=== PATIENT | male | born 1935 | race Caucasian/White ===

== ENCOUNTER → 2018-05-08 | Outpatient (CLI) | payer OTHER, MEDICARE ==
[~2018-05-08] MED LIST: AMOX500C3 PO; ASCO1CAP3 PO; ASPCH81X PO; CALC950T5 PO; CHOL20009 PO; CYAN30003 SC; DULO-24 PO; FERR1TAB23 PO; FOLI1TAB8 PO; FRS/40 PO; METO50TA8 PO; MISCCAP80 PO; MULT-506 PO; PANT40TA PO; PRED-301 PO; RAMI10CA PO; SIMV80TA2 PO; TRAM-10 PO; TYLOTC500 PO
[2018-05-08 13:48] LABS: ALT/SGPT 27 U/L (12-78); AST/SGOT 18 U/L (15-37); BLOOD UREA NITROGEN 18 mg/dl (7-18); CALCIUM 8.7 mg/dl (8.5-10.1); CARBON DIOXIDE 28 mmol/L (21-32); CHOLESTEROL 134 mg/dl (0-200); CREATININE 0.89 mg/dl (0.60-1.40); GLUCOSE 102 mg/dl (70-99); LDL CHOLESTEROL CALCULATED 71 mg/dl; POTASSIUM 4.3 mmol/L (3.5-5.1); SODIUM 136 mmol/L (136-145)
== END | disposition home or self-care (01) ==
LOC: C.LABPBG 09:29
PROVIDERS: ATTEND Family Medicine
DX: E78.5 Hyperlipidemia, unspecified (principal); I10 Essential (primary) hypertension; I25.10 Atherosclerotic heart disease of native coronary artery without angina pectoris; R53.83 Other fatigue

== ENCOUNTER 2018-11-20 11:08 | Inpatient (IN) ==
[2018-11-20 12:06] LABS: Basophils # (auto) 0.01 K/uL (0-0.2); Basophils % (auto) 0.1 %; Eosinophils # (auto) 0.03 K/uL (0-0.5); Eosinophils % (auto) 0.3 %; Hematocrit (blood only) 34.6 % (42-52); Hemoglobin 10.8 g/dL (14.0-18.0); Immature Granulocytes # (auto) 0.05 K/uL (0.00-0.02); Immature Granulocytes % (auto) 0.5 %; Lymphocytes % (auto) 17.2 %; Mean Corpuscular Hgb Conc 31.2 g/dL (32-36); Mean Corpuscular Volume 103.6 fL (80-100); Monocytes # (auto) 0.62 K/uL (0.11-0.59); Monocytes % (auto) 5.6 %; Neutrophils # (auto) 8.42 K/uL (1.4-6.5); Neutrophils % (auto) 76.3 %; Platelet Count 233 K/uL (130-400); RDW Coefficient of Variation 14.1 % (11.5-14.5); RDW Standard Deviation 53.2 fL (36.4-46.3); Red Blood Count 3.34 M/uL (4.7-6.1); White Blood Count 11.03 K/uL (4.8-10.8)
[2018-11-20 12:13] LABS: Albumin Level 3.4 gm/dl (3.4-5.0); BUN Creatinine Ratio 34.8 (10-20); Calcium 8.8 mg/dl (8.5-10.1); Creatinine Clr Calc Pharmacy 65.3 ml/min; Est GFR (African American) 66.7; Est GFR (Non-African American) 57.5; Magnesium 2.3 mg/dl (1.8-2.4); Potassium 4.2 mmol/L (3.5-5.1)
[2018-11-20 12:22] LABS: Albumin Globulin Ratio 0.9 (0.9-2); Bilirubin,Total 0.6 mg/dl (0.2-1); Globulin 3.9 gm/dl (2.5-4.0); Total Protein 7.3 gm/dl (6.4-8.2); Troponin I 0.023 ng/ml (0-0.045)
[2018-11-20 12:23] LABS: INR 1.1 (0.9-1.1); Prothrombin Time 11.3 Seconds (9.0-12.0)
--- NOTE | 2018-11-20 12:32 | XRay Report ---
SINGLE VIEW CHEST CLINICAL HISTORY: Atrial fibrillation. FINDINGS: 2 AP, portable, upright chest radiographs are compared to study dated 10/14/2015. The examin ation is degraded by portable technique and patient rotation. The heart is enlarged and there is ath erosclerotic calcification of the thoracic aorta. There is pulmonary vascular congestion. No airspace consolidation or large pleural effusion is identified. No pneumothorax is seen. The skeletal structu res are osteopenic. The bony thorax is grossly intact. A surgical anchor is noted in the left humeral head. IMPRESSION: 1. Cardiomegaly with evidence of mild congestive failure. 2. No airspace consolidation or large pleural effusion is identified. Electronically signed by: Los Story M.D. 11/20/2018 12:30 PM
[2018-11-20] MEDS: dilTIAZem HCl 125 MG in DEXTROSE 5% 100 ML IV SCH ×2 (12:47→21:58)
[2018-11-20] MEDS ORDERED: Heparin IV Low Dose *NO* Bolus IV ONE (13:03)
[2018-11-20] MEDS ORDERED: HEPARIN 25000 UNIT/500 ML D5W IV ONE (13:24)
[2018-11-20 13:28] LABS: Partial Thromboplastin Ratio 0.8; Partial Thromboplastin Time 22.3 Seconds (21.0-31.0)
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
[2018-11-20] MEDS ORDERED: ACETAMINOPHEN 325 MG TAB PO PRN (16:26)
[2018-11-20] MEDS ORDERED: CYCLOBENZAPRINE HCL 5 MG TAB PO PRN (16:26)
[2018-11-20] MEDS ORDERED: POLYETHYLENE (MIRALAX) 17 GM PACK PO PRN (16:26)
[2018-11-20] MEDS ORDERED: ONDANSETRON INJ 2 MG/ML 2 ML VIAL IV PRN (16:26)
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
[2018-11-20 18:11] LABS: Partial Thromboplastin Time 26.8 Seconds (21.0-31.0)
[2018-11-20] MEDS: APIXABAN 5 MG TABLET PO SCH (18:57)
[2018-11-20] MEDS: azaTHIOprine 50 MG TAB PO SCH ×2 (18:58→21:59)
[2018-11-20] MEDS: METOPROLOL SUCC 50MG EXT REL TAB PO SCH (20:09)
[2018-11-20] MEDS: DULOXETINE HCL 20 MG CAP PO SCH (20:09)
[2018-11-20] MEDS: Heparin IV Standard *NO* Bolus IV SCH ×2 (20:13→20:14)
[2018-11-21] MEDS: APIXABAN 5 MG TABLET PO SCH (05:28)
[2018-11-21 06:48] LABS: Hematocrit (blood only) 35.1 % (42-52); Hemoglobin 10.9 g/dL (14.0-18.0); Mean Corpuscular Hgb Conc 31.1 g/dL (32-36); Mean Corpuscular Volume 102.9 fL (80-100); Mean Platelet Volume 10.9 fL (7.4-10.4); Platelet Count 258 K/uL (130-400); RDW Coefficient of Variation 14.3 % (11.5-14.5); RDW Standard Deviation 53.1 fL (36.4-46.3); Red Blood Count 3.41 M/uL (4.7-6.1); White Blood Count 12.31 K/uL (4.8-10.8)
[2018-11-21 07:24] LABS: BUN Creatinine Ratio 36.9 (10-20); Calcium 8.8 mg/dl (8.5-10.1); Creatinine Clr Calc Pharmacy 67.7 ml/min; Est GFR (African American) 70.3; Est GFR (Non-African American) 60.6; Potassium 4.2 mmol/L (3.5-5.1)
[2018-11-21] MEDS: DULOXETINE HCL 20 MG CAP PO SCH (08:03)
[2018-11-21] MEDS: azaTHIOprine 50 MG TAB PO SCH ×2 (08:03→13:54)
[2018-11-21] MEDS: METOPROLOL SUCC 50MG EXT REL TAB PO SCH (08:04)
[2018-11-21] MEDS ORDERED: CHOLECALCIFEROL 1,000 UNITS TAB PO SCH (09:00)
[2018-11-21] MEDS ORDERED: CALCIUM CITRATE 950 MG TAB PO SCH (09:00)
[2018-11-21] MEDS ORDERED: FUROSEMIDE 40 MG TAB PO SCH (09:00)
[2018-11-21] MEDS ORDERED: CYANOCOBALAMIN 500 MCG TABLET (VITAMIN B-12) PO SCH (09:00)
[2018-11-21] MEDS ORDERED: ENALAPRIL MALEATE 10 MG TAB PO SCH (09:00)
[2018-11-21] MEDS ORDERED: PANTOprazole 40 MG TAB PO SCH (09:00)
[2018-11-21] MEDS ORDERED: METOPROLOL SUCC 50MG EXT REL TAB PO SCH (09:00)
[2018-11-21] MEDS ORDERED: ASPIRIN 81 MG ECTAB PO SCH (09:00)
[2018-11-21] MEDS ORDERED: FOLIC ACID 400 MCG TAB PO SCH (09:00)
[2018-11-21] MEDS ORDERED: SIMVASTATIN 80 MG TAB PO SCH (09:00)
[2018-11-21] MEDS ORDERED: FERROUS SULFATE 325 MG TAB PO SCH (09:00)
[2018-11-21] MEDS: dilTIAZem HCl 125 MG in DEXTROSE 5% 100 ML IV SCH (10:00)
--- NOTE | 2018-11-21 13:10 | Discharge Summary ---
Date of Service November 21, 2018 Admission HPI Per Admitting Provider 83 yo male with history of AK with two stents in 2006, follows with Dr. Davila as outpatient, was sent to the ED for atrial fibrillation discovered at his PCP office. The patient was at the office for routine follow up, check up. He said he has been doing well. He had a check up with Dr. Davila in June, had echo that was normal, he takes his Metoprolol and aspirin as prescribed. He never has angina. In the office his HR was 140 on pulse ox and an EKG showed atrial fibrillation with rates 140. In the ED he was placed on the monitor and remained in afib. Cardizem bolus and drip started and HR responded appropriately to the low 100's. He took his Toprol this morning. 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 He denies feeling any palpitations or chest pressure the past three days. No presyncope symptoms. 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 He has a strong family history of atherosclerosis. Father and uncles on father side from AK's. Had a son who as a result of large stroke at age 42. Admission Exam Per Admitting Provider Constitutional: WD/WN, vitals as above + obese Eyes: PERRL, conjunctivae normal, anicteric sclerae ENMT: external ear and nose normal, oropharynx normal Neck: trachea midline, no thyromegaly Respiratory: normal respiratory effort, lungs clear to auscultation Cardiovascular: Rate/Rhythm: + tachycardic; + abnormal rhythm (irregular irregular) Heart Sounds: normal S1 and normal S2; no murmur Vessels: normal peripheral pulses Extremities: no pedal edema Gastrointestinal (Abdomen): normal bowel sounds, soft, nontender, no hepatosplenomegaly Musculoskeletal: no cyanosis or clubbing, extremities motor strength 5/5 Skin: no rashes, warm and dry Neurologic: patellar DTR's 2+ bilat, sensation intact and PERRL, EOMI, accommodation nl, no face palsy, no dysarthria Psychiatric: A+Ox3, euthymic affect Lymphatic: no cervical or axillary lymphadenopathy Principal Diagnosis Atrial fibrillation with RVR Discharge Exam General Appearance: Awake, alert & oriented, comfortable in general, NAD. CV: +S1S2 irregularly irregular, no murmur. Pulm: Clear to auscultation throughout. Abdomen: +BS, soft, non-tender, non-distended. Extremities: Moving all extremities naturally and easily. Chronic bilateral lower extremity edema with associated skin changes versus vasculitis. Neuro: Patient has baseline decreased sensation in his right arm. Otherwise no acute focal neuro deficits noted. Discharge Data Allergies Allergy/AdvReac Type Severity Reaction Status Date / Time bee venom protein (honey bee) Allergy Unknown ANAPHYLAXIS Unverified 11/20/18 11 :57 rofecoxib Allergy Unknown PULMONARY Unverified 11/20/18 11:57 EDEMA dapsone Allergy Unknown Unverified 11/20/18 11:57 ALLOPURINAL Allergy Mild RASH Uncoded 11/20/18 11:57 Consultations Initial cardiology assessment and plan on 20 November 2017 New onset atrial fibrillation: Heart rate is better controlled on diltiazem at 10 milligrams/hour. Will increase metoprolol to 50 mg twice daily. If heart rate needs further control, would then consider further titration or initiation of oral diltiazem. Wean diltiazem drip as able. We discussed the diagnosis and treatment strategies. Recommend continuation of rate control strategy for now. Onset is not completely known, but suspected greater than 48 hours. We discussed the importance of stroke risk reduction with anticoagulation therapy. He is agreeable. Start Eliquis 5 mg twice daily and can discontinue heparin drip ( nursing staff has noted that blood draws are difficult). (2) CAD (coronary artery disease): No angina. He is status post PCI in 2008. Continue aspirin therapy. Continue beta-ophelia and statin therapy. (3) Dyspnea on exertion: Likely secondary to atrial fibrillation with rapid ventricular response. He does not appear to be significantly hypervolemic. Continue home dose of diuretic therapy. Given symptoms, it would be reasonable to repeat an echocardiogram to evaluate for tachycardia induced cardiomyopathy. Procedures Performed Portable chest x-ray on 20 November 2018 IMPRESSION: 1. Cardiomegaly with evidence of mild congestive failure. 2. No airspace consolidation or large pleural effusion is identified. Hospital Course (1) New onset atrial fibrillation: 83-year-old male was admitted on 20 November 2018 after being referred from his block sawyer's office due to newly diagnosed atrial fibrillation. Atrial fibrillation with RVR: No reports of anginal symptoms. In the block sawyer office had a rates in the 140�s. Unknown time of onset. In ED, given Cardizem bolus and drip. TnI negative x 3. Normal TSH. Cardiology consulted, see related notes. Recommended rate control and starting Eliquis. This morning's EKG is A. fib with rate of 90. - Had his metoprolol increased from 50 mg daily to BID. - Patient reportedly does not have prescription drug coverage, so will need to work with his cardiology office on DOAC options vs coumadin going forward. Dyspnea on exertion: On ROS on arrival, patient perhaps had some recent mild SOB. Chest x-ray shows no acute infiltrates but is suggestive of mild congestive failure. BNP 2711. Jun 2018 TTE noted EF 55-60%, mild concentric LVH, mild TR. At home is on lasix 40 mg daily. At present says he has no SOB at rest but still a little with walking. - Repeat echocardiogram for here ordered. Results not available at time of discharge. Transaminitis: Minimal elevations in AST (57) and ALT (123). Would benefit from a routine outpatient follow-up check. Foot ulcers: PMH same. Followed by the wound clinic as an outpatient. Provided some wound care as inpatient as well. Ongoing medical issues: - CAD, AK in 2006 s/p stents x 2 in 2008: Continue aspirin, metoprolol, and simvastatin. Also on enalapril. - Chronic lower extremity edema, vasculitis: On home azathioprine and prednisone taper (patient says is towards the end of the 21 day course). - Hypertension: See �CAD� above. - Hyperlipidemia: On simvastatin. 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 - Anemia/MGUS: Follows with hematology in [place]. On home iron and vitamin B12. - Anxiety: On duloxetine. - Gout: Stable. - Morbid obesity: BMI 46.4. (2) Dyspnea on exertion: (3) Transaminitis: (4) Foot ulcer: (5) CAD (coronary artery disease): (6) Lower extremity edema: (7) HTN (hypertension): (8) Dyslipidemia: (9) GERD (gastroesophageal reflux disease): (10) Anemia: (11) Anxiety: (12) Gout: (13) Obese: Total Time Total Time Spent Total Time Spent (In Minutes): > 30 min Discharge Plan Discharge Items Patient Disposition: Home - Self-Care Reason For Visit: ATRIAL FIBRILLATION Discharge Diagnosis: Atrial fibrillation with RVR Discharge Goals: Improve function and Increase independence Activity: Per 'Additional Instructions' section Non-emergency contact: Primary Care Provider and Granulator Operator Call non-emergency contact if: you have any medication questions Follow-up/Referrals: Paul Davila MD [Granulator Operator] - 12/09/18 1:30 pm (Please, follow up at [facility] Cardiology Office with Dr. Davila on SundayDecember 09 at 1:30 pm. *If you need to change this appointment, call the office at [phone].) Diana Ventura DO [Primary Care Provider] - 11/25/18 9:40 am (Please, follow up with Dr. Ventura on SundayNovember 25 at 9:40 am. *This office is located in [place] next to [employer]. If you need to change this appointment, call the office at [phone].) Diet: Heart Healthy Add Provider Instructions: You were admitted to the hospital on November 20, 2018 after being referred from your block sawyer office for new onset atrial fibrillation. While in the hospital we evaluated the following issues: Atrial fibrillation with rapid ventricular rate: As we have discussed with you, this is a disorder where the electricity of your heart causes your atria to beat out of sync with your ventricles. This can lead to fast heart rates (and related to palpitations, chest discomfort, and/or difficulty breathing) as well as the risk for a blood clot that could lead to a stroke. - To try to control your heart rate, your metoprolol was increased from 50 mg once per day to 50 mg twice per day. - You were also prescribed a blood thinner called Eliquis. --- From a medicine standpoint, this is a rather safe drug but it will cause you to bleed more easily. If you find that you have even a small cut on your skin, it is important to apply direct pressure for at least 15 minutes. It is important that you do not check during this time if the bleeding is stopped. You can check at the end of the 15 minutes. If it is still bleeding at this time, we recommend that you reapply direct pressure, do not let go, and then be seen in an emergency department. Similarly, if you were to have a severe nosebleed or any bleeding with bowel movements, please go to the nearest emergency department. --- From a financial standpoint, this medication can be expensive if you do not have insurance coverage for it. The case management rn at the hospital have provided for the initial one month supply of this medicine. Please work with your block sawyer at time of outpatient follow-up to determine if you should stay on this medication going forward versus other options. Shortness of breath on exertion: Your shortness of breath with exertion is most likely related to the above atrial fibrillation. Testing of your lungs thus far has not noted any sign of infection. Please follow-up with either your block sawyer or your primary care provider for ongoing monitoring. Of course, if you were to develop any shortness of breath at rest or particular worsening of your shortness of breath you should be seen in an emergency department acutely. Elevated liver enzymes: A routine check of your liver enzymes on admission noted that they were slightly elevated. This is not dangerous but you should have follow-up for this with your primary care provider. Otherwise there should be no acute change in your medications, including that you should continue with your prednisone taper as previously prescribed. Please follow-up with cardiology as has been arranged for you. Please also follow-up with your primary care provider as soon as possible for good close posthospital continuity of care. The emergency department remains available for any bleeding or shortness of breath issues as discussed above, as well as if you were to experience any chest pain, or any other emergent concerns. Prescriptions: New metoprolol succinate 50 mg Tablet Extended Release 24 Hr 50 mg PO BID 30 Days Qty: 60 RF: 0 apixaban [Eliquis] 5 mg Tablet 5 mg PO BID@0600,1800 30 Days Qty: 60 RF: 0 Continue multivitamin Tablet 1 tab PO BID RF: 0 furosemide 40 mg Tablet 40 mg PO DAILY RF: 0 cyanocobalamin (vitamin B-12) 1,000 mcg Tablet 1,000 mcg PO DAILY RF: 0 azathioprine [Imuran] 50 mg Tablet 50 mg PO TID RF: 0 simvastatin 80 mg Tablet 80 mg PO DAILY RF: 0 aspirin [Aspirin Low Dose] 81 mg Tablet,Delayed Release (Dr/Ec) 81 mg PO DAILY RF: 0 tramadol 50 mg Tablet 50 mg PO DIRECTED PRN (Reason: Pain) RF: 0 acetaminophen [Tylenol Extra Strength] 500 mg Tablet 500 mg PO Q4H PRN (Reason: Pain) RF: 0 ascorbic acid (vitamin C) [Vitamin C] 500 mg Tablet 500 mg PO DAILY RF: 0 pantoprazole 40 mg Tablet,Delayed Release (Dr/Ec) 40 mg PO DAILY RF: 0 ferrous sulfate 325 mg (65 mg iron) Tablet 325 mg PO DAILY RF: 0 folic acid 800 mcg Tablet 0.8 mg PO DAILY RF: 0 ramipril 10 mg Capsule 10 mg PO DAILY RF: 0 cyclobenzaprine 5 mg Tablet 5 mg PO TID PRN (Reason: Muscle Spasm) RF: 0 calcium citrate 250 mg calcium Tablet 250 mg PO DAILY RF: 0 cholecalciferol (vitamin D3) [Vitamin D3] 2,000 unit Tablet 2,000 unit PO DAILY RF: 0 testosterone 20.25 mg/1.25 gram (1.62 %) Gel In Metered-Dose Pump 2 pump TRANSDERMAL DAILY RF: 0 lactobacillus combination no.4 [Probiotic] 3 billion cell Capsule 3,000 mmu cells PO DAILY RF: 0 duloxetine 40 mg Capsule,Delayed Release(Dr/Ec) 40 mg PO BID RF: 0 Discontinued metoprolol succinate 50 mg Tablet Extended Release 24 Hr 50 mg PO DAILY RF: 0 Stand-Alone Forms: My [facility]/Other Patient Handouts: Apixaban Oral tablet, Metoprolol Succinate Oral tablet extended-release, AFL/Afib, Stroke Prevent Live W Atrial Fib Discharge Orders: Discharge Order (Routine); Ordered 11/21/18 Ordered By: Wilton Cruz Admission Data Admit Date/Time: 11/20/18 13:17 Attending Provider: Titi Segura Admit Provider: Hermilo Guardado Primary Care Provider: Diana Ventuar Other Providers: Hermilo Guardado ; Paul Davila Service: Telemetry Other Interventions: Discharge Summary Assessment (RN) Last Done: 11/21/18 14:26 DC Date/Time DO NOT enter until pt leaves facility: 11/21/18 15:17 Supervising Physician Co-Signing Physician Notes I personally examined the patient and verified all walters points of history and exam, discussed case, and agree with decision making with Dr Cruz. Feeling better, feeling like his breathing is better. He notes his cardinal symptoms were dyspnea on exertion, and notes that this probably is going back 10 days prior to admission. Rates improved. No new complaints, case discussed with cardiology and input appreciated. Vitals noted, in general he is awake alert oriented x3 pleasant no acute distress. HEENT normocephalic atraumatic mucous members are moist. He is in A. fib but his rate is now controlled. Breathing is unlabored no accessory muscle use good effort. Skin shows no rashes no pallor or icterus. New onset A. fib�rate control, anticoagulation. Discussed risks and benefits of anticoagulation, and all questions answered to the best my ability. He is stable for home Chronic systolic CHF�did not decompensate in spite of atrial fibrillation. Outpatient follow-up Resident Activity Tracking Resident Involvement: Resident Care Provided Care Provided: Adult Hospital Medicine
--- NOTE | 2018-11-21 13:23 | Cardiology Progress Note ---
Date of Service November 21, 2018 Assessment & Plan (1) New onset atrial fibrillation: Heart rate is reasonably controlled at rest on oral beta-ophelia therapy. Diltiazem drip had been discontinued by primary service. He is tolerating increased dose of beta-ophelia. Discussed with nursing staff and she plans on having him walk in the hallway to evaluate heart rate. If heart rate remains adequately controlled and he is not significantly symptomatic, he can be discharged from a cardiac standpoint on current beta-ophelia dose (titrated from home dose) and anticoagulation therapy for stroke risk reduction. We once again discussed the fact that if he remains symptomatic her heart rate is not adequately controlled in the future, after 4 weeks of therapeutic anticoagulation, cardioversion could be considered. Recommend follow-up with Dr. Davila in approximately 2 weeks. (2) CAD (coronary artery disease): No angina. He is status post PCI in 2008. Continue aspirin therapy. Continue beta-ophelia and statin therapy. (3) Dyspnea on exertion: Likely secondary to atrial fibrillation with rapid ventricular response. He does not appear to be significantly hypervolemic. Hopefully when he ambulates in the hallway, his symptoms show improvement with better heart rate control on higher doses of beta-ophelia therapy. If so, no further evaluation recommended at this time. If no improvement, could consider transesophageal echo and cardioversion sooner. Disposition: Upon discharge, recommend follow-up with Dr. Davila. Patient care discussed with Dr. Segura of the primary hospitalist service. Addendum: Echocardiogram was done earlier this morning and reviewed however the patient had already been discharged. Echocardiogram demonstrated mildly reduced biventricular systolic function. There was also mild biatrial dilation, moderate mitral regurgitation, and mild pulmonary hypertension suggested. Additional assessment and plan: 1. Cardiomyopathy: He has mildly reduced LV systolic function, as well as RV systolic function. This could be secondary to tachycardia. Would recommend repeating outpatient echocardiogram after adequate rate control. This can be determined by his primary fruit loader, Dr. Davila. He does not appear to be significantly hypervolemic on examination however if he has continued shortness of breath, would recommend diuresis. For now, heart rate control as above. 2. Mitral regurgitation: Non severe but described as moderate. Follow-up as an outpatient. This should not account for symptoms at this time. 3. Disposition: Cardiology office will notify him of his echo findings. (4) Cardiomyopathy: (5) Mitral regurgitation: Subjective At rest, he denies shortness of breath. He he walked to the restroom to washout and when bending over, he felt a bit short of breath. He had not yet walked in the hallway. He denies chest pain, syncope, near-syncope, palpitations, or worsening edema. He denies bleeding. Review of systems: As above. Physical Exam 2 Vital Signs (Past 24 Hours): Last Vital Signs Temp 36.5 C 11/21/18 11:54 Pulse 84 11/21/18 11:54 Resp 22 11/21/18 11:54 BP 113/65 11/21/18 11:54 Pulse Ox 93 11/21/18 11:54 Physical Exam: Gen.: No acute distress. Alert and oriented. HEENT: Anicteric sclera. Neck: Thick neck, cannot appreciate JVD. Cardiac: Irregularly irregular, but rate controlled. Normal S1-S2. No murmurs, rubs, or gallops. Pulmonary: Clear to auscultation bilaterally without wheezes, rales, or rhonchi. Abdomen: Soft, nontender, nondistended, with normoactive bowel sounds. No bruits noted. Extremities: Trace bilateral lower extremity edema. No cyanosis. Venous stasis changes noted bilateral lower extremities. Psychiatric: Affect appears appropriate. Results & Data Laboratory Results Laboratory Results - last 24 hr 11/20/18 11/20/18 11/20/18 10:20 16:52 17:48 WBC RBC Hgb Hct MCV MCH MCHC RDW Std Deviation RDW Coeff of Phyllis Plt Count MPV APTT 22.3 26.8 PTT Ratio 0.8 1.0 Sodium Potassium Chloride Carbon Dioxide Anion Gap BUN Creatinine Est Cr Clr Drug Dosing Est GFR ( Amer) Est GFR (Non-Af Amer) BUN/Creatinine Ratio Glucose Calcium Troponin I < 0.015 11/21/18 11/21/18 11/21/18 00:13 06:03 06:03 WBC 12.31 H RBC 3.41 L Hgb 10.9 L Hct 35.1 L MCV 102.9 H MCH 32.0 MCHC 31.1 L RDW Std Deviation 53.1 H RDW Coeff of Phyllis 14.3 Plt Count 258 MPV 10.9 H APTT PTT Ratio Sodium 135 L Potassium 4.2 Chloride 100 Carbon Dioxide 30 Anion Gap 6.0 BUN 42 H Creatinine 1.13 Est Cr Clr Drug Dosing 67.7 Est GFR ( Amer) 70.3 Est GFR (Non-Af Amer) 60.6 BUN/Creatinine Ratio 36.9 H Glucose 137 H Calcium 8.8 Troponin I < 0.015 Medications Administered Current Inpatient Medications Acetaminophen (Tylenol) 650 mg PO Q4H PRN PRN Reason: Pain or Fever Stop: 12/20/18 16:25 Last Admin: 11/20/18 20:08 Dose: 650 mg Apixaban (Eliquis) 5 mg PO BID@0600,1800 [facility] Stop: 12/20/18 17:59 Last Admin: 11/21/18 05:28 Dose: 5 mg Aspirin (Ecotrin Ectab) 81 mg PO DAILY [facility] Stop: 12/21/18 08:59 Last Admin: 11/21/18 08:02 Dose: 81 mg Azathioprine (Imuran) 50 mg PO TID [facility] Stop: 12/20/18 16:25 Last Admin: 11/21/18 08:03 Dose: 50 mg Calcium Citrate (Citracal) 950 mg PO DAILY [facility] Stop: 12/21/18 08:59 Last Admin: 11/21/18 08:03 Dose: 950 mg Cyanocobalamin (Vitamin B-12) 1,000 mcg PO DAILY [facility] Stop: 12/21/18 08:59 Last Admin: 11/21/18 08:03 Dose: 1,000 mcg Cyclobenzaprine HCl (Flexeril) 5 mg PO TID PRN PRN Reason: Muscle Spasm Stop: 12/20/18 16:25 Duloxetine HCl (Cymbalta) 40 mg PO BID [facility] Stop: 12/20/18 20:59 Last Admin: 11/21/18 08:03 Dose: 40 mg Enalapril Maleate (Vasotec) 40 mg PO DAILY [facility] Stop: 12/21/18 08:59 Last Admin: 11/21/18 08:02 Dose: 40 mg Ferrous Sulfate (Feosol) 325 mg PO DAILY [facility] Stop: 12/21/18 08:59 Last Admin: 11/21/18 08:03 Dose: 325 mg Folic Acid (Folvite) 800 mcg PO DAILY [facility] Stop: 12/21/18 08:59 Last Admin: 11/21/18 08:02 Dose: 800 mcg Furosemide (Lasix) 40 mg PO DAILY [facility] Stop: 12/21/18 08:59 Last Admin: 11/21/18 08:02 Dose: 40 mg Diltiazem HCl 125 mg/ Dextrose 125 mls @ 10 mls/hr IV .[id number] [facility]; Protocol Stop: 12/20/18 12:14 Last Admin: 11/21/18 10:00 Dose: 10 mg/hr, 10 mls/hr Metoprolol Succinate (Toprol Xl) 50 mg PO BID [facility] Stop: 12/20/18 20:59 Last Admin: 11/21/18 08:04 Dose: 50 mg Miscellaneous (Order Awaiting Action) 1 ea N/A QS [facility] Stop: 12/21/18 00:00 Last Admin: 11/21/18 08:01 Dose: Not Given Ondansetron HCl (Zofran) 4 mg IV Q6H PRN PRN Reason: Nausea Stop: 12/20/18 16:25 Last Admin: 11/21/18 05:31 Dose: 4 mg Pantoprazole Sodium (Protonix) 40 mg PO DAILY [facility] Stop: 12/21/18 08:59 Last Admin: 11/21/18 08:03 Dose: 40 mg Polyethylene Glycol (Miralax Powder Packet) 17 gm PO DAILY PRN PRN Reason: Constipation Stop: 12/20/18 16:25 Simvastatin (Zocor) 80 mg PO DAILY [facility] Stop: 12/21/18 08:59 Last Admin: 11/21/18 08:02 Dose: 80 mg Vitamin D (Vitamin D3) 2,000 units PO DAILY [facility] Stop: 12/21/18 08:59 Last Admin: 11/21/18 08:02 Dose: 2,000 units
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
== END 2018-11-21 15:17 | disposition home or self-care (01) | DRG 309 ==
LOC: ED 11:08 → 2S 13:17 → SUATTDRO 13:17 → 2S 15:04

== ENCOUNTER 2019-03-31 02:35 | Inpatient (IN) ==
[2019-03-31] MEDS ORDERED: FUROSEMIDE 40 MG/4 ML VIAL IV STA (03:18)
[2019-03-31 03:21] LABS: Basophils # (auto) 0.01 K/uL (0-0.2); Basophils % (auto) 0.1 %; Eosinophils # (auto) 0.01 K/uL (0-0.5); Eosinophils % (auto) 0.1 %; Hematocrit (blood only) 23.9 % (42-52); Hemoglobin 7.7 g/dL (14.0-18.0); Immature Granulocytes # (auto) 0.02 K/uL (0.00-0.02); Immature Granulocytes % (auto) 0.3 %; Lymphocytes # (auto) 1.54 K/uL (1.2-3.4); Lymphocytes % (auto) 19.4 %; Mean Corpuscular Hgb Conc 32.2 g/dL (32-36); Mean Platelet Volume 9.3 fL (7.4-10.4); Monocytes # (auto) 0.67 K/uL (0.11-0.59); Monocytes % (auto) 8.4 %; Neutrophils # (auto) 5.68 K/uL (1.4-6.5); Neutrophils % (auto) 71.7 %; Platelet Count 286 K/uL (130-400); RDW Coefficient of Variation 17.7 % (11.5-14.5); RDW Standard Deviation 60.9 fL (36.4-46.3); Red Blood Count 2.49 M/uL (4.7-6.1); White Blood Count 7.93 K/uL (4.8-10.8)
[2019-03-31 03:34] LABS: INR 1.2 (0.9-1.1); Partial Thromboplastin Ratio 0.9; Partial Thromboplastin Time 25.4 Seconds (21.0-31.0); Prothrombin Time 12.4 Seconds (9.0-12.0)
[2019-03-31 03:39] LABS: Albumin Level 3.4 gm/dl (3.4-5.0); BUN Creatinine Ratio 22.5 (10-20); Calcium 8.8 mg/dl (8.5-10.1); Creatinine Clr Calc Pharmacy 55.7 ml/min; Est GFR (African American) 62.8; Est GFR (Non-African American) 54.2; Potassium 3.4 mmol/L (3.5-5.1)
[2019-03-31 03:41] LABS: Albumin Globulin Ratio 0.7 (0.9-2); Bilirubin,Total 0.6 mg/dl (0.2-1); Globulin 4.8 gm/dl (2.5-4.0); Total Protein 8.2 gm/dl (6.4-8.2)
[2019-03-31 04:14] LABS: Ovalocytes 1+
[2019-03-31 04:59] LABS: Troponin I 0.019 ng/ml (0-0.045)
[2019-03-31] MEDS ORDERED: PROTHROMBIN COMP CONC- KCENTRA 2,000 UNITS in SYRINGE 0 ML IV ONE (05:00)
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
[2019-03-31] MEDS ORDERED: METOPROLOL TARTRATE 1 MG/ML VIAL IV PRN (05:58)
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
[2019-03-31] MEDS ORDERED: ICU PROTOCOL FOR HYPERGLYCEMIA PRN (06:06)
[2019-03-31] MEDS ORDERED: ACETAMINOPHEN 1000 MG/100 ML IV IV PRN (06:06)
[2019-03-31] MEDS ORDERED: HYDROCORTISONE SOD SUCCINATE 100 MG/2 ML VIAL IV SCH (06:06)
[2019-03-31] MEDS ORDERED: NSS + 20MEQ KCL 20 MEQ/1,000 ML BAG IV SCH (06:15)
[2019-03-31] MEDS ORDERED: ALBUT/IPRATROP 3MG/0.5MG NEB 3 ML VIAL NEB PRN (06:20)
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
[2019-03-31 07:10] LABS: Hematocrit (blood only) 24.1 % (42-52); Hemoglobin 7.7 g/dL (14.0-18.0)
--- NOTE | 2019-03-31 07:10 | CT Scan Report ---
CT abd pelvis wo con CT DOSE: 2697.44 mGy.cm HISTORY: anemia, coagulopathy, assess retroperitoneal bld TECHNIQUE: Multiaxial CT images of the abdomen and pelvis were performed without contrast. A dose lo wering technique was utilized adhering to the principles of ALARA. COMPARISON STUDY: None. FINDINGS: Lung bases show diffuse bilateral bibasilar parenchymal infiltrative changes. Liver spleen and pancreas appear unremarkable. Mild atrophy of the kidneys. No evidence for nephrocalcinosis or hydronephrosis. 3.4 cm infrarenal abdominal aortic aneurysm. Moderate atherosclerotic change of the pelvic arterial v ascular structures. Bladder is midline. Bowel pattern overall is nonobstructive. IMPRESSION: 1. No acute abnormality. 2. 3.4 cm aneurysm of abdominal aorta. 3. Study overall is otherwise negative. 4. Mild renal atrophy. 6. Bibasilar parenchymal infiltrative changes versus pulmonary edema The above report was generated using voice recognition software. It may contain grammatical, syntax or spelling errors. Electronically signed by: Manuel Cornejo M.D. 03/31/2019 7:09 AM
--- NOTE | 2019-03-31 07:39 | XRay Report ---
XR chest 1V portable HISTORY: Dyspnea COMPARISON: Chest 11/20/2018. FINDINGS: Interval development of bilateral perihilar airspace opacities most pronounced at the lung bases. The heart remains mildly enlarged. No pneumothorax. Trace bilateral pleural effusions. Healing left anterior rib fractures. IMPRESSION: Bilateral perihilar airspace opacities, cardiomegaly, trace bilateral pleural effusions. This favors pulmonary edema. A pneumonia could also have a similar appearance. Electronically signed by: Shlomo Bhatia M.D. 03/31/2019 7:37 AM
[2019-03-31] MEDS: ALBUT/IPRATROP 3MG/0.5MG NEB 3 ML VIAL NEB SCH ×4 (07:48→19:45)
--- NOTE | 2019-03-31 07:51 | CT Scan Report ---
CT chest wo con CT DOSE: HISTORY: hypoxia, hemoptysis TECHNIQUE: Multiaxial CT images of the chest were performed without contrast. A dose lowering techni que was utilized adhering to the principles of ALARA. COMPARISON: Chest 03/31/2019. FINDINGS: Mild respiratory motion artifact. The central airways appear patent. No pneumothorax. Trace left pleural effusion. Patchy bilateral groundglass airspace opacities with mild interlobular septal thickening most pronounced on the right. This is nonspecific but favors asymmetric pulmonary edema. Healing/healed bilateral anterior rib fractures. There is also healing right humeral neck fracture. P lease refer to the same day abdomen and pelvis CT for further evaluation of the abdominal structures. The heart is mildly enlarged. Normal caliber thoracic aorta. No significant mediastinal or hilar lym phadenopathy. Trace pericardial effusion. IMPRESSION: 1. Bilateral groundglass airspace opacities most pronounced on the right. This favors pulmonary edema . A pneumonia could also have a similar appearance. 2. Trace left pleural effusion and a trace pericardial effusion. 3. Mild cardiomegaly. 4. Healing right humeral neck fracture. No pneumothorax. Electronically signed by: Shlomo Bhatia M.D. 03/31/2019 7:50 AM
[2019-03-31] MEDS ORDERED: POTASSIUM CHLORIDE 20 MEQ TABCR PO STA (08:18)
[2019-03-31] MEDS: AMIODARONE 200 MG TAB PO SCH (08:28)
[2019-03-31] MEDS: HYDROCORTISONE SOD 100 MG in SYRINGE 0 ML IV SCH ×3 (08:28→21:28)
[2019-03-31] MEDS: FAMOTIDINE 20 MG in SYRINGE 3 ML IV SCH ×2 (08:32→18:06)
[2019-03-31] MEDS ORDERED: MIDAZOLAM HCL 1 MG/ML 2ML VIAL ONE ×2 (08:34→08:58)
[2019-03-31] MEDS ORDERED: fentaNYL citrate 100 MCG/2 ML VIAL ONE (08:36)
--- NOTE | 2019-03-31 08:39 | Critical Care Progress Note ---
Date of Service March 31, 2019 Assessment & Plan (1) Hemoptysis: Neuro- awake alert CV- HD stable Pulmonary- acute hypoxic respiratory failure due to bilateral infiltrates and hemoptysis. differential includes DAH from ?vasculitis(has had vasculitis of LE for past 2 months) vs infectious(but has had no symptoms) vs pulmonary edema but no evidence of volume overload. may also be related to anticoagulant use. will perform bronchoscopy and if evidence of DaH will need high dose steroids. 1000 mg a day for 3 days as there is concern for vasculitis. check ERNESTINE, anti GBM and ANCA ID- no clear infectious cause to infiltrates. does not have any infectious symptoms but low threshold for abx. follow cultures from bronchoscopy Renal- cr higher than prior. will watch GI- does not appear to have GI bleed. one episode of vomiting but was associated with cough. diet after bronchoscopy Heme- anemia chronic unclear cause. not likely related to hemoptyisis as hemoglobin not significantly changed from prior. transfuse for hgb <7 Endocrine- blood sugars controlled Dispo- ok to transfer out of ICU as long as hemoptysis is not worsening I have personally spent 45 minutes of critical care time in the direct management of this patient. This is a life/limb threatening event. This includes time spent evaluating patient, direct bedside care, chart review, placing orders, interpretation of diagnostic studies, discussion with consultants, patient, and/or family members regarding treatment decisions, as well as other required patient management activities. This time is exclusive of all separately billable procedures, and teaching time and separate from and in addition to any other critical care service time. Subjective breathing improving. still with episodes of hemoptysis. had one episode of vomiting yesterday after coughing Physical Exam Physical Exam: Constitutional: Comfortable NAD HEENT: normocephalic atraumatic. MMM. no cervical lymphadenopathy CV: RRR nl s1,s2 no murmurs rubs or gallops Lungs: crackles bilaterally. no accessory muscle use Abd: soft nontender nondistended. normal bowel sounds Ext: no edema. no cyanosis, no clubbing. Skin: warm dry Neuro: alert and oriented. moving all extremities Psych: normal mood and affect Results & Data Vital Signs (Past 12 Hours) Vital Signs Temp Pulse Pulse Resp BP BP Pulse Ox 03/31/19 07:48 80 20 95 03/31/19 07:00 76 21 156/81 H 97 03/31/19 06:26 37 C 81 23 174/96 H 96 03/31/19 06:22 18 03/31/19 06:21 37.0 C 84 20 174/96 H 90 03/31/19 04:55 73 18 143/77 H 94 03/31/19 02:38 84 26 H 158/81 H 83 L Laboratory Results Laboratory Results - last 24 hr 03/31/19 03/31/19 03/31/19 03:07 03:07 03:07 WBC 7.93 RBC 2.49 L Hgb 7.7 L Hct 23.9 L MCV 96.0 MCH 30.9 MCHC 32.2 RDW Std Deviation 60.9 H RDW Coeff of Phyllis 17.7 H Plt Count 286 MPV 9.3 Immature Gran % (Auto) 0.3 Neut % (Auto) 71.7 Lymph % (Auto) 19.4 [place] % (Auto) 8.4 Eos % (Auto) 0.1 Baso % (Auto) 0.1 Immature Gran # (Auto) 0.02 Neut # (Auto) 5.68 Lymph # (Auto) 1.54 [place] # (Auto) 0.67 H Eos # (Auto) 0.01 Baso # (Auto) 0.01 Ovalocytes 1+ PT 12.4 H INR 1.2 H APTT 25.4 PTT Ratio 0.9 Sodium 140 Potassium 3.4 L Chloride 106 Carbon Dioxide 27 Anion Gap 7.0 BUN 28 H Creatinine 1.24 Est Cr Clr Drug Dosing 55.7 Est GFR ( Amer) 62.8 Est GFR (Non-Af Amer) 54.2 BUN/Creatinine Ratio 22.5 H Glucose 97 Calcium 8.8 Total Bilirubin 0.6 AST 16 ALT 16 Alkaline Phosphatase 74 Troponin I 0.019 Total Protein 8.2 Albumin 3.4 Globulin 4.8 H Albumin/Globulin Ratio 0.7 L Nasal Screen MRSA (PCR) Blood Type Antibody Screen 03/31/19 03/31/19 03/31/19 03:25 06:47 06:47 WBC RBC Hgb 7.7 L Hct 24.1 L MCV MCH MCHC RDW Std Deviation RDW Coeff of Phyllis Plt Count MPV Immature Gran % (Auto) Neut % (Auto) Lymph % (Auto) [place] % (Auto) Eos % (Auto) Baso % (Auto) Immature Gran # (Auto) Neut # (Auto) Lymph # (Auto) [place] # (Auto) Eos # (Auto) Baso # (Auto) Ovalocytes PT INR APTT PTT Ratio Sodium Potassium Chloride Carbon Dioxide Anion Gap BUN Creatinine Est Cr Clr Drug Dosing Est GFR ( Amer) Est GFR (Non-Af Amer) BUN/Creatinine Ratio Glucose Calcium Total Bilirubin AST ALT Alkaline Phosphatase Troponin I 0.018 Total Protein Albumin Globulin Albumin/Globulin Ratio Nasal Screen MRSA (PCR) Blood Type A Positive Antibody Screen NEGATIVE 03/31/19 06:50 WBC RBC Hgb Hct MCV MCH MCHC RDW Std Deviation RDW Coeff of Phyllis Plt Count MPV Immature Gran % (Auto) Neut % (Auto) Lymph % (Auto) [place] % (Auto) Eos % (Auto) Baso % (Auto) Immature Gran # (Auto) Neut # (Auto) Lymph # (Auto) [place] # (Auto) Eos # (Auto) Baso # (Auto) Ovalocytes PT INR APTT PTT Ratio Sodium Potassium Chloride Carbon Dioxide Anion Gap BUN Creatinine Est Cr Clr Drug Dosing Est GFR ( Amer) Est GFR (Non-Af Amer) BUN/Creatinine Ratio Glucose Calcium Total Bilirubin AST ALT Alkaline Phosphatase Troponin I Total Protein Albumin Globulin Albumin/Globulin Ratio Nasal Screen MRSA (PCR) Pending Blood Type Antibody Screen Diagnostic Findings CT chest wo con CT DOSE: HISTORY: hypoxia, hemoptysis TECHNIQUE: Multiaxial CT images of the chest were performed without contrast. A dose lowering technique was utilized adhering to the principles of ALARA. COMPARISON: Chest 03/31/2019. FINDINGS: Mild respiratory motion artifact. The central airways appear patent. No pneumothorax. Trace left pleural effusion. Patchy bilateral groundglass airspace opacities with mild interlobular septal thickening most pronounced on the right. This is nonspecific but favors asymmetric pulmonary edema. Healing/healed bilateral anterior rib fractures. There is also healing right humeral neck fracture. Please refer to the same day abdomen and pelvis CT for further evaluation of the abdominal structures. The heart is mildly enlarged. Normal caliber thoracic aorta. No significant mediastinal or hilar lymphadenopathy. Trace pericardial effusion. IMPRESSION: 1. Bilateral groundglass airspace opacities most pronounced on the right. This favors pulmonary edema. A pneumonia could also have a similar appearance. 2. Trace left pleural effusion and a trace pericardial effusion. 3. Mild cardiomegaly. 4. Healing right humeral neck fracture. No pneumothorax. Electronically signed by: Shlomo Bhatia M.D. 03/31/2019 7:50 AM Critical Care Time Critical Care Time: Yes Total Critical Care Time: 45
--- NOTE | 2019-03-31 08:46 | Pre Anesthesia Assessment ---
Date of Service March 31, 2019 Pre Sedation Assessment Vital Signs Temp Pulse Pulse Resp BP BP Pulse Ox 03/31/19 07:48 80 20 95 03/31/19 07:00 76 21 156/81 H 97 03/31/19 06:26 37 C 81 23 174/96 H 96 03/31/19 06:22 18 03/31/19 06:21 37.0 C 84 20 174/96 H 90 03/31/19 04:55 73 18 143/77 H 94 03/31/19 02:38 84 26 H 158/81 H 83 L Cardiovascular RRR, no murmur, no edema Respiratory + respiratory effort normal and + cough; no respiratory distress + crackles Pre-Sedation Airway Assessment Smoking Status: Former smoker Hx Sleep Apnea: No Hx Difficult Intubation: No Short, Thick Neck: No Thyromental Distance: > or= 3.5 Finger Breadths Mallampati Class: II ASA: ASA2 NPO Status Date of Last Intake of Fluids: 03/30/19 Time of Last Intake of Fluids: 21:30 Date of Last Intake of Solid Food: 03/30/19 Time of Last Intake of Solid Foods: 21:30 Procedure Planning Current Medications Reviewed: Yes Notes The planned sedation has been discussed with the patient. Informed Consent was obtained. I have identified the patient, determined the appropriateness of sedation and have assessed the patient immediately prior to the procedure. All medicine(s) and interventions are by my order.
[2019-03-31] MEDS: ONDANSETRON INJ 2 MG/ML 2 ML VIAL IV PRN (09:20)
[2019-03-31] MEDS ORDERED: MIDAZOLAM HCL 5 MG/ML 1 ML VIAL IV STA (09:23)
--- NOTE | 2019-03-31 09:25 | Procedure Note ---
Procedure Note Date of Service March 31, 2019 Note Bronchoscopy with BAL procedure note after informed consent total of 3 mg of midazolam given for sedation lidocaine nebulizer given bronchoscope inserted through the mouth cords appear normal christie sharp airways examined to the subsegment of bilateral lungs. there was no endobronchial lesion. The was diffuse bleeding throughout airways. no specific source of bleeding found. serial BAL done in RUL x4 with clearing of the ble eding NOT consistent with DAH. fluid will be sent for culture and cytology pt tolerated procedure well except for coughing Coding CPT Codes Pulmonary/Thoracic - Pulmonary and Thoracic: Dx bronchoscopy/BAL ([id number])
--- NOTE | 2019-03-31 09:36 | Critical Care Progress Note ---
Date of Service March 31, 2019 Assessment & Plan (1) Hemoptysis: Neuro- awake alert CV- HD stable. history of afib now in sinus. hold on apixiban with bleeding. CAD Pulmonary- acute hypoxic respiratory failure due to bilateral infiltrates and hemoptysis. differential includes DAH from ?vasculitis(has had vasculitis of LE for past 2 months) vs infectious(but has had no symptoms) vs pulmonary edema but no evidence of volume overload. recieved one dose of furosemide. may also be related to anticoagulant use. will perform bronchoscopy and if evidence of DAH will need high dose steroids. 1000 mg a day for 3 days as there is concern for vasculitis. check ERNESTINE, anti GBM and ANCA ID- no clear infectious cause to infiltrates. does not have any infectious symptoms but low threshold for abx. follow cultures from bronchoscopy Renal- cr higher than prior. will watch GI- does not appear to have GI bleed. one episode of vomiting but was associated with cough. diet after bronchoscopy Heme- anemia chronic unclear cause. not likely related to hemoptyisis as hemoglobin not significantly changed from prior. transfuse for hgb <7. history of multiple myeloma Endocrine- blood sugars controlled Dispo- ok to transfer out of ICU as long as hemoptysis is not worsening Subjective breathing improving. still with episodes of hemoptysis. had one episode of vomiting yesterday after coughing Physical Exam Physical Exam: Constitutional: Comfortable NAD HEENT: normocephalic atraumatic. MMM. no cervical lymphadenopathy CV: RRR nl s1,s2 no murmurs rubs or gallops Lungs: crackles bilaterally. no accessory muscle use Abd: soft nontender nondistended. normal bowel sounds Ext: no edema. no cyanosis, no clubbing. Skin: warm dry Neuro: alert and oriented. moving all extremities Psych: normal mood and affect Results & Data Vital Signs (Past 12 Hours) Vital Signs Temp Pulse Pulse Resp BP BP Pulse Ox 03/31/19 09:10 84 21 161/119 H 95 03/31/19 09:05 92 H 26 H 179/114 H 95 03/31/19 09:00 93 H 24 172/84 H 94 03/31/19 08:55 76 23 98 03/31/19 08:52 74 21 134/79 99 03/31/19 07:48 80 20 95 03/31/19 07:00 76 21 156/81 H 97 03/31/19 06:26 37 C 81 23 174/96 H 96 03/31/19 06:22 18 03/31/19 06:21 37.0 C 84 20 174/96 H 90 03/31/19 04:55 73 18 143/77 H 94 03/31/19 02:38 84 26 H 158/81 H 83 L Laboratory Results Laboratory Results - last 24 hr 03/31/19 03/31/19 03/31/19 03:07 03:07 03:07 WBC 7.93 RBC 2.49 L Hgb 7.7 L Hct 23.9 L MCV 96.0 MCH 30.9 MCHC 32.2 RDW Std Deviation 60.9 H RDW Coeff of Phyllis 17.7 H Plt Count 286 MPV 9.3 Immature Gran % (Auto) 0.3 Neut % (Auto) 71.7 Lymph % (Auto) 19.4 [place] % (Auto) 8.4 Eos % (Auto) 0.1 Baso % (Auto) 0.1 Immature Gran # (Auto) 0.02 Neut # (Auto) 5.68 Lymph # (Auto) 1.54 [place] # (Auto) 0.67 H Eos # (Auto) 0.01 Baso # (Auto) 0.01 Ovalocytes 1+ PT 12.4 H INR 1.2 H APTT 25.4 PTT Ratio 0.9 Sodium 140 Potassium 3.4 L Chloride 106 Carbon Dioxide 27 Anion Gap 7.0 BUN 28 H Creatinine 1.24 Est Cr Clr Drug Dosing 55.7 Est GFR ( Amer) 62.8 Est GFR (Non-Af Amer) 54.2 BUN/Creatinine Ratio 22.5 H Glucose 97 POC Glucose Calcium 8.8 Total Bilirubin 0.6 AST 16 ALT 16 Alkaline Phosphatase 74 Troponin I 0.019 Total Protein 8.2 Albumin 3.4 Globulin 4.8 H Albumin/Globulin Ratio 0.7 L Fluid Polynuclear WBCs Fluid Mononuclear WBCs Nasal Screen MRSA (PCR) Blood Type Antibody Screen 03/31/19 03/31/19 03/31/19 03:25 06:47 06:47 WBC RBC Hgb 7.7 L Hct 24.1 L MCV MCH MCHC RDW Std Deviation RDW Coeff of Phyllis Plt Count MPV Immature Gran % (Auto) Neut % (Auto) Lymph % (Auto) Rose[place] % (Auto) Eos % (Auto) Baso % (Auto) Immature Gran # (Auto) Neut # (Auto) Lymph # (Auto) Rose[place] # (Auto) Eos # (Auto) Baso # (Auto) Ovalocytes PT INR APTT PTT Ratio Sodium Potassium Chloride Carbon Dioxide Anion Gap BUN Creatinine Est Cr Clr Drug Dosing Est GFR ( Amer) Est GFR (Non-Af Amer) BUN/Creatinine Ratio Glucose POC Glucose Calcium Total Bilirubin AST ALT Alkaline Phosphatase Troponin I 0.018 Total Protein Albumin Globulin Albumin/Globulin Ratio Fluid Polynuclear WBCs Fluid Mononuclear WBCs Nasal Screen MRSA (PCR) Blood Type A Positive Antibody Screen NEGATIVE 03/31/19 03/31/19 03/31/19 06:50 08:42 09:10 WBC RBC Hgb Hct MCV MCH MCHC RDW Std Deviation RDW Coeff of Phyllis Plt Count MPV Immature Gran % (Auto) Neut % (Auto) Lymph % (Auto) Rose[place] % (Auto) Eos % (Auto) Baso % (Auto) Immature Gran # (Auto) Neut # (Auto) Lymph # (Auto) [place] # (Auto) Eos # (Auto) Baso # (Auto) Ovalocytes PT INR APTT PTT Ratio Sodium Potassium Chloride Carbon Dioxide Anion Gap BUN Creatinine Est Cr Clr Drug Dosing Est GFR ( Amer) Est GFR (Non-Af Amer) BUN/Creatinine Ratio Glucose POC Glucose 94 Calcium Total Bilirubin AST ALT Alkaline Phosphatase Troponin I Total Protein Albumin Globulin Albumin/Globulin Ratio Fluid Polynuclear WBCs Pending Fluid Mononuclear WBCs Pending Nasal Screen MRSA (PCR) Negative Blood Type Antibody Screen Diagnostic Findings CT chest wo con CT DOSE: HISTORY: hypoxia, hemoptysis TECHNIQUE: Multiaxial CT images of the chest were performed without contrast. A dose lowering technique was utilized adhering to the principles of ALARA. COMPARISON: Chest 03/31/2019. FINDINGS: Mild respiratory motion artifact. The central airways appear patent. No pneumothorax. Trace left pleural effusion. Patchy bilateral groundglass airspace opacities with mild interlobular septal thickening most pronounced on the right. This is nonspecific but favors asymmetric pulmonary edema. Healing/healed bilateral anterior rib fractures. There is also healing right humeral neck fracture. Please refer to the same day abdomen and pelvis CT for further evaluation of the abdominal structures. The heart is mildly enlarged. Normal caliber thoracic aorta. No significant mediastinal or hilar lymphadenopathy. Trace pericardial effusion. IMPRESSION: 1. Bilateral groundglass airspace opacities most pronounced on the right. This favors pulmonary edema. A pneumonia could also have a similar appearance. 2. Trace left pleural effusion and a trace pericardial effusion. 3. Mild cardiomegaly. 4. Healing right humeral neck fracture. No pneumothorax. Electronically signed by: Shlomo Bhatia M.D. 03/31/2019 7:50 AM PG Care Time/CCT Critical Care Time: No
--- NOTE | 2019-03-31 09:52 | Post Anesthesia Assessment ---
Date of Service March 31, 2019 Post Sedation Assessment Vital Signs Temp Pulse Pulse Resp BP BP Pulse Ox 03/31/19 09:10 84 21 161/119 H 95 03/31/19 09:05 92 H 26 H 179/114 H 95 03/31/19 09:00 93 H 24 172/84 H 94 03/31/19 08:55 76 23 98 03/31/19 08:52 74 21 134/79 99 03/31/19 07:48 80 20 95 03/31/19 07:00 76 21 156/81 H 97 03/31/19 06:26 37 C 81 23 174/96 H 96 03/31/19 06:22 18 03/31/19 06:21 37.0 C 84 20 174/96 H 90 03/31/19 04:55 73 18 143/77 H 94 03/31/19 02:38 84 26 H 158/81 H 83 L Recovery Score Activity: Moves 4 extremities Respiration: Deep Breath/Cough Circulation: +/-20% PreAnes Value Consciousness: Fully Awake Oxygen Saturation: O2 needed for >90% Post Anesthesia Score: 9 Post Sedation Plan On clinical assessment, the patient appears to have tolerated the sedation without complications. Patient is recovering as anticipated. Patient will continue to be monitored by nursing and may be discharged when sedation discharge criteria are met per below protocol. Upon Completions of procedure and additional 15 minutes continue every 5 minute vital signs and the P.A.R. score; then discharge to a Phase I or Fast Track to Phase II per the following guidelines: * Discharge Patient to appropriate Phase II area if PAR is 8 or greater or return to pre- procedure baseline. The post - procedure orders will be as di rected. * If PAR score is less than 8 or not return to pre-procedure baseline then patient will follow Phase I monitoring till PAR is reached for Phase II. The Phase I may be done in procedure room or may call to secure a Phase I area. * If naloxone or flumazenil are used for reversal, hold in Phase I for continued monitoring from when last reversal dose was given for a minimum of 60 minutes or longer pending the nurse and/or physician discretion of patient condition before discharge to Phase II. Please call the Sedation Physician to re-evaluate and complete post-note for discharge to Phase II area. Do NOT discharge from procedure sedation or Phase 1 until post- sedation evaluation note is complete by procedure /sedation MD Sedation Discharge Instructions to be given to the patient at discharge to home.
[2019-03-31 12:07] LABS: Hematocrit (blood only) 24.1 % (42-52); Hemoglobin 7.6 g/dL (14.0-18.0)
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
[2019-03-31 18:16] LABS: Hematocrit (blood only) 24.3 % (42-52); Hemoglobin 7.7 g/dL (14.0-18.0)
--- NOTE | 2019-03-31 21:04 | Hospitalist Progress Note ---
Date of Service March 31, 2019 Assessment & Plan (1) Admitted to intensive care unit: Patient admitted to the intensive care unit due to hemoptysis, with symptomatic anemia, resulting in hypoxia. Fro bilateral infiltrates and hemoptysis At this point, patient does not appear to be in fluid overload. Doubt CHF. Patient may have some hemorrahge in lung. Bronchoscopy was done which did not show signficant hemoptysis/ (2) Hemoptysis: Hemoptysis Holding transfusion until hemoglobin under 7. At this point unsure if symptomatic anemia as patient has infiltrates that would explain SOB. (3) Anemia: See above (4) Hypoxia: As noted above. (5) CAD (coronary artery disease): CAD/hypertension/CHF/atrial fibrillation status post ablation/cardiomyopathy- Reversing Eliquis due to hemoptysis. Continue amiodarone 200 mg p.o. daily. Hold apixaban, diltiazem CD, furosemide, metoprolol succinate and ramipril. Lopressor 5 mg IV every 4 hours as needed systolic blood pressure greater than 150. Consult his pipe finisher Dr. Davila (6) CHF (congestive heart failure): See above (7) Cardiomyopathy: See above (8) Hypertension: See above (9) Atrial fibrillation: See above (10) Vasculitis: Was recently started on prednisone 10 mg p.o. daily, which will be held. Stress dose hydrocortisone 100 mg IV every 8 hours (11) Testosterone deficiency: Not on medications required a hospital (12) Hypogonadism in male: Not on medications required a hospital (13) Hyperlipidemia: Hold atorvastatin while n.p.o. (14) Huerta's esophagus: Change pantoprazole to famotidine 20 mg IV every 12 hours Spent 35 minutes in management of case Subjective 83 yo male reports feeling more comfortable than when he first came in. He also has been having some hemoptysis. Patient denies any new complaints. Review of Systems Review of Systems: All systems reviewed & are unremarkable except as noted in HPI & below Physical Exam Physical Exam: The patient is awake, alert and oriented 3, normocephalic and atraumatic, lying in bed and in no acute distress. HEENT--PERRL, EOMI, mucous membranes and oropharynx dry. Neck--supple. No JVD. No bruits. Thyroid normal, trachea midline, no adenopathy. Heart--normal S1 and S2. No murmurs, rubs or gallops. Lungs--crackles at the bases bilaterally. No respiratory distress, no accessory muscle use. Abdomen--normal bowel sounds and soft. Nontender. Nondistended. Extremities--no cyanosis or clubbing. No edema. There are good distal pulses b/l. Dermatologic--palpable purpura bilateral lower extremities, nontender Neurologic--cranial nerves II through XII grossly intact. Rheumatologic--normal range of motion. Psychiatric--normal affect. Results & Data Vital Signs (Past 12 Hours) Vital Signs Temp Pulse Pulse Resp BP BP Pulse Ox 03/31/19 20:08 37.1 C 92 H 18 182/89 H 91 03/31/19 19:47 83 18 95 03/31/19 19:00 88 22 158/77 H 93 03/31/19 18:00 89 22 165/85 H 93 03/31/19 17:00 89 25 H 169/87 H 96 03/31/19 16:00 36.7 C 87 26 H 159/76 H 91 03/31/19 15:12 83 18 91 03/31/19 15:00 85 24 161/79 H 90 03/31/19 14:32 21 95 03/31/19 14:01 80 25 H 156/82 H 96 03/31/19 13:30 77 20 95 03/31/19 13:00 80 24 160/78 H 94 03/31/19 12:01 36.6 C 83 18 156/78 H 92 03/31/19 11:12 77 18 95 03/31/19 11:01 75 22 157/79 H 96 03/31/19 10:01 78 21 163/76 H 96 03/31/19 09:47 79 19 166/78 H 92 03/31/19 09:10 84 21 161/119 H 95 03/31/19 09:05 92 H 26 H 179/114 H 95 PG Care Time/CCT Total # of Minutes Spent Total Time Spent with Patient: Total time spent is greater than 50% in coordination of care (as documented) at patient's floor/unit and/or counseling patient: (1) CHF (congestive heart failure) Heart failure chronicity: unspecified Heart failure type: unspecified Qualified Code(s): I50.9 - Heart failure, unspecified (2) Anemia Anemia type: unspecified type Qualified Code(s): D64.9 - Anemia, unspecified
[2019-03-31] MEDS: AMMONIUM LACTATE 12% LOTION 225 GM BTL EXT SCH (21:28)
[2019-04-01 00:24] LABS: Hematocrit (blood only) 23.9 % (42-52); Hemoglobin 7.6 g/dL (14.0-18.0)
[2019-04-01 04:56] LABS: Immature Granulocytes # (auto) 0.01 K/uL (0.00-0.02); Immature Granulocytes % (auto) 0.1 %; Lymphocytes # (auto) 0.75 K/uL (1.2-3.4); Lymphocytes % (auto) 10.6 %; Mean Corpuscular Hgb Conc 31.8 g/dL (32-36); Mean Corpuscular Volume 96.1 fL (80-100); Mean Platelet Volume 9.4 fL (7.4-10.4); Monocytes # (auto) 0.71 K/uL (0.11-0.59); Neutrophils # (auto) 5.63 K/uL (1.4-6.5); Neutrophils % (auto) 79.3 %; Platelet Count 247 K/uL (130-400); RDW Coefficient of Variation 17.6 % (11.5-14.5); RDW Standard Deviation 61.2 fL (36.4-46.3); Red Blood Count 2.29 M/uL (4.7-6.1)
[2019-04-01 05:14] LABS: INR 1.2 (0.9-1.1); Partial Thromboplastin Time 25.8 Seconds (21.0-31.0); Prothrombin Time 12.1 Seconds (9.0-12.0)
[2019-04-01 05:17] LABS: RBC Morphology Unremarkable
[2019-04-01] MEDS: HYDROCORTISONE SOD 100 MG in SYRINGE 0 ML IV SCH ×3 (05:24→22:43)
[2019-04-01 05:25] LABS: Albumin Globulin Ratio 0.6 (0.9-2); Albumin Level 3.1 gm/dl (3.4-5.0); BUN Creatinine Ratio 27.6 (10-20); Bilirubin,Total 0.8 mg/dl (0.2-1); Calcium 9.1 mg/dl (8.5-10.1); Creatinine Clr Calc Pharmacy 81.1 ml/min; Est GFR (African American) 92.9; Est GFR (Non-African American) 80.2; Globulin 4.8 gm/dl (2.5-4.0); Total Protein 7.9 gm/dl (6.4-8.2)
[2019-04-01] MEDS: ALBUT/IPRATROP 3MG/0.5MG NEB 3 ML VIAL NEB SCH ×4 (06:59→18:54)
--- NOTE | 2019-04-01 07:26 | XRay Report ---
SINGLE VIEW CHEST CLINICAL HISTORY: Dyspnea. FINDINGS: 2 AP, portable, upright chest radiographs are compared to chest x-ray and chest CT dated 03/31/2019. The examination is degraded by portable technique and apical lordotic positioning. The heart is enlarged and there is atherosclerotic calcification of the thoracic aorta. There is pulmonary vas cular congestion. Bilateral airspace opacities are similar to previous, most confluent in the right m idlung. There are trace pleural effusions. No pneumothorax is seen. The skeletal structures are osteo penic. The bony thorax is grossly intact. IMPRESSION: 1. Cardiomegaly with evidence of congestive failure. 2. There are bibasilar airspace opacities, right greater than left. This is similar in appearance to yesterday and could represent interstitial edema and/or pneumonia. Clinical correlation will be requi red. Electronically signed by: Los Story M.D. 04/01/2019 7:25 AM
[2019-04-01] MEDS: AMIODARONE 200 MG TAB PO SCH (07:35)
[2019-04-01] MEDS: FAMOTIDINE 20 MG in SYRINGE 3 ML IV SCH (07:36)
--- NOTE | 2019-04-01 07:44 | Critical Care Progress Note ---
Date of Service April 01, 2019 Assessment & Plan (1) Hemoptysis: Neuro- awake alert CV- HD stable. history of afib now in sinus. hold on apixiban with bleeding. CAD Pulmonary- acute hypoxic respiratory failure due to bilateral infiltrates and hemoptysis. differential includes DAH from ?vasculitis(has had vasculitis of LE for past 2 months) vs infectious(but has had no symptoms) vs pulmonary edema but no evidence of volume overload. may also be related to anticoagulant use. bronchoscopy without evidence of DAH. bleeding appears to be improving. await ERNESTINE, anti GBM and ANCA ID- no clear infectious cause to infiltrates. does not have any infectious symptoms but low threshold for abx. follow cultures from bronchoscopy Renal- cr improved GI- does not appear to have GI bleed. one episode of vomiting but was associated with cough. diet as tolerated Heme- anemia chronic unclear cause. not likely related to hemoptysis as hemoglobin not significantly changed from prior. transfuse for hgb <7. history of multiple myeloma Endocrine- blood sugars controlled. continue stress steroids. if no cause for bleeding found taper back to baseline Dispo- ok to transfer out of ICU (2) Anemia: (3) Hypoxia: (4) CHF (congestive heart failure): Subjective feeling better. less hemoptysis. breathing improved Physical Exam Physical Exam: Constitutional: Comfortable NAD HEENT: normocephalic atraumatic. MMM. CV: RRR nl s1,s2 no murmurs rubs or gallops Lungs: scattered crackles bilaterally greatly improved from yesterday. no accessory muscle use Abd: soft nontender nondistended. normal bowel sounds Ext: trace edema. no cyanosis, no clubbing. Skin: warm dry Neuro: alert and oriented. moving all extremities Psych: normal mood and affect Results & Data Vital Signs (Past 12 Hours) Vital Signs Temp Pulse Pulse Resp BP Pulse Ox 04/01/19 07:04 83 18 95 04/01/19 06:00 80 17 173/89 H 94 04/01/19 05:00 79 17 158/80 H 97 04/01/19 04:00 36.7 C 79 16 158/73 H 93 04/01/19 03:00 78 17 140/66 92 04/01/19 02:00 81 17 147/88 H 96 04/01/19 01:00 84 18 154/75 H 94 04/01/19 00:00 36.9 C 86 21 151/70 H 95 03/31/19 23:00 83 21 142/67 H 91 03/31/19 22:00 82 19 137/68 92 03/31/19 21:00 86 19 139/71 91 03/31/19 20:08 37.1 C 92 H 18 182/89 H 91 03/31/19 19:47 83 18 95 Laboratory Results Laboratory Results - last 24 hr 03/31/19 03/31/19 03/31/19 06:50 08:42 09:10 WBC RBC Hgb Hct MCV MCH MCHC RDW Std Deviation RDW Coeff of Phyllis Plt Count MPV Immature Gran % (Auto) Neut % (Auto) Lymph % (Auto) [place] % (Auto) Eos % (Auto) Baso % (Auto) Immature Gran # (Auto) Neut # (Auto) Lymph # (Auto) [place] # (Auto) Eos # (Auto) Baso # (Auto) RBC Morphology PT INR APTT PTT Ratio Sodium Potassium Chloride Carbon Dioxide Anion Gap BUN Creatinine Est Cr Clr Drug Dosing Est GFR ( Amer) Est GFR (Non-Af Amer) BUN/Creatinine Ratio Glucose POC Glucose 94 Calcium Total Bilirubin AST ALT Alkaline Phosphatase Total Protein Albumin Globulin Albumin/Globulin Ratio Fluid Polynuclear WBCs 80.0 Fluid Mononuclear WBCs 20.0 Nasal Screen MRSA (PCR) Negative ERNESTINE Screen Anti-Proteinase 3 Anti-Myeloperoxidase ANCA Glomerular Base Memb Ab 03/31/19 03/31/19 03/31/19 11:51 11:51 11:55 WBC RBC Hgb 7.6 L Hct 24.1 L MCV MCH MCHC RDW Std Deviation RDW Coeff of Phyllis Plt Count MPV Immature Gran % (Auto) Neut % (Auto) Lymph % (Auto) [place] % (Auto) Eos % (Auto) Baso % (Auto) Immature Gran # (Auto) Neut # (Auto) Lymph # (Auto) [place] # (Auto) Eos # (Auto) Baso # (Auto) RBC Morphology PT INR APTT PTT Ratio Sodium Potassium Chloride Carbon Dioxide Anion Gap BUN Creatinine Est Cr Clr Drug Dosing Est GFR ( Amer) Est GFR (Non-Af Amer) BUN/Creatinine Ratio Glucose POC Glucose 112 H Calcium Total Bilirubin AST ALT Alkaline Phosphatase Total Protein Albumin Globulin Albumin/Globulin Ratio Fluid Polynuclear WBCs Fluid Mononuclear WBCs Nasal Screen MRSA (PCR) ERNESTINE Screen Pending Anti-Proteinase 3 Pending Anti-Myeloperoxidase Pending ANCA Pending Glomerular Base Memb Ab Pending 03/31/19 04/01/19 04/01/19 18:02 00:15 04:25 WBC 7.10 RBC 2.29 L Hgb 7.7 L 7.6 L 7.0 L Hct 24.3 L 23.9 L 22.0 L MCV 96.1 MCH 30.6 MCHC 31.8 L RDW Std Deviation 61.2 H RDW Coeff of Phyllis 17.6 H Plt Count 247 MPV 9.4 Immature Gran % (Auto) 0.1 Neut % (Auto) 79.3 Lymph % (Auto) 10.6 [place] % (Auto) 10.0 Eos % (Auto) 0.0 Baso % (Auto) 0.0 Immature Gran # (Auto) 0.01 Neut # (Auto) 5.63 Lymph # (Auto) 0.75 L [place] # (Auto) 0.71 H Eos # (Auto) 0.00 Baso # (Auto) 0.00 RBC Morphology Unremarkable PT INR APTT PTT Ratio Sodium Potassium Chloride Carbon Dioxide Anion Gap BUN Creatinine Est Cr Clr Drug Dosing Est GFR ( Amer) Est GFR (Non-Af Amer) BUN/Creatinine Ratio Glucose POC Glucose Calcium Total Bilirubin AST ALT Alkaline Phosphatase Total Protein Albumin Globulin Albumin/Globulin Ratio Fluid Polynuclear WBCs Fluid Mononuclear WBCs Nasal Screen MRSA (PCR) ERNESTINE Screen Anti-Proteinase 3 Anti-Myeloperoxidase ANCA Glomerular Base Memb Ab 04/01/19 04/01/19 04/01/19 04:25 04:25 07:31 WBC RBC Hgb Hct MCV MCH MCHC RDW Std Deviation RDW Coeff of Phyllis Plt Count MPV Immature Gran % (Auto) Neut % (Auto) Lymph % (Auto) [place] % (Auto) Eos % (Auto) Baso % (Auto) Immature Gran # (Auto) Neut # (Auto) Lymph # (Auto) [place] # (Auto) Eos # (Auto) Baso # (Auto) RBC Morphology PT 12.1 H INR 1.2 H APTT 25.8 PTT Ratio 1.0 Sodium 136 Potassium 4.0 D Chloride 102 Carbon Dioxide 28 Anion Gap 6.0 BUN 25 H Creatinine 0.89 D Est Cr Clr Drug Dosing 81.1 Est GFR ( Amer) 92.9 Est GFR (Non-Af Amer) 80.2 BUN/Creatinine Ratio 27.6 H Glucose 123 H POC Glucose 135 H Calcium 9.1 Total Bilirubin 0.8 AST 16 ALT 15 Alkaline Phosphatase 67 Total Protein 7.9 Albumin 3.1 L Globulin 4.8 H Albumin/Globulin Ratio 0.6 L Fluid Polynuclear WBCs Fluid Mononuclear WBCs Nasal Screen MRSA (PCR) ERNESTINE Screen Anti-Proteinase 3 Anti-Myeloperoxidase ANCA Glomerular Base Memb Ab (1) Anemia Anemia type: unspecified type Qualified Code(s): D64.9 - Anemia, unspecified (2) CHF (congestive heart failure) Heart failure chronicity: unspecified Heart failure type: unspecified Qualified Code(s): I50.9 - Heart failure, unspecified
[2019-04-01] MEDS ORDERED: ATORVASTATIN 40 MG TAB PO SCH (09:00)
[2019-04-01] MEDS: METOPROLOL SUCC 25MG EXT REL TAB PO SCH (09:09)
[2019-04-01] MEDS: dilTIAZem HCL 120 MG CAPCR PO SCH (09:10)
[2019-04-01] MEDS: PANTOprazole 40 MG TAB PO SCH (09:10)
[2019-04-01 11:03] LABS: Hemoglobin 7.2 g/dL (14.0-18.0)
--- NOTE | 2019-04-01 12:58 | Cardiology Progress Note ---
Date of Service April 01, 2019 Assessment & Plan (1) Atrial fibrillation: The patient has converted to normal sinus rhythm. He did undergo an ablation at [facility] on March 04. Anticoagulation currently on hold. (2) Hemoptysis: Hemoptysis has resolved. Did receive an anticoagulant reversing agent. Eliquis remains on hold. (3) Cardiomyopathy: The patient had a transient tachycardic induced cardiomyopathy. Most recent echocardiogram noted normal left ventricular systolic function. (4) CAD (coronary artery disease): Quiescent current medical regimen. Subjective Mr. Gutierrez is resting comfortably in bed without complaints of chest pain, dyspnea, or palpitations. Physical Exam Physical Exam: In general this is an obese white male in no acute distress. HEENT exam is negative. Neck is supple with full carotid upstrokes. There are no carotid bruits. Jugular venous pressure is flat at 90. There is no thyromegaly. Cardiovascular exam reveals a regular rhythm with a normal S1 and S2. No S3, S4, or murmurs are noted. Lungs are clear without rales, rhonchi, or wheezes. Abdomen is obese without bruits. Extremities reveal intact radial artery and posterior tibial pulses bilaterally. There is no peripheral edema. Results & Data Vital Signs (Past 12 Hours) Vital Signs Temp Pulse Pulse Resp BP Pulse Ox 04/01/19 11:20 77 16 94 04/01/19 11:00 81 20 125/60 94 04/01/19 10:00 86 25 H 91 04/01/19 09:00 94 H 18 168/80 H 91 04/01/19 08:00 96 H 27 H 157/80 H 88 L 04/01/19 07:04 83 18 95 04/01/19 07:00 87 19 182/95 H 94 04/01/19 06:00 80 17 173/89 H 94 04/01/19 05:00 79 17 158/80 H 97 04/01/19 04:00 36.7 C 79 16 158/73 H 93 04/01/19 03:00 78 17 140/66 92 04/01/19 02:00 81 17 147/88 H 96 04/01/19 01:00 84 18 154/75 H 94 Diagnostic Findings classroom monitor notes normal sinus rhythm without evidence of atrial fibrillation.
[2019-04-01] MEDS: AMMONIUM LACTATE 12% LOTION 225 GM BTL EXT SCH (21:39)
[2019-04-01] MEDS: ATORVASTATIN 40 MG TAB PO SCH (21:40)
--- NOTE | 2019-04-01 22:09 | Hospitalist Progress Note ---
Date of Service April 01, 2019 Assessment & Plan (1) Admitted to intensive care unit: Patient admitted to the intensive care unit due to hemoptysis, with symptomatic anemia, resulting in hypoxia. Fro bilateral infiltrates and hemoptysis At this point, patient does not appear to be in fluid overload. Doubt CHF. Patient may have some hemorrhahge in lung. Bronchoscopy was done which did not show signficant hemoptysis/ (2) Hemoptysis: Hemoptysis Holding transfusion until hemoglobin under 7. At this point unsure if symptomatic anemia as patient has infiltrates that would explain SOB. (3) Anemia: Acute blood loss anemia See above (4) Hypoxia: As noted above. (5) CAD (coronary artery disease): CAD/hypertension/CHF/atrial fibrillation status post ablation/cardiomyopathy- Reversing Eliquis due to hemoptysis. Continue amiodarone 200 mg p.o. daily. Hold apixaban, Continue diltiazem CD, metoprolol succinate. Hld furosemide and ramipril. Lopressor 5 mg IV every 4 hours as needed systolic blood pressure greater than 150. 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 Davila (6) CHF (congestive heart failure): See above (7) Cardiomyopathy: See above (8) Hypertension: See above (9) Atrial fibrillation: See above (10) Vasculitis: Was recently started on prednisone 10 mg p.o. daily, which will be held. Stress dose hydrocortisone 100 mg IV every 8 hours will need to taper medicine in AM. (11) Testosterone deficiency: Not on medications required a hospital (12) Hypogonadism in male: Not on medications required a hospital (13) Hyperlipidemia: Hold atorvastatin while n.p.o. (14) Huerta's esophagus: Change pantoprazole to famotidine 20 mg IV every 12 hours (15) Morbid obesity: BMI is above 40. Recommend lifestyle modifications. Spent 35 minutes in management of case. Discussed case with specialist. Will transfer patient out of ICU. Subjective 83 yo female reports feeling better today. Patient denies any new complaints. He states he is breathing much better than yesterday and relates the improvement to the bronch. He is sitting in bed watching the [employer] semifinal with his . He states he does not normally use oxygen at home Review of Systems Review of Systems: All systems reviewed & are unremarkable except as noted in HPI & below Physical Exam Physical Exam: The patient is awake, alert and oriented 3, normocephalic and atraumatic, lying in bed and in no acute distress. HEENT--PERRL, EOMI, mucous membranes and oropharynx dry. Neck--supple. No JVD. No bruits. Thyroid normal, trachea midline, no adenopathy. Heart--normal S1 and S2. No murmurs, rubs or gallops. Lungs--crackles at the bases bilaterally. No respiratory distress, no accessory muscle use. Abdomen--normal bowel sounds and soft. Nontender. Nondistended. Extremities--no cyanosis or clubbing. No edema. There are good distal pulses b/l. Dermatologic--palpable purpura bilateral lower extremities, nontender Neurologic--cranial nerves II through XII grossly intact. Rheumatologic--normal range of motion. Psychiatric--normal affect. Results & Data Vital Signs (Past 12 Hours) Vital Signs Temp Pulse Pulse Resp BP BP Pulse Ox 04/01/19 19:18 36.7 C 80 20 147/74 H 92 04/01/19 18:54 74 18 96 04/01/19 17:00 79 24 129/61 95 04/01/19 16:01 79 24 125/57 L 92 04/01/19 15:47 79 04/01/19 15:10 73 20 97 04/01/19 15:00 36.6 C 81 18 104/52 L 92 04/01/19 14:00 88 27 H 96/77 L 86 L 04/01/19 13:00 82 18 92 04/01/19 12:00 36.8 C 82 22 143/61 H 95 04/01/19 11:20 77 16 94 04/01/19 11:00 81 20 125/60 94 PG Care Time/CCT Total # of Minutes Spent Total Time Spent with Patient: Total time spent is greater than 50% in c oordination of care (as documented) at patient's floor/unit and/or counseling patient: (1) CHF (congestive heart failure) Heart failure chronicity: unspecified Heart failure type: unspecified Qualified Code(s): I50.9 - Heart failure, unspecified (2) Anemia Anemia type: unspecified type Qualified Code(s): D64.9 - Anemia, unspecified
[2019-04-02] MEDS: HYDROCORTISONE SOD 100 MG in SYRINGE 0 ML IV SCH ×3 (05:19→21:25)
[2019-04-02 06:09] LABS: Hematocrit (blood only) 22.2 % (42-52); Immature Granulocytes # (auto) 0.02 K/uL (0.00-0.02); Immature Granulocytes % (auto) 0.3 %; Lymphocytes # (auto) 0.73 K/uL (1.2-3.4); Lymphocytes % (auto) 11.1 %; Mean Corpuscular Hgb Conc 31.5 g/dL (32-36); Mean Corpuscular Volume 97.4 fL (80-100); Monocytes # (auto) 0.59 K/uL (0.11-0.59); Neutrophils # (auto) 5.21 K/uL (1.4-6.5); Neutrophils % (auto) 79.6 %; Nucleated RBC # (auto) 0.03 K/uL (0-0); Nucleated RBC % (auto) 0.5 %; Platelet Count 269 K/uL (130-400); RDW Coefficient of Variation 17.6 % (11.5-14.5); RDW Standard Deviation 61.2 fL (36.4-46.3); Red Blood Count 2.28 M/uL (4.7-6.1); White Blood Count 6.55 K/uL (4.8-10.8)
[2019-04-02 06:22] LABS: INR 1.2 (0.9-1.1); Prothrombin Time 11.9 Seconds (9.0-12.0)
[2019-04-02 06:32] LABS: Ovalocytes 1+; Polychromasia 1+
[2019-04-02 06:41] LABS: Creatinine Clr Calc Pharmacy 82.8 ml/min; Est GFR (African American) 93.8; Est GFR (Non-African American) 80.9; Magnesium 2.3 mg/dl (1.8-2.4)
[2019-04-02 06:44] LABS: Albumin Globulin Ratio 0.6 (0.9-2); Bilirubin,Total 0.9 mg/dl (0.2-1); Globulin 4.8 gm/dl (2.5-4.0); Phosphorus 3.8 mg/dl (2.5-4.9); Total Protein 7.8 gm/dl (6.4-8.2)
[2019-04-02] MEDS: ALBUT/IPRATROP 3MG/0.5MG NEB 3 ML VIAL NEB SCH (06:52)
[2019-04-02] MEDS: METOPROLOL SUCC 25MG EXT REL TAB PO SCH (08:33)
[2019-04-02] MEDS: PANTOprazole 40 MG TAB PO SCH (08:33)
[2019-04-02] MEDS: dilTIAZem HCL 120 MG CAPCR PO SCH (08:33)
[2019-04-02] MEDS: AMIODARONE 200 MG TAB PO SCH (08:33)
--- NOTE | 2019-04-02 12:55 | Cardiology Progress Note ---
Date of Service April 02, 2019 Assessment & Plan (1) Atrial fibrillation: The patient remains normal sinus rhythm. He did undergo an ablation at [facility] on March 04. Anticoagulation currently on hold due to his hemoptysis. (2) Hemoptysis: Hemoptysis has resolved since receiving an anticoagulant reversing agent. Eliquis remains on hold. (3) Cardiomyopathy: The patient had a transient tachycardic induced cardiomyopathy. Echocardiogram in November noted a borderline ejection fraction at 45%. (4) CAD (coronary artery disease): Quiescent current medical regimen. Subjective Mr. Gutierrez is resting comfortably in the bedside chair without complaints of chest pain, dyspnea, or palpitations. He does ambulate the hallways without difficulty. Physical Exam Physical Exam: In general this is an obese white male in no acute distress. HEENT exam is negative. Neck is supple with full carotid upstrokes. There are no carotid bruits. Jugular venous pressure is flat at 90. There is no thyromegaly. Cardiovascular exam reveals a regular rhythm with a normal S1 and S2. No S3, S4, or murmurs are noted. Lungs are clear without rales, rhonchi, or wheezes. Abdomen is obese without bruits. Extremities reveal intact radial artery and posterior tibial pulses bilaterally. There is no peripheral edema. Results & Data Vital Signs (Past 12 Hours) Vital Signs Temp Pulse Pulse Resp BP Pulse Ox 04/02/19 11:47 37.2 C 76 18 134/73 92 04/02/19 07:04 36.8 C 77 18 163/83 H 99 04/02/19 06:54 69 18 98 04/02/19 03:28 36.9 C 80 18 152/80 H 91 Laboratory Results choke reamer notes stress without evidence of atrial fibrillation.
[2019-04-02 14:52] LABS: Hemoglobin 7.1 g/dL (14.0-18.0)
--- NOTE | 2019-04-02 17:02 | Pulmonology Progress Note ---
Date of Service April 02, 2019 Assessment & Plan (1) Hemoptysis: acute hypoxic respiratory failure due to bilateral infiltrates and hemoptysis. it is still not clear to be the cause for his hemoptysis. may be related to his anticoagulant. it appears to be resolved. not DAH and no source found on bronchoscopy. cultures from bronch negative so far. await ERNESTINE, anti GBM and ANCA would repeat CT chest in 4-6 weeks still requiring oxygen but decreased doses can taper steroids back to home dose continue to hold anticoagulant (2) Anemia: Anemia type: unspecified type Qualified Code(s): D64.9 - Anemia, unspecified (3) Hypoxia: (4) CHF (congestive heart failure): Heart failure chronicity: unspecified Heart failure type: unspecified Qualified Code(s): I50.9 - Heart failure, unspecified Subjective breathing improving. no more hemoptysis. only had one episode of small amount of blood after he woke up this morning. was able to walk in hallways Physical Exam Physical Exam: Constitutional: Comfortable NAD sitting in chair HEENT: normocephalic atraumatic. MMM. CV: RRR nl s1,s2 no murmurs rubs or gallops Lungs: clear to auscultation bilaterally. no accessory muscle use Abd: soft nontender nondistended. normal bowel sounds Ext: trace edema. no cyanosis, no clubbing. Skin: warm dry Neuro: alert and oriented. moving all extremities Psych: normal mood and affect Results & Data Vital Signs (Past 12 Hours) Vital Signs Temp Pulse Pulse Resp BP Pulse Ox 04/02/19 16:09 37.3 C 76 19 122/70 93 04/02/19 11:47 37.2 C 76 18 134/73 92 04/02/19 07:04 36.8 C 77 18 163/83 H 99 04/02/19 06:54 69 18 98 Laboratory Results Laboratory Results - last 24 hr 04/02/19 04/02/19 04/02/19 05:20 05:20 05:20 WBC 6.55 RBC 2.28 L Hgb 7.0 L Hct 22.2 L MCV 97.4 MCH 30.7 MCHC 31.5 L RDW Std Deviation 61.2 H RDW Coeff of Phyllis 17.6 H Plt Count 269 MPV 10.0 Immature Gran % (Auto) 0.3 Neut % (Auto) 79.6 Lymph % (Auto) 11.1 [place] % (Auto) 9.0 Eos % (Auto) 0.0 Baso % (Auto) 0.0 Immature Gran # (Auto) 0.02 Neut # (Auto) 5.21 Lymph # (Auto) 0.73 L [place] # (Auto) 0.59 Eos # (Auto) 0.00 Baso # (Auto) 0.00 Absolute Nucleated RBC 0.03 H Nucleated RBC % (auto) 0.5 Polychromasia 1+ Ovalocytes 1+ PT 11.9 INR 1.2 H Sodium 137 Potassium 4.0 Chloride 103 Carbon Dioxide 27 Anion Gap 8.0 BUN 26 H Creatinine 0.87 Est Cr Clr Drug Dosing 82.8 Est GFR ( Amer) 93.8 Est GFR (Non-Af Amer) 80.9 BUN/Creatinine Ratio 30.0 H Glucose 133 H Calcium 9.0 Phosphorus 3.8 Magnesium 2.3 Total Bilirubin 0.9 AST 20 ALT 17 Alkaline Phosphatase 73 NT-Pro-B Natriuret Pep Total Protein 7.8 Albumin 3.0 L Globulin 4.8 H Albumin/Globulin Ratio 0.6 L 04/02/19 04/02/19 14:38 14:38 WBC RBC Hgb 7.1 L Hct 22.0 L MCV MCH MCHC RDW Std Deviation RDW Coeff of Phyllis Plt Count MPV Immature Gran % (Auto) Neut % (Auto) Lymph % (Auto) [place] % (Auto) Eos % (Auto) Baso % (Auto) Immature Gran # (Auto) Neut # (Auto) Lymph # (Auto) [place] # (Auto) Eos # (Auto) Baso # (Auto) Absolute Nucleated RBC Nucleated RBC % (auto) Polychromasia Ovalocytes PT INR Sodium Potassium Chloride Carbon Dioxide Anion Gap BUN Creatinine Est Cr Clr Drug Dosing Est GFR ( Amer) Est GFR (Non-Af Amer) BUN/Creatinine Ratio Glucose Calcium Phosphorus Magnesium Total Bilirubin AST ALT Alkaline Phosphatase NT-Pro-B Natriuret Pep 1366 Total Protein Albumin Globulin Albumin/Globulin Ratio
[2019-04-02] MEDS: ATORVASTATIN 40 MG TAB PO SCH (21:24)
[2019-04-02] MEDS: AMMONIUM LACTATE 12% LOTION 225 GM BTL EXT SCH (21:28)
--- NOTE | 2019-04-02 23:43 | Hospitalist Progress Note ---
Date of Service April 02, 2019 Assessment & Plan (1) Admitted to intensive care unit: Patient admitted to the intensive care unit due to hemoptysis, with symptomatic anemia, resulting in hypoxia. With bilateral infiltrates and hemoptysis At this point, patient does not appear to be in fluid overload. Doubt CHF, not receiving lasix. Bronchoscopy was done which did not show signficant hemoptysis/ (2) Hemoptysis: Hemoptysis Holding transfusion until hemoglobin under 7. At this point unsure if symptomatic anemia as patient has infiltrates that would explain SOB. Will continue to monitor. May consider given a unit of blood prior to discharge, but would prefer to see if patient can be on room air in case of TRALI. (3) Anemia: Acute blood loss anemia See above (4) Hypoxia: As noted above. (5) CAD (coronary artery disease): CAD/hypertension/CHF/atrial fibrillation status post ablation/cardiomyopathy- Reversing Eliquis due to hemoptysis. Continue amiodarone 200 mg p.o. daily. Hold apixaban, Continue diltiazem CD, metoprolol succinate. Hold furosemide and ramipril. Lopressor 5 mg IV every 4 hours as needed systolic blood pressure greater than 150. Consulted his filler shredder Dr. Davila (6) CHF (congestive heart failure): See above (7) Cardiomyopathy: See above (8) Hypertension: See above (9) Atrial fibrillation: See above (10) Vasculitis: Was recently started on prednisone 10 mg p.o. daily, which will be held. Stress dose hydrocortisone 100 mg IV every 8 hours (11) Testosterone deficiency: Not on medications required a hospital (12) Hypogonadism in male: Not on medications required a hospital (13) Hyperlipidemia: resumed. (14) Huerta's esophagus: Change pantoprazole to famotidine 20 mg IV every 12 hours (15) Morbid obesity: BMI is above 40. Recommend lifestyle modifications. Spent 35 minutes in management of case. Had extensive discussion with patient. Subjective Patient reports feeling better today. He continues to require nasal cannula but require 2 liters today. Nurse states he ambulated without oxygen but desaturated. Patient is concerned that he may not be able to return to work if he remains on oxygen. Review of Systems Review of Systems: All systems reviewed & are unremarkable except as noted in HPI & below Physical Exam Physical Exam: The patient is awake, alert and oriented 3, normocephalic and atraumatic, sitting in chair and in no acute distress. HEENT--PERRL, EOMI, mucous membranes and oropharynx dry. Neck--supple. No JVD. No bruits. Thyroid normal, trachea midline, no adenopathy. Heart--normal S1 and S2. No murmurs, rubs or gallops. Lungs--crackles at the bases bilaterally. No respiratory distress, no accessory muscle use. Abdomen--normal bowel sounds and soft. Nontender. Nondistended. Extremities--no cyanosis or clubbing. No edema. There are good distal pulses b/l. Dermatologic--palpable purpura bilateral lower extremities, nontender Neurologic--cranial nerves II through XII grossly intact. Rheumatologic--normal range of motion. Psychiatric--normal affect. Results & Data Vital Signs (Past 12 Hours) Vital Signs Temp Pulse Resp BP Pulse Ox 04/02/19 19:16 37.4 C 77 19 118/64 92 04/02/19 16:09 37.3 C 76 19 122/70 93 04/02/19 11:47 37.2 C 76 18 134/73 92 PG Care Time/CCT Total # of Minutes Spent Total Time Spent with Patient: Total time spent is greater than 50% in coordination of care (as documented) at patient's floor/unit and/or counseling patient: (1) CHF (congestive heart failure) Heart failure chronicity: unspecified Heart failure type: unspecified Qualified Code(s): I50.9 - Heart failure, unspecified (2) Anemia Anemia type: unspecified type Qualified Code(s): D64.9 - Anemia, unspecified
[2019-04-03] MEDS: HYDROCORTISONE SOD 100 MG in SYRINGE 0 ML IV SCH (05:31)
[2019-04-03 05:57] LABS: Hematocrit (blood only) 22.2 % (42-52); Immature Granulocytes # (auto) 0.02 K/uL (0.00-0.02); Immature Granulocytes % (auto) 0.3 %; Lymphocytes # (auto) 1.14 K/uL (1.2-3.4); Lymphocytes % (auto) 15.4 %; Mean Corpuscular Hgb Conc 31.5 g/dL (32-36); Mean Corpuscular Volume 97.4 fL (80-100); Mean Platelet Volume 9.5 fL (7.4-10.4); Monocytes % (auto) 10.8 %; Neutrophils # (auto) 5.43 K/uL (1.4-6.5); Neutrophils % (auto) 73.5 %; Platelet Count 261 K/uL (130-400); RDW Coefficient of Variation 17.5 % (11.5-14.5); RDW Standard Deviation 61.3 fL (36.4-46.3); Red Blood Count 2.28 M/uL (4.7-6.1); White Blood Count 7.39 K/uL (4.8-10.8)
[2019-04-03 06:22] LABS: INR 1.2 (0.9-1.1)
[2019-04-03 06:31] LABS: Polychromasia 1+
[2019-04-03 06:34] LABS: Albumin Level 2.9 gm/dl (3.4-5.0); BUN Creatinine Ratio 27.5 (10-20); Calcium 8.7 mg/dl (8.5-10.1); Creatinine Clr Calc Pharmacy 90.1 ml/min; Est GFR (African American) 97.1; Est GFR (Non-African American) 83.8; Magnesium 2.2 mg/dl (1.8-2.4); Potassium 3.7 mmol/L (3.5-5.1)
[2019-04-03 06:39] LABS: Albumin Globulin Ratio 0.6 (0.9-2); Bilirubin,Total 1.1 mg/dl (0.2-1); Globulin 4.6 gm/dl (2.5-4.0); Phosphorus 3.2 mg/dl (2.5-4.9); Total Protein 7.5 gm/dl (6.4-8.2)
[2019-04-03] MEDS: dilTIAZem HCL 120 MG CAPCR PO SCH (08:06)
[2019-04-03] MEDS: METOPROLOL SUCC 25MG EXT REL TAB PO SCH (08:06)
[2019-04-03] MEDS: AMIODARONE 200 MG TAB PO SCH (08:06)
[2019-04-03] MEDS: PANTOprazole 40 MG TAB PO SCH (08:06)
[2019-04-03 09:25] LABS: Ferritin 345.4 ng/ml (8-388)
[2019-04-03] MEDS ORDERED: SODIUM CHLORIDE 0.9% 250 ML IV PRN (13:42)
--- NOTE | 2019-04-03 13:45 | XRay Report ---
XR chest 1V portable HISTORY: 83 years-old Male sob acute shortness of breath COMPARISON: Chest radiograph 04/01/2019 TECHNIQUE: Portable AP view of the chest FINDINGS: Cardiac silhouette is enlarged, unchanged. Calcification of the thoracic cortical arch. Pulmonary vas cular congestion with bilateral mixed interstitial and alveolar opacities, right greater than left wh ich have improved from comparison. Suspected trace bilateral pleural effusions. No pneumothorax. Dege nerative changes of the shoulders and spine. IMPRESSION: 1. Cardiomegaly with persistent bilateral mixed interstitial and alveolar opacities, right greater th an left which have mildly improved from comparison study. Asymmetric pulmonary edema versus pneumonia again are the differential considerations. 2. Suspected trace pleural effusions. The above report was generated using voice recognition software. It may contain grammatical, syntax o r spelling errors. Electronically signed by: Wilton Andersen M.D. 04/03/2019 1:44 PM
[2019-04-03] MEDS: ATORVASTATIN 40 MG TAB PO SCH (20:47)
[2019-04-03] MEDS: AMMONIUM LACTATE 12% LOTION 225 GM BTL EXT SCH (20:48)
[2019-04-03] MEDS: ACETAMINOPHEN 325 MG TAB PO PRN (20:48)
--- NOTE | 2019-04-03 23:16 | Hospitalist Progress Note ---
Date of Service April 03, 2019 Assessment & Plan (1) Admitted to intensive care unit: Patient admitted to the intensive care unit due to hemoptysis, with symptomatic anemia, resulting in hypoxia. With bilateral infiltrates and hemoptysis At this point, patient does not appear to be in fluid overload. Doubt CHF, not receiving lasix. Bronchoscopy was done which did not show significant hemoptysis. Clinically patient is doing well. He continues to require oxygen however. Will continue to monitor. Will consider adding a flutter valve and incentive spirometry. Chest x-ray ordered, continue to show bilateral opacities. (2) Hemoptysis: Hemoptysis ordered a unit of PRBC after obtaining consent. (3) Anemia: Acute blood loss anemia See above (4) Hypoxia: As noted above. (5) CAD (coronary artery disease): CAD/hypertension/CHF/atrial fibrillation status post ablation/cardiomyopathy- Reversing Eliquis due to hemoptysis. Continue amiodarone 200 mg p.o. daily. Hold apixaban, Continue diltiazem CD, metoprolol succinate. Hold furosemide and ramipril. Lopressor 5 mg IV every 4 hours as needed systolic blood pressure greater than 150. Consulted his graphic specialist Dr. Davila (6) CHF (congestive heart failure): See above (7) Cardiomyopathy: See above (8) Hypertension: See above (9) Atrial fibrillation: See above (10) Vasculitis: Was recently started on prednisone 10 mg p.o. daily, which will be held. Stress dose hydrocortisone 100 mg IV will cut down to once daily. (11) Testosterone deficiency: Not on medications required a hospital (12) Hypogonadism in male: Not on medications required a hospital (13) Hyperlipidemia: resumed. 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 (15) Morbid obesity: BMI is above 40. Recommend lifestyle modifications. Spent 37 minutes in management of case. Had extensive discussion with patient. Subjective Patient reports he is breathing better. He continues to require oxygen however. He states his cough no longer has blood. Patient denies any new symptoms Review of Systems Review of Systems: All systems reviewed & are unremarkable except as noted in HPI & below Physical Exam Physical Exam: The patient is awake, alert and oriented 3, normocephalic and atraumatic, sitting in chair and in no acute distress. HEENT--PERRL, EOMI, mucous membranes and oropharynx dry. Neck--supple. No JVD. No bruits. Thyroid normal, trachea midline, no adenopathy. Heart--normal S1 and S2. No murmurs, rubs or gallops. Lungs--clear. No respiratory distress, no accessory muscle use. Abdomen--normal bowel sounds and soft. Nontender. Nondistended. Extremities--no cyanosis or clubbing. No edema. There are good distal pulses b/l. Dermatologic--palpable purpura bilateral lower extremities, nontender Neurologic--cranial nerves II through XII grossly intact. Rheumatologic--normal range of motion. Psychiatric--normal affect. Results & Data Vital Signs (Past 12 Hours) Vital Signs Temp Pulse Pulse Resp BP BP Pulse Ox 04/03/19 19:20 36.6 C 77 19 172/83 H 93 04/03/19 17:45 36.8 C 79 16 166/80 H 96 04/03/19 17:11 75 16 154/78 H 95 04/03/19 17:00 75 14 165/75 H 94 04/03/19 16:41 73 16 167/74 H 94 04/03/19 16:26 36.7 C 73 14 151/65 H 93 04/03/19 16:00 75 04/03/19 15:59 36.7 C 73 18 142/64 H 93 04/03/19 15:01 36.6 C 81 20 147/80 H 91 04/03/19 11:55 36.5 C 73 20 138/76 94 PG Care Time/CCT Total # of Minutes Spent Total Time Spent with Patient: Total time spent is greater than 50% in coordination of care (as documented) at patient's floor/unit and/or counseling patient: (1) CHF (congestive heart failure) Heart failure chronicity: unspecified Heart failure type: unspecified Qualified Code(s): I50.9 - Heart failure, unspecified (2) Anemia Anemia type: unspecified type Qualified Code(s): D64.9 - Anemia, unspecified
[2019-04-04 06:06] LABS: Eosinophils # (auto) 0.12 K/uL (0-0.5); Eosinophils % (auto) 1.6 %; Hematocrit (blood only) 24.2 % (42-52); Hemoglobin 7.7 g/dL (14.0-18.0); Immature Granulocytes # (auto) 0.03 K/uL (0.00-0.02); Immature Granulocytes % (auto) 0.4 %; Lymphocytes # (auto) 1.59 K/uL (1.2-3.4); Lymphocytes % (auto) 21.4 %; Mean Corpuscular Hgb Conc 31.8 g/dL (32-36); Mean Corpuscular Volume 94.2 fL (80-100); Mean Platelet Volume 9.9 fL (7.4-10.4); Monocytes # (auto) 0.78 K/uL (0.11-0.59); Monocytes % (auto) 10.5 %; Neutrophils % (auto) 66.1 %; Platelet Count 289 K/uL (130-400); RDW Coefficient of Variation 18.3 % (11.5-14.5); RDW Standard Deviation 61.6 fL (36.4-46.3); Red Blood Count 2.57 M/uL (4.7-6.1); White Blood Count 7.42 K/uL (4.8-10.8)
[2019-04-04 06:34] LABS: RBC Morphology Unremarkable
[2019-04-04 06:37] LABS: BUN Creatinine Ratio 24.6 (10-20); Calcium 8.6 mg/dl (8.5-10.1); Creatinine Clr Calc Pharmacy 85.3 ml/min; Est GFR (African American) 94.7; Est GFR (Non-African American) 81.7; Magnesium 2.1 mg/dl (1.8-2.4); Phosphorus 3.3 mg/dl (2.5-4.9); Potassium 3.7 mmol/L (3.5-5.1)
[2019-04-04] MEDS: dilTIAZem HCL 120 MG CAPCR PO SCH (08:48)
[2019-04-04] MEDS: AMIODARONE 200 MG TAB PO SCH (08:48)
[2019-04-04] MEDS: METOPROLOL SUCC 25MG EXT REL TAB PO SCH (08:49)
[2019-04-04] MEDS: PANTOprazole 40 MG TAB PO SCH (08:49)
[2019-04-04] MEDS: HYDROCORTISONE SOD 100 MG in SYRINGE 0 ML IV SCH (08:50)
--- NOTE | 2019-04-04 09:07 | Cardiology Progress Note ---
Date of Service April 04, 2019 Assessment & Plan (1) Atrial fibrillation: Status post radiofrequency ablation at [facility] on March 04, 2019. Anticoagulation currently on hold due to his hemoptysis. (2) Hemoptysis: Hemoptysis has nearly resolved since receiving an anticoagulant reversing agent. Eliquis remains on hold. (3) Cardiomyopathy: The patient had a transient tachycardic induced cardiomyopathy. Echoc ardiogram in November 2018 noted a borderline ejection fraction at 45%. (4) CAD (coronary artery disease): Quiescent current medical regimen. Subjective The patient is resting comfortably at bedside without complaints of chest pain or dyspnea. As noted a small amount of hemoptysis. Tolerated blood transfusion yesterday without difficulty. Physical Exam Physical Exam: In general this is an obese white male in no acute distress. HEENT exam is negative. Neck is supple with full carotid upstrokes. There are no carotid bruits. Jugular venous pressure is flat at 90. There is no thyromegaly. Cardiovascular exam reveals a regular rhythm with a normal S1 and S2. No S3, S4, or murmurs are noted. Lungs are clear without rales, rhonchi, or wheezes. Abdomen is obese without bruits. Extremities reveal intact radial artery and posterior tibial pulses bilaterally. There is no peripheral edema. Results & Data Vital Signs (Past 12 Hours) Vital Signs Temp Pulse Pulse Resp BP Pulse Ox 04/04/19 08:48 95 04/04/19 08:47 155/73 H 79 L 04/04/19 07:02 36.9 C 78 16 122/56 L 91 04/04/19 07:01 37.1 C 78 22 137/61 93 04/04/19 06:19 79 04/04/19 03:50 36.7 C 80 18 166/82 H 97 04/04/19 00:29 37.0 C 85 18 160/69 H 92 04/03/19 23:42 80 Diagnostic Findings teletypesetter monitor notes sinus rhythm without paroxysms of atrial fibrillation.
[2019-04-04] MEDS: ONDANSETRON INJ 2 MG/ML 2 ML VIAL IV PRN (12:00)
--- NOTE | 2019-04-04 12:37 | Pulmonology Progress Note ---
Date of Service April 04, 2019 Assessment & Plan (1) Hemoptysis: acute hypoxic respiratory failure due to bilateral infiltrates and hemoptysis. it is still not clear to be the cause for his hemoptysis. may be related to his anticoagulant. it appears to be resolved. not DAH and no source found on bronchoscopy. cultures from bronch negative so far. await ERNESTINE, anti GBM and ANCA would repeat CT chest in 4-6 weeks still requiring oxygen but decreased doses. suspect o2 requirement will resolve in next few days can taper steroids back to home dose continue to hold anticoagulant (2) Hypoxia: Subjective no hemoptysis except a small amount mixed with sputum in AM breathing improving Physical Exam Physical Exam: Constitutional: Comfortable NAD walking around his room HEENT: normocephalic atraumatic. MMM. CV: RRR nl s1,s2 no murmurs rubs or gallops Lungs: clear to auscultation bilaterally. no accessory muscle use Abd: soft nontender nondistended. normal bowel sounds Ext: trace edema. no cyanosis, no clubbing. Skin: warm dry Neuro: alert and oriented. moving all extremities Psych: normal mood and affect Results & Data Vital Signs (Past 12 Hours) Vital Signs Temp Pulse Pulse Resp BP Pulse Ox 04/04/19 10:53 37.4 C 74 19 147/72 H 98 04/04/19 08:48 95 04/04/19 08:47 155/73 H 79 L 04/04/19 07:02 36.9 C 78 16 122/56 L 91 04/04/19 07:01 37.1 C 78 22 137/61 93 04/04/19 06:19 79 04/04/19 03:50 36.7 C 80 18 166/82 H 97 Laboratory Results Laboratory Results - last 24 hr 04/03/19 04/04/19 04/04/19 14:02 05:38 05:38 WBC 7.42 RBC 2.57 L Hgb 7.7 L Hct 24.2 L MCV 94.2 MCH 30.0 MCHC 31.8 L RDW Std Deviation 61.6 H RDW Coeff of Phyllis 18.3 H Plt Count 289 MPV 9.9 Immature Gran % (Auto) 0.4 Neut % (Auto) 66.1 Lymph % (Auto) 21.4 [place] % (Auto) 10.5 Eos % (Auto) 1.6 Baso % (Auto) 0.0 Immature Gran # (Auto) 0.03 H Neut # (Auto) 4.90 Lymph # (Auto) 1.59 [place] # (Auto) 0.78 H Eos # (Auto) 0.12 Baso # (Auto) 0.00 RBC Morphology Unremarkable Sodium 135 L Potassium 3.7 Chloride 100 Carbon Dioxide 29 Anion Gap 6.0 BUN 21 H Creatinine 0.85 Est Cr Clr Drug Dosing 85.3 Est GFR ( Amer) 94.7 Est GFR (Non-Af Amer) 81.7 BUN/Creatinine Ratio 24.6 H Glucose 103 H Calcium 8.6 Phosphorus 3.3 Magnesium 2.1 Blood Type A Positive Antibody Screen NEGATIVE Crossmatch See Detail
[2019-04-04] MEDS: POLYETHYLENE (MIRALAX) 17 GM PACK PO SCH (15:09)
[2019-04-04] MEDS: AMMONIUM LACTATE 12% LOTION 225 GM BTL EXT SCH (19:47)
[2019-04-04] MEDS: ATORVASTATIN 40 MG TAB PO SCH (19:47)
[2019-04-04] MEDS: ACETAMINOPHEN 325 MG TAB PO PRN (22:11)
--- NOTE | 2019-04-04 22:55 | Hospitalist Progress Note ---
Date of Service April 04, 2019 Assessment & Plan (1) Admitted to intensive care unit: Patient admitted to the intensive care unit due to hemoptysis, with symptomatic anemia, resulting in hypoxia. Now in PCU. With bilateral infiltrates and hemoptysis At this point, patient does not appear to be in fluid overload. Doubt CHF, not receiving lasix. On lasix as outpatient (but has yue negative over past few days in regards to fluid input/output) Bronchoscopy was done which did not show significant hemoptysis. Clinically patient is doing well. He continues to require oxygen however. Will continue to monitor. Ordered a flutter valve and incentive spirometry on 04/04. Doubt adverse effects given that hemoptysis has imprved and lungs are clear. Chest x-ray ordered on 04/03, continue to show bilateral opacities. patient continues to require oxygen, anticipate, patient will gradually improve and he will no longer be on oxygen at time of discharge. (2) Hemoptysis: Hemoptysis ordered a unit of PRBC after obtaining consent on 04/03 Hemglobin still low at 7.7 May consider another PRBC, but currently asymptomatic. Will trend in AM, if below 8, luigi likely transfse antoher. (3) Anemia: Acute blood loss anemia See above (4) Hypoxia: As noted above. (5) CAD (coronary artery disease): CAD/hypertension/CHF/atrial fibrillation status post ablation/cardiomyopathy- Reversing Eliquis due to hemoptysis. Continue amiodarone 200 mg p.o. daily. Hold apixaban, Continue diltiazem CD, metoprolol succinate. Hold furosemide and ramipril. BP has been stable Lopressor 5 mg IV every 4 hours as needed systolic blood pressure greater than 150. Consulted his ship joiner Dr. Davila (6) CHF (congestive heart failure): See above (7) Cardiomyopathy: See above (8) Hypertension: See above (9) Atrial fibrillation: See above (10) Vasculitis: Was recently started on prednisone 10 mg p.o. daily, which will be held. Stress dose hydrocortisone 100 mg IV cut down to once daily. Will recommend titrating further on 04/05 (11) Testosterone deficiency: Not on medications required a hospital (12) Hypogonadism in male: Not on medications required a hospital (13) Hyperlipidemia: resumed. 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 (15) Morbid obesity: BMI is above 40. Recommend lifestyle modifications. Subjective Patient reports his hemoptysis has improved, He reports a small amount of sputum in the AM. He states he does feel better than when he came in and is now able to take deep breaths without coughing. Review of Systems Review of Systems: All systems reviewed & are unremarkable except as noted in HPI & below Physical Exam Physical Exam: The patient is awake, alert and oriented 3, normocephalic and atraumatic, sitting in chair and in no acute distress. HEENT--PERRL, EOMI, mucous membranes and oropharynx dry. Neck--supple. No JVD. No bruits. Thyroid normal, trachea midline, no adenopa thy. Heart--normal S1 and S2. No murmurs, rubs or gallops. Lungs--clear. No respiratory distress, no accessory muscle use. Abdomen--normal bowel sounds and soft. Nontender. Nondistended. Extremities--no cyanosis or clubbing. No edema. There are good distal pulses b/l. Dermatologic--palpable purpura bilateral lower extremities, nontender Neurologic--cranial nerves II through XII grossly intact. Rheumatologic--normal range of motion. Psychiatric--normal affect. Results & Data Vital Signs (Past 12 Hours) Vital Signs Temp Pulse Pulse Resp BP Pulse Ox 04/04/19 19:17 37.1 C 80 16 123/50 L 91 04/04/19 16:00 69 04/04/19 15:06 36.7 C 83 22 126/66 90 PG Care Time/CCT Total # of Minutes Spent Total Time Spent with Patient: Total time spent is greater than 50% in coordination of care (as documented) at patient's floor/unit and/or counseling patient: (1) CHF (congestive heart failure) Heart failure chronicity: unspecified Heart failure type: unspecified Qualified Code(s): I50.9 - Heart failure, unspecified (2) Anemia Anemia type: unspecified type Qualified Code(s): D64.9 - Anemia, unspecified
[2019-04-05 05:32] LABS: Basophils # (auto) 0.01 K/uL (0-0.2); Basophils % (auto) 0.1 %; Eosinophils # (auto) 0.18 K/uL (0-0.5); Eosinophils % (auto) 2.4 %; Hematocrit (blood only) 23.2 % (42-52); Hemoglobin 7.4 g/dL (14.0-18.0); Immature Granulocytes # (auto) 0.04 K/uL (0.00-0.02); Immature Granulocytes % (auto) 0.5 %; Lymphocytes # (auto) 1.27 K/uL (1.2-3.4); Lymphocytes % (auto) 17.1 %; Mean Corpuscular Hgb Conc 31.9 g/dL (32-36); Mean Corpuscular Volume 93.9 fL (80-100); Mean Platelet Volume 9.4 fL (7.4-10.4); Monocytes % (auto) 9.4 %; Neutrophils # (auto) 5.23 K/uL (1.4-6.5); Neutrophils % (auto) 70.5 %; Platelet Count 266 K/uL (130-400); RDW Coefficient of Variation 18.2 % (11.5-14.5); RDW Standard Deviation 61.2 fL (36.4-46.3); Red Blood Count 2.47 M/uL (4.7-6.1); White Blood Count 7.43 K/uL (4.8-10.8)
[2019-04-05 05:59] LABS: BUN Creatinine Ratio 21.4 (10-20); Calcium 8.7 mg/dl (8.5-10.1); Creatinine Clr Calc Pharmacy 90.1 ml/min; Est GFR (African American) 96.6; Est GFR (Non-African American) 83.4; Potassium 3.5 mmol/L (3.5-5.1)
[2019-04-05 06:00] LABS: Phosphorus 3.8 mg/dl (2.5-4.9)
[2019-04-05 06:08] LABS: Hypochromasia Present; Ovalocytes 1+; Polychromasia 1+
[2019-04-05] MEDS: AMIODARONE 200 MG TAB PO SCH (08:43)
[2019-04-05] MEDS: PANTOprazole 40 MG TAB PO SCH (08:43)
[2019-04-05] MEDS: POLYETHYLENE (MIRALAX) 17 GM PACK PO SCH (08:43)
[2019-04-05] MEDS: dilTIAZem HCL 120 MG CAPCR PO SCH (08:43)
[2019-04-05] MEDS: HYDROCORTISONE SOD 100 MG in SYRINGE 0 ML IV SCH (08:44)
[2019-04-05] MEDS: METOPROLOL SUCC 25MG EXT REL TAB PO SCH (08:44)
[2019-04-05] MEDS: ACETAMINOPHEN 325 MG TAB PO PRN (08:45)
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
[2019-04-07 13:39] LABS: Anti Nuclear Antibody Screen NEGATIVE (NEGATIVE); Anti-Glom Basement Antibody <1.0 AI (<1.0); Myeloperoxidase Ab <1.0 AI (<1.0)
== END 2019-04-05 16:17 | disposition home or self-care (01) | DRG 166 ==
LOC: ED 02:35 → 1E 04:57 → SUATTDRO 04:57 → 1E 06:26 → 2S 04-01 15:35

== ENCOUNTER 2019-04-08 11:12 | Inpatient (IN) ==
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
--- NOTE | 2019-04-08 12:10 | XRay Report ---
XR chest 1V portable HISTORY: hemoptysis COMPARISON: Chest 04/03/2019. FINDINGS: Progressive near diffuse airspace opacities within the right lung and within the base of th e left lower lobe. No pneumothorax. The heart remains enlarged. Suspect small bilateral pleural effus ions. IMPRESSION: Interval progression of the right greater than left airspace opacities. This could represent asymmetr ic pulmonary edema or a pneumonia. The heart remains enlarged. Electronically signed by: Shlomo Bhatia M.D. 04/08/2019 12:09 PM
[2019-04-08 12:19] LABS: Appearance Urine Clear (Clear); Bilirubin Urine Negative (Negative); Blood Urine Negative (Negative); Color Urine Yellow; Glucose Urine UA Negative (Negative); Ketones Urine Negative (Negative); Leukocyte Esterase Urine Negative (Negative); Nitrite Urine Negative (Negative); Protein Urine Negative (Negative); Specific Gravity Urine 1.017 (1.000-1.030); Urobilinogen Urine Negative (Negative); pH Urine 5.5 (4.5-7.5)
[2019-04-08 12:37] LABS: Eosinophils # (auto) 0.02 K/uL (0-0.5); Eosinophils % (auto) 0.2 %; Hematocrit (blood only) 23.3 % (42-52); Hemoglobin 7.5 g/dL (14.0-18.0); Immature Granulocytes # (auto) 0.07 K/uL (0.00-0.02); Immature Granulocytes % (auto) 0.6 %; Lymphocytes # (auto) 0.43 K/uL (1.2-3.4); Lymphocytes % (auto) 3.7 %; Mean Corpuscular Hgb Conc 32.2 g/dL (32-36); Mean Corpuscular Volume 97.5 fL (80-100); Mean Platelet Volume 10.2 fL (7.4-10.4); Monocytes # (auto) 0.62 K/uL (0.11-0.59); Monocytes % (auto) 5.3 %; Neutrophils % (auto) 90.2 %; Nucleated RBC # (auto) 0.02 K/uL (0-0); Nucleated RBC % (auto) 0.2 %; Platelet Count 369 K/uL (130-400); RDW Coefficient of Variation 18.3 % (11.5-14.5); RDW Standard Deviation 64.6 fL (36.4-46.3); Red Blood Count 2.39 M/uL (4.7-6.1); White Blood Count 11.64 K/uL (4.8-10.8)
[2019-04-08 12:39] LABS: Base Excess VBG 2.6 mEq/L; HCO3 VBG 30 mmol/L; Oxygen Saturation VBG < 60.0 %; PCO2 VBG 58 mmHg (38-50); PO2 VBG 23 mmHg; pH VBG 7.32 (7.36-7.41)
[2019-04-08 12:46] LABS: iSTAT Hemoglobin 7.5 g/dl (14.0-18.0); iSTAT Ionized Calcium 1.17 mmol/l (1.12-1.32); iSTAT Potassium 4.5 mEq/L (3.3-5.0)
[2019-04-08 12:49] LABS: INR 1.2 (0.9-1.1); Partial Thromboplastin Ratio 0.9; Partial Thromboplastin Time 23.4 Seconds (21.0-31.0); Prothrombin Time 12.6 Seconds (9.0-12.0)
[2019-04-08] MEDS ORDERED: FUROSEMIDE 40 MG/4 ML VIAL IV STA (12:53)
[2019-04-08 12:54] LABS: Albumin Level 2.8 gm/dl (3.4-5.0); BUN Creatinine Ratio 28.5 (10-20); Blood Urea Nitrogen 29 mg/dl (7-18); Calcium 9.2 mg/dl (8.5-10.1); Carbon Dioxide 30 mmol/L (21-32); Chloride 101 mmol/L (98-107); Est GFR (African American) 79.5; Est GFR (Non-African American) 68.6; Glucose 120 mg/dl (70-99); Magnesium 2.3 mg/dl (1.8-2.4); Potassium 4.5 mmol/L (3.5-5.1); Sodium 138 mmol/L (136-145)
[2019-04-08 12:59] LABS: Alanine Aminotransferase 41 U/L (12-78); Albumin Globulin Ratio 0.6 (0.9-2); Alkaline Phosphatase 88 U/L (45-117); Aspartate Aminotransferase 27 U/L (15-37); Bilirubin,Total 0.7 mg/dl (0.2-1); Globulin 4.9 gm/dl (2.5-4.0); NT Pro B Type Natriuretic Pept 2270 pg/ml (0-1800); Total Protein 7.7 gm/dl (6.4-8.2); Troponin I < 0.015 ng/ml (0-0.045)
[2019-04-08 13:00] LABS: Anisocytosis Present; Basophilic Stippling 1+; Polychromasia 1+
--- NOTE | 2019-04-08 13:03 | Emergency Department Note ---
ED Visit Note I have seen and examined this patient with Hany Dickinson and generally agree with the treatment plan as discussed. Patient had a bronc recently, however returns after spitting up blood today. His hemoglobin is slightly elevated over previous he was typed and screened and discussed with both the hospitalist as well as the engraver signature .
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
[2019-04-08] MEDS ORDERED: ALUMINUM/MAGNESIUM SUSP 30 ML UDC PO PRN (16:29)
[2019-04-08] MEDS ORDERED: NITROGLYCERIN SL 0.4 MG/TAB TAB SL PRN (16:29)
[2019-04-08] MEDS ORDERED: methylPREDNISolone 40 MG in SYRINGE 0 ML IV SCH (16:29)
[2019-04-08] MEDS ORDERED: POLYETHYLENE (MIRALAX) 17 GM PACK PO PRN (16:29)
[2019-04-08] MEDS ORDERED: predniSONE 10 MG TABLET PO SCH (16:29)
[2019-04-08] MEDS ORDERED: ACETAMINOPHEN 500 MG TAB PO PRN (16:29)
[2019-04-08] MEDS: ALBUT/IPRATROP 3MG/0.5MG NEB 3 ML VIAL NEB SCH ×2 (17:04→19:35)
[2019-04-08] MEDS ORDERED: PIPERACILL/TAZOBAC CONSULT ACTIVE PRN (17:11)
[2019-04-08] MEDS ORDERED: VANCOMYCIN HCL 1,000 MG in SODIUM CHLORIDE 0.9% 250 ML IV SCH (17:30)
[2019-04-08] MEDS ORDERED: PIPERACILLIN/TAZOBACTAM 4.5 GM in DEXTROSE 5% 100 ML IV ONE (17:30)
[2019-04-08] MEDS ORDERED: OXYMETAZOLINE 0.05% 30 ML BTL STA (17:41)
[2019-04-08] MEDS: SODIUM CHLORIDE 1 GM TABLET PO SCH ×2 (17:53→19:58)
[2019-04-08] MEDS: methylPREDNISolone 40 MG in SYRINGE 0 ML IV SCH (17:53)
[2019-04-08] MEDS: LIDOCAINE HCL 4% w/ Afrin 4 ML VIAL PRN (18:11)
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
[2019-04-08] MEDS: FUROSEMIDE 40 MG in SYRINGE 0 ML IV SCH ×2 (19:58→20:47)
[2019-04-08] MEDS: MULTIVITAMIN TAB PO SCH (19:59)
[2019-04-08] MEDS: ATORVASTATIN 40 MG TAB PO SCH (19:59)
[2019-04-08] MEDS: ACETAMINOPHEN 325 MG TAB PO PRN (20:07)
--- NOTE | 2019-04-08 20:44 | CT Scan Report ---
CT chest wo con CT DOSE: 1380.51 mGy.cm CLINICAL HISTORY: 83 years-old Male with hemoptysis / PNA / CHF. Acute shortness of breath TECHNIQUE: Multiaxial CT images of the chest were performed without contrast. A dose lowering techni que was utilized adhering to the principles of ALARA. COMPARISON: Chest radiograph of same day, chest CT 03/31/2019 FINDINGS: Normal thyroid. Enlarged paratracheal lymph nodes measure up to 1.3 cm. Precarinal lymph nodes measur e up to 10 mm. Subcarinal lymph nodes measure up to 10 mm. The facets slightly progressed from compar julianna. Cardiomegaly with coronary arterial calcifications. Small pericardial effusion. No thoracic aor tic aneurysm. Small bilateral pleural effusions, slightly increased in size from comparison. No pneum othorax. Right greater than left bilateral mixed interstitial and alveolar opacities are redemonstrat ed. There are progressively worsened alveolar opacities throughout the right lung from comparison [address] st CT. Associated intralobular septal thickening with areas of mosaic attenuation. Respiratory motion artifact limits evaluation of the lung bases. Patent airway. No acute process of the imaged upper abdomen. Soft tissues are unremarkable. Healing impacted fractur e of the proximal right humerus. Multiple remote bilateral rib fractures. Degenerative changes of the shoulders and spine. IMPRESSION: 1. Cardiomegaly with small pericardial effusion and small bilateral pleural effusions. 2. Bilateral intralobular septal thickening with right greater than left groundglass and alveolar opa cities redemonstrated. The opacities throughout the right lung have worsened from comparison chest CT dated 03/31/2019. Findings are suggestive of multifocal pneumonia with superimposed pulmonary edema. Maulik thakkar clinically. 3. Subacute healing mildly impacted and comminuted right proximal humeral fracture. Electronically signed by: Wilton Andersen M.D. 04/08/2019 8:43 PM
[2019-04-08] MEDS ORDERED: AMMONIUM LACTATE 12% LOTION 225 GM BTL EXT SCH (21:00)
[2019-04-08] MEDS: AMMONIUM LACTATE 12% LOTION 225 GM BTL EXT SCH (23:35)
[2019-04-08] MEDS: PIPERACILLIN/TAZOBACTAM 3.375 GM in DEXTROSE 5% 100 ML IV SCH (23:43)
[2019-04-09] MEDS: methylPREDNISolone 40 MG in SYRINGE 0 ML IV SCH ×2 (05:33→17:25)
[2019-04-09] MEDS: ALBUT/IPRATROP 3MG/0.5MG NEB 3 ML VIAL NEB SCH ×4 (06:57→18:55)
[2019-04-09 07:30] LABS: INR 1.2 (0.9-1.1); Prothrombin Time 12.4 Seconds (9.0-12.0)
[2019-04-09] MEDS: SODIUM CHLORIDE 0.65% NA SOLN 45 ML (OCEAN) PRN (08:41)
[2019-04-09] MEDS: PIPERACILLIN/TAZOBACTAM 3.375 GM in DEXTROSE 5% 100 ML IV SCH (08:41)
[2019-04-09] MEDS: SODIUM CHLORIDE 1 GM TABLET PO SCH ×4 (08:42→20:22)
[2019-04-09] MEDS: MULTIVITAMIN TAB PO SCH ×2 (08:42→20:22)
[2019-04-09] MEDS: PANTOprazole 40 MG TAB PO SCH (08:43)
[2019-04-09] MEDS: ENALAPRIL MALEATE 10 MG TAB PO SCH (08:43)
[2019-04-09] MEDS: DULOXETINE HCL 60 MG CAP PO SCH (08:43)
[2019-04-09] MEDS: CALCIUM 600MG + VIT D 400 IU TAB PO SCH (08:43)
[2019-04-09] MEDS: METOPROLOL SUCC 25MG EXT REL TAB PO SCH (08:43)
[2019-04-09] MEDS: LACTOBACILLUS ACIDOPHILUS (FLORANEX) TAB PO SCH (08:43)
[2019-04-09] MEDS: ASCORBIC ACID 500 MG TAB PO SCH (08:44)
[2019-04-09] MEDS: FOLIC ACID 400 MCG TAB PO SCH (08:44)
[2019-04-09] MEDS: FUROSEMIDE 40 MG in SYRINGE 0 ML IV SCH ×2 (08:44→20:23)
[2019-04-09] MEDS: CHOLECALCIFEROL 1,000 UNITS TAB PO SCH (08:44)
[2019-04-09] MEDS: dilTIAZem HCL 120 MG CAPCR PO SCH (08:44)
[2019-04-09] MEDS: IRON POLYSACCHARIDE COMPLEX 150 MG CAPSULE PO SCH (08:44)
[2019-04-09] MEDS: ACETAMINOPHEN 325 MG TAB PO PRN (10:43)
--- NOTE | 2019-04-09 12:16 | Consultation Report ---
DATE OF CONSULTATION: 04/09/2019 PULMONARY MEDICINE CONSULTATION REASON FOR CONSULTATION: Hemoptysis. 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 He has a history of cardiomyopathy, mitral regurgitation, chronic gouty arthritis, hypertensive cardiovascular disease, anemia, Huerta's esophagus, monoclonal gammopathy, and ischemic cardiac disease as well as hypogonadism, dermatologic vasculitis, GERD, and history of CHF. He also has history of chronic atrial fibrillation status post ablation, previously on anticoagulant therapy with Eliquis, which was discontinued 2 weeks ago because of hemoptysis. He was admitted from 03/31/2019 to 04/05/2019 being evaluated for his anemia and hemoptysis. Bronchoscopy apparently was carried out and the diagnosis of amiodarone lung toxicity while patient was on anticoagulant therapy was made, although vasculitis could not be ruled out. He was discharged on oxygen therapy and prednisone and his amiodarone and Eliquis were discontinued. An autoimmune panel was ordered and referral to rheumatology, which he has not had as he had to be readmitted with recurrent hemoptysis with blood streaking and large clots in his Kleenex noted the day of admission. His hemoglobin was 7.1 at time of discharge on 04/05/2019. He has been short of breath with exertion. Through this his weight has remained constant. He denies pleuritic pain. Apparently, he was seen by ENT, Dr. Savage Koo, last night who felt that it was unlikely that the hemoptysis source was from his nasopharynx. He has had a history of nasal trauma in November and a Rhino rocket was packed in the right nostril for control of epistaxis at that time. Dr. Koo saw some blood around the true vocal cords and in the subglottic area and the vocal cords had full mobility. The patient was evaluated by Dr. Rufino Dewitt from critical care/pulmonary medicine last admission. The patient relates a significant orthopnea last admission with pink frothy sputum in addition to billy hemoptysis. The patient underwent bronchoscopy on 03/31/2019. No endobronchial lesions were seen. There was diffuse bleeding throughout the airways. Cultures were obtained which were nondiagnostic. The patient has been also evaluated by Dr. De La Rosa in the past from cardiology. The patient was diagnosed with atrial fibrillation in November 2018 and had symptoms of hypotension with medication control of ventricular rate and eventually underwent ablation on 03/04/2019 at [facility] which was successful and he remained on amiodarone, which was eventually discontinued along with the Eliquis this last admission. His cardiomyopathy appeared to be mild and rate related. He has a history of ischemic cardiac disease, but platelet inhibitor medication was withheld at this point given his hemoptysis. He has a remote smoking history having quit 50 years ago after a 24-bevx-juur history. CT scan of the chest was done yesterday in comparison to previous one done 8 days prior and was reviewed. This showed cardiomegaly with small pericardial effusion and small bilateral pleural effusions, bilateral intralobular septal thickening with right greater than left ground-glass and alveolar opacities redemonstrated. The opacities throughout the right lung have worsened when compared to 03/31/2019. Multifocal pneumonia with superimposed pulmonary edema was suggested. There is also subacute healing of impacted and comminuted right proximal humeral fracture. 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 For details of medications and past medical history, I refer you to current and past record. PHYSICAL EXAMINATION: GENERAL: Reveals well-developed, obese white male, currently with OxyMask and saturations greater than 93%, blood pressure 164/63, pulse 86 and regular, respiratory rate 19, temperature 36.5, O2 sat 93%. SKIN: See extremity. HEENT: Atraumatic, normocephalic. PERRLA. LUNGS: Coarse wheezes and rales, right greater than left. CARDIAC: Regular rate and rhythm. I do not appreciate a gallop. ABDOMEN: Soft, protuberant. EXTREMITIES: Trace pedal edema with purpura diffusely visible in the lower extremities up to the thigh as well as some involving the right and left forearm. There are some scabs on some of these areas and there are palpable purpura. NEUROLOGICAL: Cranial nerves II-XII grossly intact. No lateralizing signs. LABORATORY DATA: Current H and H 7.5 and 22. PT, PTT within normal limits. BUN 30, creatinine 1.0. Urinalysis essentially unremarkable. No blood or RBC casts noted. The differential on the BAL fluid from the bronchoscopy did not show significant eosinophilia. ERNESTINE, ANCA, and antiglomerular basement membrane and antibody have all been negative. CT scan as noted. Blood cultures are negative from last admission and current admission. Echocardiogram from November 2018 showed reduced EF of 45%, mild global hypokinesis, moderate mitral regurgitation, pulmonary hypertension was suggested with RVSP at 46 mmHg. EKG currently normal sinus rhythm, rate of 69, no acute changes. OVERALL ASSESSMENT AND PLAN: An 83-year-old white male with complex medical history including cardiomyopathy, chronic atrial fibrillation status post ablation with discontinuance of oral anticoagulation and amiodarone therapy given the presence of hemoptysis and worsening chest radiographic picture. Certainly one has to think of a systemic vasculitis like Verna's granulomatosis or the new nomenclature polyangiitis with granulomatosis versus other vasculitidies. However, DAH, diffuse alveolar hemorrhage, must be considered or a subacute or chronic indolent infection or an atypical presentation for CHF. Neoplasm is in the differential. I am concerned about the worsening radiographic picture, his level of hypoxemia, and would cosider VATS directed lung biopsy despite the potential for complication as patient clinically, given his anemia, ongoing hemoptysis, and refractory nature to steroid therapy, is of major concern. The lack of serologic confirmation is concerning, but can happen with many of the systemic vasculitides including polyangiitis with granulomatosis. DAH is a distinct possibility.. We will discuss further with hospitalist service and Dr. Jonathan Camp from thoracic surgery. NALLELY
--- NOTE | 2019-04-09 16:17 | Hospitalist Progress Note ---
Date of Service April 09, 2019 Assessment & Plan (1) Hemoptysis: Hemoptysis of unknown origin. Could be due to infection vs. pulmonary edema vs. rarer causes such as vasculitis (he has an unknown vasculitis) vs. other causes of DAH. - Evaluated by ENT who feel it is *not* related to nasopharyngeal cause - Evaluated by pulm & will be seen by thoracic surgery - Continue abx and steroids (2) Vasculitis: He has had a long-standing diagnosis of a "vasculitis," but I cannot find notes about in the outpatient chart & I cannot reach Dr. Smith. He reports flares of lower extremity purpura for most of his life that resolve within a few days or with steroid treatment. ERNESTINE, ANCA, UT-3, anti-MPO, and anti-GBM were all negative. - Attempting to contact Dr. Smith or other dropper tank storage for further assistance (3) Anemia: Hemoglobin is stable at 7.5. Patient received 2 units of packed red blood cells during his last admission. - T&S - Transfuse for hgb < 7 (4) CHF (congestive heart failure): Acute exacerbation of congestive heart failure, appears to be congested with possible volume overload. - Continue on IV Lasix 40 mg twice a day with strict I's and O's and monitor volume status closely - Monitor Cr (5) Cardiomyopathy: As noted above (6) Atrial fibrillation: History of paroxysmal afib status post ablation now in sinus rhythm. Anticoagulation therapy and amiodarone was held during his last admission. - Hold anticoagulation given his hemoptysis - Monitor heart rate on telemetry - Continue beta-ophelia & calcium channel ophelia (7) CAD (coronary artery disease): No chest pain. - Stable on beta-ophelia and ACEi (8) GERD (gastroesophageal reflux disease): - Continue PPI (9) Hypertension: BP stable over the 24 hours. - Continue ramipril / metoprolol (10) Dyslipidemia: - Continue statin (11) DVT prophylaxis: SCDs - Low DVT risk per admission calculator & having hemoptysis Subjective Continued hemoptysis, though actual shortness of breath is not too bad. Review of Systems Review of Systems: All systems reviewed & are unremarkable except as noted in HPI & below Physical Exam Constitutional: WD/WN, vitals as above well developed and well nourished; no acute distress Eyes: PERRL, conjunctivae normal, anicteric sclerae Respiratory: normal respiratory effort, lungs clear to auscultation Cardiovascular: RRR, no murmur, no edema Rate/Rhythm: regular rate Chest (Breasts): normal inspection/palpation of breasts Gastrointestinal (Abdomen): normal bowel sounds, soft, nontender, no hepatosplenomegaly Psychiatric: A+Ox3, euthymic affect Results & Data Vital Signs (Past 12 Hours) Vital Signs Temp Pulse Pulse Resp BP Pulse Ox 04/09/19 15:22 36.4 C L 80 20 132/75 96 04/09/19 11:48 36.8 C 89 20 134/66 97 04/09/19 11:18 79 18 98 04/09/19 07:39 36.5 C 86 19 164/63 H 93 04/09/19 07:19 72 04/09/19 07:01 83 20 92 PG Care Time/CCT Total # of Minutes Spent Total Time Spent with Patient: Total time spent is greater than 50% in coordination of care (as documented) at patient's floor/unit and/or counseling patient: (1) CHF (congestive heart failure) Heart failure chronicity: unspecified Heart failure type: unspecified Qualified Code(s): I50.9 - Heart failure, unspecified
[2019-04-09] MEDS: PIPERACILLIN/TAZOBACTAM 4.5 GM in DEXTROSE 5% 100 ML IV SCH (16:32)
[2019-04-09] MEDS: GABAPENTIN 100 MG CAP PO SCH ×2 (16:37→20:22)
[2019-04-09] MEDS: AMMONIUM LACTATE 12% LOTION 225 GM BTL EXT SCH (20:23)
[2019-04-09] MEDS: ATORVASTATIN 40 MG TAB PO SCH (20:23)
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
--- NOTE | 2019-04-09 20:49 | Consultation Report ---
DATE OF CONSULTATION: 04/09/2019 Mr. Gutierrez was seen today. I discussed the case with Dr. Noe Berger and had a long discussion with the patient and his . In short, this is a large 83-year-old male who has evidence of vasculitis in his feet and lower legs which occurs intermittently. He states in the distant past this was biopsied and he was told he had vasculitis. He responds to prednisone when this occurs. Over the last several weeks this has been worse, especially the last 2 weeks. He also started having cough and had some hemoptysis. He was seen by Dr. Noe Berger and I was asked to evaluate him. He has marked infiltrates in his right lung. He is mildly hypoxic. I agree with Dr. Berger that this patient needs an open lung biopsy and we are going to offer this to him tomorrow. The right thoracoscopy with wedge resection biopsy will be offered. We discussed risks and benefits including establishing a diagnosis. He understands. We will get this set up for the morning. For full details of this consultation, please Mr. Vasile Penaloza's detailed note. NALLELY
[2019-04-10] MEDS: PIPERACILLIN/TAZOBACTAM 4.5 GM in DEXTROSE 5% 100 ML IV SCH ×3 (00:17→20:10)
[2019-04-10] MEDS: methylPREDNISolone 40 MG in SYRINGE 0 ML IV SCH ×2 (06:02→20:10)
[2019-04-10 06:48] LABS: Hematocrit (blood only) 22.6 % (42-52); Hemoglobin 6.9 g/dL (14.0-18.0); Mean Corpuscular Hgb Conc 30.5 g/dL (32-36); Mean Corpuscular Volume 96.6 fL (80-100); Mean Platelet Volume 9.7 fL (7.4-10.4); Nucleated RBC # (auto) 0.02 K/uL (0-0); Nucleated RBC % (auto) 0.2 %; Platelet Count 326 K/uL (130-400); RDW Coefficient of Variation 18.2 % (11.5-14.5); RDW Standard Deviation 63.6 fL (36.4-46.3); Red Blood Count 2.34 M/uL (4.7-6.1); White Blood Count 12.17 K/uL (4.8-10.8)
[2019-04-10 06:54] LABS: BUN Creatinine Ratio 26.8 (10-20); Calcium 8.7 mg/dl (8.5-10.1); Creatinine Clr Calc Pharmacy 68.2 ml/min; Est GFR (African American) 75.1; Est GFR (Non-African American) 64.8; Potassium 3.9 mmol/L (3.5-5.1)
[2019-04-10] MEDS: ALBUT/IPRATROP 3MG/0.5MG NEB 3 ML VIAL NEB SCH ×4 (07:14→20:44)
[2019-04-10] MEDS ORDERED: SODIUM CHLORIDE 0.9% 250 ML IV PRN (07:19)
[2019-04-10] MEDS: FUROSEMIDE 40 MG in SYRINGE 0 ML IV SCH ×2 (07:34→20:10)
[2019-04-10] MEDS: LIDOCAINE HCL 4% w/ Afrin 4 ML VIAL PRN (07:34)
[2019-04-10] MEDS: SODIUM CHLORIDE 0.65% NA SOLN 45 ML (OCEAN) PRN (07:34)
[2019-04-10] MEDS: SODIUM CHLORIDE 1 GM TABLET PO SCH ×5 (07:35→20:39)
[2019-04-10] MEDS: PANTOprazole 40 MG TAB PO SCH (07:35)
[2019-04-10] MEDS: GABAPENTIN 100 MG CAP PO SCH ×2 (07:35→20:10)
[2019-04-10] MEDS: ENALAPRIL MALEATE 10 MG TAB PO SCH (07:35)
[2019-04-10] MEDS: MULTIVITAMIN TAB PO SCH ×2 (07:35→20:14)
[2019-04-10] MEDS: LACTOBACILLUS ACIDOPHILUS (FLORANEX) TAB PO SCH (07:35)
[2019-04-10] MEDS: METOPROLOL SUCC 25MG EXT REL TAB PO SCH (07:35)
[2019-04-10] MEDS: DULOXETINE HCL 60 MG CAP PO SCH (07:36)
[2019-04-10] MEDS: CHOLECALCIFEROL 1,000 UNITS TAB PO SCH ×2 (07:36→11:37)
[2019-04-10] MEDS: IRON POLYSACCHARIDE COMPLEX 150 MG CAPSULE PO SCH (07:36)
[2019-04-10] MEDS: CALCIUM 600MG + VIT D 400 IU TAB PO SCH ×2 (07:36→11:35)
[2019-04-10] MEDS: FOLIC ACID 400 MCG TAB PO SCH ×2 (07:37→11:36)
[2019-04-10] MEDS: dilTIAZem HCL 120 MG CAPCR PO SCH (07:37)
[2019-04-10] MEDS: ASCORBIC ACID 500 MG TAB PO SCH ×2 (07:37→11:37)
[2019-04-10 08:11] LABS: Hepatitis B Surface Antibody Immune
[2019-04-10 08:21] LABS: Hepatitis B Surface Antigen Neg (Neg)
[2019-04-10 08:49] LABS: Hepatitis C IgG 13Yrs+Old_Rflx Neg (Neg)
[2019-04-10] MEDS: ACETAMINOPHEN 325 MG TAB PO PRN ×2 (08:51→22:58)
[2019-04-10 12:57] LABS: Hematocrit (blood only) 27.8 % (42-52); Hemoglobin 8.8 g/dL (14.0-18.0)
--- NOTE | 2019-04-10 14:30 | Progress Note ---
DATE: 04/10/2019 PULMONARY MEDICINE PROGRESS NOTE Chart reviewed, the patient examined. SUBJECTIVE: The patient appears stable, but given history of hemoptysis and radiographic presentation, I conferred with Dr. Jonathan Camp from thoracic surgery. Plan is to have the patient undergo a video-assisted thorascopic surgery this evening with biopsy. I strongly suspect DAH or diffuse alveolar hemorrhage, although certainly one cannot rule out polyangiitis with granulomatosis. Today, the cultures from bronchoscopic intervention are nondiagnostic. Certainly, I am concerned about the patient's level of anemia which reached a jenifer of 6.9 and 22.6 early this morning. This would go along with the diagnosis of DAH, although could be seen with any pulmonary process where significant hemoptysis presents. NALLELY
[2019-04-10] MEDS ORDERED: NEOSTIGMINE METHYLSULFATE 5 MG/5 ML SYR ONE (15:16)
[2019-04-10] MEDS ORDERED: GLYCOPYRROLATE 0.2 MG/ML VIAL ONE (15:16)
[2019-04-10] MEDS ORDERED: fentaNYL citrate 100 MCG/2 ML VIAL ONE ×2 (15:16→15:51)
[2019-04-10] MEDS ORDERED: DEXAMETHASONE SOD INJ 4 MG/ML VIAL ONE (15:16)
[2019-04-10] MEDS ORDERED: MIDAZOLAM HCL 1 MG/ML 2ML VIAL ONE (15:16)
[2019-04-10] MEDS ORDERED: LIDOCAINE HCL 2% 2 ML VIAL/AMP(20MG/ML) INFIL ONE (15:16)
[2019-04-10] MEDS ORDERED: PHENYLEPHRINE HCL 10 MG/ML VIAL ONE (15:16)
[2019-04-10] MEDS ORDERED: ONDANSETRON INJ 2 MG/ML 2 ML VIAL ONE (15:16)
[2019-04-10] MEDS ORDERED: SUCCINYLCHOLINE CHLORIDE 20 MG/ML 10 ML VIAL ONE (15:16)
[2019-04-10] MEDS ORDERED: PROPOFOL IV EMULSION 10 MG/ML 20 ML VIAL IV ONE (15:16)
[2019-04-10] MEDS ORDERED: ePHEDrine sulfate 50 MG/ML AMP ONE (15:16)
[2019-04-10] MEDS ORDERED: HYDROmorphone INJ 2 MG/ML SYR/VIAL ONE (15:17)
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
[2019-04-10] MEDS ORDERED: ONDANSETRON INJ 2 MG/ML 2 ML VIAL IV PRN ×2 (15:49→19:11)
[2019-04-10] MEDS ORDERED: fentaNYL citrate 100 MCG/2 ML VIAL IV PRN (15:49)
[2019-04-10] MEDS ORDERED: ePHEDrine sulfate 50 MG/ML AMP IV PRN (15:49)
[2019-04-10] MEDS ORDERED: ATROPINE SULFATE 0.1 MG/ML 10ML SYR IV PRN (15:49)
[2019-04-10] MEDS ORDERED: BUPIVACAINE LIPOSOME 1.3% 266 MG/20 ML VIAL ONE (15:52)
[2019-04-10] MEDS ORDERED: SODIUM CHLORIDE 0.9% PF 50 ML VIAL ONE (15:52)
[2019-04-10] MEDS ORDERED: BUPIVACAINE 0.5 % 5 MG/1 ML MPF 30ML VIAL ONE (15:52)
--- NOTE | 2019-04-10 16:23 | History & Physical Bridge Note ---
Date of Service April 10, 2019 History & Physical Bridge Note I have examined the patient, reviewed the History & Physical and in the interval since the performance of the History & Physical I have noted the following changes of clinical significance: no changes noted
[2019-04-10] MEDS ORDERED: CEFAZOLIN 3000MG/72.5 ML BAG IV ONE (16:24)
[2019-04-10] MEDS ORDERED: CEFAZOLIN 3000MG 72.5 ML IV ONE (16:27)
--- NOTE | 2019-04-10 16:31 | Hospitalist Progress Note ---
Date of Service April 10, 2019 Assessment & Plan (1) Hemoptysis: Hemoptysis of unknown origin. Could be due to infection vs. pulmonary edema vs. rarer causes such as vasculitis (he has an unknown vasculitis) vs. other causes of DAH. - Evaluated by ENT who feel it is *not* related to nasopharyngeal cause - Evaluated by pulm - Plan for biopsy today with Dr. Camp - Case discussed with Drs. Torres and Zoë today - Continue abx and steroids (2) Vasculitis: He has had a long-standing diagnosis of a "vasculitis." I discussed his case with Dr. Smith on 04/10. His history is that of "leukocytoclastic vasculitis;" however, his biopsy was over 20 years ago. He was on Imuran, but this was stopped several weeks ago for anemia. Otherwise, he just gets occasional steroids bursts. ERNESTINE, ANCA, [place]-3, anti-MPO, and anti-GBM were all negative. - Ordered IgA & hepatitis screen to look for other vasculitis causes - Will order C4 as well. - Will attempt to get dermatology to get biopsy of leg lesion (3) CHF (congestive heart failure): Acute exacerbation of systolic congestive heart failure. Appears to be congested with possible volume overload. EF of 45% on echo in 11/2018. - Continue on IV Lasix 40 mg twice a day with strict I's and O's and monitor volume status closely - Monitor I&Os, daily weights - Monitor Cr with diuresis (4) Anemia: Hemoglobin is stable at 7.5. Patient received 2 units of packed red blood cells during his last admission. - Patient needed 2 units PRBCs on 04/10 for a hemoglobin of 6.9. - Transfuse for hgb < 7 (5) Atrial fibrillation: History of paroxysmal afib status post ablation now in sinus rhythm. Anticoagulation therapy and amiodarone was held during his last admission. - Hold anticoagulation given his hemoptysis - Monitor heart rate on telemetry - Continue beta-ophelia & calcium channel ophelia (6) CAD (coronary artery disease): No chest pain. - Stable on beta-ophelia and ACEi (7) GERD (gastroesophageal reflux disease): - Continue PPI (8) Hypertension: BP stable over the 24 hours. - Continue ramipril / metoprolol (9) Dyslipidemia: - Continue statin (10) DVT prophylaxis: SCDs - Low DVT risk per admission calculator & having hemoptysis Subjective Actually feel that his cough & hemoptysis is getting better. Review of Systems Review of Systems: All systems reviewed & are unremarkable except as noted in HPI & below Physical Exam Constitutional: WD/WN, vitals as above well developed and well nourished; no acute distress Eyes: PERRL, conjunctivae normal, anicteric sclerae Respiratory: normal respiratory effort, lungs clear to auscultation Cardiovascular: RRR, no murmur, no edema Rate/Rhythm: regular rate Gastrointestinal (Abdomen): normal bowel sounds, soft, nontender, no hepatosplenomegaly Psychiatric: A+Ox3, euthymic affect Results & Data Vital Signs (Past 12 Hours) Vital Signs Temp Pulse Pulse Resp BP BP Pulse Ox 04/10/19 15:30 36.8 C 69 20 151/75 H 93 04/10/19 15:11 75 18 92 04/10/19 11:57 36.7 C 71 16 142/76 H 96 04/10/19 11:45 36.6 C 72 18 159/84 H 96 04/10/19 11:37 36.9 C 66 18 154/84 H 100 04/10/19 11:13 65 16 100 04/10/19 10:45 36.9 C 64 18 146/79 H 94 04/10/19 10:15 37.0 C 64 16 146/79 H 96 04/10/19 10:00 36.8 C 68 16 135/75 96 04/10/19 09:30 36.8 C 72 18 145/70 H 96 04/10/19 08:30 36.9 C 74 16 152/80 H 94 04/10/19 08:00 36.8 C 72 18 137/76 93 04/10/19 07:43 36.7 C 75 18 138/71 95 04/10/19 07:14 73 16 98 04/10/19 07:11 36.5 C 72 19 150/79 H 97 PG Care Time/CCT Total # of Minutes Spent Total Time Spent with Patient: Total time spent is greater than 50% in coordination of care (as documented) at patient's floor/unit and/or counseling patient: (1) CHF (congestive heart failure) Heart failure chronicity: unspecified Heart failure type: unspecified Qualified Code(s): I50.9 - Heart failure, unspecified
--- NOTE | 2019-04-10 17:59 | Post Operative Brief Note ---
Immediate Post Op Note v1 Date of Surgery April 10, 2019 Pre & Post Diagnosis Operation Date: 04/10/19 07:45 Pre-Op Diagnosis: Pulmonary infiltrates with unknown etiology, hemoptysis Post-Op Diagnosis: Pulmonary infiltrates with unknown etiology, hemoptysis Procedure Operation Date: 04/10/19 07:45 Actual Procedures p Right Thoracoscopic Lung Biopsy(Right) - Jonathan Camp MD, FACS Surgeon Jonathan Camp MD, FACS Coater Hand Varsha Monreal Estimated Blood Loss 25 Findings Consistent with Post-Op Diagnosis Drains Chest Tube
--- NOTE | 2019-04-10 18:39 | XRay Report ---
XR chest 1V portable CLINICAL HISTORY: 83 years-old Male presenting with s/p VATS. TECHNIQUE: Portable upright AP view of the chest was obtained. COMPARISON: Chest x-rays from 04/08/2019, 04/03/2019, and 04/01/2019. FINDINGS: Enlargement of the cardiopericardial silhouette as well as the superior mediastinum as on prior exam. Diffuse right lung opacities, which have been slowly worsening. A large bore right pleural drain is now in place positioned at the right apex. No gross evidence of a pneumothorax. The left lung base is slightly less well aerated on the current exam. No large effusion is apparent. Degenerative changes of the thoracic spine. Posttraumatic deformity of the right humeral neck. Several external leads over lie the image. IMPRESSION: 1. Right pleural drain now in place. No pneumothorax. 2. Continued slow worsening of diffuse right lung infiltrates most concerning for multifocal pneumon ia. 3. Cardiomegaly and pericardial effusion. 4. Increasing left basilar atelectasis. Electronically signed by: Adam Montalvo M.D. 04/10/2019 6:37 PM
--- NOTE | 2019-04-10 18:59 | Anesthesiology Progress Note ---
Date of Service April 10, 2019 Anesthesia Post Procedure Vital Signs Vital Signs: Temp Pulse Pulse Pulse Resp BP BP 04/10/19 18:40 67 18 156/78 H 04/10/19 18:30 67 19 164/87 H 04/10/19 18:20 66 18 158/85 H 04/10/19 18:11 36.4 C L 66 25 H 150/82 H 04/10/19 15:30 36.8 C 69 20 151/75 H 04/10/19 15:11 75 18 04/10/19 11:57 36.7 C 71 16 142/76 H 04/10/19 11:45 36.6 C 72 18 159/84 H 04/10/19 11:37 36.9 C 66 18 154/84 H 04/10/19 11:13 65 16 04/10/19 10:45 36.9 C 64 18 146/79 H 04/10/19 10:15 37.0 C 64 16 146/79 H 04/10/19 10:00 36.8 C 68 16 135/75 04/10/19 09:30 36.8 C 72 18 145/70 H 04/10/19 08:30 36.9 C 74 16 152/80 H 04/10/19 08:00 36.8 C 72 18 137/76 04/10/19 07:43 36.7 C 75 18 138/71 04/10/19 07:14 73 16 04/10/19 07:11 36.5 C 72 19 150/79 H 04/10/19 03:15 36.7 C 78 22 132/72 04/10/19 00:00 79 04/09/19 23:26 36.8 C 76 20 139/76 04/09/19 20:00 74 04/09/19 19:56 36.5 C 77 20 123/74 Pulse Ox 04/10/19 18:40 92 04/10/19 18:30 95 04/10/19 18:20 98 04/10/19 18:11 97 04/10/19 15:30 93 04/10/19 15:11 92 04/10/19 11:57 96 04/10/19 11:45 96 04/10/19 11:37 100 04/10/19 11:13 100 04/10/19 10:45 94 04/10/19 10:15 96 04/10/19 10:00 96 04/10/19 09:30 96 04/10/19 08:30 94 04/10/19 08:00 93 04/10/19 07:43 95 04/10/19 07:14 98 04/10/19 07:11 97 04/10/19 03:15 91 04/10/19 00:00 04/09/19 23:26 95 04/09/19 20:00 04/09/19 19:56 93 Pain Intensity Bilateral Leg: Pain Intensity: 5 Transfer of Care Handoff Completed per policy Notes Mental Status: alert / awake / arousable and participated in evaluation Patient Amnestic to Procedure: Yes Nausea / Vomiting: adequately controlled Pain: adequately controlled Airway Patency, RR, SpO2: stable & adequate BP & HR: stable & adequate Hydration State: stable & adequate Anesthetic Complications: no major complications apparent and Pt Satisfied with anesthetic care
[2019-04-10] MEDS ORDERED: MoRPHine SULFATE 2 MG/ML CARP IV PRN (19:11)
[2019-04-10] MEDS ORDERED: OXYCODONE/ACETAMINOPHEN 5mg/325mg TAB PO PRN (19:11)
[2019-04-10] MEDS ORDERED: D5W AND 1/2NSS 1,000 ML IV SCH (19:20)
[2019-04-10] MEDS: ATORVASTATIN 40 MG TAB PO SCH (20:13)
[2019-04-10] MEDS: AMMONIUM LACTATE 12% LOTION 225 GM BTL EXT SCH (20:14)
[2019-04-10] MEDS ORDERED: Nursing to Pharmacy Communication ONE (21:42)
[2019-04-11] MEDS: PIPERACILLIN/TAZOBACTAM 4.5 GM in DEXTROSE 5% 100 ML IV SCH ×4 (00:58→23:44)
--- NOTE | 2019-04-11 01:43 | Operative Report ---
DATE OF OPERATION: 04/10/2019 PREOPERATIVE DIAGNOSIS: Pulmonary infiltrates, unknown etiology. POSTOPERATIVE DIAGNOSIS: Pulmonary infiltrates, unknown etiology. PROCEDURE: Right thoracoscopy with wedge resection biopsies of all 3 lobes on the right. SURGEON: Jonathan Camp MD MERCHANDISE FLOW MANAGER: Kerri Monreal, laboratory mechanical technician. ANESTHESIA: General anesthesia, endotracheal intubation using a single lumen tube. SPECIFICS OF PROCEDURE AND FINDINGS: Marty Gutierrez is a simply delightful large 83-year-old man who has a history of a nonspecified vasculitis which occasionally results in petechial lesions in his lower extremities over the last 20 years. They responded to prednisone nicely. The patient presented with shortness of breath and a cough and then had hemoptysis. I was asked to see him after he had been worked up by Dr. Berger and he felt that he was a candidate for surgical biopsy and I agreed. On 04/10/2019, the patient underwent an uncomplicated right thoracoscopy with wedge resection, biopsies of his right upper lobe x2, right middle lobe and right lower lobe. His lungs looked terrible. I had to change out one of my ports for a larger port so we could accommodate the black loads of the Endo-STAN stapler. He tolerated it well. DESCRIPTION OF PROCEDURE: The patient was brought to the operating room and laid in supine position. General anesthesia was induced and endotracheal intubation was performed. The patient was turned in the left lateral decubitus position with care taken to avoid issues with either shoulder. After prepping and draping in usual sterile fashion, appropriate timeout was called and prophylactic antibiotics were given. A 5-mm port was placed posterior to the scapula above the tip and then there was a 5-mm anterior port placed also. The lung was obviously abnormal. He had a few adhesions that we removed with cautery. We had placed a 12-mm port just above the diaphragm and we then grasped the upper lobe edge laterally and fired an Endo-STAN stapler. However, this was a purple load and the stapler split. The lung was obviously abnormal and very thickened. For this reason, we switched his port over to a 15-mm port and using the black loads we fired under the staple line to control this tear. We had negligible blood loss in doing so. We also got good size biopsies of the right upper lobe. We then biopsied an equally pathologic appearing middle lobe. We did the same for the lower lobe. Ports of these were sent for culture also. We then irrigated out the chest. I did not see much in the way of bleeding. A 266 mg of Exparel in 20 mL of solution was mixed with 30 mL of 0.25% Marcaine and 250 mL of normal saline and used to inject each of the 3 ports before we made incisions and then to block the patient's intercostal nerves from the 2nd to the 11th ribs. He tolerated this quite well. A 24-Swedish chest tube was placed inferiorly and sutured in place with heavy silk suture. The incisions were closed with 4-0 Monocryl. He tolerated the procedure quite well and was transported to the postanesthesia care unit extubated in stable condition. I attest to the content of the Intraoperative Record and any orders documented therein. Any exception s are noted below.
[2019-04-11] MEDS: methylPREDNISolone 40 MG in SYRINGE 0 ML IV SCH ×2 (05:13→17:55)
--- NOTE | 2019-04-11 06:30 | XRay Report ---
XR chest 1V portable HISTORY: 83 years-old Male post-op follow-up study patient with a right-sided chest tube COMPARISON: Chest radiograph 04/10/2019 TECHNIQUE: Portable AP view of the chest FINDINGS: Cardiac silhouette is enlarged, unchanged. A right-sided chest tube is in stable positioning. No defi nite pneumothorax. Probable trace pleural effusions. Bilateral mixed interstitial and alveolar opacit ies, right greater than left are redemonstrated and have mildly improved from comparison. Pulmonary v ascular congestion. Degenerative changes of the shoulders and spine. IMPRESSION: 1. Stable positioning of the right-sided chest tube. No definite pneumothorax identified. 2. Persistent mildly improved right greater than left bilateral mixed interstitial and alveolar opaci ties. 3. Cardiomegaly. The above report was generated using voice recognition software. It may contain grammatical, syntax o r spelling errors. Electronically signed by: Wilton Andersen M.D. 04/11/2019 6:29 AM
[2019-04-11 06:49] LABS: Allen Test Pos (Pos); Base Excess ABG 7.1 mEq/L (-9-1.8); HCO3 ABG 32 mmol/L (19-24); Oxygen Saturation ABG 91.1 % (90-95); PCO2 ABG 48 mmHg (35-46); PO2 ABG 68 mm/Hg (80-95); pH ABG 7.44 (7.35-7.45)
[2019-04-11 07:01] LABS: Hematocrit (blood only) 27.3 % (42-52); Hemoglobin 8.5 g/dL (14.0-18.0); Immature Granulocytes # (auto) 0.03 K/uL (0.00-0.02); Immature Granulocytes % (auto) 0.3 %; Lymphocytes % (auto) 4.9 %; Mean Corpuscular Hgb Conc 31.1 g/dL (32-36); Mean Corpuscular Volume 94.1 fL (80-100); Mean Platelet Volume 9.9 fL (7.4-10.4); Monocytes # (auto) 0.32 K/uL (0.11-0.59); Monocytes % (auto) 3.2 %; Neutrophils % (auto) 91.6 %; Platelet Count 328 K/uL (130-400); RDW Coefficient of Variation 18.4 % (11.5-14.5); RDW Standard Deviation 62.4 fL (36.4-46.3); White Blood Count 10.15 K/uL (4.8-10.8)
[2019-04-11] MEDS: ALBUT/IPRATROP 3MG/0.5MG NEB 3 ML VIAL NEB SCH ×4 (07:02→19:22)
[2019-04-11 07:44] LABS: BUN Creatinine Ratio 24.1 (10-20); Calcium 9.1 mg/dl (8.5-10.1); Creatinine Clr Calc Pharmacy 57.4 ml/min; Est GFR (Non-African American) 52.6; Magnesium 2.6 mg/dl (1.8-2.4); Potassium 5.1 mmol/L (3.5-5.1)
[2019-04-11] MEDS: FUROSEMIDE 40 MG in SYRINGE 0 ML IV SCH (08:32)
[2019-04-11] MEDS: PANTOprazole 40 MG TAB PO SCH (08:34)
[2019-04-11] MEDS: MULTIVITAMIN TAB PO SCH ×2 (08:34→21:21)
[2019-04-11] MEDS: ENALAPRIL MALEATE 10 MG TAB PO SCH (08:35)
[2019-04-11] MEDS: DULOXETINE HCL 60 MG CAP PO SCH (08:35)
[2019-04-11] MEDS: CHOLECALCIFEROL 1,000 UNITS TAB PO SCH (08:35)
[2019-04-11] MEDS: SODIUM CHLORIDE 1 GM TABLET PO SCH ×4 (08:35→21:20)
[2019-04-11] MEDS: CALCIUM 600MG + VIT D 400 IU TAB PO SCH (08:35)
[2019-04-11] MEDS: FOLIC ACID 400 MCG TAB PO SCH (08:36)
[2019-04-11] MEDS: dilTIAZem HCL 120 MG CAPCR PO SCH (08:36)
[2019-04-11] MEDS: GABAPENTIN 100 MG CAP PO SCH ×2 (08:36→21:20)
[2019-04-11] MEDS: ASCORBIC ACID 500 MG TAB PO SCH (08:36)
[2019-04-11] MEDS: LACTOBACILLUS ACIDOPHILUS (FLORANEX) TAB PO SCH (08:36)
[2019-04-11] MEDS: METOPROLOL SUCC 25MG EXT REL TAB PO SCH (08:36)
[2019-04-11] MEDS: IRON POLYSACCHARIDE COMPLEX 150 MG CAPSULE PO SCH (08:37)
[2019-04-11] MEDS: ACETAMINOPHEN 325 MG TAB PO PRN ×2 (08:55→18:01)
--- NOTE | 2019-04-11 10:28 | Progress Note ---
DATE: 04/11/2019 PULMONARY MEDICINE PROGRESS NOTE Chart reviewed, the patient examined. SUBJECTIVE: The patient seems to come through the VATS procedure with wedge biopsy of all 3 lobes yesterday with minimal chest discomfort. No obvious air leak. Chest x-ray today does not show an obvious pneumothorax, but persistent mixed alveolar and interstitial infiltrates bilaterally are noted. We will need to review the pathology and see if this gives us any additional clues as to what is triggering the patient's recurrent bouts of hemoptysis, that this represents a systemic vasculitis with manifestations in the lung or a diffuse alveolar hemorrhage or other etiology. Detailed history given today by phone by pt's Is Consultant/Dr Deal.Will discuss w hi bx results when available early next week. KISHORD
--- NOTE | 2019-04-11 10:36 | Hospitalist Progress Note ---
Date of Service April 11, 2019 Assessment & Plan (1) Hemoptysis: Hemoptysis of unknown origin. Could be due to infection vs. pulmonary edema vs. rarer causes such as vasculitis (he has an unknown vasculitis) vs. other causes of DAH. - Evaluated by ENT who feel it is *not* related to nasopharyngeal cause - Evaluated by pulm - Biopsy on 04/[address] Camp - Awaiting path - Continue abx and steroids - His cough and hemoptysis is improving (2) Atrial fibrillation: History of paroxysmal afib status post ablation now in sinus rhythm. Anticoagulation therapy and amiodarone was held during his last admission. - Holding anticoagulation given his hemoptysis - Monitor heart rate on telemetry - Continue beta-ophelia & calcium channel ophelia - On 04/11, he went into afib again. Rates in the 120s. Raised his dose dilt iazem with IV pushes. Will add dilt gtt if needed. (3) Vasculitis: He has had a long-standing diagnosis of a "vasculitis." I discussed his case with Dr. Smith on 04/10. His history is that of "leukocytoclastic vasculitis;" however, his biopsy was over 20 years ago. He was on Imuran, but this was stopped several weeks ago for anemia. Otherwise, he just gets occasional steroids bursts. ERNESTINE, ANCA, [place]-3, anti-MPO, and anti-GBM were all negative. - IgA elevated - Hepatitis screens were negative - C4 pending - Was going to attempt skin biopsy of leg lesion; however, all lesions are >24 hours, so utility would be lower (4) CHF (congestive heart failure): Acute exacerbation of systolic congestive heart failure. Appears to be congested with possible volume overload. EF of 45% on echo in 11/2018. - Initially on IV Lasix 40 mg twice a day with strict I's and O's and monitor volume status closely - Monitor I&Os, daily weights - Monitor Cr with diuresis - On 04/11, held afternoon Lasix for mildly elevated Cr (1.27 from 1.1). Will recheck his Cr before more Lasix. (5) Anemia: Hemoglobin is stable at 7.5. Patient received 2 units of packed red blood cells during his last admission. - Patient needed 2 units PRBCs on 04/10 for a hemoglobin of 6.9. - Transfuse for hgb < 7 (6) CAD (coronary artery disease): No chest pain. - Stable on beta-ophelia and ACEi (7) GERD (gastroesophageal reflux disease): - Continue PPI (8) Hypertension: BP stable over the 24 hours. - Continue ramipril / metoprolol (9) Dyslipidemia: - Continue statin (10) DVT prophylaxis: SCDs - Low DVT risk per admission calculator & having hemoptysis Subjective Feels ok. Better coughing and less hemoptysis. Some mild pain in the right lung where the chest tube is. Review of Systems Review of Systems: All systems reviewed & are unremarkable except as noted in HPI & below Physical Exam Constitutional: WD/WN, vitals as above well developed and well nourished; no acute distress Eyes: PERRL, conjunctivae normal, anicteric sclerae Respiratory: normal respiratory effort, lungs clear to auscultation Right chest tube Cardiovascular: RRR, no murmur, no edema Rate/Rhythm: regular rate Chest (Breasts): normal inspection/palpation of breasts Gastrointestinal (Abdomen): normal bowel sounds, soft, nontender, no hepatosplenomegaly Psychiatric: A+Ox3, euthymic affect Results & Data Vital Signs (Past 12 Hours) Vital Signs Temp Pulse Pulse Pulse Resp BP Pulse Ox 04/11/19 09:06 118 H 150/80 H 95 04/11/19 09:00 130 H 04/11/19 08:00 75 04/11/19 07:40 36.6 C 80 21 147/75 H 97 04/11/19 07:05 82 16 95 04/11/19 05:02 36.5 C 76 17 124/68 95 04/11/19 00:30 72 20 153/84 H 95 04/10/19 23:40 36.9 C 76 19 159/83 H 94 PG Care Time/CCT Total # of Minutes Spent Total Time Spent with Patient: Total time spent is greater than 50% in coordination of care (as documented) at patient's floor/unit and/or counseling patient: (1) CHF (congestive heart failure) Heart failure chronicity: unspecified Heart failure type: unspecified Qualified Code(s): I50.9 - Heart failure, unspecified
[2019-04-11] MEDS: dilTIAZem HCL 30 MG TAB PO SCH ×3 (10:50→23:45)
[2019-04-11] MEDS: dilTIAZem HCl 5 MG/ML 5 ML VIAL IV PRN ×2 (12:31→21:31)
--- NOTE | 2019-04-11 12:32 | XRay Report ---
XR chest 1V portable HISTORY: 83 years-old Male tube removal status post removal of the right-sided chest tube. COMPARISON: Chest radiograph of same day at 5:37 AM TECHNIQUE: Portable AP view of the chest FINDINGS: Cardiac silhouette is enlarged, unchanged. Status post removal of the right-sided chest tube. Tiny ri ght apical pneumothorax is noted, pleural separation of 6 mm. Probable trace pleural effusions. Bilat eral mixed interstitial and alveolar opacities, right greater than left are redemonstrated and have m ildly improved from comparison. Pulmonary vascular congestion. Degenerative changes of the shoulders and spine. Minimal subcutaneous emphysema about the lateral right chest wall. IMPRESSION: 1. Status post removal of the right-sided chest tube. Tiny right atypical pneumothorax is noted. 2. Unchanged bilateral mixed interstitial and alveolar opacities, right greater than left. 3. Cardiomegaly. The above report was generated using voice recognition software. It may contain grammatical, syntax o r spelling errors. Electronically signed by: Wilton Andersen M.D. 04/11/2019 12:31 PM
--- NOTE | 2019-04-11 14:20 | Anesthesiology Progress Note ---
Date of Service April 11, 2019 Anesthesia Post Procedure Vital Signs Vital Signs: Temp Pulse Pulse Pulse Resp BP Pulse Ox 04/11/19 11:32 36.8 C 93 H 18 139/83 92 04/11/19 11:08 69 18 90 04/11/19 09:06 118 H 150/80 H 95 04/11/19 09:00 130 H 04/11/19 08:00 75 04/11/19 07:40 36.6 C 80 21 147/75 H 97 04/11/19 07:05 82 16 95 04/11/19 05:02 36.5 C 76 17 124/68 95 04/11/19 00:30 72 20 153/84 H 95 04/10/19 23:40 36.9 C 76 19 159/83 H 94 04/10/19 22:30 75 20 157/90 H 90 04/10/19 21:11 74 161/84 H 95 04/10/19 20:46 73 18 94 04/10/19 20:30 71 22 149/78 H 92 04/10/19 20:15 71 21 139/75 93 04/10/19 20:00 72 21 144/79 H 91 04/10/19 19:45 70 20 156/75 H 90 04/10/19 18:40 67 18 156/78 H 92 04/10/19 18:30 67 19 164/87 H 95 04/10/19 18:20 66 18 158/85 H 98 04/10/19 18:11 36.4 C L 66 25 H 150/82 H 97 04/10/19 15:30 36.8 C 69 20 151/75 H 93 04/10/19 15:11 75 18 92 Pain Intensity Bilateral Leg: Pain Intensity: 5 Notes Mental Status: alert / awake / arousable Patient Amnestic to Procedure: Yes Nausea / Vomiting: adequately controlled Pain: adequately controlled Airway Patency, RR, SpO2: stable & adequate BP & HR: stable & adequate Hydration State: stable & adequate Anesthetic Complications: no major complications apparent and Pt Satisfied with anesthetic care
--- NOTE | 2019-04-11 17:06 | Progress Note ---
DATE: 04/11/2019 Mr. Gutierrez is seen today 1 day after thoracoscopic lung biopsy. Unfortunately, this was done late in the day and we do not have our pathology out today. It will not be ready until 04/14/2019. The patient has no pain. He had no air leak. I removed his chest tube and his x-ray looks unchanged without evidence of pneumothorax. So far, we have not grown anything on our cultures. He certainly tolerated it well. We will await the pathology results after the weekend. NALLELY
[2019-04-11] MEDS: AMMONIUM LACTATE 12% LOTION 225 GM BTL EXT SCH (21:19)
[2019-04-11] MEDS: ATORVASTATIN 40 MG TAB PO SCH (21:20)
[2019-04-12] MEDS: dilTIAZem HCL 30 MG TAB PO SCH ×4 (05:42→21:21)
[2019-04-12] MEDS: methylPREDNISolone 40 MG in SYRINGE 0 ML IV SCH ×2 (05:42→17:23)
[2019-04-12] MEDS: ACETAMINOPHEN 325 MG TAB PO PRN ×4 (06:47→21:22)
[2019-04-12] MEDS: ALBUT/IPRATROP 3MG/0.5MG NEB 3 ML VIAL NEB SCH ×4 (07:14→19:17)
[2019-04-12] MEDS: PIPERACILLIN/TAZOBACTAM 4.5 GM in DEXTROSE 5% 100 ML IV SCH ×3 (07:33→23:31)
[2019-04-12 08:35] LABS: Hematocrit (blood only) 28.1 % (42-52); Hemoglobin 8.7 g/dL (14.0-18.0); Immature Granulocytes # (auto) 0.04 K/uL (0.00-0.02); Immature Granulocytes % (auto) 0.4 %; Lymphocytes # (auto) 0.66 K/uL (1.2-3.4); Lymphocytes % (auto) 5.8 %; Mean Corpuscular Volume 94.9 fL (80-100); Mean Platelet Volume 10.1 fL (7.4-10.4); Monocytes # (auto) 0.44 K/uL (0.11-0.59); Monocytes % (auto) 3.9 %; Neutrophils # (auto) 10.23 K/uL (1.4-6.5); Neutrophils % (auto) 89.9 %; Platelet Count 324 K/uL (130-400); RDW Coefficient of Variation 17.9 % (11.5-14.5); RDW Standard Deviation 61.5 fL (36.4-46.3); Red Blood Count 2.96 M/uL (4.7-6.1); White Blood Count 11.37 K/uL (4.8-10.8)
[2019-04-12] MEDS: PANTOprazole 40 MG TAB PO SCH (08:57)
[2019-04-12] MEDS: IRON POLYSACCHARIDE COMPLEX 150 MG CAPSULE PO SCH (08:57)
[2019-04-12] MEDS: SODIUM CHLORIDE 1 GM TABLET PO SCH ×4 (08:57→21:22)
[2019-04-12] MEDS: ASCORBIC ACID 500 MG TAB PO SCH (08:57)
[2019-04-12] MEDS: GABAPENTIN 100 MG CAP PO SCH ×2 (08:57→21:22)
[2019-04-12] MEDS: FOLIC ACID 400 MCG TAB PO SCH (08:58)
[2019-04-12] MEDS: CALCIUM 600MG + VIT D 400 IU TAB PO SCH (08:58)
[2019-04-12] MEDS: MULTIVITAMIN TAB PO SCH ×2 (08:59→21:21)
[2019-04-12] MEDS: DULOXETINE HCL 60 MG CAP PO SCH (08:59)
[2019-04-12] MEDS: METOPROLOL SUCC 25MG EXT REL TAB PO SCH (08:59)
[2019-04-12] MEDS: CHOLECALCIFEROL 1,000 UNITS TAB PO SCH (08:59)
[2019-04-12] MEDS: LACTOBACILLUS ACIDOPHILUS (FLORANEX) TAB PO SCH (08:59)
[2019-04-12] MEDS: ENALAPRIL MALEATE 10 MG TAB PO SCH (08:59)
[2019-04-12 09:09] LABS: BUN Creatinine Ratio 28.9 (10-20); Calcium 8.9 mg/dl (8.5-10.1); Creatinine Clr Calc Pharmacy 61.5 ml/min; Est GFR (Non-African American) 56.9; Potassium 4.3 mmol/L (3.5-5.1)
--- NOTE | 2019-04-12 12:34 | Progress Note ---
DATE: 04/12/2019 Mr. Gutierrez was seen today on 04/12/2019. I am going to check a chest x-ray on him. He is on 3 liters with 96% sat. I was quite pleased with his x-ray yesterday. He looks fine and we will not be able to get his pathology back until 04/14/2019. He does look fine clinically. We will check a chest x-ray tomorrow.
--- NOTE | 2019-04-12 14:43 | Hospitalist Progress Note ---
Date of Service April 12, 2019 Assessment & Plan (1) Hemoptysis: Hemoptysis of unknown origin-resolved. Could be due to infection vs. pulmonary edema vs. rarer causes such as vasculitis (he has an unknown vasculitis) vs. other causes of DAH. - Evaluated by ENT who feel it is *not* related to nasopharyngeal cause - Evaluated by pulm - Biopsy on 04/[address] Camp - Awaiting path - Tiny right apical pneumothorax noted and unchanged. F/u CXR tomorrow. - Continue abx and steroids (2) Atrial fibrillation: History of paroxysmal afib status post ablation now in sinus rhythm. Anticoagulation therapy and amiodarone was held during his last admission. - Holding anticoagulation given his hemoptysis - Monitor heart rate on telemetry - Continue beta-ophelia & calcium channel ophelia - On 04/11, he went into afib again. Rates in the 120s. Raised his dose diltiazem with IV pushes. Will add dilt gtt if needed. (3) Vasculitis: He has had a long-standing diagnosis of a "vasculitis." I discussed his case with Dr. Smith on 04/10. His history is that of "leukocytoclastic vasculitis;" however, his biopsy was over 20 years ago. He was on Imuran, but this was stopped several weeks ago for anemia. Otherwise, he just gets occasional steroids bursts. ERNESTINE, ANCA, [place]-3, anti-MPO, and anti-GBM were all negative. - IgA elevated - Hepatitis screens were negative - C4 pending - Was going to attempt skin biopsy of leg lesion; however, all lesions are >24 hours, so utility would be lower (4) CHF (congestive heart failure): Acute exacerbation of systolic congestive heart failure. Appears to be congested with possible volume overload. EF of 45% on echo in 11/2018. - Initially on IV Lasix 40 mg twice a day with strict I's and O's and monitor volume status closely - Monitor I&Os, daily weights - Monitor Cr with diuresis - On 04/11, held afternoon Lasix for mildly elevated Cr (1.27 from 1.1). Will recheck his Cr before more Lasix. (5) Anemia: Hemoglobin is stable at 7.5. Patient received 2 units of packed red blood cells during his last admission. - Patient needed 2 units PRBCs on 04/10 for a hemoglobin of 6.9. - Transfuse for hgb < 7 (6) CAD (coronary artery disease): No chest pain. - Stable on beta-ophelia and ACEi (7) GERD (gastroesophageal reflux disease): - Continue PPI (8) Hypertension: BP stable over the 24 hours. - Continue ramipril / metoprolol (9) Dyslipidemia: - Continue statin (10) DVT prophylaxis: SCDs - Low DVT risk per admission calculator & having hemoptysis Subjective Pt seen and examined at the bedside. No acute event over night. Slowly improving. Pt is on 2 L o2 and he said he is using it at home as well. He reports no cough. Pt is afebrile. Po intake slowly improving. Pt denies fever, chills, chest pain , SOB, abdominal pain frequency and urgency. Pt reports no hemoptysis in the past 48 hr. Review of Systems Review of Systems: All systems reviewed & are unremarkable except as noted in HPI & below Constitutional: no fever, no chills, no fatigue, no malaise and no weakness Eyes: as per Subjective / HPI Ear, Nose, Mouth, Throat: no nasal trauma and no epistaxis Respiratory: + chest congestion, + dyspnea, + dyspnea on exertion and + hemoptysis; no cough Cardiovascular: + dyspnea, + dyspnea at rest and + palpitations; no chest pain Neurologic: + falls Hematologic / Lymphatic: + easy bleeding Physical Exam Constitutional: WD/WN, vitals as above Eyes: PERRL, conjunctivae normal, anicteric sclerae ENMT: external ear and nose normal, oropharynx normal Neck: trachea midline, no thyromegaly Respiratory: normal respiratory effort, lungs clear to auscultation Cardiovascular: RRR, no murmur, no edema Chest (Breasts): normal inspection/palpation of breasts Gastrointestinal (Abdomen): normal bowel sounds, soft, nontender, no hepatosplenomegaly Musculoskeletal: no cyanosis or clubbing, extremities motor strength 5/5 Skin: + purpura Purpura located at the lower ext. bilaterally. It did not changed since yesterday. Neurologic: patellar DTR's 2+ bilat, sensation intact Psychiatric: A+Ox3, euthymic affect Genitourinary: no testicular masses, no penis abnormality Lymphatic: no cervical or axillary lymphadenopathy Results & Data Vital Signs (Past 12 Hours) Vital Signs Temp Pulse Resp BP Pulse Ox 04/12/19 11:20 36.3 C L 105 H 20 154/88 H 100 04/12/19 11:15 86 16 96 04/12/19 07:14 95 H 16 96 04/12/19 07:11 36.8 C 95 H 20 151/87 H 96 04/12/19 04:04 36.6 C 100 H 20 111/71 94 PG Care Time/CCT Total # of Minutes Spent Total Time Spent with Patient: Total time spent is greater than 50% in coordination of care (as documented) at patient's floor/unit and/or counseling patient: (1) CHF (congestive heart failure) Heart failure chronicity: unspecified Heart failure type: unspecified Qualified Code(s): I50.9 - Heart failure, unspecified
[2019-04-12] MEDS: AMMONIUM LACTATE 12% LOTION 225 GM BTL EXT SCH (21:22)
[2019-04-12] MEDS: ATORVASTATIN 40 MG TAB PO SCH (21:22)
[2019-04-13] MEDS: methylPREDNISolone 40 MG in SYRINGE 0 ML IV SCH ×2 (06:04→18:16)
[2019-04-13] MEDS: dilTIAZem HCL 30 MG TAB PO SCH ×4 (06:04→21:09)
[2019-04-13] MEDS: ALBUT/IPRATROP 3MG/0.5MG NEB 3 ML VIAL NEB SCH ×4 (07:06→19:25)
[2019-04-13 07:32] LABS: Hematocrit (blood only) 27.9 % (42-52); Hemoglobin 8.7 g/dL (14.0-18.0); Immature Granulocytes # (auto) 0.02 K/uL (0.00-0.02); Immature Granulocytes % (auto) 0.2 %; Lymphocytes # (auto) 0.55 K/uL (1.2-3.4); Lymphocytes % (auto) 5.3 %; Mean Corpuscular Hgb Conc 31.2 g/dL (32-36); Mean Corpuscular Volume 94.9 fL (80-100); Mean Platelet Volume 9.4 fL (7.4-10.4); Monocytes # (auto) 0.41 K/uL (0.11-0.59); Monocytes % (auto) 3.9 %; Neutrophils # (auto) 9.41 K/uL (1.4-6.5); Neutrophils % (auto) 90.6 %; Platelet Count 282 K/uL (130-400); RDW Coefficient of Variation 17.9 % (11.5-14.5); RDW Standard Deviation 60.7 fL (36.4-46.3); Red Blood Count 2.94 M/uL (4.7-6.1); White Blood Count 10.39 K/uL (4.8-10.8)
[2019-04-13] MEDS: PIPERACILLIN/TAZOBACTAM 4.5 GM in DEXTROSE 5% 100 ML IV SCH ×3 (07:38→23:22)
[2019-04-13 08:13] LABS: BUN Creatinine Ratio 26.6 (10-20); Creatinine Clr Calc Pharmacy 76.7 ml/min; Est GFR (African American) 85.6; Est GFR (Non-African American) 73.8; Potassium 4.4 mmol/L (3.5-5.1)
[2019-04-13] MEDS: MULTIVITAMIN TAB PO SCH ×2 (09:12→21:09)
[2019-04-13] MEDS: DULOXETINE HCL 60 MG CAP PO SCH (09:12)
[2019-04-13] MEDS: LACTOBACILLUS ACIDOPHILUS (FLORANEX) TAB PO SCH (09:12)
[2019-04-13] MEDS: METOPROLOL SUCC 25MG EXT REL TAB PO SCH (09:12)
[2019-04-13] MEDS: ENALAPRIL MALEATE 10 MG TAB PO SCH (09:12)
[2019-04-13] MEDS: ASCORBIC ACID 500 MG TAB PO SCH (09:13)
[2019-04-13] MEDS: SODIUM CHLORIDE 1 GM TABLET PO SCH ×4 (09:13→21:10)
[2019-04-13] MEDS: PANTOprazole 40 MG TAB PO SCH (09:13)
[2019-04-13] MEDS: CALCIUM 600MG + VIT D 400 IU TAB PO SCH (09:13)
[2019-04-13] MEDS: CHOLECALCIFEROL 1,000 UNITS TAB PO SCH (09:13)
[2019-04-13] MEDS: FOLIC ACID 400 MCG TAB PO SCH (09:13)
[2019-04-13] MEDS: IRON POLYSACCHARIDE COMPLEX 150 MG CAPSULE PO SCH (09:14)
[2019-04-13] MEDS: GABAPENTIN 100 MG CAP PO SCH ×2 (09:14→21:09)
[2019-04-13] MEDS: ACETAMINOPHEN 325 MG TAB PO PRN ×3 (09:20→21:10)
--- NOTE | 2019-04-13 11:29 | Progress Note ---
DATE: 04/13/2019 The patient was seen today. He looks fine. I inspected his incisions. He has some drainage from his chest tube site. We redressed this, but I removed the dressings from his other sites. He does not sound bad on exam. The patient has no complaints whatsoever. Still on 3 liters, 92% saturation. His white count today is 10,390, hemoglobin stable at 8.7. His electrolytes are essentially within normal limits except for sodium of 134. The patient had a chest x-ray done this morning, which shows a small pneumothorax on the right, but it is nothing we would intervene with at this point. This should resolve. He has no pleural effusions. ASSESSMENT AND PLAN: Postoperative day #3 status post diagnostic lung biopsy. We should have the pathology results tomorrow.
--- NOTE | 2019-04-13 12:03 | XRay Report ---
SINGLE VIEW CHEST CLINICAL HISTORY: Status post VATS. FINDINGS: An AP, portable, upright chest radiograph is compared to study dated 04/11/2019 and correlat ed with chest CT dated 04/08/2019. The examination is degraded by portable technique and patient rotati on. The heart is enlarged and there is atherosclerotic calcification of the thoracic aorta. The pulm onary vasculature is noncongested. Interstitial thickening and airspace opacities are again seen thro ughout the right lung. There is a small right apical pneumothorax which appears modestly increased in size from yesterday. Small pleural effusions are suspected and there are left basilar opacities. The skeletal structures are osteopenic. The bony thorax is grossly intact. Degenerative changes noted in the shoulders and thoracic spine. A surgical anchor is seen in the left humeral head. IMPRESSION: 1. Cardiomegaly without radiographic evidence of congestive failure. 2. There is a small right apical pneumothorax which has modestly increased in size from yesterday. 3. Interstitial thickening and patchy airspace opacities are again seen throughout the right lung. 4. There are small pleural effusions with patchy airspace opacities seen at the left lung base. Electronically signed by: Los Story M.D. 04/13/2019 12:01 PM
--- NOTE | 2019-04-13 14:48 | Hospitalist Progress Note ---
Date of Service April 13, 2019 Assessment & Plan (1) Hemoptysis: Hemoptysis of unknown origin-resolved. Could be due to infection vs. pulmonary edema vs. rarer causes such as vasculitis (he has an unknown vasculitis) vs. other causes of DAH. - Evaluated by ENT who feel it is *not* related to nasopharyngeal cause - Evaluated by pulm - Biopsy on 04/[address] Camp - Awaiting path - Tiny right apical pneumothorax noted and unchanged. F/u CXR tomorrow. - Continue abx and steroids -overall improving (2) Atrial fibrillation: History of paroxysmal afib status post ablation now in sinus rhythm. Anticoagulation therapy and amiodarone was held during his last admission. - Holding anticoagulation given his hemoptysis - Monitor heart rate on telemetry - Continue beta-ophelia & calcium channel ophelia - On 04/11, he went into afib again. Rates in the 120s. Raised his dose diltiazem with IV pushes. Will add dilt gtt if needed. (3) Vasculitis: He has had a long-standing diagnosis of a "vasculitis." I discussed his case with Dr. Smith on 04/10. His history is that of "leukocytoclastic vasculitis;" however, his biopsy was over 20 years ago. He was on Imuran, but this was stopped several weeks ago for anemia. Otherwise, he just gets occasional steroids bursts. ERNESTINE, ANCA, VT-3, anti-MPO, and anti-GBM were all negative. - IgA elevated - Hepatitis screens were negative - C4 pending - Was going to attempt skin biopsy of leg lesion; however, all lesions are >24 hours, so utility would be lower (4) CHF (congestive heart failure): Acute exacerbation of systolic congestive heart failure. Appears to be congested with possible volume overload. EF of 45% on echo in 11/2018. - Initially on IV Lasix 40 mg twice a day with strict I's and O's and monitor volume status closely - Monitor I&Os, daily weights - Monitor Cr with diuresis - On 04/11, held afternoon Lasix for mildly elevated Cr (1.27 from 1.1). Will recheck his Cr before more Lasix. (5) Anemia: Hemoglobin is stable at 7.5. Patient received 2 units of packed red blood cells during his last admission. - Patient needed 2 units PRBCs on 04/10 for a hemoglobin of 6.9. - Transfuse for hgb < 7 (6) CAD (coronary artery disease): No chest pain. - Stable on beta-ophelia and ACEi (7) GERD (gastroesophageal reflux disease): - Continue PPI (8) Hypertension: BP stable over the 24 hours. - Continue ramipril / metoprolol (9) Dyslipidemia: - Continue statin (10) DVT prophylaxis: SCDs - Low DVT risk per admission calculator & having hemoptysis Subjective Pt seen and examined at the bedside. No acute event over night. Slowly impr oving. Improving PO intake. SOB is slowly improving as well. Petechiae over lower extremities are fading away. Pt denies fever, chills, chest pain, SOB, abdominal pain, frequency and urgency. Review of Systems Review of Systems: All systems reviewed & are unremarkable except as noted in HPI & below Physical Exam Constitutional: WD/WN, vitals as above Eyes: PERRL, conjunctivae normal, anicteric sclerae ENMT: external ear and nose normal, oropharynx normal Neck: trachea midline, no thyromegaly Respiratory: normal respiratory effort, lungs clear to auscultation Cardiovascular: RRR, no murmur, no edema Chest (Breasts): normal inspection/palpation of breasts Gastrointestinal (Abdomen): normal bowel sounds, soft, nontender, no hepatosplenomegaly Musculoskeletal: no cyanosis or clubbing, extremities motor strength 5/5 Skin: + purpura Neurologic: patellar DTR's 2+ bilat, sensation intact Psychiatric: A+Ox3, euthymic affect Genitourinary: no testicular masses, no penis abnormality Lymphatic: no cervical or axillary lymphadenopathy Results & Data Vital Signs (Past 12 Hours) Vital Signs Temp Pulse Pulse Resp BP BP Pulse Ox 04/13/19 10:57 36.5 C 124 H 22 151/72 H 93 04/13/19 10:38 111 H 18 92 04/13/19 07:27 36.5 C 108 H 20 156/95 H 95 04/13/19 07:08 98 H 18 95 04/13/19 04:21 36.6 C 102 H 18 151/95 H 148/96 H 96 PG Care Time/CCT Total # of Minutes Spent Total Time Spent with Patient: Total time spent is greater than 50% in coordination of care (as documented) at patient's floor/unit and/or counseling patient: (1) CHF (congestive heart failure) Heart failure chronicity: unspecified Heart failure type: unspecified Qualified Code(s): I50.9 - Heart failure, unspecified
[2019-04-13] MEDS: ATORVASTATIN 40 MG TAB PO SCH (21:09)
[2019-04-13] MEDS: AMMONIUM LACTATE 12% LOTION 225 GM BTL EXT SCH (21:10)
[2019-04-14] MEDS: methylPREDNISolone 40 MG in SYRINGE 0 ML IV SCH ×2 (05:32→17:44)
[2019-04-14] MEDS: dilTIAZem HCL 30 MG TAB PO SCH ×4 (05:32→21:00)
[2019-04-14] MEDS: ALBUT/IPRATROP 3MG/0.5MG NEB 3 ML VIAL NEB SCH ×4 (07:10→19:09)
[2019-04-14] MEDS: PIPERACILLIN/TAZOBACTAM 4.5 GM in DEXTROSE 5% 100 ML IV SCH ×3 (08:43→23:31)
[2019-04-14] MEDS: PANTOprazole 40 MG TAB PO SCH (08:44)
[2019-04-14] MEDS: ENALAPRIL MALEATE 10 MG TAB PO SCH (08:44)
[2019-04-14] MEDS: DULOXETINE HCL 60 MG CAP PO SCH (08:44)
[2019-04-14] MEDS: LACTOBACILLUS ACIDOPHILUS (FLORANEX) TAB PO SCH (08:46)
[2019-04-14] MEDS: SODIUM CHLORIDE 1 GM TABLET PO SCH ×4 (08:46→21:00)
[2019-04-14] MEDS: MULTIVITAMIN TAB PO SCH ×2 (08:46→21:00)
[2019-04-14] MEDS: GABAPENTIN 100 MG CAP PO SCH ×2 (08:46→21:00)
[2019-04-14] MEDS: METOPROLOL SUCC 25MG EXT REL TAB PO SCH (08:46)
[2019-04-14] MEDS: IRON POLYSACCHARIDE COMPLEX 150 MG CAPSULE PO SCH (08:47)
[2019-04-14] MEDS: CALCIUM 600MG + VIT D 400 IU TAB PO SCH (08:47)
[2019-04-14] MEDS: ASCORBIC ACID 500 MG TAB PO SCH (08:47)
[2019-04-14] MEDS: CHOLECALCIFEROL 1,000 UNITS TAB PO SCH (08:47)
[2019-04-14] MEDS: FOLIC ACID 400 MCG TAB PO SCH (08:47)
[2019-04-14] MEDS: ACETAMINOPHEN 325 MG TAB PO PRN ×3 (09:42→21:00)
--- NOTE | 2019-04-14 10:50 | Surgery Progress Note ---
Date of Service April 14, 2019 Assessment & Plan (1) Hemoptysis: -pt. is s/p RVATS with lung biopsy on 04/10/19 -path is pending' -no growth on intra-op cultures Subjective Pt. notes he is doing well. No hemoptysis this am. He denies SOB. Physical Exam Constitutional: well developed and well nourished; no acute distress Respiratory: BS are decreased at bases Results & Data Vital Signs (Past 12 Hours) Vital Signs Temp Pulse Resp BP Pulse Ox 04/14/19 07:17 36.6 C 120 H 20 145/100 H 100 04/14/19 07:11 118 H 16 91 04/14/19 02:57 36.4 C L 108 H 18 154/89 H 97 04/13/19 23:44 36.6 C 106 H 18 120/76 92
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
--- NOTE | 2019-04-14 12:14 | Pulmonology Progress Note ---
Date of Service April 14, 2019 Assessment & Plan (1) Hemoptysis: Continue to monitor the patient. Await final surgical report. (2) Vasculitis: Subjective The patient is feeling very well. He has had no hemoptysis for at least 2 days. He denies any significant shortness of breath. He is not having any significant chest pain. The patient has been in rapid atrial fib. I discussed with him the sleep apnea history. He was diagnosed more than 20 years ago and had a UPPP surgery. He states that he was retested after the surgery but that was many many years ago. He has gained a significant amount of weight since then. He admits to snoring. He has 3 nocturnal awakenings at nighttime typically to go to the bathroom. He feels that he has very good sleep. He goes back to sleep quickly if awakened. He feels that his energy level is good. Review of Systems Review of Systems: As noted above. Physical Exam Physical Exam: The patient is a very pleasant 83-year-old male who was cooperative, alert, and oriented. He was in no distress at rest. The patient is obese. Weight is 128.6 kg. Pupils were reactive to light. Nares were clear. No blood noted. Oropharynx was crowded. Palpation of the neck reveals no lymph nodes or masses. The cardiac rate is increased to 120/min. The rhythm is atrial fibrillation. Blood pressure 157/96. Lung zamarripa were clear bilaterally. No wheezes, rales, or rhonchi heard. Respiratory rate is 20 breaths/min. Saturation 94% on 2 L nasal cannula. Abdomen is obese. Bowel sounds present. Extremities reveal a scar on the right arm from prior surgery. The patient had marked skin changes in both lower extremities consistent with vasculitis. Results & Data Vital Signs (Past 12 Hours) Vital Signs Temp Pulse Resp BP Pulse Ox 04/14/19 11:43 37.3 C 132 H 20 157/96 H 94 04/14/19 11:27 102 H 18 98 04/14/19 07:17 36.6 C 120 H 20 145/100 H 100 04/14/19 07:11 118 H 16 91 04/14/19 02:57 36.4 C L 108 H 18 154/89 H 97 Laboratory Results Most recent CBC done 04/13/2019 showed a white count of 10.39. Hemoglobin was 8.7. Platelets 282,000. Most recent arterial blood gas done 04/11/2019 showed pH 7.44 with PCO2 48 and PO2 68 on 3 L nasal cannula. Electrolytes done 04/13/2019 showed sodium 134 potassium 4.4 chloride 98 bicarb 32. BUN 26 and creatinine 0.96. Diagnostic Findings Chest x-ray done 04/13/2019 shows a small right apical pneumothorax which had increased from 1 day earlier. Cardiomegaly was noted. There were fairly diffuse patchy airspace opacities throughout mainly the right lung. Pathology report from the recently done lung biopsy is still pending.
[2019-04-14] MEDS: dilTIAZem HCl 5 MG/ML 5 ML VIAL IV PRN (16:02)
[2019-04-14] MEDS: ATORVASTATIN 40 MG TAB PO SCH (21:00)
[2019-04-14] MEDS: AMMONIUM LACTATE 12% LOTION 225 GM BTL EXT SCH (21:01)
[2019-04-14] MEDS ORDERED: dilTIAZem HCL 30 MG TAB PO ONE (21:30)
--- NOTE | 2019-04-14 21:35 | Hospitalist Progress Note ---
Date of Service April 14, 2019 Assessment & Plan (1) Hemoptysis: Hemoptysis of unknown origin-resolved. Could be due to infection vs. pulmonary edema vs. rarer causes such as vasculitis (he has an unknown vasculitis) vs. other causes of DAH. - Evaluated by ENT who feel it is *not* related to nasopharyngeal cause - Evaluated by pulm - Biopsy on 04/[address] Camp - Awaiting path - Tiny right apical pneumothorax noted and unchanged. F/u CXR tomorrow. - Continue abx and steroids -overall improving -Patient however continues to have hemoptysis. (2) Atrial fibrillation: History of paroxysmal afib status post ablation now in sinus rhythm. Anticoagulation therapy and amiodarone was held during his last admission. - Holding anticoagulation given his hemoptysis - Monitor heart rate on telemetry - Continue beta-ophelia & calcium channel ophelia - On 04/11, he went into afib again. Rates in the 120s. Raised his dose diltiazem with IV pushes. Issue is patient may require cardioversion, but if he is cardioverted, will need to restart blood thinners. Will discuss case with cardiology (3) Vasculitis: He has had a long-standing diagnosis of a "vasculitis." I discussed his case with Dr. Smith on 04/10. His history is that of "leukocytoclastic vasculitis;" however, his biopsy was over 20 years ago. He was on Imuran, but this was stopped several weeks ago for anemia. Otherwise, he just gets occasional steroids bursts. ERNESTINE, ANCA, DC-3, anti-MPO, and anti-GBM were all negative. - IgA elevated - Hepatitis screens were negative - C4 pending - Was going to attempt skin biopsy of leg lesion; however, all lesions are >24 hours, so utility would be lower (4) CHF (congestive heart failure): Acute exacerbation of systolic congestive heart failure. Appears to be congested with possible volume overload. EF of 45% on echo in 11/2018. - Initially on IV Lasix 40 mg twice a day with strict I's and O's and monitor volume status closely - Monitor I&Os, daily weights - Monitor Cr with diuresis - On 04/11, held afternoon Lasix for mildly elevated Cr (1.27 from 1.1). creat has improved. May consider restarting furosemide. (5) Anemia: Hemoglobin is stable at 7.5. Patient received 2 units of packed red blood cells during his last admission. - Patient needed 2 units PRBCs on 04/10 for a hemoglobin of 6.9. - Transfuse for hgb < 7 (6) CAD (coronary artery disease): No chest pain. - Stable on beta-ophelia and ACEi (7) GERD (gastroesophageal reflux disease): - Continue PPI (8) Hypertension: BP stable over the 24 hours. - Continue ramipril / metoprolol (9) Dyslipidemia: - Continue statin (10) DVT prophylaxis: SCDs - Low DVT risk per admission calculator & having hemoptysis Spent 35 minutes in management of patient. This included chart review. Subjective Patient reports no new complaints. Patient is having no hemoptysis. Review of Systems Eyes: as per Subjective / HPI Respiratory: no cough, no chest congestion, no dyspnea, no dyspnea on exertion and no hemoptysis Cardiovascular: + palpitations; no chest pain, no dyspnea and no dyspnea at rest Neurologic: + falls Hematologic / Lymphatic: + easy bleeding Physical Exam Physical Exam: Constitutional: WD/WN, vitals as above Eyes: PERRL, conjunctivae normal, anicteric sclerae ENMT: external ear and nose normal, oropharynx normal Neck: trachea midline, no thyromegaly Respiratory: normal respiratory effort, lungs clear to auscultation Cardiovascular: RRR, no murmur, no edema Chest (Breasts): normal inspection/palpation of breasts Gastrointestinal (Abdomen): normal bowel sounds, soft, nontender, no hepatosplenomegaly Musculoskeletal: no cyanosis or clubbing, extremities motor strength 5/5 Skin: + purpura Neurologic: patellar DTR's 2+ bilat, sensation intact Psychiatric: A+Ox3, euthymic affect Genitourinary: no testicular masses, no penis abnormality Lymphatic: no cervical or axillary lymphadenopathy Results & Data Vital Signs (Past 12 Hours) Vital Signs Temp Pulse Pulse Resp BP BP Pulse Ox 04/14/19 20:05 36.6 C 122 H 18 132/60 96 04/14/19 19:11 103 H 16 97 04/14/19 16:00 116 H 04/14/19 15:33 118 H 18 92 04/14/19 15:09 36.5 C 124 H 18 113/77 97 07/15/19 11:43 37.3 C 132 H 20 157/96 H 94 04/14/19 11:27 102 H 18 98 PG Care Time/CCT Total # of Minutes Spent Total Time Spent with Patient: Total time spent is greater than 50% in coordination of care (as documented) at patient's floor/unit and/or counseling patient: (1) CHF (congestive heart failure) Heart failure chronicity: unspecified Heart failure type: unspecified Qualified Code(s): I50.9 - Heart failure, unspecified
[2019-04-15] MEDS: dilTIAZem HCL 30 MG TAB PO SCH ×4 (03:08→21:25)
[2019-04-15] MEDS: ACETAMINOPHEN 325 MG TAB PO PRN ×4 (06:16→21:26)
[2019-04-15] MEDS: methylPREDNISolone 40 MG in SYRINGE 0 ML IV SCH ×2 (06:17→17:02)
[2019-04-15 07:01] LABS: Creatinine Clr Calc Pharmacy 74.8 ml/min; Est GFR (African American) 81.4; Est GFR (Non-African American) 70.3
[2019-04-15] MEDS: ALBUT/IPRATROP 3MG/0.5MG NEB 3 ML VIAL NEB SCH (07:09)
[2019-04-15] MEDS: PIPERACILLIN/TAZOBACTAM 4.5 GM in DEXTROSE 5% 100 ML IV SCH ×3 (08:04→23:36)
[2019-04-15] MEDS: SODIUM CHLORIDE 1 GM TABLET PO SCH ×4 (08:06→21:25)
[2019-04-15] MEDS: LACTOBACILLUS ACIDOPHILUS (FLORANEX) TAB PO SCH (08:07)
[2019-04-15] MEDS: PANTOprazole 40 MG TAB PO SCH (08:07)
[2019-04-15] MEDS: ENALAPRIL MALEATE 10 MG TAB PO SCH (08:07)
[2019-04-15] MEDS: METOPROLOL SUCC 25MG EXT REL TAB PO SCH (08:07)
[2019-04-15] MEDS: MULTIVITAMIN TAB PO SCH ×2 (08:08→21:25)
[2019-04-15] MEDS: DULOXETINE HCL 60 MG CAP PO SCH (08:08)
[2019-04-15] MEDS: CHOLECALCIFEROL 1,000 UNITS TAB PO SCH (08:08)
[2019-04-15] MEDS: GABAPENTIN 100 MG CAP PO SCH ×2 (08:09→21:26)
[2019-04-15] MEDS: ASCORBIC ACID 500 MG TAB PO SCH (08:09)
[2019-04-15] MEDS: FOLIC ACID 400 MCG TAB PO SCH (08:09)
[2019-04-15] MEDS: CALCIUM 600MG + VIT D 400 IU TAB PO SCH (08:11)
[2019-04-15] MEDS: IRON POLYSACCHARIDE COMPLEX 150 MG CAPSULE PO SCH (08:11)
[2019-04-15] MEDS ORDERED: ALBUT/IPRATROP 3MG/0.5MG NEB 3 ML VIAL NEB PRN (08:21)
--- NOTE | 2019-04-15 10:51 | Pulmonology Progress Note ---
Date of Service April 15, 2019 Assessment & Plan (1) Hemoptysis: We are still awaiting the results of the lung by a the best guess as of now is that he may have vasculitis affecting the lung. That is not definitive however. Further treatment recommendations depend upon the biopsy report. T hankfully he has had no hemoptysis and almost 5 days. The patient indicated he would like to follow with magan vaz upon discharge. I do think that would be appropriate. He will ultimately need follow-up regarding his x-ray findings. He will need pulmonary function test. I have spoken with him about consideration to doing a diagnostic sleep study to determine if he has recurrence of sleep apnea that was previously treated with UPPP surgery approximately 20 years ago. (2) Vasculitis: As above Subjective The patient feels well. He has not coughed up any blood since the day of his surgery which was now almost 5 days ago. He is not having any significant cough. He denies shortness of breath. He has no significant pain. His appetite is good. Energy level is good. Review of Systems Review of Systems: As noted above. Physical Exam Physical Exam: The patient is a 83-year-old male who was cooperative alert and oriented. He was in no distress. Temperature is 36.1. Pupils were reactive. Nares revealed some dried blood in the left nostril. The patient was unaware of this. Mouth exam shows a Mallampati grade 3 with evidence of prior UPPP surgery. Neck is large. No lymph nodes palpable. The cardiac rate is 102/min. The rhythm is irregularly irregular. The heart rate is improved compared with yesterday. Blood pressure 117/84. Lung zamarripa reveals a few fine rales posteriorly on the right. Respiratory rate 19. Saturation 100% on 2 L. Extremities showed no change in the diffuse vasculitis skin lesions of the lower extremities. Results & Data Vital Signs (Past 12 Hours) Vital Signs Temp Pulse Resp BP BP Pulse Ox 04/15/19 07:18 36.1 C L 101 H 19 117/84 100 04/15/19 07:10 101 H 18 95 04/15/19 02:59 36.6 C 118 H 16 137/90 99 04/15/19 00:53 108 H 04/14/19 23:40 36.7 C 119 H 20 154/87 H 96 Laboratory Results The pathology report from the surgery is still pending. Creatinine today is 1.0.
[2019-04-15 13:53] LABS: Complement C3 150 MG/DL; Complement Total(CH50) >60 U/mL (31-60)
--- NOTE | 2019-04-15 17:06 | Progress Note ---
DATE: 04/15/2019 Mr. Gutierrez was seen today. He looks very good. I removed all of his dressings. His incisions are clean. I would not put dressings back on. He is very stable from our standpoint. His biopsy results show this to be diffuse alveolar damage with apparent capillaritis. From our standpoint, I am quite pleased with him.
--- NOTE | 2019-04-15 20:14 | Cardiology Progress Note ---
Date of Service April 15, 2019 Assessment & Plan (1) Atrial fibrillation: No symptoms. Overall rate control seems improved. It is not clear if he will be able to start anticoagulation. If he can start anticoagulation I would suggest a LENNOX and cardioversion prior to discharge. If it seems as if he can no longer be anticoagulated I would advocate insertion of a pacemaker. (2) Cardiomyopathy: Possibly rate related. His ejection fraction was felt to be normal and January of this year. He is not currently experiencing symptoms consistent with decompensated heart failure. Lung examination is abnormal, but intravascularly he appears to be euvolemic. He is on a beta-ophelia and BARB-inhibitor. (3) Mitral regurgitation: Reportedly moderate in November of this year. On the last echocardiogram this was not mentioned. No murmur on examination. (4) CAD (coronary artery disease): (5) CHF (congestive heart failure): N terminal proBNP was elevated on the 08 of April. However, he currently appears to be doing quite well and does not appear to be decompensated. He does not have breathing difficulty. His lung examination is not normal. His x-ray is not normal. However, diuretic use did result in some mild renal dysfunction suggesting intravascular depletion. Subjective The patient repots feeling well. He did report some atypical chest pain. This appears to happen with deep inspiration and involves a fleeting, squeezing sensation on the right chest. NO coughing or hemoptysis. No dyspnea. NO sense of palpitations. Review of Systems Review of Systems: per HPI Results & Data Vital Signs (Past 12 Hours) Vital Signs Temp Pulse Pulse Pulse Resp BP BP 04/15/19 19:47 37 C 105 H 20 129/82 04/15/19 16:00 99 H 04/15/19 15:10 36.8 C 104 H 18 131/88 04/15/19 15:00 36.7 C 103 H 17 131/81 04/15/19 11:03 36.5 C 92 H 19 123/80 Pulse Ox 04/15/19 19:47 93 04/15/19 16:00 04/15/19 15:10 97 04/15/19 15:00 96 04/15/19 11:03 95 Laboratory Results Abnormal Lab Results 04/11/19 04/15/19 06:43 05:49 Creatinine 1.00 Est Cr Clr Drug Dosing 74.8 Est GFR ( Amer) 81.4 Est GFR (Non-Af Amer) 70.3 Complement C3 150 Complement C4 33 Tot Complement (CH50) >60 H ECG Additional Comments: Continued atrial fibrillation with RVR (1) CHF (congestive heart failure) Heart failure chronicity: unspecified Heart failure type: unspecified Qualified Code(s): I50.9 - Heart failure, unspecified
[2019-04-15] MEDS: ATORVASTATIN 40 MG TAB PO SCH (21:25)
[2019-04-15] MEDS: AMMONIUM LACTATE 12% LOTION 225 GM BTL EXT SCH (21:25)
--- NOTE | 2019-04-15 23:30 | Hospitalist Progress Note ---
Date of Service April 15, 2019 Assessment & Plan (1) Hemoptysis: Hemoptysis of unknown origin-resolved. Could be due to infection vs. pulmonary edema vs. rarer causes such as vasculitis (he has an unknown vasculitis) vs. other causes of DAH. - Evaluated by ENT who feel it is *not* related to nasopharyngeal cause - Evaluated by pulm - Biopsy on 04/[address] Camp - Awaiting path - Tiny right apical pneumothorax noted and unchanged. F/u CXR tomorrow. - Continue abx and steroids -overall improving (2) Atrial fibrillation: History of paroxysmal afib status post ablation now in sinus rhythm. Anticoagulation therapy and amiodarone was held during his last admission. - Holding anticoagulation given his hemoptysis - Monitor heart rate on telemetry - Continue beta-ophelia & calcium channel ophelia - On 04/11, he went into afib again. Rates in the 120s. Raised his dose diltiazem with IV pushes. Will add dilt gtt if needed. -Given patient is not a candidate for cardioversion due to inability to take anticoagulation. will need to better control his heart rate pharmacologically. (3) Vasculitis: He has had a long-standing diagnosis of a "vasculitis." I discussed his case with Dr. Smith on 04/10. His history is that of "leukocytoclastic vasculitis;" however, his biopsy was over 20 years ago. He was on Imuran, but this was stopped several weeks ago for anemia. Otherwise, he just gets occasional steroids bursts. ERNESTINE, ANCA, AK-3, anti-MPO, and anti-GBM were all negative. - IgA elevated - Hepatitis screens were negative - C4 pending - Was going to attempt skin biopsy of leg lesion; however, all lesions are >24 hours, so utility would be lower (4) CHF (congestive heart failure): Acute exacerbation of systolic congestive heart failure. Appears to be congested with possible volume overload. EF of 45% on echo in 11/2018. - Initially on IV Lasix 40 mg twice a day with strict I's and O's and monitor volume status closely - Monitor I&Os, daily weights - Monitor Cr with diuresis (5) Anemia: Hemoglobin is stable at 7.5. Patient received 2 units of packed red blood cells during his last admission. - Patient needed 2 units PRBCs on 04/10 for a hemoglobin of 6.9. - Transfuse for hgb < 7 (6) CAD (coronary artery disease): No chest pain. - Stable on beta-ophelia and ACEi (7) GERD (gastroesophageal reflux disease): - Continue PPI (8) Hypertension: BP stable over the 24 hours. - Continue ramipril / metoprolol (9) Dyslipidemia: - Continue statin (10) DVT prophylaxis: SCDs - Low DVT risk per admission calculator & having hemoptysis Subjective Patient reports no new symptoms. Review of Systems Review of Systems: All systems reviewed & are unremarkable except as noted in HPI & below Physical Exam Physical Exam: Constitutional: WD/WN, vitals as above Eyes: PERRL, conjunctivae normal, anicteric sclerae ENMT: external ear and nose normal, oropharynx normal Neck: trachea midline, no thyromegaly Respiratory: normal respiratory effort, lungs clear to auscultation Cardiovascular: RRR, no murmur, no edema Chest (Breasts): normal inspection/palpation of breasts Gastrointestinal (Abdomen): normal bowel sounds, soft, nontender, no hepatosplenomegaly Musculoskeletal: no cyanosis or clubbing, extremities motor strength 5/5 Skin: + purpura Neurologic: patellar DTR's 2+ bilat, sensation intact Psychiatric: A+Ox3, euthymic affect Genitourinary: no testicular masses, no penis abnormality Lymphatic: no cervical or axillary lymphadenopathy Results & Data Vital Signs (Past 12 Hours) Vital Signs Temp Pulse Pulse Pulse Resp BP BP 04/15/19 19:47 37 C 105 H 20 129/82 04/15/19 16:00 99 H 04/15/19 15:10 36.8 C 104 H 18 131/88 04/15/19 15:00 36.7 C 103 H 17 131/81 Pulse Ox 04/15/19 19:47 93 04/15/19 16:00 04/15/19 15:10 97 04/15/19 15:00 96 PG Care Time/CCT Total # of Minutes Spent Total Time Spent with Patient: Total time spent is greater than 50% in coordination of care (as documented) at patient's floor/unit and/or counseling patient: (1) CHF (congestive heart failure) Heart failure chronicity: unspecified Heart failure type: unspecified Qualified Code(s): I50.9 - Heart failure, unspecified
[2019-04-16] MEDS: dilTIAZem HCL 30 MG TAB PO SCH ×4 (03:24→20:06)
[2019-04-16] MEDS: methylPREDNISolone 40 MG in SYRINGE 0 ML IV SCH ×2 (06:17→17:30)
[2019-04-16 07:30] LABS: Creatinine Clr Calc Pharmacy 77.1 ml/min; Est GFR (African American) 84.5; Est GFR (Non-African American) 72.9
[2019-04-16] MEDS: ACETAMINOPHEN 325 MG TAB PO PRN ×2 (08:11→12:22)
[2019-04-16] MEDS: CALCIUM 600MG + VIT D 400 IU TAB PO SCH (08:21)
[2019-04-16] MEDS: CHOLECALCIFEROL 1,000 UNITS TAB PO SCH (08:21)
[2019-04-16] MEDS: METOPROLOL SUCC 25MG EXT REL TAB PO SCH (08:22)
[2019-04-16] MEDS: LACTOBACILLUS ACIDOPHILUS (FLORANEX) TAB PO SCH (08:22)
[2019-04-16] MEDS: PANTOprazole 40 MG TAB PO SCH (08:22)
[2019-04-16] MEDS: DULOXETINE HCL 60 MG CAP PO SCH (08:22)
[2019-04-16] MEDS: MULTIVITAMIN TAB PO SCH ×2 (08:22→20:07)
[2019-04-16] MEDS: GABAPENTIN 100 MG CAP PO SCH ×2 (08:22→20:06)
[2019-04-16] MEDS: ENALAPRIL MALEATE 10 MG TAB PO SCH (08:23)
[2019-04-16] MEDS: ASCORBIC ACID 500 MG TAB PO SCH (08:23)
[2019-04-16] MEDS: SODIUM CHLORIDE 1 GM TABLET PO SCH ×4 (08:23→20:05)
[2019-04-16] MEDS: FOLIC ACID 400 MCG TAB PO SCH (08:23)
[2019-04-16] MEDS: IRON POLYSACCHARIDE COMPLEX 150 MG CAPSULE PO SCH (08:24)
--- NOTE | 2019-04-16 11:19 | Pulmonology Progress Note ---
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 I believe it is reasonable to switch to prednisone 60 mg p.o. daily. I do not believe it is advisable to restart anticoagulation currently in light of his recent history of significant hemoptysis associated with the anemia. We will recheck chest x-ray. (2) Capillaritis of lung: (3) Vasculitis: Subjective The patient states he is feeling well. Yesterday afternoon about 3 PM he had some discomfort in the right upper anterior chest. He describes it as feeling like a muscle cramp. He was evaluated by cardiology. It was not thought to be cardiac related. The symptoms lasted only for a few minutes. He has had no hemoptysis for about 6 days. He denies shortness of breath. He has no significant cough. He has had some blood through his nostrils on the left side mainly which is dried up. There was no fresh bleeding according to the patient. His appetite remains good. Energy level is good. He states he has been ambulating to the bathroom without difficulty. Review of Systems Review of Systems: As noted above Physical Exam Physical Exam: The patient is an 83-year-old male who was cooperative alert and oriented. He was in no distress. Temperature 36.7. He said no fevers. Examination of the patient's neck does reveal a scar at the base. Upon close questioning the patient indicates he had a tracheostomy done at the time of his UPPP surgery. He did not believe it was done because of shortness of breath after the surgery. He thinks it was done as a planned portion of the procedure. The trach was in for a relatively short period of time. The cardiac rate is 102/min. Rhythm irregular. Blood pressure 132/87. Lung zamarripa revealed decreased breath sounds but were generally clear. Respiratory rate 19. Saturation 98% on 2 L done by myself. There is a large midabdominal scar from prior surgery. Abdomen obese. Extremities are unchanged in terms of the vasculitis. Results & Data Vital Signs (Past 12 Hours) Vital Signs Temp Pulse Resp BP BP Pulse Ox 04/16/19 07:07 36.7 C 102 H 19 132/87 97 04/16/19 03:25 36.4 C L 98 H 16 141/93 H 94 04/15/19 23:29 36.4 C L 104 H 18 148/81 H 96 Laboratory Results Biopsy report from the surgery indicates diffuse alveolar hemorrhage with capillaritis. The capillaritis was found only in a single focus of the right lower lobe involving a small to medium size vessel. This could be related to his known vasculitis. Other causes could be implicated as noted in the pathology report. Review of his labs from 03/31/2019 shows the ANCA was negative and glomerular basement membrane antibodies negative. The patient does have a significant elevation of IgA as noted from 04/10/2019. The IgA was 1610 with an upper limit of normal of 400. The patient indicated he had some type of protein problem in his blood for which she follows with oncology. He was not sure if it was IgA or not.
--- NOTE | 2019-04-16 14:12 | Cardiology Progress Note ---
Date of Service April 16, 2019 Assessment & Plan (1) Atrial fibrillation: No symptoms. Overall rate control is improved on higher doses of diltiazem. There was some concern in the past about bradycardia in the setting of high-dose metoprolol and diltiazem. It seems evidence that his current lung condition will preclude use of amiodarone and systemic anticoagulation. In this setting, I think the best option for him is placement of a pacemaker and more aggressive rate control. He has few symptoms associated with the atrial fibrillation and I am confident we can achieve good rate control with higher doses of medication. The addition of a pacemaker will preclude any episodes of significant bradycardia should he return to sinus rhythm. I discussed the risks benefits and alternatives with the patient and his at the bedside today. Will plan on proceeding tomorrow morning. (2) Cardiomyopathy: Possibly rate related. His ejection fraction was felt to be normal and January of this year. He is not currently experiencing symptoms consistent with decompensated heart failure. Lung examination is abnormal, but intravascularly he appears to be euvolemic. He is on a beta-ophelia and BARB-inhibitor. (3) Mitral regurgitation: Reportedly moderate in November of this year. On the last echocardiogram this was not mentioned. No murmur on examination. (4) CAD (coronary artery disease): (5) CHF (congestive heart failure): N terminal proBNP was elevated on the 08 of April. However, he currently appears to be doing quite well and does not appear to be decompensated. He does not have breathing difficulty. Subjective This afternoon the patient claims feeling quite well. He did not have any specific complaints. He has been ambulatory around his room with minimal dyspnea. No additional coughing or hemoptysis. No chest pain. No sense of palpitation. Review of Systems Review of Systems: Per HPI Physical Exam Physical Exam: The patient is alert and oriented. Mood and affect appeared normal. He answered all questions appropriately. HEENT: Pupils are equal and reactive to light and accommodation. Extraocular movements are intact. The sclerae are anicteric. Neuro: Cranial nerves intact Lungs: Clear to auscultation bilaterally. He has good air movement without use of accessory muscles. No rales wheezes or rhonchi. Cardiac: Heart demonstrates an irregular rate and rhythm. Normal S1 and S2. No murmurs on examination. Skin: Macular, erythematous rash noted on both lower extremities.. Results & Data Vital Signs (Past 12 Hours) Vital Signs Temp Pulse Pulse Resp BP BP Pulse Ox 04/16/19 11:13 36.5 C 103 H 19 147/89 H 96 04/16/19 08:00 88 04/16/19 07:07 36.7 C 102 H 19 132/87 97 04/16/19 03:25 36.4 C L 98 H 16 141/93 H 94 Laboratory Results Abnormal Lab Results 04/16/19 06:28 Creatinine 0.97 Est Cr Clr Drug Dosing 77.1 Est GFR ( Amer) 84.5 Est GFR (Non-Af Amer) 72.9 ECG Additional Comments: Telemetry demonstrates atrial fibrillation with improved rate control (1) CHF (congestive heart failure) Heart failure chronicity: unspecified Heart failure type: unspecified Qualified Code(s): I50.9 - Heart failure, unspecified
[2019-04-16] MEDS ORDERED: TRAMADOL HCL 50 MG TABLET PO STA (17:39)
[2019-04-16] MEDS ORDERED: TRAMADOL HCL 50 MG TABLET PO SCH (17:45)
[2019-04-16] MEDS ORDERED: Nursing to Pharmacy Communication ONE (17:45)
[2019-04-16] MEDS: AMMONIUM LACTATE 12% LOTION 225 GM BTL EXT SCH (20:05)
[2019-04-16] MEDS: ATORVASTATIN 40 MG TAB PO SCH (20:06)
--- NOTE | 2019-04-16 22:25 | Hospitalist Progress Note ---
Date of Service April 16, 2019 Assessment & Plan (1) Hemoptysis: Hemoptysis of unknown origin-resolved. Could be due to infection vs. pulmonary edema vs. rarer causes such as vasculitis (he has an unknown vasculitis) vs. other causes of DAH. - Evaluated by ENT who feel it is *not* related to nasopharyngeal cause - Evaluated by pulm - Biopsy on 04/[address] Camp - Awaiting path - Tiny right apical pneumothorax noted and unchanged. F/u CXR tomorrow. - Continue abx and steroids -overall improving -Patient however continues to have hemoptysis. (2) Atrial fibrillation: History of paroxysmal afib status post ablation now in sinus rhythm. Anticoagulation therapy and amiodarone was held during his last admission. - Holding anticoagulation given his hemoptysis - Monitor heart rate on telemetry - Continue beta-ophelia & calcium channel ophelia -Given patient is not a candidate for cardioversion due to inability to take anticoagulation. will need to better control his heart rate pharmacologically. Plan now is to place pacemaker in patient tomorrow; the purpose of this is to protect him as we will continue to aggressively rate control him with diltiazem and metorpolol; in case his HR goes too low. HR does appear better controlled with higher dose of CCB. (3) Vasculitis: He has had a long-standing diagnosis of a "vasculitis." I discussed his case with Dr. Smith on 04/10. His history is that of "leukocytoclastic vasculitis;" however, his biopsy was over 20 years ago. He was on Imuran, but this was stopped several weeks ago for anemia. Otherwise, he just gets occasional steroids bursts. ERNESTINE, ANCA, [place]-3, anti-MPO, and anti-GBM were all negative. - IgA elevated - Hepatitis screens were negative - C4 pending - Was going to attempt skin biopsy of leg lesion; however, all lesions are >24 hours, so utility would be lower (4) CHF (congestive heart failure): Acute exacerbation of systolic congestive heart failure. Appears to be congested with possible volume overload. EF of 45% on echo in 11/2018. - Initially on IV Lasix 40 mg twice a day with strict I's and O's and monitor volume status closely - Monitor I&Os, daily weights - Patient appears euvolemic. Will monitor. (5) Anemia: Hemoglobin is stable at 7.5. Patient received 2 units of packed red blood cells during his last admission. - Patient needed 2 units PRBCs on 04/10 for a hemoglobin of 6.9. - Transfuse for hgb < 7 (6) CAD (coronary artery disease): No chest pain. - Stable on beta-ophelia and ACEi (7) GERD (gastroesophageal reflux disease): - Continue PPI (8) Hypertension: BP stable over the 24 hours. - Continue ramipril / metoprolol (9) Dyslipidemia: - Continue statin (10) DVT prophylaxis: SCDs - Low DVT risk per admission calculator & having hemoptysis Spent 35 minutes in management of patient. This included chart review. Subjective Patient reports no new symptoms today. Review of Systems Review of Systems: All systems reviewed & are unremarkable except as noted in HPI & below Physical Exam Physical Exam: Constitutional: WD/WN, vitals as above Eyes: PERRL, conjunctivae normal, anicteric sclerae ENMT: external ear and nose normal, oropharynx normal Neck: trachea midline, no thyromegaly Respiratory: normal respiratory effort, lungs clear to auscultation Cardiovascular: RRR, no murmur, no edema Chest (Breasts): normal inspection/palpation of breasts Gastrointestinal (Abdomen): normal bowel sounds, soft, nontender, no hepatos plenomegaly Musculoskeletal: no cyanosis or clubbing, extremities motor strength 5/5 Skin: + purpura Neurologic: patellar DTR's 2+ bilat, sensation intact Psychiatric: A+Ox3, euthymic affect Genitourinary: no testicular masses, no penis abnormality Lymphatic: no cervical or axillary lymphadenopathy Results & Data Vital Signs (Past 12 Hours) Vital Signs Temp Pulse Resp BP BP Pulse Ox 04/16/19 19:53 36.7 C 110 H 18 156/98 H 94 04/16/19 15:21 36.5 C 99 H 19 161/95 H 97 04/16/19 11:13 36.5 C 103 H 19 147/89 H 96 PG Care Time/CCT Total # of Minutes Spent Total Time Spent with Patient: Total time spent is greater than 50% in coordination of care (as documented) at patient's floor/unit and/or counseling patient: (1) CHF (congestive heart failure) Heart failure chronicity: unspecified Heart failure type: unspecified Qualified Code(s): I50.9 - Heart failure, unspecified
[2019-04-17] MEDS: dilTIAZem HCl 5 MG/ML 5 ML VIAL IV PRN (00:02)
[2019-04-17] MEDS: TRAMADOL HCL 50 MG TABLET PO PRN ×2 (00:02→09:45)
[2019-04-17] MEDS: dilTIAZem HCL 30 MG TAB PO SCH ×4 (03:49→21:45)
[2019-04-17 06:58] LABS: Creatinine Clr Calc Pharmacy 79.6 ml/min; Est GFR (African American) 88.9; Est GFR (Non-African American) 76.7
--- NOTE | 2019-04-17 08:14 | XRay Report ---
XR chest 2V routine CLINICAL HISTORY: 83 years-old Male presenting with hemoptysis, f/u lung infiltrates. TECHNIQUE: PA and lateral views of the chest were obtained. COMPARISON: 04/13/2019. FINDINGS: Atherosclerosis of the aortic arch. Cardiac silhouette enlarged. Significant interval increase in siz e of the now moderate right pneumothorax. Extensive right lung infiltrates with worsening aeration of the right lung. Small to moderate right pleural effusion with an air-fluid level at the lung base. M inimal left basilar opacity suggested. Small left pleural effusion. Degenerative changes of the thora cic spine. Upper abdomen normal. IMPRESSION: 1. Increased size of the now moderate right hydropneumothorax. 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 2. Persistent diffuse right lung infiltrates with worsened aeration. 3. Possible left basilar infiltrates. 4. Small left pleural effusion. 5. Cardiomegaly. The report will be called/faxed according to standard departmental protocol. Electronically signed by: Adam Montalvo M.D. 04/17/2019 8:12 AM
--- NOTE | 2019-04-17 09:29 | Progress Note ---
DATE: 04/17/2019 Mr. Gutierrez was seen today. He looks great. As usual, he has no complaints whatsoever. He is going to get a dual lead pacemaker today by Dr. Bello Duron. He was seen by Dr. Mccray yesterday. Dr. Mccray w has raised the possibility that this is amiodarone toxicity. Admittedly, I did not know he had been on this drug. It appears he does have diffuse alveolar hemorrhage, however. He feels better and has not had any hemoptysis. [facility]
[2019-04-17] MEDS: PANTOprazole 40 MG TAB PO SCH (09:38)
[2019-04-17] MEDS: METOPROLOL SUCC 25MG EXT REL TAB PO SCH (09:38)
[2019-04-17] MEDS: ENALAPRIL MALEATE 10 MG TAB PO SCH (09:39)
[2019-04-17] MEDS: GABAPENTIN 100 MG CAP PO SCH ×2 (09:46→21:47)
--- NOTE | 2019-04-17 11:14 | Pulmonology Progress Note ---
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 Avoid anticoagulation at present Avoid amiodarone as it potentially may have contributed to the DAH. (2) Capillaritis of lung: As above (3) Pneumothorax after biopsy: I discussed the situation with Dr. Camp. He will reevaluate the patient and consider if he needs either an aspirate or tube insertion. (4) Obstructive sleep apnea: Obtain outpatient sleep study after he is home and stable Subjective The patient has had no hemoptysis now for 6 days. He denies shortness of breath but he admits to having a little wheeze this morning which is a change. He has no chest pain. He denies chills fevers or sweats. Appetite is good. The patient's was with him during this evaluation. I asked her questions about possible sleep apnea. She states his sleep apnea used to be very severe but after his surgery it was much better. She acknowledges however that he probably has episodes now where he stops breathing. Review of Systems Review of Systems: As noted above Physical Exam Physical Exam: The patient is a 83-year-old male who was cooperative alert and oriented. He was in no distress at rest. Temperature is 36.8. ENT exam is unchanged from prior. Major findings are those of a large neck with scar at the base of the neck and he has a Mallampati grade 3. Heart rate is 91/min. Rhythm is irregular. Blood pressure 149/89. Auscultation of the lung zamarripa does reveal a decrease in the breath sounds on the right compared with the left. This was noticeable both anteriorly and posteriorly. Mild wheeze was heard. Respiratory rate 18. Saturation 95% on 2 L. Abdomen is obese. Large scar noted. Extremities showed no change in the vasculitis lesions of the lower extremities. Results & Data Vital Signs (Past 12 Hours) Vital Signs Temp Pulse Pulse Resp BP BP Pulse Ox 04/17/19 10:01 88 04/17/19 07:15 36.4 C L 104 H 19 152/94 H 91 04/17/19 03:50 36.6 C 99 H 22 105/67 96 04/17/19 00:47 111 H 04/16/19 23:19 36.6 C 118 H 24 175/89 H 95 Laboratory Results Creatinine today is 0.93. Diagnostic Findings Chest x-ray today shows an enlarging right pneumothorax. It appears to measure 20 to 30%. This reflects a definite change from 4 days ago.
[2019-04-17] MEDS ORDERED: BACITRACIN INJ 50,000 UNIT VIAL ONE (11:30)
[2019-04-17] MEDS ORDERED: BUPIVACAINE 0.25% 30 ML VIAL ONE (11:30)
[2019-04-17] MEDS ORDERED: LIDOCAINE HCL 1% 20 ML VIAL ONE ×2 (11:30→15:00)
[2019-04-17] MEDS ORDERED: MIDAZOLAM HCL 5 MG/ML 1 ML VIAL ONE (11:38)
[2019-04-17] MEDS ORDERED: fentaNYL citrate 100 MCG/2 ML VIAL ONE (11:38)
[2019-04-17] MEDS ORDERED: CEFAZOLIN 250 MG/ML 1 GM VIAL ONE (11:45)
--- NOTE | 2019-04-17 12:03 | Pre Anesthesia Assessment ---
Date of Service April 17, 2019 Pre Sedation Assessment Vital Signs Temp Pulse Pulse Resp BP BP Pulse Ox 04/17/19 11:15 36.8 C 91 H 18 149/89 H 95 04/17/19 10:01 88 04/17/19 07:15 36.4 C L 104 H 19 152/94 H 91 04/17/19 03:50 36.6 C 99 H 22 105/67 96 04/17/19 00:47 111 H 04/16/19 23:19 36.6 C 118 H 24 175/89 H 95 04/16/19 19:53 36.7 C 110 H 18 156/98 H 94 04/16/19 15:21 36.5 C 99 H 19 161/95 H 97 Cardiovascular + irregularly irregular Respiratory + respiratory effort normal Pre-Sedation Airway Assessment Smoking Status: Former smoker Hx Sleep Apnea: No Hx Difficult Intubation: No Short, Thick Neck: No Thyromental Distance: < 3.5 Finger Breadths Oral Cavity: + WNL Mallampati Class: III ASA: ASA3 Procedure Planning Contraindications for Sedation: none Current Medications Reviewed: No Notes The planned sedation has been discussed with the patient. Informed Consent was obtained. I have identified the patient, determined the appropriateness of sedation and have assessed the patient immediately prior to the procedure. All medicine(s) and interventions are by my order.
--- NOTE | 2019-04-17 13:36 | Procedure Note ---
Procedure Note Date of Service April 17, 2019 Note Procedure performed: Implantation of dual-chamber permanent pacemaker Staff chemical dependency counselor: Edouard Duron MD Indication: The patient is an 83-year-old gentleman with a history of atrial fibrillation and high ventricular rates. Patient was also believed to have suffered a syncopal episode from bradycardia due to aggressive rate control. 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 A dual-chamber device was selected as the patient may be cardioverted in the future and we need to maintain adequate rate support. Procedure in detail: The patient was informed of the risks benefits and alternatives to the intended procedure and she wished to proceed. He was taken to the electrophysiology suite in a fasting state. A preoperative antibiotic had been administered. The patient was monitored electrocardiographically throughout today's procedure and conscious sedation was administered per protocol. The left upper pectoral area is prepped and draped in usual sterile fashion. This area was anesthetized using subcutaneous administration of a xylocaine solution. An incision was made at this site and carried down to the prepectoralis fascia using sharp dissection. Electrocautery was also employed for dissection as well as for hemostasis. A device pocket was fashioned tissues above the pectoralis muscle. Subsequent to this maneuver the left axillary vein was accessed using modified Seldinger technique. Sheaths were placed over guidewires at this site and used to facilitate passage of the pacing leads to the respective chambers under fluoroscopic guidance. This included right atrial and right ventricular leads. Adequate sensing and threshold parameters were obtained prior to Active fixation of the leads to the endocardial surface. The proximal portion leads were then sutured the prepectoral fascia using nonabsorbable suture. The device pocket was irrigated with antibiotic solution. The leads were then attached to the device. The device and leads were then placed in the pocket and pocket was closed in 3 layers of absorbable suture. Steri-Strips and sterile dressing were applied. The device was tested noninvasively prior to conclusion the procedure. The patient tolerated procedure well there no immediate complications. Equipment used: New pulse generator: Plane [employer]. Model number: [id number] serial number [id number] Right atrial lead: Plane [employer]. Model number: 5076 serial number [id number] Right ventricular lead: Plane [employer]. Model number: 5076 serial number [id number] Measured data: Right atrial lead: Patient was in atrial fibrillation at the time of implant. Atrial sensing was 0.9 mV. Pacing threshold could not be determined but the impedance was 418 ohms Right ventricular lead: R waves measured 17.4 mV. Pacing threshold was 1 V at 0.4 ms with a pacing impedance of 532 ohms Impression: Successful implantation of dual-chamber permanent pacemaker Coding
[2019-04-17] MEDS: OXYCODONE HCL IR 5 MG TAB (IMMEDIATE RELEASE) PO PRN ×2 (14:19→21:50)
[2019-04-17] MEDS: predniSONE 20 MG TAB PO SCH (14:22)
[2019-04-17] MEDS ORDERED: LIDOCAINE HCL 1% 20 ML VIAL INJ ONE (15:12)
[2019-04-17] MEDS: FOLIC ACID 400 MCG TAB PO SCH (15:26)
[2019-04-17] MEDS: SODIUM CHLORIDE 1 GM TABLET PO SCH ×5 (15:26→21:47)
[2019-04-17] MEDS: IRON POLYSACCHARIDE COMPLEX 150 MG CAPSULE PO SCH (15:27)
[2019-04-17] MEDS: ASCORBIC ACID 500 MG TAB PO SCH (15:27)
[2019-04-17] MEDS: MULTIVITAMIN TAB PO SCH ×2 (15:27→21:46)
[2019-04-17] MEDS: CHOLECALCIFEROL 1,000 UNITS TAB PO SCH (15:27)
[2019-04-17] MEDS: DULOXETINE HCL 60 MG CAP PO SCH (15:28)
[2019-04-17] MEDS: LACTOBACILLUS ACIDOPHILUS (FLORANEX) TAB PO SCH (15:28)
[2019-04-17] MEDS: CALCIUM 600MG + VIT D 400 IU TAB PO SCH (15:29)
--- NOTE | 2019-04-17 15:53 | XRay Report ---
XR chest 1V portable CLINICAL HISTORY: 83 years-old Male presenting with pneumothorax. TECHNIQUE: Portable upright AP view of the chest was obtained. COMPARISON: 04/17/2019 at 7:56 AM. FINDINGS: Left subclavian pacer with leads in the right atrium and right ventricular apex partially visualized. Atherosclerosis of the aortic arch. Moderate enlargement of the cardiac silhouette. Pulmonary vascul ar prominence. Interlobular septal thickening and bronchial wall cuffing suggested. Diffuse lung opac ities right greater than left. Decreased size of the small to moderate right pneumothorax with a pleu ral separation of 17 mm at the apex. Degenerative changes of the thoracic spine. Degenerative changes of the glenohumeral joints. IMPRESSION: 1. Decreased size of the now small right apical pneumothorax. 2. Cardiomegaly with volume overload and congestive change. 3. Diffuse infiltrates right greater than left. Electronically signed by: Adam Montalvo M.D. 04/17/2019 3:50 PM
[2019-04-17] MEDS: AMMONIUM LACTATE 12% LOTION 225 GM BTL EXT SCH (21:45)
[2019-04-17] MEDS: ATORVASTATIN 40 MG TAB PO SCH (21:46)
[2019-04-17] MEDS: CEFAZOLIN 2000MG 2,000 MG/15 ML SYR IV SCH (21:57)
--- NOTE | 2019-04-18 00:12 | Operative Report ---
DATE OF OPERATION: 04/17/2019 PREOPERATIVE DIAGNOSIS: Right pneumothorax. POSTOPERATIVE DIAGNOSIS: Right pneumothorax. PROCEDURE: Aspiration of right pneumothorax anteriorly. SURGEON: Jonathan Camp MD ANIME DESIGNER: KIMBERLY White. ANESTHESIA: Local. SPECIFICS OF PROCEDURE: The patient underwent a thoracoscopic biopsy to diagnose diffuse alveolar damage 1 week ago on 04/10/2019. He did well with this. I removed his chest tube in expedient fashion. I have pleased with his post-chest tube removal x-ray. The patient really had no complaints, but had to undergo insertion of a left sided pacemaker today and chest x-ray showed he had an enlarging right pneumothorax. He really did not have much in the way of symptoms, but was requiring supplemental oxygen. 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 I anesthetized the anterior portion of the right chest and used a large bore needle to anesthetize the intercostal muscles and the pleura. We got free flowing air back and a guidewire was inserted through the needle and the needle removed. A dilator was used to enlarge this gently and then removed and then the triple lumen catheter was slid over the guidewire and the guidewire removed. This was attached to 2 suction devices and I slowly removed this. We drained about 50 or 75 mL of serous fluid as well as some air. This finally stopped when we removed the catheter. Chest x-ray showed an improvement, although he still has a small pneumothorax. We will have to see if his lung drops again. I had a long discussion with the patient and his about chest tubes and the possibility we might need one. We will check a chest x-ray in the morning. I attest to the content of the Intraoperative Record and any orders documented therein. Any exceptions are noted below. MTDD
[2019-04-18] MEDS: dilTIAZem HCL 30 MG TAB PO SCH ×4 (02:22→21:00)
[2019-04-18] MEDS: CEFAZOLIN 2000MG 2,000 MG/15 ML SYR IV SCH ×2 (05:20→13:21)
[2019-04-18] MEDS: OXYCODONE HCL IR 5 MG TAB (IMMEDIATE RELEASE) PO PRN ×3 (05:24→20:59)
--- NOTE | 2019-04-18 07:29 | Hospitalist Progress Note ---
Date of Service April 17, 2019 Assessment & Plan (1) Hemoptysis: Hemoptysis of unknown origin-resolved. Could be due to infection vs. pulmonary edema vs. rarer causes such as vasculitis (he has an unknown vasculitis) vs. other causes of DAH. - Evaluated by ENT who feel it is *not* related to nasopharyngeal cause - Evaluated by pulm - Biopsy on 04/[address] Camp - does not appear to be consistent with vasculitis. - Tiny right apical pneumothorax noted and unchanged.. - Continue abx and steroids -overall improving -Patient has not had hemoptysis for 6-7 days. Culprit appears to be amiodarone. Avoid amiodarone as it potentially may have contributed to the DAH. (2) Atrial fibrillation: History of paroxysmal afib status post ablation now in sinus rhythm. Anticoagulation therapy and amiodarone was held during his last admission. - Holding anticoagulation given his hemoptysis - Monitor heart rate on telemetry - Continue beta-ophelia & calcium channel ophelia -Given patient is not a candidate for cardioversion due to inability to take anticoagulation. will need to better control his heart rate pharmacologically. Plan is to now protect patient with a pacemaker (inserted earlier today); the purpose of this is to protect him as we will continue to aggressively rate control him with diltiazem and metorpolol; in case his HR goes too low. HR does appear better controlled with higher dose of CCB. (3) Vasculitis: He has had a long-standing diagnosis of a "vasculitis." I discussed his case with Dr. Smith on 04/10. His history is that of "leukocytoclastic vasculitis;" however, his biopsy was over 20 years ago. He was on Imuran, but this was stopped several weeks ago for anemia. Otherwise, he just gets occasional steroids bursts. ERNESTINE, ANCA, ME-3, anti-MPO, and anti-GBM were all negative. - IgA elevated - Hepatitis screens were negative - C4 pending - Was going to attempt skin biopsy of leg lesion; however, all lesions are >24 hours, so utility would be lower (4) CHF (congestive heart failure): Acute exacerbation of systolic congestive heart failure. Appears to be congested with possible volume overload. EF of 45% on echo in 11/2018. - Initially on IV Lasix 40 mg twice a day with strict I's and O's and monitor volume status closely - Monitor I&Os, daily weights - Patient appears euvolemic. Will monitor. (5) Anemia: Hemoglobin is stable at 7.5. Patient received 2 units of packed red blood cells during his last admission. - Patient needed 2 units PRBCs on 04/10 for a hemoglobin of 6.9. - Transfuse for hgb < 7 (6) CAD (coronary artery disease): No chest pain. - Stable on beta-ophelia and ACEi (7) GERD (gastroesophageal reflux disease): - Continue PPI (8) Hypertension: BP stable over the 24 hours. - Continue ramipril / metoprolol (9) Dyslipidemia: - Continue statin (10) DVT prophylaxis: SCDs - Low DVT risk per admission calculator & having hemoptysis Spent 35 minutes in management of patient. This included chart review. Rheumatology does not believe this to be from vasculitis given his biopsy results. Patient will have second opinion at [place] next Sunday (04/25 at 11 am.) Discharge once patient is rate controlled. Amiodarone appears to have been the culprit. Subjective Patient has no hemoptysis for 6 days. Patient is drowsy after pacemaker insertion. He does not provide significant new history today. Review of Systems Review of Systems: All systems reviewed & are unremarkable except as noted in HPI & below Physical Exam Physical Exam: Constitutional: WD/WN, vitals as above; patient is drowsy today. Eyes: PERRL, conjunctivae normal, anicteric sclerae ENMT: external ear and nose normal, oropharynx normal Neck: trachea midline, no thyromegaly Respiratory: normal respiratory effort, lungs clear to auscultation Cardiovascular: RRR, no murmur, no edema; pacemaker inserted and dressing appears dry Chest (Breasts): normal inspection/palpation of breasts Gastrointestinal (Abdomen): normal bowel sounds, soft, nontender, no hepatosplenomegaly Musculoskeletal: no cyanosis or clubbing, extremities motor strength 5/5 Skin: + purpura Neurologic: patellar DTR's 2+ bilat, sensation intact Psychiatric: A+Ox3, euthymic affect Lymphatic: no cervical or axillary lymphadenopathy Results & Data Vital Signs (Past 12 Hours) Vital Signs Temp Pulse Resp BP Pulse Ox 04/18/19 04:11 36.4 C L 118 H 22 149/80 H 94 04/17/19 23:24 36.3 C L 103 H 24 140/94 95 PG Care Time/CCT Total # of Minutes Spent Total Time Spent with Patient: Total time spent is greater than 50% in coordination of care (as documented) at patient's floor/unit and/or counseling patient: (1) CHF (congestive heart failure) Heart failure chronicity: unspecified Heart failure type: unspecified Qualified Code(s): I50.9 - Heart failure, unspecified
--- NOTE | 2019-04-18 07:59 | XRay Report ---
XR chest 2V routine CLINICAL HISTORY: Pacemaker insertion. Evaluate for pneumothorax. COMPARISON STUDY: Chest radiograph April 17, 2019. FINDINGS: A moderate size right pneumothorax has moderately increased in size since exam of April 17, 2019. There is no left pneumothorax. Small bilateral pleural effusions are noted. Interstitial thicke gerald and bilateral opacities persist. Cardiomegaly is again noted. A dual-lead left subclavian pacema ker is in place. There are postoperative findings within the left shoulder. IMPRESSION: 1. Moderate right pneumothorax, moderately increased in size since previous exam. 2. Persistent interstitial thickening and bilateral opacities which may reflect pneumonia or pulmonar y edema. 3. Small bilateral pleural effusions. Electronically signed by: Daniel Duron M.D. 04/18/2019 7:57 AM
[2019-04-18] MEDS: predniSONE 20 MG TAB PO SCH (08:02)
[2019-04-18] MEDS: CHOLECALCIFEROL 1,000 UNITS TAB PO SCH (08:02)
[2019-04-18] MEDS: GABAPENTIN 100 MG CAP PO SCH ×2 (08:02→21:00)
[2019-04-18] MEDS: IRON POLYSACCHARIDE COMPLEX 150 MG CAPSULE PO SCH (08:02)
[2019-04-18] MEDS: SODIUM CHLORIDE 1 GM TABLET PO SCH ×4 (08:02→21:00)
[2019-04-18] MEDS: ASCORBIC ACID 500 MG TAB PO SCH (08:02)
[2019-04-18] MEDS: PANTOprazole 40 MG TAB PO SCH (08:02)
[2019-04-18] MEDS: MULTIVITAMIN TAB PO SCH ×2 (08:02→21:00)
[2019-04-18] MEDS: ENALAPRIL MALEATE 10 MG TAB PO SCH (08:02)
[2019-04-18] MEDS: LACTOBACILLUS ACIDOPHILUS (FLORANEX) TAB PO SCH (08:03)
[2019-04-18] MEDS: FOLIC ACID 400 MCG TAB PO SCH (08:03)
[2019-04-18] MEDS: METOPROLOL SUCC 25MG EXT REL TAB PO SCH (08:03)
[2019-04-18] MEDS: DULOXETINE HCL 60 MG CAP PO SCH (08:03)
[2019-04-18] MEDS: CALCIUM 600MG + VIT D 400 IU TAB PO SCH (08:03)
[2019-04-18] MEDS ORDERED: LIDOCAINE HCL 2% (LOCAL) INJ 50 ML VIAL ONE (08:13)
--- NOTE | 2019-04-18 08:43 | Hospitalist Progress Note ---
Date of Service April 18, 2019 Assessment & Plan (1) Hemoptysis: Hemoptysis of unknown origin-resolved. Could be due to infection vs. pulmonary edema vs. rarer causes such as vasculitis (he has an unknown vasculitis) vs. other causes of DAH. - Evaluated by ENT who feel it is *not* related to nasopharyngeal cause - Evaluated by pulm - Biopsy on 04/[address] Camp - does not appear to be consistent with vasculitis. - Tiny right apical pneumothorax noted and unchanged.. - Continue abx and steroids -overall improving -Patient has not had hemoptysis for 6-7 days. Culprit appears to be amiodarone. Avoid amiodarone as it potentially may have contributed to the DAH. (2) Atrial fibrillation: History of paroxysmal afib status post ablation now in sinus rhythm. Anticoagulation therapy and amiodarone was held during his last admission. - Holding anticoagulation given his hemoptysis - Monitor heart rate on telemetry - Continue beta-ophelia & calcium channel ophelia -Given patient is not a candidate for cardioversion due to inability to take anticoagulation. will need to better control his heart rate pharmacologically. Plan is to now protect patient with a pacemaker (inserted earlier today); the purpose of this is to protect him as we will continue to aggressively rate control him with diltiazem and metorpolol; in case his HR goes too low. HR does appear better controlled with higher dose of CCB. (3) Vasculitis: He has had a long-standing diagnosis of a "vasculitis." I discussed his case with Dr. Smith on 04/10. His history is that of "leukocytoclastic vasculitis;" however, his biopsy was over 20 years ago. He was on Imuran, but this was stopped several weeks ago for anemia. Otherwise, he just gets occasional steroids bursts. ERNESTINE, ANCA, [place]-3, anti-MPO, and anti-GBM were all negative. - IgA elevated - Hepatitis screens were negative - C4 pending - Was going to attempt skin biopsy of leg lesion; however, all lesions are >24 hours, so utility would be lower (4) CHF (congestive heart failure): Acute exacerbation of systolic congestive heart failure. Appears to be congested with possible volume overload. EF of 45% on echo in 11/2018. - Initially on IV Lasix 40 mg twice a day with strict I's and O's and monitor volume status closely - Monitor I&Os, daily weights - Patient appears euvolemic. Will monitor. (5) Anemia: Hemoglobin is stable at 7.5. Patient received 2 units of packed red blood cells during his last admission. - Patient needed 2 units PRBCs on 04/10 for a hemoglobin of 6.9. - Transfuse for hgb < 7 (6) CAD (coronary artery disease): No chest pain. - Stable on beta-ophelia and ACEi (7) GERD (gastroesophageal reflux disease): - Continue PPI (8) Hypertension: BP stable over the 24 hours. - Continue ramipril / metoprolol (9) Dyslipidemia: - Continue statin (10) DVT prophylaxis: SCDs - Low DVT risk per admission calculator & having hemoptysis Spent 35 minutes in management of patient. This included chart review. Rheumatology does not believe this to be from vasculitis given his biopsy results. Patient will have second opinion at [facility] next Sunday (04/25 at 11 am.) Discharge once patient is rate controlled. Amiodarone appears to have been the culprit. Subjective Pt seen and examined at the bedside. No acute event over night, slowly improving. Pt denies hemoptysis for 7 days. Review of Systems Review of Systems: All systems reviewed & are unremarkable except as noted in HPI & below Physical Exam Constitutional: WD/WN, vitals as above well developed, well nourished and + obese Eyes: PERRL, conjunctivae normal, anicteric sclerae ENMT: external ear and nose normal, oropharynx normal Neck: trachea midline, no thyromegaly Respiratory: normal respiratory effort, lungs clear to auscultation Cardiovascular: RRR, no murmur, no edema Chest (Breasts): normal inspection/palpation of breasts Gastrointestinal (Abdomen): normal bowel sounds, soft, nontender, no hepatosplenomegaly Musculoskeletal: no cyanosis or clubbing, extremities motor strength 5/5 Skin: no rashes, warm and dry Neurologic: patellar DTR's 2+ bilat, sensation intact Psychiatric: A+Ox3, euthymic affect Genitourinary: no testicular masses, no penis abnormality Lymphatic: no cervical or axillary lymphadenopathy Results & Data Vital Signs (Past 12 Hours) Vital Signs Temp Pulse Resp BP Pulse Ox 04/18/19 07:43 36.5 C 114 H 20 152/90 H 92 07/19/19 04:11 36.4 C L 118 H 22 149/80 H 94 04/17/19 23:24 36.3 C L 103 H 24 140/94 95 PG Care Time/CCT Total # of Minutes Spent Total Time Spent with Patient: Total time spent is greater than 50% in coordination of care (as documented) at patient's floor/unit and/or counseling patient: (1) CHF (congestive heart failure) Heart failure chronicity: unspecified Heart failure type: unspecified Qualified Code(s): I50.9 - Heart failure, unspecified
[2019-04-18] MEDS ORDERED: LIDOCAINE HCL 2% (LOCAL) INJ 50 ML VIAL INFIL PRN (12:00)
--- NOTE | 2019-04-18 12:28 | Pulmonology Progress Note ---
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 Camp will probably insert a chest tube (4) Obstructive sleep apnea: Recommend outpatient sleep study after stable from other problems Subjective The patient continues to deny shortness of breath. This is despite the fact he has had a recurrent pneumothorax. Dr. Camp did a needle aspirate yesterday but the pneumo has recurred. It has not affected the patient's breathing. He is coughing very little. There has been no hemoptysis. He is somewhat more lethargic. He feels this was related to getting some oxycodone which was recently given to him. Review of Systems Review of Systems: As noted above Physical Exam Physical Exam: The patient is a 83-year-old male who was cooperative and oriented. He was definitely a little more lethargic than usual. He was in no distress. Temperature is 36.3. Heart rate 74/min. Rhythm is irregular. Blood pressure 121/84. There is a pacemaker in the left upper anterior chest. Lung zamarripa revealed diminished breath sounds on the right compared with the left. Mild coarse rhonchi are heard bilaterally. Respiratory rate 22. Saturation 94% on nasal cannula. There is a dressing in the right upper anterior chest at the site where the needle aspirate was done on April 17. Abdomen is obese. Large scar was again noted. Bowel sounds normal. Lower extremities continue to show severe purple skin discoloration related to vasculitis. This is reportedly LCV. Results & Data Vital Signs (Past 12 Hours) Vital Signs Temp Pulse Pulse Resp BP Pulse Ox 04/18/19 11:33 36.3 C L 74 22 121/84 94 04/18/19 08:00 87 04/18/19 07:43 36.5 C 114 H 20 152/90 H 92 04/18/19 04:11 36.4 C L 118 H 22 149/80 H 94 Laboratory Results Creatinine today 0.93. Culture from lung biopsy from 04/10/2019 from right middle lobe is reporting aerobic actinomycetes rare. The significance is unclear. Diagnostic Findings Chest x-ray today shows a moderate size right pneumothorax which has increased in size compared with one day earlier. There is persistent interstitial thickening and bilateral opacities right greater than left. Small effusions are suggested.
--- NOTE | 2019-04-18 12:47 | Cardiology Progress Note ---
Date of Service April 18, 2019 Assessment & Plan (1) Atrial fibrillation: Persistent atrial fibrillation. No overt symptoms. Now with implantation of his pacemaker we can be more aggressive. I will increase his medical therapy today. As noted previously in his record we will not reinstitute amiodarone or anticoagulation at this time. (2) Cardiomyopathy: Overall recovered. Will continue him on beta-blockade. We will have more aggressive rate control now that he has a pacemaker implanted. (3) Mitral regurgitation: Reportedly moderate in November of this year. On the last echocardiogram this was not mentioned. No murmur on examination. (4) CAD (coronary artery disease): (5) CHF (congestive heart failure): He is not appear to be decompensated. He may have element breathing difficulty due to recurrent pneumothorax. Subjective This morning the patient claims to be feeling well. Did not describe any discomfort at the device implant site. He states that his breathing is fine. No sense of palpitation. Review of Systems Review of Systems: Per HPI Physical Exam Physical Exam: Device implant site is without hematoma, drainage or erythema. Results & Data Vital Signs (Past 12 Hours) Vital Signs Temp Pulse Pulse Resp BP Pulse Ox 04/18/19 11:33 36.3 C L 74 22 121/84 94 04/18/19 08:00 87 04/18/19 07:43 36.5 C 114 H 20 152/90 H 92 04/18/19 04:11 36.4 C L 118 H 22 149/80 H 94 Diagnostic Findings Chest x-ray reviewed from this morning. No evidence of left-sided pneumothorax. Recurrent pneumothorax on the right side. Pacemaker lead placement appears adequate. Performed a complete device interrogation which revealed normal sensing on both leads and normal threshold on the ventricular lead. Patient continues in atrial fibrillation. Normal device function. (1) CHF (congestive heart failure) Heart failure chronicity: unspecified Heart failure type: unspecified Qualified Code(s): I50.9 - Heart failure, unspecified
--- NOTE | 2019-04-18 14:48 | XRay Report ---
XR chest 1V portable CLINICAL HISTORY: 83 years-old Male presenting with chest tube. TECHNIQUE: Portable upright AP view of the chest was obtained. COMPARISON: 04/18/2019 at 7:35 AM. FINDINGS: Interval placement of a large bore right pleural drain positioned in the mid right lung. Left subclav phillip pacer with leads to the right atrium and right ventricular apex. Atherosclerosis of the aortic ar ch. Cardiac silhouette moderately enlarged. Trace residual right pneumothorax. Diffuse right lung opa [place] and left basilar opacities as on prior exam. Degenerative changes of the thoracic spine. IMPRESSION: 1. Interval placement of a right pleural drain with only trace right pneumothorax remaining. 2. Persistent diffuse right lung and left basilar infiltrates. 3. Cardiomegaly. Electronically signed by: Adam Montalvo M.D. 04/18/2019 2:47 PM
--- NOTE | 2019-04-18 17:40 | Hospitalist Progress Note ---
Date of Service April 18, 2019 Assessment & Plan (1) Hemoptysis: Hemoptysis of unknown origin-resolved. Could be due to infection vs. pulmonary edema vs. rarer causes such as vasculitis (he has an unknown vasculitis) vs. other causes of DAH. - Evaluated by ENT who feel it is *not* related to nasopharyngeal cause - Evaluated by pulm - Biopsy on 04/[address] Camp - does not appear to be consistent with vasculitis. - Tiny right apical pneumothorax noted and unchanged.. - Continue abx and steroids -overall improving -Patient has not had hemoptysis for 6-7 days. Culprit appears to be amiodarone. Avoid amiodarone as it potentially may have contributed to the DAH. Diffuse pulmonary alveolar hemorrhage: Continue prednisone 60 mg daily. Pneumothorax: Dr. Camp will probably insert a chest tube Obstructive sleep apnea: Recommend outpatient sleep study after stable from other problems (2) Atrial fibrillation: History of paroxysmal afib status post ablation now in sinus rhythm. Anticoagulation therapy and amiodarone was held during his last admission. - Holding anticoagulation given his hemoptysis - Monitor heart rate on telemetry - Continue beta-ophelia & calcium channel ophelia -Given patient is not a candidate for cardioversion due to inability to take anticoagulation. will need to better control his heart rate pharmacologically. Plan is to now protect patient with a pacemaker (inserted earlier today); the purpose of this is to protect him as we will continue to aggressively rate control him with diltiazem and metorpolol; in case his HR goes too low. HR does appear better controlled with higher dose of CCB. (3) Vasculitis: He has had a long-standing diagnosis of a "vasculitis." I discussed his case with Dr. Smith on 04/10. His history is that of "leukocytoclastic vasculitis;" however, his biopsy was over 20 years ago. He was on Imuran, but this was stopped several weeks ago for anemia. Otherwise, he just gets occasional steroids bursts. ERNESTINE, ANCA, [place]-3, anti-MPO, and anti-GBM were all negative. - IgA elevated - Hepatitis screens were negative - C4 pending - Was going to attempt skin biopsy of leg lesion; however, all lesions are >24 hours, so utility would be lower (4) CHF (congestive heart failure): Acute exacerbation of systolic congestive heart failure. Appears to be congested with possible volume overload. EF of 45% on echo in 11/2018. - Initially on IV Lasix 40 mg twice a day with strict I's and O's and monitor volume status closely - Monitor I&Os, daily weights - Patient appears euvolemic. Will monitor. (5) Anemia: Hemoglobin is stable at 7.5. Patient received 2 units of packed red blood cells during his last admission. - Patient needed 2 units PRBCs on 04/10 for a hemoglobin of 6.9. - Transfuse for hgb < 7 (6) CAD (coronary artery disease): No chest pain. - Stable on beta-ophelia and ACEi (7) GERD (gastroesophageal reflux disease): - Continue PPI (8) Hypertension: BP stable over the 24 hours. - Continue ramipril / metoprolol (9) Dyslipidemia: - Continue statin (10) DVT prophylaxis: SCDs - Low DVT risk per admission calculator & having hemoptysis Spent 35 minutes in management of patient. This included chart review. Rheumatology does not believe this to be from vasculitis given his biopsy results. Patient will have second opinion at [facility] next Sunday (04/25 at 11 am.) Discharge once patient is rate controlled. Amiodarone appears to have been the culprit. Subjective Pt seen and examined at the bedside. He is calm. Reports no hemoptysis for 7 days. Pt is afebrile. PO intake improving.Pt denies any issue with his newly placed pacemaker -the day before. Pt denies fever, chills, chest pain, SOB, abdominal pain frequency and urgency. Review of Systems Review of Systems: All systems reviewed & are unremarkable except as noted in HPI & below Physical Exam Constitutional: WD/WN, vitals as above well developed, well nourished and + obese Eyes: PERRL, conjunctivae normal, anicteric sclerae ENMT: external ear and nose normal, oropharynx normal Neck: trachea midline, no thyromegaly Respiratory: normal respiratory effort, lungs clear to auscultation Cardiovascular: RRR, no murmur, no edema Chest (Breasts): normal inspection/palpation of breasts Gastrointestinal (Abdomen): normal bowel sounds, soft, nontender, no hepatosplenomegaly Musculoskeletal: no cyanosis or clubbing, extremities motor strength 5/5 Skin: + purpura Improving purpura over lower extermities. Neurologic: patellar DTR's 2+ bilat, sensation intact Psychiatric: A+Ox3, euthymic affect Genitourinary: no testicular masses, no penis abnormality Lymphatic: no cervical or axillary lymphadenopathy Results & Data Vital Signs (Past 12 Hours) Vital Signs Temp Pulse Pulse Resp BP BP Pulse Ox 04/18/19 15:21 36.5 C 79 18 105/71 94 04/18/19 11:33 36.3 C L 74 22 121/84 94 04/18/19 08:00 87 04/18/19 07:43 36.5 C 114 H 20 152/90 H 92 PG Care Time/CCT Total # of Minutes Spent Total Time Spent with Patient: Total time spent is greater than 50% in coordination of care (as documented) at patient's floor/unit and/or counseling patient: (1) CHF (congestive heart failure) Heart failure chronicity: unspecified Heart failure type: unspecified Qualified Code(s): I50.9 - Heart failure, unspecified
[2019-04-18] MEDS: AMMONIUM LACTATE 12% LOTION 225 GM BTL EXT SCH (20:59)
[2019-04-18] MEDS: ATORVASTATIN 40 MG TAB PO SCH (21:00)
--- NOTE | 2019-04-18 21:15 | Operative Report ---
DATE OF OPERATION: 04/18/2019 PREOPERATIVE DIAGNOSIS: Right pneumothorax. POSTOPERATIVE DIAGNOSIS: Right pneumothorax. PROCEDURE: Insertion of right anterior 24-Namibian chest tube. SURGEON: Jonathan Camp MD SUPERIOR COURT CLERK: KIMBERLY White ANESTHESIA: Local. SPECIFICS OF PROCEDURE AND FINDINGS: This patient is an 83-year-old male who has diffuse alveolar hemorrhage and is responding to steroids. However, he had a lung biopsy 8 days ago and was found to have a pneumothorax yesterday. I did an aspiration and his x-ray was improved; however, the pneumothorax has recurred today. For this reason, we are going to insert a chest tube. 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 DESCRIPTION OF PROCEDURE: The patient is in a 30-degree position lying supine and his right anterior chest was prepped and draped in usual sterile fashion. He is a very large man and after appropriate timeout had been called, I anesthetized an area in his right anterior chest tube about 2 rib spaces below the clavicle. I anesthetized the skin and subcutaneous tissues and made 1 cm incision. I then used a long needle, anesthetized the area leading up over the corresponding rib and I anesthetized the intercostal muscles and pleura. We got free flowing air out. J-tipped guidewire was inserted and needle removed. This tract was dilated up and then the dilator removed and then a 24-Namibian chest tube with inner obturator was slid over the guidewire and inner obturator and guidewire removed. There was a baron of air and then this was attached to the Pleur-Evac and there was really not much of an air leak. A 0 silk was used to hold the tube in place. Antimicrobial dressings were placed. He tolerated it well. His pneumothorax is almost resolved. I attest to the content of the Intraoperative Record and any orders documented therein. Any exception s are noted below.
[2019-04-19] MEDS: dilTIAZem HCL 30 MG TAB PO SCH (03:07)
--- NOTE | 2019-04-19 07:02 | XRay Report ---
XR chest 1V portable CLINICAL HISTORY: pneumothorax COMPARISON STUDY: 04/18/2019 FINDINGS: The heart remains enlarged. There is a left subclavian dual-chamber central venous pacemake r present. There is a right-sided chest tube unchanged in position. There is a small right apical pne umothorax with a pleural separation of 4 mm. Interstitial lung opacities persist, right greater than left..[ IMPRESSION: 1. Right-sided chest tube. Residual 4 mm right apical pneumothorax 2. Cardiomegaly and asymmetric interstitial opacities right greater than left. Diagnostic considerati ons include asymmetric edema versus pneumonia. Electronically signed by: Scott Roberts M.D. 04/19/2019 7:01 AM
--- NOTE | 2019-04-19 08:32 | Hospitalist Progress Note ---
Date of Service April 19, 2019 Assessment & Plan (1) Hemoptysis: Hemoptysis of unknown origin-resolved. Could be due to infection vs. pulmonary edema vs. vasculitis (he has an unknown vasculitis) vs. other causes of DAH. - Evaluated by ENT who feel it is *not* related to nasopharyngeal cause - Evaluated by pulm and had chest tube placement yesterday (04/18)for pneumothorax by . - Biopsy on 04/[address] Camp - does not appear to be consistent with vasculitis. - Continue abx and steroids - overall improving - Patient has not had hemoptysis for 8 days. - Culprit appears to be amiodarone. - Avoid amiodarone as it potentially may have contributed to the DAH. - Diffuse pulmonary alveolar hemorrhage: Continue prednisone 60 mg daily. Pneumothorax: Dr. Camp will probably insert a chest tube Obstructive sleep apnea: Recommend outpatient sleep study after stable from other problems (2) Atrial fibrillation: History of paroxysmal afib status post ablation now in sinus rhythm. Anti coagulation therapy and amiodarone was held during his last admission. - Holding anticoagulation given his hemoptysis - Monitor heart rate on telemetry - Continue beta-ophelia & calcium channel ophelia -Given patient is not a candidate for cardioversion due to inability to take anticoagulation. 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 HR does appear better controlled with higher dose of CCB. (3) Vasculitis: He has had a long-standing diagnosis of a "vasculitis." I discussed his case with Dr. Smith on 04/10. His history is that of "leukocytoclastic vasculitis;" however, his biopsy was over 20 years ago. He was on Imuran, but this was stopped several weeks ago for anemia. Otherwise, he just gets occasional steroids bursts. ERNESTINE, ANCA, [place]-3, anti-MPO, and anti-GBM were all negative. - IgA elevated - Hepatitis screens were negative - C4 is 33, which is normal for pt age - Was going to attempt skin biopsy of leg lesion; however, all lesions are >24 hours, so utility would be lower (4) CHF (congestive heart failure): Acute exacerbation of systolic congestive heart failure. Appears to be congested with possible volume overload. EF of 45% on echo in 11/2018. - Initially on IV Lasix 40 mg twice a day with strict I's and O's and monitor volume status closely - Monitor I&Os, daily weights - Patient appears euvolemic. Will monitor. (5) Anemia: Hemoglobin is stable at 7.5. Patient received 2 units of packed red blood cells during his last admission. - Patient needed 2 units PRBCs on 04/10 for a hemoglobin of 6.9. - Transfuse for hgb < 7 (6) CAD (coronary artery disease): No chest pain. - Stable on beta-ophelia and ACEi (7) GERD (gastroesophageal reflux disease): - Continue PPI (8) Hypertension: BP stable over the 24 hours. - Continue ramipril / metoprolol (9) Dyslipidemia: - Continue statin (10) DVT prophylaxis: SCDs - Low DVT risk per admission calculator & having hemoptysis Spent 35 minutes in management of patient. This included chart review. Rheumatology does not believe this to be from vasculitis given his biopsy results. Patient will have second opinion at [facility] next Sunday (04/25 at 11 am.) Discharge once patient is rate controlled. Amiodarone appears to have been the culprit. Subjective Pt seen and examined at the bedside.Pt had chest tube insertion yesterday by . Pt is doing well today, chest tube insertion side is clean/dry and intact Pt is afebrile.Tolerates PO well. Purpura over lower extremities is improving. Pt is able to ambulate on his own with walker. Pt denies fever, chills, chest pain, SOB, abdominal pain, frequency or urgency.He does not have any compliant about left side of his chest where is pacemaker implanted. This morning the patient claims to be feeling well. Did not describe any discomfort at the device implant site. He states that his breathing is fine. No sense of palpitation. Review of Systems Review of Systems: All systems reviewed & are unremarkable except as noted in HPI & below Physical Exam Constitutional: WD/WN, vitals as above well developed, well nourished and + obese Eyes: PERRL, conjunctivae normal, anicteric sclerae ENMT: external ear and nose normal, oropharynx normal Neck: trachea midline, no thyromegaly Respiratory: normal respiratory effort, lungs clear to auscultation + dullness to percussion Auscultation: + wheezes Chest tube insertion-right anterior chest-C/D/I, pacemaker insertion -left upper chest- C/D/I Cardiovascular: RRR, no murmur, no edema Rate/Rhythm: + irregularly irregular Chest (Breasts): normal inspection/palpation of breasts Gastrointestinal (Abdomen): normal bowel sounds, soft, nontender, no hepatosplenomegaly Musculoskeletal: no cyanosis or clubbing, extremities motor strength 5/5 Skin: + purpura Improving Neurologic: patellar DTR's 2+ bilat, sensation intact Psychiatric: A+Ox3, euthymic affect Genitourinary: no testicular masses, no penis abnormality Lymphatic: no cervical or axillary lymphadenopathy Results & Data Vital Signs (Past 12 Hours) Vital Signs Temp Pulse Pulse Pulse Resp BP BP 04/19/19 07:47 36.9 C 72 20 112/78 04/19/19 04:00 36.5 C 77 20 114/83 04/19/19 00:17 77 04/18/19 23:41 36.4 C L 76 18 115/73 Pulse Ox 04/19/19 07:47 95 04/19/19 04:00 96 04/19/19 00:17 04/18/19 23:41 97 PG Care Time/CCT Total # of Minutes Spent Total Time Spent with Patient: Total time spent is greater than 50% in coordination of care (as documented) at patient's floor/unit and/or counseling patient: (1) CHF (congestive heart failure) Heart failure chronicity: unspecified Heart failure type: unspecified Qualified Code(s): I50.9 - Heart failure, unspecified
[2019-04-19] MEDS ORDERED: CYANOCOBALAMIN 1000 MCG/ML VIAL IM SCH (09:00)
[2019-04-19] MEDS: CHOLECALCIFEROL 1,000 UNITS TAB PO SCH (09:16)
[2019-04-19] MEDS: METOPROLOL SUCC 25MG EXT REL TAB PO SCH ×2 (09:16→20:30)
[2019-04-19] MEDS: CALCIUM 600MG + VIT D 400 IU TAB PO SCH (09:16)
[2019-04-19] MEDS: PANTOprazole 40 MG TAB PO SCH (09:16)
[2019-04-19] MEDS: MULTIVITAMIN TAB PO SCH ×2 (09:16→20:30)
[2019-04-19] MEDS: dilTIAZem ER 120 MG CAPCR PO SCH (09:16)
[2019-04-19] MEDS: ENALAPRIL MALEATE 10 MG TAB PO SCH (09:17)
[2019-04-19] MEDS: SODIUM CHLORIDE 1 GM TABLET PO SCH ×4 (09:17→20:28)
[2019-04-19] MEDS: ASCORBIC ACID 500 MG TAB PO SCH (09:17)
[2019-04-19] MEDS: FOLIC ACID 400 MCG TAB PO SCH (09:17)
[2019-04-19] MEDS: IRON POLYSACCHARIDE COMPLEX 150 MG CAPSULE PO SCH (09:17)
[2019-04-19] MEDS: predniSONE 20 MG TAB PO SCH (09:17)
[2019-04-19] MEDS: DULOXETINE HCL 60 MG CAP PO SCH (09:18)
[2019-04-19] MEDS: LACTOBACILLUS ACIDOPHILUS (FLORANEX) TAB PO SCH (09:18)
[2019-04-19] MEDS: GABAPENTIN 100 MG CAP PO SCH ×2 (09:18→20:27)
--- NOTE | 2019-04-19 10:32 | Progress Note ---
DATE: 04/19/2019 Mr. Gutierrez looks great. I really do not see an air leak today. He does not appear to have any fluid. His x-ray shows a very tiny pneumothorax which I think is probably just lung being pushed down by the chest tube. He still has some interstitial opacities, but he looks much better and has really no complaints. In addition, his A-a gradient has improved. His saturations are 95% on 2 liters. He sounds better on exam. I removed all of his dressings and incisions are clean. He does not have an air leak, but I would continue the chest tube for the time being. We will continue to follow along with you.
--- NOTE | 2019-04-19 11:36 | Hospitalist Progress Note ---
Date of Service April 19, 2019 Subjective Pt seen and examined at the bedside. S/p chest tube placement by yesterday. Tolerated procedure well. Pt is doing well, no complaints. He denies any hemoptysis for 8 days. Afebrile. Po intake is good.Purpura over the lower extremities is improving. Pt denies fever chills, MCLEOD, chest pain, SOB, abdominal pain, frequency and urgency.Chest tube is in place , insertion site C/D/I no air leak noted. Review of Systems Review of Systems: All systems reviewed & are unremarkable except as noted in HPI & below Physical Exam Constitutional: WD/WN, vitals as above well developed, well nourished and + obese Eyes: PERRL, conjunctivae normal, anicteric sclerae ENMT: external ear and nose normal, oropharynx normal Neck: trachea midline, no thyromegaly Respiratory: normal respiratory effort, lungs clear to auscultation Auscultation: + wheezes chest tube is located at his right anterior chest, insertion C/D/I Cardiovascular: Rate/Rhythm: + irregularly irregular Chest (Breasts): normal inspection/palpation of breasts Gastrointestinal (Abdomen): normal bowel sounds, soft, nontender, no hepatosplenomegaly Musculoskeletal: no cyanosis or clubbing, extremities motor strength 5/5 Skin: + purpura Improving purpura located at the lower extremities Neurologic: patellar DTR's 2+ bilat, sensation intact Psychiatric: A+Ox3, euthymic affect Genitourinary: no testicular masses, no penis abnormality Lymphatic: no cervical or axillary lymphadenopathy Results & Data Vital Signs (Past 12 Hours) Vital Signs Temp Pulse Pulse Pulse Resp BP BP 04/19/19 07:47 36.9 C 72 20 112/78 04/19/19 04:00 36.5 C 77 20 114/83 04/19/19 00:17 77 04/18/19 23:41 36.4 C L 76 18 115/73 Pulse Ox 04/19/19 07:47 95 04/19/19 04:00 96 04/19/19 00:17 04/18/19 23:41 97 PG Care Time/CCT Total # of Minutes Spent Total Time Spent with Patient: Total time spent is greater than 50% in coordination of care (as documented) at patient's floor/unit and/or counseling patient:
[2019-04-19] MEDS: OXYCODONE HCL IR 5 MG TAB (IMMEDIATE RELEASE) PO PRN ×2 (13:38→20:25)
--- NOTE | 2019-04-19 15:15 | Progress Note ---
DATE: 04/19/2019 PULMONARY PROGRESS NOTE TIME: 2:50 p.m. SUBJECTIVE: The patient is feeling well. He denies having had any hemoptysis. He is tolerating the right-sided chest tube well. He is having very little cough. Denies shortness of breath. His biggest complaint is pain in his lower extremities secondary to his vasculitis. OBJECTIVE: GENERAL: The patient appears comfortable. VITAL SIGNS: Temperature is 36.5. There have been no fevers. Heart rate 68 per minute. Rhythm is irregular. Blood pressure 122/68. ENT: Unchanged. LUNGS: Auscultation of the lung zamarripa revealed the lungs to be clear. Breath sounds are decreased, but there is a marked improvement in the breath sounds today compared with yesterday since the chest tube was inserted. The chest tube appears to have a small leak. EXTREMITIES: Unchanged. LABORATORY DATA: Chest x-ray done today shows a tiny right apical pneumothorax, but overall much improved. He still has asymmetric interstitial markings with right side being much more abnormal than the left. IMPRESSION: 1. Diffuse alveolar hemorrhage. 2. Capillaritis of the lung. 3. Pneumothorax. 4. Obstructive sleep apnea. COMMENTS AND RECOMMENDATIONS: The patient is quite stable. We will repeat a CBC because it has not been done for several days. Continue to observe his overall status. Would keep the prednisone at 60 mg.
[2019-04-19] MEDS: ATORVASTATIN 40 MG TAB PO SCH (20:27)
[2019-04-19] MEDS: AMMONIUM LACTATE 12% LOTION 225 GM BTL EXT SCH (20:29)
[2019-04-20 07:21] LABS: Hematocrit (blood only) 28.8 % (42-52); Hemoglobin 8.9 g/dL (14.0-18.0); Immature Granulocytes # (auto) 0.04 K/uL (0.00-0.02); Immature Granulocytes % (auto) 0.4 %; Lymphocytes # (auto) 0.71 K/uL (1.2-3.4); Lymphocytes % (auto) 7.4 %; Mean Corpuscular Hgb Conc 30.9 g/dL (32-36); Mean Corpuscular Volume 95.4 fL (80-100); Mean Platelet Volume 9.9 fL (7.4-10.4); Monocytes # (auto) 0.68 K/uL (0.11-0.59); Monocytes % (auto) 7.1 %; Neutrophils # (auto) 8.13 K/uL (1.4-6.5); Neutrophils % (auto) 85.1 %; Platelet Count 222 K/uL (130-400); RDW Coefficient of Variation 17.8 % (11.5-14.5); RDW Standard Deviation 61.4 fL (36.4-46.3); Red Blood Count 3.02 M/uL (4.7-6.1); White Blood Count 9.56 K/uL (4.8-10.8)
[2019-04-20] MEDS: LACTOBACILLUS ACIDOPHILUS (FLORANEX) TAB PO SCH (08:19)
[2019-04-20] MEDS: MULTIVITAMIN TAB PO SCH ×2 (08:19→21:29)
[2019-04-20] MEDS: METOPROLOL SUCC 25MG EXT REL TAB PO SCH ×2 (08:19→21:29)
[2019-04-20] MEDS: CHOLECALCIFEROL 1,000 UNITS TAB PO SCH (08:19)
[2019-04-20] MEDS: ENALAPRIL MALEATE 10 MG TAB PO SCH (08:19)
[2019-04-20] MEDS: IRON POLYSACCHARIDE COMPLEX 150 MG CAPSULE PO SCH (08:20)
[2019-04-20] MEDS: FOLIC ACID 400 MCG TAB PO SCH (08:20)
[2019-04-20] MEDS: predniSONE 20 MG TAB PO SCH (08:20)
[2019-04-20] MEDS: dilTIAZem ER 120 MG CAPCR PO SCH (08:20)
[2019-04-20] MEDS: PANTOprazole 40 MG TAB PO SCH (08:20)
[2019-04-20] MEDS: SODIUM CHLORIDE 1 GM TABLET PO SCH ×4 (08:21→21:27)
[2019-04-20] MEDS: GABAPENTIN 100 MG CAP PO SCH ×2 (08:21→21:29)
[2019-04-20] MEDS: DULOXETINE HCL 60 MG CAP PO SCH (08:21)
[2019-04-20] MEDS: ASCORBIC ACID 500 MG TAB PO SCH (08:21)
[2019-04-20] MEDS: CALCIUM 600MG + VIT D 400 IU TAB PO SCH (08:21)
--- NOTE | 2019-04-20 09:13 | Hospitalist Progress Note ---
Date of Service April 20, 2019 Assessment & Plan (1) Hemoptysis: Hemoptysis of unknown origin-resolved. Could be due to infection vs. pulmonary edema vs. vasculitis (he has an unknown vasculitis) vs. other causes of DAH. - Evaluated by ENT who feel it is *not* related to nasopharyngeal cause - Evaluated by pulm and had chest tube placement (04/18)for pneumothorax by . - Chest tube in place, 600 cc output in 24 hr. F/u for further instruction. - Biopsy on 04/[address] Camp - does not appear to be consistent with vasculitis. - Continue abx and steroids - overall improving - Patient has not had hemoptysis for 9 days. - Culprit appears to be amiodarone. - Avoid amiodarone as it potentially may have contributed to the DAH. - Diffuse pulmonary alveolar hemorrhage: Continue prednisone 60 mg daily. Pneumothorax: Dr. Camp inserted a chest tube on 04/17/2019 and it continues.Output today in 24 hr 600 ml. Recommend outpatient sleep study after stable from other problems (2) Atrial fibrillation: History of paroxysmal afib status post ablation now in sinus rhythm. Anticoagulation therapy and amiodarone was held during his last admission. - Holding anticoagulation given his hemoptysis - Monitor heart rate on telemetry - Continue beta-ophelia & calcium channel ophelia -Given patient is not a candidate for cardioversion due to inability to take anticoagulation. 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 - HR does appear better controlled with higher dose of CCB. (3) Vasculitis: He has had a long-standing diagnosis of a "vasculitis." I discussed his case with Dr. Smith on 04/10. His history is that of "leukocytoclastic vasculitis;" however, his biopsy was over 20 years ago. He was on Imuran, but this was stopped several weeks ago for anemia. Otherwise, he just gets occasional steroids bursts. ERNESTINE, ANCA, [place]-3, anti-MPO, and anti-GBM were all negative. - IgA elevated - Hepatitis screens were negative - C4 is 33, which is normal for pt age - Was going to attempt skin biopsy of leg lesion; however, all lesions are >24 hours, so utility would be lower (4) CHF (congestive heart failure): Acute exacerbation of systolic congestive heart failure. Appears to be congested with possible volume overload. EF of 45% on echo in 11/2018. - Initially on IV Lasix 40 mg twice a day with strict I's and O's and monitor volume status closely - Monitor I&Os, daily weights - Patient appears euvolemic. (5) Anemia: Hemoglobin is stable at 7.5. Patient received 2 units of packed red blood cells during his last admission. - Patient needed 2 units PRBCs on 04/10 for a hemoglobin of 6.9. - Transfuse for hgb < 7 (6) CAD (coronary artery disease): No chest pain. - Stable on beta-ophelia and ACEi (7) GERD (gastroesophageal reflux disease): - Continue PPI (8) Hypertension: BP stable over the 24 hours. - Continue ramipril / metoprolol (9) Dyslipidemia: - Continue statin (10) DVT prophylaxis: SCDs - Low DVT risk per admission calculator & having hemoptysis Spent 35 minutes in management of patient. This included chart review. Rheumatology does not believe this to be from vasculitis given his biopsy results. Patient will have second opinion at [place] next Sunday (04/25 at 11 am.) Discharge once patient is rate controlled. Amiodarone appears to have been the culprit. Review of Systems Review of Systems: All systems reviewed & are unremarkable except as noted in HPI & below Physical Exam Constitutional: WD/WN, vitals as above well developed, well nourished and + obese Eyes: PERRL, conjunctivae normal, anicteric sclerae ENMT: external ear and nose normal, oropharynx normal Neck: trachea midline, no thyromegaly Respiratory: normal respiratory effort, lungs clear to auscultation + dullness to percussion Auscultation: + wheezes Cardiovascular: RRR, no murmur, no edema Rate/Rhythm: + irregularly irregular Chest (Breasts): normal inspection/palpation of breasts Gastrointestinal (Abdomen): normal bowel sounds, soft, nontender, no hepatosplenomegaly Musculoskeletal: no cyanosis or clubbing, extremities motor strength 5/5 Skin: + purpura Neurologic: patellar DTR's 2+ bilat, sensation intact Psychiatric: A+Ox3, euthymic affect Genitourinary: no testicular masses, no penis abnormality Lymphatic: no cervical or axillary lymphadenopathy Results & Data Vital Signs (Past 12 Hours) Vital Signs Temp Pulse Resp BP Pulse Ox 04/20/19 07:41 36.5 C 80 20 132/84 95 04/20/19 03:29 36.5 C 87 18 118/78 94 04/19/19 23:20 36.5 C 79 20 136/72 96 PG Care Time/CCT Total # of Minutes Spent Total Time Spent with Patient: Total time spent is greater than 50% in coordination of care (as documented) at patient's floor/unit and/or counseling patient: (1) CHF (congestive heart failure) Heart failure chronicity: unspecified Heart failure type: unspecified Qualified Code(s): I50.9 - Heart failure, unspecified
[2019-04-20 09:57] LABS: Albumin Level 2.7 gm/dl (3.4-5.0); BUN Creatinine Ratio 31.2 (10-20); Calcium 8.5 mg/dl (8.5-10.1); Creatinine Clr Calc Pharmacy 84.6 ml/min; Est GFR (African American) 93.8; Est GFR (Non-African American) 80.9; Potassium 4.7 mmol/L (3.5-5.1)
[2019-04-20 10:01] LABS: Albumin Globulin Ratio 0.7 (0.9-2); Bilirubin,Total 0.7 mg/dl (0.2-1); Globulin 3.9 gm/dl (2.5-4.0); Total Protein 6.6 gm/dl (6.4-8.2)
--- NOTE | 2019-04-20 10:45 | Progress Note ---
DATE: 04/20/2019 PULMONARY PROGRESS NOTE TIME: 8:25 a.m. SUBJECTIVE: The patient feels well. He is not having any pain from the chest tube. He states he noticed just a slight wheeze, but not much. He does not feel short of breath. He has had no problems since yesterday. He has not had any hemoptysis now for approximately 9 days. OBJECTIVE: GENERAL: The patient is comfortable. He was sitting up. VITAL SIGNS: Temperature 36.5. ENT: Unchanged. HEART: Heart rate 80 per minute. Rhythm irregular. Blood pressure 132/84. LUNGS: Respiratory rate 20. Saturation 95% on nasal cannula. Breath sounds on the right slightly decreased compared with the left. No wheezes or rales heard. Chest tube appears to still have a small air leak. ABDOMEN: Obese. Bowel sounds present. EXTREMITIES: Showed no change in the vasculitic lesions of both lower extremities. LABORATORY DATA: White count today is 9.56. Hemoglobin is 8.9. Prior hemoglobin on the was 8.7, so he has remained stable. Platelets 222,000. No chest x-ray done today thus far. IMPRESSION: 1. Diffuse alveolar hemorrhage - possibly secondary to amiodarone. 2. Capillaritis of the lung. 3. Obstructive sleep apnea. COMMENTS: The patient is stable. He is still on the prednisone. We would continue that as present and then ultimately this can be adjusted when he sees Dr. Smith as an outpatient. The patient also would like to follow up with Dr. Berger. Dr. Smith was going to check into the possibility of a tertiary care center evaluation at [facility] in light of his unusual problem. I believe the patient should ultimately have a diagnostic sleep study done. I think it is highly suspicious he has sleep apnea. He did have surgery many years ago, but there has been a tremendous weight gain since that time. We will sign off for now. Please feel free to reconsult the pulmonary team, who was on this coming week if needed.
--- NOTE | 2019-04-20 11:04 | Progress Note ---
DATE: 04/20/2019 Mr. Gutierrez was seen today on 04/20/2019. He looks great. He has been ambulating in the hallway, although not to the extent that I would like. The patient has hemoptysis due to diffuse alveolar hemorrhage, which may be related to a capillaritis. At any rate, this has responded nicely. He does not have an air leak in his chest tube. He has a very little in the way of drainage and he sounds better, although he still has some wheezing. At this point, we are going to probably remove his chest tube tomorrow. We will check an x-ray in the morning.
[2019-04-20] MEDS: OXYCODONE HCL IR 5 MG TAB (IMMEDIATE RELEASE) PO PRN (11:48)
[2019-04-20] MEDS: AMMONIUM LACTATE 12% LOTION 225 GM BTL EXT SCH (21:27)
[2019-04-20] MEDS: ATORVASTATIN 40 MG TAB PO SCH (21:28)
[2019-04-21 06:46] LABS: Basophils # (auto) 0.01 K/uL (0-0.2); Basophils % (auto) 0.1 %; Eosinophils # (auto) 0.03 K/uL (0-0.5); Eosinophils % (auto) 0.3 %; Hematocrit (blood only) 28.6 % (42-52); Hemoglobin 8.8 g/dL (14.0-18.0); Immature Granulocytes # (auto) 0.04 K/uL (0.00-0.02); Immature Granulocytes % (auto) 0.4 %; Mean Corpuscular Hgb Conc 30.8 g/dL (32-36); Mean Corpuscular Volume 97.3 fL (80-100); Mean Platelet Volume 9.9 fL (7.4-10.4); Monocytes # (auto) 0.79 K/uL (0.11-0.59); Monocytes % (auto) 7.9 %; Neutrophils % (auto) 82.3 %; Platelet Count 210 K/uL (130-400); RDW Coefficient of Variation 17.7 % (11.5-14.5); RDW Standard Deviation 63.3 fL (36.4-46.3); Red Blood Count 2.94 M/uL (4.7-6.1); White Blood Count 9.97 K/uL (4.8-10.8)
--- NOTE | 2019-04-21 07:03 | XRay Report ---
XR chest 1V portable CLINICAL HISTORY: chest tube for pneumothorax COMPARISON STUDY: 04/19/2019 FINDINGS: The heart remains enlarged. There is a left subclavian dual-chamber central venous pacemake r. There is no change in the position of the right-sided chest tube. There is a small right apical pn eumothorax with pleural separation of 6 mm. There are improving bilateral airspace opacities[ IMPRESSION: 1. Cardiomegaly and improving bilateral airspace opacities 2. No change in the position of the right-sided chest tube. 6 mm right apical pneumothorax. Electronically signed by: Scott Roberts M.D. 04/21/2019 7:01 AM
[2019-04-21 07:11] LABS: Albumin Globulin Ratio 0.7 (0.9-2); Albumin Level 2.5 gm/dl (3.4-5.0); BUN Creatinine Ratio 31.7 (10-20); Bilirubin,Total 0.6 mg/dl (0.2-1); Calcium 8.2 mg/dl (8.5-10.1); Creatinine Clr Calc Pharmacy 89.3 ml/min; Est GFR (African American) 96.1; Est GFR (Non-African American) 82.9; Globulin 3.8 gm/dl (2.5-4.0); Potassium 4.5 mmol/L (3.5-5.1); Total Protein 6.3 gm/dl (6.4-8.2)
[2019-04-21] MEDS: METOPROLOL SUCC 25MG EXT REL TAB PO SCH ×2 (08:22→22:05)
[2019-04-21] MEDS: IRON POLYSACCHARIDE COMPLEX 150 MG CAPSULE PO SCH (08:23)
[2019-04-21] MEDS: predniSONE 20 MG TAB PO SCH (08:23)
[2019-04-21] MEDS: SODIUM CHLORIDE 1 GM TABLET PO SCH ×4 (08:23→22:03)
[2019-04-21] MEDS: CALCIUM 600MG + VIT D 400 IU TAB PO SCH (08:23)
[2019-04-21] MEDS: PANTOprazole 40 MG TAB PO SCH (08:23)
[2019-04-21] MEDS: ENALAPRIL MALEATE 10 MG TAB PO SCH (08:23)
[2019-04-21] MEDS: LACTOBACILLUS ACIDOPHILUS (FLORANEX) TAB PO SCH (08:23)
[2019-04-21] MEDS: CHOLECALCIFEROL 1,000 UNITS TAB PO SCH (08:23)
[2019-04-21] MEDS: DULOXETINE HCL 60 MG CAP PO SCH (08:23)
[2019-04-21] MEDS: ASCORBIC ACID 500 MG TAB PO SCH (08:23)
[2019-04-21] MEDS: GABAPENTIN 100 MG CAP PO SCH ×2 (08:24→22:04)
[2019-04-21] MEDS: dilTIAZem ER 120 MG CAPCR PO SCH (08:24)
[2019-04-21] MEDS: MULTIVITAMIN TAB PO SCH ×2 (08:24→22:04)
[2019-04-21] MEDS: FOLIC ACID 400 MCG TAB PO SCH (08:24)
--- NOTE | 2019-04-21 11:03 | Hospitalist Progress Note ---
Date of Service April 21, 2019 Assessment & Plan (1) Hemoptysis: Hemoptysis of unknown origin-resolved. Could be due to infection vs. pulmonary edema vs. vasculitis (he has an unknown vasculitis) vs. other causes of DAH. 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 - Diffuse pulmonary alveolar hemorrhage: Continue prednisone 60 mg daily. - Evaluated by ENT who feel it is *not* related to nasopharyngeal cause - Evaluated by pulm and had chest tube placement (04/18)for pneumothorax by . - Chest tube in place, will attempt to pull tomorrow, Dr. Camp managing - Biopsy on 04/[address] Camp - does not appear to be consistent with vasculitis. - Continue abx and steroids - overall improving - Patient has not had hemoptysis for 10 days. (2) Pneumothorax: management per Dr. Camp today, CXR showed 6mm apical PTX on right attempt to pull tube tomorrow (3) Atrial fibrillation: History of paroxysmal afib status post ablation now in sinus rhythm. Anticoagulation therapy and amiodarone was held during his last admission. - Holding anticoagulation given his hemoptysis - Monitor heart rate on telemetry - Continue beta-ophelia & calcium channel ophelia -Given patient is not a candidate for cardioversion due to inability to take anticoagulation. 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 - HR better controlled with higher dose of Diltiazem (4) Vasculitis: He has had a long-standing diagnosis of a "vasculitis." case was discussed with Dr. Smith on 04/10. His history is that of "leukocytoclastic vasculitis;" however, his biopsy was over 20 years ago. He was on Imuran, but this was stopped several weeks ago for anemia. Otherwise, he just gets occasional steroids bursts. ERNESTINE, ANCA, [place]-3, anti-MPO, and anti-GBM were all negative. - IgA elevated - Hepatitis screens were negative - C4 is 33, which is normal for pt age has chronic rash in legs bilaterally (5) CHF (congestive heart failure): Acute exacerbation of systolic congestive heart failure. Appears to be congested with possible volume overload. EF of 45% on echo in 11/2018. - Initially on IV Lasix 40 mg twice a day with strict I's and O's and monitor volume status closely - Monitor I&Os, daily weights patient continues to examine euvolemic resume Lasix 40mg qAM which he takes at home (6) Anemia: - Patient needed 2 units PRBCs on 04/10 for a hemoglobin of 6.9. Hb is 8.8 today, has remained stable, no hemoptysis for 10 days so no source of blood loss (7) CAD (coronary artery disease): No chest pain. - Stable on beta-ophelia and ACEi (8) GERD (gastroesophageal reflux disease): - Continue PPI (9) Hypertension: BP stable over the 24 hours. - Continue ramipril / metoprolol (10) Dyslipidemia: - Continue statin (11) DVT prophylaxis: SCDs - Low DVT risk per admission calculator & having hemoptysis Rheumatology does not believe this to be from vasculitis given his biopsy results. Patient will have second opinion at [place] Sunday (04/25 at 11 am.) discharge depends on taking out chest tube, perhaps tomorrow Subjective patient feeling well, taking deep breaths, no pain from chest tube no fever or chills, no chest pressure, no cough confirms no hemoptysis for 9-10 days reviewed chart, reviewed recommendations from specialists HR stable on the monitor reviewed labs today, Hb 8.8, Cr at baseline, electrolytes stable CXR this AM showed 6mm apical pneumothorax on right side per Dr. Camp, will attempt to d/c chest tube tomorrow patient is eating very well, had BM yesterday, urinating well Review of Systems Review of Systems: All systems reviewed & are unremarkable except as noted in HPI & below Physical Exam Constitutional: WD/WN, vitals as above no acute distress Eyes: PERRL, conjunctivae normal, anicteric sclerae ENMT: external ear and nose normal, oropharynx normal Neck: trachea midline, no thyromegaly Respiratory: normal respiratory effort, lungs clear to auscultation Cardiovascular: RRR, no murmur, no edema Gastrointestinal (Abdomen): normal bowel sounds, soft, nontender, no hepatosplenomegaly Musculoskeletal: no cyanosis or clubbing, extremities motor strength 5/5 Skin: normal turgor and + rash (extensive rash on legs bilaterally, vasculitic) Neurologic: patellar DTR's 2+ bilat, sensation intact and PERRL, EOMI, accommodation nl, no face palsy, no dysarthria Psychiatric: A+Ox3, euthymic affect Lymphatic: no cervical or axillary lymphadenopathy Results & Data Vital Signs (Past 12 Hours) Vital Signs Temp Pulse Resp BP BP Pulse Ox 04/21/19 07:14 36.4 C L 98 H 20 169/68 H 96 04/21/19 04:00 37.6 C H 19 L 18 136/90 100 04/20/19 23:28 36.4 C L 87 20 137/88 100 Laboratory Results Laboratory Results - last 24 hr 04/21/19 04/21/19 06:31 06:31 WBC 9.97 RBC 2.94 L Hgb 8.8 L Hct 28.6 L MCV 97.3 MCH 29.9 MCHC 30.8 L RDW Std Deviation 63.3 H RDW Coeff of Phyllis 17.7 H Plt Count 210 MPV 9.9 Immature Gran % (Auto) 0.4 Neut % (Auto) 82.3 Lymph % (Auto) 9.0 [place] % (Auto) 7.9 Eos % (Auto) 0.3 Baso % (Auto) 0.1 Immature Gran # (Auto) 0.04 H Neut # (Auto) 8.20 H Lymph # (Auto) 0.90 L [place] # (Auto) 0.79 H Eos # (Auto) 0.03 Baso # (Auto) 0.01 Sodium 136 Potassium 4.5 Chloride 99 Carbon Dioxide 34 H Anion Gap 3.0 BUN 26 H Creatinine 0.82 Est Cr Clr Drug Dosing 89.3 Est GFR ( Amer) 96.1 Est GFR (Non-Af Amer) 82.9 BUN/Creatinine Ratio 31.7 H Glucose 102 H Calcium 8.2 L Total Bilirubin 0.6 AST 28 ALT 29 Alkaline Phosphatase 65 Total Protein 6.3 L Albumin 2.5 L Globulin 3.8 Albumin/Globulin Ratio 0.7 L Specimen Hemolysis Medications Administered Current Inpatient Medications Acetaminophen (Tylenol) 650 mg PO Q4H PRN PRN Reason: Pain or Fever Stop: 05/08/19 16:28 Last Admin: 04/16/19 12:22 Dose: 650 mg Documented by: Al Hydrox/Mg Hydrox/Simethicone (Maalox) 15 ml PO Q4H PRN PRN Reason: Dyspepsia Stop: 05/08/19 16:28 Albuterol (Duoneb) 3 ml NEB QIDR PRN PRN Reason: Shortness Of Breath Or Wheezing Stop: 05/08/19 16:28 Ascorbic Acid (Vitamin C) [facility] Stop: 05/09/19 08:59 Last Admin: 04/21/19 08:23 Dose: 500 mg Documented by: Atorvastatin Calcium (Lipitor) 40 mg PO [facility] Stop: 05/08/19 20:59 Last Admin: 04/20/19 21:28 Dose: 40 mg Documented by: Cyanocobalamin (Vitamin B-12) 1,000 mcg IM Q28D [facility] Stop: 05/19/19 08:59 Last Admin: 04/19/19 09:18 Dose: 1,000 mcg Documented by: Diltiazem HCl (Cardizem) 10 mg IV Q4H PRN PRN Reason: HR > 110 Stop: 05/11/19 12:05 Last Admin: 04/17/19 00:02 Dose: 10 mg Documented by: Diltiazem HCl (Tiazac) 240 mg PO [facility] Stop: 05/19/19 08:59 Last Admin: 04/21/19 08:24 Dose: 240 mg Documented by: Duloxetine HCl (Cymbalta) 60 mg PO [facility] Stop: 05/09/19 08:59 Last Admin: 04/21/19 08:23 Dose: 60 mg Documented by: Enalapril Maleate (Vasotec) 40 mg PO [facility] Stop: 05/09/19 08:59 Last Admin: 04/21/19 08:23 Dose: 40 mg Documented by: Folic Acid (Folvite) 800 mcg PO [facility] Stop: 05/09/19 08:59 Last Admin: 04/21/19 08:24 Dose: 800 mcg Documented by: Gabapentin (Neurontin) 100 mg PO BID [facility] Stop: 05/09/19 15:29 Last Admin: 04/21/19 08:24 Dose: 100 mg Documented by: Lactic Acid (Amlactin) 1 gm EXT [facility] Stop: 05/08/19 20:59 Last Admin: 04/20/19 21:27 Dose: 1 gm Documented by: Lactobacillus Acidophilus (Floranex) 1 tab PO QAM [facility] Stop: 05/09/19 08:59 Last Admin: 04/21/19 08:23 Dose: 1 tab Documented by: Lidocaine HCl (Afrin W/Lidocaine 4%) 4 ml NA NOW PRN PRN Reason: Dryness Stop: 05/08/19 17:40 Last Admin: 04/10/19 07:34 Dose: 4 ml Documented by: Metoprolol Succinate (Toprol Xl) 25 mg PO BID [facility] Stop: 05/19/19 08:59 Last Admin: 04/21/19 08:22 Dose: 25 mg Documented by: Morphine Sulfate (Morphine Sulfate) 1 - 2 mg IV Q1H PRN PRN Reason: Pain Stop: 04/24/19 19:10 Multivitamins (Multivitamin Tab) 1 tab PO BID [facility] Stop: 05/08/19 20:59 Last Admin: 04/21/19 08:24 Dose: 1 tab Documented by: Multivitamins/Minerals (Caltrate Plus) [facility] Stop: 05/09/19 08:59 Last Admin: 04/21/19 08:23 Dose: 1 tab Documented by: Nitroglycerin (Nitrostat) 0.4 mg SL UD PRN PRN Reason: Chest Pain Stop: 05/08/19 16:28 Ondansetron HCl (Zofran) 4 mg IV Q4H PRN PRN Reason: Nausea And Vomiting Stop: 05/10/19 19:10 Oxycodone HCl (Roxicodone Immediate Rel) 5 mg PO Q6 PRN PRN Reason: Pain Stop: 05/01/19 13:37 Last Admin: 04/20/19 11:48 Dose: 5 mg Documented by: Oxycodone/Acetaminophen (Percocet 5mg/325mg) 1 - 2 tab PO Q3H PRN PRN Reason: Pain Stop: 04/24/19 19:10 Pantoprazole Sodium (Protonix) 40 mg PO [facility] Stop: 05/09/19 08:59 Last Admin: 04/21/19 08:23 Dose: 40 mg Documented by: Polyethylene Glycol (Miralax Powder Packet) 17 gm PO DAILY PRN PRN Reason: Constipation Stop: 05/08/19 16:28 Polysaccharide Iron Complex (Niferex-150 W/Vit C Cap) 150 mg PO [facility] Stop: 05/09/19 08:59 Last Admin: 04/21/19 08:23 Dose: 150 mg Documented by: Prednisone (Prednisone) 60 mg PO DAILY [facility] Stop: 05/17/19 08:59 Last Admin: 04/21/19 08:23 Dose: 60 mg Documented by: Sodium Chloride (Sodium Chloride) 1 gm PO QID [facility] Stop: 05/08/19 16:59 Last Admin: 04/21/19 08:23 Dose: 1 gm Documented by: Sodium Chloride ([place] Nasal) 1 sprays NA Q4H PRN PRN Reason: Dryness Stop: 05/08/19 19:45 Last Admin: 04/10/19 07:34 Dose: 1 sprays Documented by: Tramadol HCl (Ultram) 50 mg PO Q6H PRN PRN Reason: Pain Stop: 05/16/19 17:44 Last Admin: 04/17/19 09:45 Dose: 50 mg Documented by: Vitamin D (Vitamin D3) 2,000 units PO QAM [facility] Stop: 05/09/19 08:59 Last Admin: 04/21/19 08:23 Dose: 2,000 units Documented by: PG Care Time/CCT Total # of Minutes Spent Total Time Spent with Patient: Total time spent is greater than 50% in coordination of care (as documented) at patient's floor/unit and/or counseling patient: (1) CHF (congestive heart failure) Heart failure chronicity: unspecified Heart failure type: unspecified Qualified Code(s): I50.9 - Heart failure, unspecified
--- NOTE | 2019-04-21 11:04 | Progress Note ---
DATE: 04/21/2019 Mr. Gutierrez was seen today and he feels "great." He is still on nasal cannula. I am quite happy with his x-ray. I would not be concerned about the pneumothorax. This is his lung being pushed down by the chest tube. I am a bit concerned that he does have a small air leak. It is intermittent. At this point, I would continue the chest tube for the time being. I am hopeful we can get it removed in the next 24-48 hours.
[2019-04-21] MEDS: OXYCODONE HCL IR 5 MG TAB (IMMEDIATE RELEASE) PO PRN ×2 (16:31→22:29)
[2019-04-21] MEDS: AMMONIUM LACTATE 12% LOTION 225 GM BTL EXT SCH (22:03)
[2019-04-21] MEDS: ATORVASTATIN 40 MG TAB PO SCH (22:05)
[2019-04-22 06:54] LABS: Eosinophils # (auto) 0.02 K/uL (0-0.5); Eosinophils % (auto) 0.2 %; Hematocrit (blood only) 28.5 % (42-52); Hemoglobin 8.8 g/dL (14.0-18.0); Immature Granulocytes # (auto) 0.05 K/uL (0.00-0.02); Immature Granulocytes % (auto) 0.6 %; Lymphocytes # (auto) 0.89 K/uL (1.2-3.4); Lymphocytes % (auto) 10.1 %; Mean Corpuscular Hgb Conc 30.9 g/dL (32-36); Mean Corpuscular Volume 95.3 fL (80-100); Monocytes # (auto) 0.67 K/uL (0.11-0.59); Monocytes % (auto) 7.6 %; Neutrophils # (auto) 7.14 K/uL (1.4-6.5); Neutrophils % (auto) 81.5 %; Platelet Count 200 K/uL (130-400); RDW Coefficient of Variation 17.9 % (11.5-14.5); RDW Standard Deviation 62.2 fL (36.4-46.3); Red Blood Count 2.99 M/uL (4.7-6.1); White Blood Count 8.77 K/uL (4.8-10.8)
[2019-04-22 07:15] LABS: Albumin Level 2.5 gm/dl (3.4-5.0); BUN Creatinine Ratio 28.9 (10-20); Calcium 8.2 mg/dl (8.5-10.1); Creatinine Clr Calc Pharmacy 91.7 ml/min; Est GFR (African American) 97.1; Est GFR (Non-African American) 83.8; Potassium 4.3 mmol/L (3.5-5.1)
[2019-04-22 07:19] LABS: Albumin Globulin Ratio 0.6 (0.9-2); Bilirubin,Total 0.6 mg/dl (0.2-1); Globulin 3.9 gm/dl (2.5-4.0); Total Protein 6.4 gm/dl (6.4-8.2)
[2019-04-22] MEDS: ENALAPRIL MALEATE 10 MG TAB PO SCH (08:34)
[2019-04-22] MEDS: DULOXETINE HCL 60 MG CAP PO SCH (08:34)
[2019-04-22] MEDS: CHOLECALCIFEROL 1,000 UNITS TAB PO SCH (08:35)
[2019-04-22] MEDS: dilTIAZem ER 120 MG CAPCR PO SCH (08:35)
[2019-04-22] MEDS: MULTIVITAMIN TAB PO SCH ×2 (08:35→21:08)
[2019-04-22] MEDS: FUROSEMIDE 40 MG TAB PO SCH (08:35)
[2019-04-22] MEDS: CALCIUM 600MG + VIT D 400 IU TAB PO SCH (08:35)
[2019-04-22] MEDS: LACTOBACILLUS ACIDOPHILUS (FLORANEX) TAB PO SCH (08:35)
[2019-04-22] MEDS: predniSONE 20 MG TAB PO SCH (08:35)
[2019-04-22] MEDS: METOPROLOL SUCC 25MG EXT REL TAB PO SCH ×2 (08:35→21:08)
[2019-04-22] MEDS: PANTOprazole 40 MG TAB PO SCH (08:35)
[2019-04-22] MEDS: IRON POLYSACCHARIDE COMPLEX 150 MG CAPSULE PO SCH (08:36)
[2019-04-22] MEDS: GABAPENTIN 100 MG CAP PO SCH ×2 (08:36→21:08)
[2019-04-22] MEDS: ASCORBIC ACID 500 MG TAB PO SCH (08:36)
[2019-04-22] MEDS: SODIUM CHLORIDE 1 GM TABLET PO SCH ×4 (08:36→21:08)
[2019-04-22] MEDS: FOLIC ACID 400 MCG TAB PO SCH (08:36)
[2019-04-22] MEDS: OXYCODONE HCL IR 5 MG TAB (IMMEDIATE RELEASE) PO PRN ×2 (08:47→21:18)
--- NOTE | 2019-04-22 11:45 | Hospitalist Progress Note ---
Date of Service April 22, 2019 Assessment & Plan (1) Hemoptysis: Hemoptysis of unknown origin-resolved. Could be due to infection vs. pulmonary edema vs. vasculitis (he has an unknown vasculitis) vs. other causes of DAH. 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 - Diffuse pulmonary alveolar hemorrhage: Continue prednisone 60 mg daily. plan for slow taper Dr. Berger can follow in the office - Evaluated by ENT who feel it is *not* related to nasopharyngeal cause - Evaluated by pulm and had chest tube placement (04/18)for pneumothorax by . - Chest tube in place, Dr. Camp managing - Biopsy on 04/[address] Camp - does not appear to be consistent with vasculitis. - Continue steroids - overall improving - Patient has not had hemoptysis for 11 days. IgA level extremely high, consider IgA vasculitis although rare in adults will need follow up (2) Pneumothorax: management per Dr. Camp small air leak today, reassess tomorrow to pull tube continue to ambulate therapy consulted (3) Atrial fibrillation: History of paroxysmal afib status post ablation now in sinus rhythm. Anticoagulation therapy and amiodarone was held during his last admission. - Holding anticoagulation given his hemoptysis - Monitor heart rate on telemetry - Continue beta-ophelia & calcium channel ophelia -Given patient is not a candidate for cardioversion due to inability to take anticoagulation. 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 - HR better controlled with higher dose of Diltiazem, rates in 90's today (4) Vasculitis: He has had a long-standing diagnosis of a "vasculitis." case was discussed with Dr. Smith on 04/10. His history is that of "leukocytoclastic vasculitis;" however, his biopsy was over 20 years ago. He was on Imuran, but this was stopped several weeks ago for anemia. Otherwise, he just gets occasional steroids bursts. ERNESTINE, ANCA, AR-3, anti-MPO, and anti-GBM were all negative. IgA extremely elevated, should be followed up and worked up outpatient - Hepatitis screens were negative - C4 is 33, which is normal for pt age has chronic rash in legs bilaterally (5) CHF (congestive heart failure): Acute exacerbation of systolic congestive heart failure. Appears to be congested with possible volume overload. EF of 45% on echo in 11/2018. - Initially on IV Lasix 40 mg twice a day with strict I's and O's and monitor volume status closely - Monitor I&Os, daily weights patient continues to examine euvolemic continue Lasix 40mg qAM which he takes at home (6) Anemia: - Patient needed 2 units PRBCs on 04/10 for a hemoglobin of 6.9. Hb is 8.8 for two days, has remained stable, no hemoptysis for 11 days so no source of blood loss (7) CAD (coronary artery disease): No chest pain. - Stable on beta-ophelia and ACEi (8) GERD (gastroesophageal reflux disease): - Continue PPI (9) Hypertension: BP stable over the 24 hours. - Continue ramipril / metoprolol, Diltiazem (10) Dyslipidemia: - Continue statin (11) DVT prophylaxis: SCDs - Low DVT risk per admission calculator & having hemoptysis Rheumatology does not believe this to be from vasculitis given his biopsy results. Patient will have second opinion at [facility] Sunday (04/25 at 11 am.) IgA levels high, needs follow up discharge depends on taking out chest tube, hopeful for tomorrow PT/OT consulted Subjective patient continues to feel well, feels like he is getting stronger breathing well, no acute issues still has a small air leak around chest tube this morning d/w Dr. Camp, will reassess tube tomorrow no fever, vitals stable concerned about his strength, will request formal PT/OT evals reviewed labs, stable CBC and BMP still eating well, moving bowels, urinating well no chest pain or pressure, minimal cough discussed case with Dr. Berger, he wants to be sure that follow up for IgA levels occurs Review of Systems Review of Systems: All systems reviewed & are unremarkable except as noted in HPI & below Physical Exam Constitutional: WD/WN, vitals as above no acute distress Eyes: PERRL, conjunctivae normal, anicteric sclerae ENMT: external ear and nose normal, oropharynx normal Neck: trachea midline, no thyromegaly Respiratory: normal respiratory effort, lungs clear to auscultation (right sided CT, small air leak) Cardiovascular: RRR, no murmur, no edema Gastrointestinal (Abdomen): normal bowel sounds, soft, nontender, no hepatosplenomegaly Musculoskeletal: no cyanosis or clubbing, extremities motor strength 5/5 Skin: normal turgor and + rash (extensive rash on legs bilaterally, vasculitic) Neurologic: patellar DTR's 2+ bilat, sensation intact and PERRL, EOMI, accommodation nl, no face palsy, no dysarthria Psychiatric: A+Ox3, euthymic affect Lymphatic: no cervical or axillary lymphadenopathy Results & Data Vital Signs (Past 12 Hours) Vital Signs Temp Pulse Resp BP BP Pulse Ox 04/22/19 10:55 36.4 C L 89 20 135/87 98 04/22/19 07:09 36.5 C 98 H 20 152/74 H 94 04/22/19 04:00 36.4 C L 93 H 20 153/94 H 95 Laboratory Results Laboratory Results - last 24 hr 04/22/19 04/22/19 06:36 06:36 WBC 8.77 RBC 2.99 L Hgb 8.8 L Hct 28.5 L MCV 95.3 MCH 29.4 MCHC 30.9 L RDW Std Deviation 62.2 H RDW Coeff of Phyllis 17.9 H Plt Count 200 MPV 10.0 Immature Gran % (Auto) 0.6 Neut % (Auto) 81.5 Lymph % (Auto) 10.1 Mcpherson % (Auto) 7.6 Eos % (Auto) 0.2 Baso % (Auto) 0.0 Immature Gran # (Auto) 0.05 H Neut # (Auto) 7.14 H Lymph # (Auto) 0.89 L Mcpherson # (Auto) 0.67 H Eos # (Auto) 0.02 Baso # (Auto) 0.00 Sodium 137 Potassium 4.3 Chloride 100 Carbon Dioxide 33 H Anion Gap 4.0 BUN 23 H Creatinine 0.80 Est Cr Clr Drug Dosing 91.7 Est GFR ( Amer) 97.1 Est GFR (Non-Af Amer) 83.8 BUN/Creatinine Ratio 28.9 H Glucose 120 H Calcium 8.2 L Total Bilirubin 0.6 AST 21 ALT 29 Alkaline Phosphatase 68 Total Protein 6.4 Albumin 2.5 L Globulin 3.9 Albumin/Globulin Ratio 0.6 L Medications Administered Current Inpatient Medications Acetaminophen (Tylenol) 650 mg PO Q4H PRN PRN Reason: Pain or Fever Stop: 05/08/19 16:28 Last Admin: 04/16/19 12:22 Dose: 650 mg Documented by: Al Hydrox/Mg Hydrox/Simethicone (Maalox) 15 ml PO Q4H PRN PRN Reason: Dyspepsia Stop: 05/08/19 16:28 Albuterol (Duoneb) 3 ml NEB QIDR PRN PRN Reason: Shortness Of Breath Or Wheezing Stop: 05/08/19 16:28 Ascorbic Acid (Vitamin C) [facility] Stop: 05/09/19 08:59 Last Admin: 04/22/19 08:36 Dose: 500 mg Documented by: Atorvastatin Calcium (Lipitor) 40 mg PO HS [facility] Stop: 05/08/19 20:59 Last Admin: 04/21/19 22:05 Dose: 40 mg Documented by: Cyanocobalamin (Vitamin B-12) 1,000 mcg IM Q28D [facility] Stop: 05/19/19 08:59 Last Admin: 04/19/19 09:18 Dose: 1,000 mcg Documented by: Diltiazem HCl (Cardizem) 10 mg IV Q4H PRN PRN Reason: HR > 110 Stop: 05/11/19 12:05 Last Admin: 04/17/19 00:02 Dose: 10 mg Documented by: Diltiazem HCl (Tiazac) 240 mg PO [facility] Stop: 05/19/19 08:59 Last Admin: 04/22/19 08:35 Dose: 240 mg Documented by: Duloxetine HCl (Cymbalta) 60 mg PO [facility] Stop: 05/09/19 08:59 Last Admin: 04/22/19 08:34 Dose: 60 mg Documented by: Enalapril Maleate (Vasotec) 40 mg PO [facility] Stop: 05/09/19 08:59 Last Admin: 04/22/19 08:34 Dose: 40 mg Documented by: Folic Acid (Folvite) 800 mcg PO [facility] Stop: 05/09/19 08:59 Last Admin: 04/22/19 08:36 Dose: 800 mcg Documented by: Furosemide (Lasix) 40 mg PO QAM [facility] Stop: 05/22/19 08:59 Last Admin: 04/22/19 08:35 Dose: 40 mg Documented by: Gabapentin (Neurontin) 100 mg PO BID [facility] Stop: 05/09/19 15:29 Last Admin: 04/22/19 08:36 Dose: 100 mg Documented by: Lactic Acid (Amlactin) 1 gm EXT HS [facility] Stop: 05/08/19 20:59 Last Admin: 04/21/19 22:03 Dose: 1 gm Documented by: Lactobacillus Acidophilus (Floranex) 1 tab PO QAM [facility] Stop: 05/09/19 08:59 Last Admin: 04/22/19 08:35 Dose: 1 tab Documented by: Lidocaine HCl (Afrin W/Lidocaine 4%) 4 ml NA NOW PRN PRN Reason: Dryness Stop: 05/08/19 17:40 Last Admin: 04/10/19 07:34 Dose: 4 ml Documented by: Metoprolol Succinate (Toprol Xl) 25 mg PO BID [facility] Stop: 05/19/19 08:59 Last Admin: 04/22/19 08:35 Dose: 25 mg Documented by: Morphine Sulfate (Morphine Sulfate) 1 - 2 mg IV Q1H PRN PRN Reason: Pain Stop: 04/24/19 19:10 Multivitamins (Multivitamin Tab) 1 tab PO BID [facility] Stop: 05/08/19 20:59 Last Admin: 04/22/19 08:35 Dose: 1 tab Documented by: Multivitamins/Minerals (Caltrate Plus) 1 tab PO QAM [facility] Stop: 05/09/19 08:59 Last Admin: 04/22/19 08:35 Dose: 1 tab Documented by: Nitroglycerin (Nitrostat) 0.4 mg SL UD PRN PRN Reason: Chest Pain Stop: 05/08/19 16:28 Ondansetron HCl (Zofran) 4 mg IV Q4H PRN PRN Reason: Nausea And Vomiting Stop: 05/10/19 19:10 Oxycodone HCl (Roxicodone Immediate Rel) 5 mg PO Q6 PRN PRN Reason: Pain Stop: 05/01/19 13:37 Last Admin: 04/22/19 08:47 Dose: 5 mg Documented by: Oxycodone/Acetaminophen (Percocet 5mg/325mg) 1 - 2 tab PO Q3H PRN PRN Reason: Pain Stop: 04/24/19 19:10 Pantoprazole Sodium (Protonix) 40 mg PO QAM [facility] Stop: 05/09/19 08:59 Last Admin: 04/22/19 08:35 Dose: 40 mg Documented by: Polyethylene Glycol (Miralax Powder Packet) 17 gm PO DAILY PRN PRN Reason: Constipation Stop: 05/08/19 16:28 Polysaccharide Iron Complex (Niferex-150 W/Vit C Cap) 150 mg PO QAM [facility] Stop: 05/09/19 08:59 Last Admin: 04/22/19 08:36 Dose: 150 mg Documented by: Prednisone (Prednisone) 60 mg PO DAILY [facility] Stop: 05/17/19 08:59 Last Admin: 04/22/19 08:35 Dose: 60 mg Documented by: Sodium Chloride (Sodium Chloride) 1 gm PO QID [facility] Stop: 05/08/19 16:59 Last Admin: 04/22/19 08:36 Dose: 1 gm Documented by: Sodium Chloride ([place] Nasal) 1 sprays NA Q4H PRN PRN Reason: Dryness Stop: 05/08/19 19:45 Last Admin: 04/10/19 07:34 Dose: 1 sprays Documented by: Tramadol HCl (Ultram) 50 mg PO Q6H PRN PRN Reason: Pain Stop: 05/16/19 17:44 Last Admin: 04/17/19 09:45 Dose: 50 mg Documented by: Vitamin D (Vitamin D3) 2,000 units PO QAM [facility] Stop: 05/09/19 08:59 Last Admin: 04/22/19 08:35 Dose: 2,000 units Documented by: PG Care Time/CCT Total # of Minutes Spent Total Time Spent with Patient: Total time spent is greater than 50% in coordination of care (as documented) at patient's floor/unit and/or counseling patient: (1) CHF (congestive heart failure) Heart failure chronicity: unspecified Heart failure type: unspecified Qualified Code(s): I50.9 - Heart failure, unspecified
--- NOTE | 2019-04-22 16:02 | Progress Note ---
DATE: 04/22/2019 Mr. Gutierrez looks pretty good today. In fact, he states he is "great." Having said that, we are still not quite ready to take this chest tube out. He has a small air leak. He is still on 2 liters, but at 98% saturation. Chest tube put about 260 mL out yesterday. Overall, I think he looks better. He states his pain is better in his legs. We will check a chest x-ray tomorrow, and once his air leak resolves, we will pull his tube.
[2019-04-22] MEDS: ATORVASTATIN 40 MG TAB PO SCH (21:08)
[2019-04-22] MEDS: AMMONIUM LACTATE 12% LOTION 225 GM BTL EXT SCH (21:08)
[2019-04-23] MEDS: TRAMADOL HCL 50 MG TABLET PO PRN ×2 (00:22→08:32)
--- NOTE | 2019-04-23 06:54 | XRay Report ---
XR chest 1V portable HISTORY: 83 years-old Male pneumothorax follow-up study in a patient with right-sided pneumothorax COMPARISON: Chest radiograph 04/21/2019 TECHNIQUE: Portable AP view of the chest FINDINGS: Cardiac silhouette is enlarged, unchanged. Left subclavian pacer appears stable. 6 mm right apical pn eumothorax appears unchanged. Stable positioning of the right-sided chest tube. Bilateral mixed inter stitial and alveolar opacities not significantly changed. Blunting of the costophrenic angles without large pleural effusion or overt pulmonary edema. Degenerative changes of the shoulders and spine. IMPRESSION: 1. Stable positioning of the right-sided chest tube with unchanged tiny right apical pneumothorax. 2. Cardiomegaly with unchanged bilateral mixed interstitial and alveolar opacities. The above report was generated using voice recognition software. It may contain grammatical, syntax o r spelling errors. Electronically signed by: Wilton Andersen M.D. 04/23/2019 6:53 AM
[2019-04-23 07:24] LABS: Eosinophils # (auto) 0.01 K/uL (0-0.5); Eosinophils % (auto) 0.1 %; Hematocrit (blood only) 29.2 % (42-52); Hemoglobin 8.9 g/dL (14.0-18.0); Immature Granulocytes # (auto) 0.03 K/uL (0.00-0.02); Immature Granulocytes % (auto) 0.3 %; Lymphocytes # (auto) 1.17 K/uL (1.2-3.4); Lymphocytes % (auto) 12.3 %; Mean Corpuscular Hgb Conc 30.5 g/dL (32-36); Mean Corpuscular Volume 97.3 fL (80-100); Mean Platelet Volume 9.7 fL (7.4-10.4); Monocytes % (auto) 7.3 %; Neutrophils # (auto) 7.64 K/uL (1.4-6.5); Platelet Count 198 K/uL (130-400); RDW Coefficient of Variation 17.6 % (11.5-14.5); RDW Standard Deviation 62.4 fL (36.4-46.3); White Blood Count 9.55 K/uL (4.8-10.8)
[2019-04-23 07:58] LABS: Albumin Level 2.6 gm/dl (3.4-5.0); BUN Creatinine Ratio 23.8 (10-20); Calcium 8.6 mg/dl (8.5-10.1); Est GFR (African American) 96.6; Est GFR (Non-African American) 83.4; Potassium 4.4 mmol/L (3.5-5.1)
[2019-04-23 08:00] LABS: Albumin Globulin Ratio 0.7 (0.9-2); Bilirubin,Total 0.6 mg/dl (0.2-1); Globulin 3.7 gm/dl (2.5-4.0); Total Protein 6.3 gm/dl (6.4-8.2)
[2019-04-23] MEDS: PANTOprazole 40 MG TAB PO SCH (08:06)
[2019-04-23] MEDS: CALCIUM 600MG + VIT D 400 IU TAB PO SCH (08:06)
[2019-04-23] MEDS: CHOLECALCIFEROL 1,000 UNITS TAB PO SCH (08:06)
[2019-04-23] MEDS: ENALAPRIL MALEATE 10 MG TAB PO SCH (08:06)
[2019-04-23] MEDS: MULTIVITAMIN TAB PO SCH ×2 (08:06→20:42)
[2019-04-23] MEDS: IRON POLYSACCHARIDE COMPLEX 150 MG CAPSULE PO SCH (08:07)
[2019-04-23] MEDS: SODIUM CHLORIDE 1 GM TABLET PO SCH ×4 (08:07→20:42)
[2019-04-23] MEDS: GABAPENTIN 100 MG CAP PO SCH ×2 (08:08→20:43)
[2019-04-23] MEDS: predniSONE 20 MG TAB PO SCH (08:08)
[2019-04-23] MEDS: ASCORBIC ACID 500 MG TAB PO SCH (08:08)
[2019-04-23] MEDS: DULOXETINE HCL 60 MG CAP PO SCH (08:09)
[2019-04-23] MEDS: dilTIAZem ER 120 MG CAPCR PO SCH (08:09)
[2019-04-23] MEDS: FUROSEMIDE 40 MG TAB PO SCH (08:09)
[2019-04-23] MEDS: METOPROLOL SUCC 50MG EXT REL TAB PO SCH ×2 (08:10→20:42)
[2019-04-23] MEDS: LACTOBACILLUS ACIDOPHILUS (FLORANEX) TAB PO SCH (08:10)
[2019-04-23] MEDS: FOLIC ACID 400 MCG TAB PO SCH (08:10)
--- NOTE | 2019-04-23 11:03 | Progress Note ---
DATE: 04/23/2019 Mr. Gutierrez was seen today. He still has an air leak which is a bit odd. His chest x-ray I thought looked very good. I do not think this patient has a pneumothorax. I think his lung is being pushed down by the chest tube, which is the only area that we see the separation from the pleura. He still has opacities. Having said that, his incisions are clean and he feels "great." He has responded to steroids. At this point, he is draining very little fluid, but I can simply remove his chest tube. We are going to contract him to a Heimlich valve, so he can ambulate better. We will see how this looks in the morning with a chest x-ray.
--- NOTE | 2019-04-23 13:22 | Hospitalist Progress Note ---
Date of Service April 23, 2019 Assessment & Plan (1) Hemoptysis: Hemoptysis of unknown origin-resolved. Could be due to infection vs. pulmonary edema vs. vasculitis (he has an unknown vasculitis) vs. other causes of DAH. 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 - Diffuse pulmonary alveolar hemorrhage: Continue prednisone 60 mg daily. plan for slow taper Dr. Berger can follow in the office - Evaluated by ENT who feel it is *not* related to nasopharyngeal cause - Evaluated by pulm and had chest tube placement (04/18)for pneumothorax by . - Chest tube in place, Dr. Camp managing - Biopsy on 04/[address] Camp - does not appear to be consistent with vasculitis. - Continue steroids - overall improving - Patient has not had hemoptysis for 12 days. IgA level extremely high, consider IgA vasculitis although rare in adults will need follow up plans to follow up with rheumatology at [place] on Sunday, hoping to d/c tomorrow (2) Pneumothorax: management per Dr. Camp still with small air leak today, thoracic to set up with Heimlich valve continue to ambulate therapy consulted (3) Atrial fibrillation: History of paroxysmal afib status post ablation now in sinus rhythm. Anticoagulation therapy and amiodarone was held during his last admission. - Holding anticoagulation given his hemoptysis - Monitor heart rate on telemetry, up in the 100's today will increase Toprol to 50mg BID continue Diltiazem -Given patient is not a candidate for cardioversion due to inability to take anticoagulation. 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 (4) Vasculitis: He has had a long-standing diagnosis of a "vasculitis." case was discussed with Dr. Smith on 04/10. His history is that of "leukocytoclastic vasculitis;" however, his biopsy was over 20 years ago. He was on Imuran, but this was stopped several weeks ago for anemia. Otherwise, he just gets occasional steroids bursts. ERNESTINE, ANCA, DC-3, anti-MPO, and anti-GBM were all negative. IgA extremely elevated, should be followed up and worked up outpatient - Hepatitis screens were negative - C4 is 33, which is normal for pt age has chronic rash in legs bilaterally (5) CHF (congestive heart failure): Acute exacerbation of systolic congestive heart failure. Appears to be congested with possible volume overload. EF of 45% on echo in 11/2018. - Initially on IV Lasix 40 mg twice a day with strict I's and O's and monitor volume status closely - Monitor I&Os, daily weights patient continues to examine euvolemic continue Lasix 40mg qAM which he takes at home (6) Anemia: - Patient needed 2 units PRBCs on 04/10 for a hemoglobin of 6.9. Hb is 8.9 today (7) CAD (coronary artery disease): No chest pain. - Stable on beta-ophelia and ACEi (8) GERD (gastroesophageal reflux disease): - Continue PPI (9) Hypertension: BP stable over the 24 hours. - Continue ramipril / metoprolol, Diltiazem (10) Dyslipidemia: - Continue statin (11) DVT prophylaxis: SCDs - Low DVT risk per admission calculator & having hemoptysis Rheumatology does not believe this to be from vasculitis given his biopsy results. Patient will have second opinion at [place] Sunday (04/25 at 11 am.) IgA levels high, needs follow up discharge depends on taking out chest tube, hopeful for tomorrow PT/OT consulted Subjective patient feeling well continues to breathe well, minimal cough no chest pain or pressure eating well, moving bowels discussed with Dr. Camp, still with air leak will set up Heimlich valve encourage patient to ambulate HR up in the 100's this morning and hypertensive will increase his metoprolol Review of Systems Review of Systems: All systems reviewed & are unremarkable except as noted in HPI & below Physical Exam Constitutional: WD/WN, vitals as above no acute distress Eyes: PERRL, conjunctivae normal, anicteric sclerae ENMT: external ear and nose normal, oropharynx normal Neck: trachea midline, no thyromegaly Respiratory: normal respiratory effort, lungs clear to auscultation (right sided CT, small air leak) Cardiovascular: Rate/Rhythm: + tachycardic Heart Sounds: normal S1 and normal S2; no murmur Vessels: no JVD Extremities: normal capillary refill; no edema Gastrointestinal (Abdomen): normal bowel sounds, soft, nontender, no hepatosplenomegaly Musculoskeletal: no cyanosis or clubbing, extremities motor strength 5/5 Skin: normal turgor and + rash (extensive rash on legs bilaterally, vasculitic) Neurologic: patellar DTR's 2+ bilat, sensation intact and PERRL, EOMI, accommodation nl, no face palsy, no dysarthria Psychiatric: A+Ox3, euthymic affect Lymphatic: no cervical or axillary lymphadenopathy Results & Data Vital Signs (Past 12 Hours) Vital Signs Temp Pulse Pulse Resp BP Pulse Ox Pulse Ox 04/23/19 12:38 100 04/23/19 11:02 36.7 C 91 H 18 129/77 96 04/23/19 08:00 78 04/23/19 07:53 142/91 H 04/23/19 06:58 36.0 C L 76 22 178/131 H 109 H 04/23/19 04:26 36.4 C L 77 20 148/92 H 100 Pulse Ox 04/23/19 12:38 95 04/23/19 11:02 04/23/19 08:00 04/23/19 07:53 04/23/19 06:58 04/23/19 04:26 Laboratory Results Laboratory Results - last 24 hr 04/23/19 04/23/19 07:08 07:08 WBC 9.55 RBC 3.00 L Hgb 8.9 L Hct 29.2 L MCV 97.3 MCH 29.7 MCHC 30.5 L RDW Std Deviation 62.4 H RDW Coeff of Phyllis 17.6 H Plt Count 198 MPV 9.7 Immature Gran % (Auto) 0.3 Neut % (Auto) 80.0 Lymph % (Auto) 12.3 Power % (Auto) 7.3 Eos % (Auto) 0.1 Baso % (Auto) 0.0 Immature Gran # (Auto) 0.03 H Neut # (Auto) 7.64 H Lymph # (Auto) 1.17 L Power # (Auto) 0.70 H Eos # (Auto) 0.01 Baso # (Auto) 0.00 Sodium 138 Potassium 4.4 Chloride 98 Carbon Dioxide 34 H Anion Gap 6.0 BUN 19 H Creatinine 0.81 Est Cr Clr Drug Dosing 90.0 Est GFR ( Amer) 96.6 Est GFR (Non-Af Amer) 83.4 BUN/Creatinine Ratio 23.8 H Glucose 103 H Calcium 8.6 Total Bilirubin 0.6 AST 21 ALT 31 Alkaline Phosphatase 70 Total Protein 6.3 L Albumin 2.6 L Globulin 3.7 Albumin/Globulin Ratio 0.7 L Diagnostic Findings XR chest 1V portable HISTORY: 83 years-old Male pneumothorax follow-up study in a patient with right-sided pneumothorax COMPARISON: Chest radiograph 04/21/2019 TECHNIQUE: Portable AP view of the chest FINDINGS: Cardiac silhouette is enlarged, unchanged. Left subclavian pacer appears stable. 6 mm right apical pneumothorax appears unchanged. Stable positioning of the right-sided chest tube. Bilateral mixed interstitial and alveolar opacities not significantly changed. Blunting of the costophrenic angles without large pleural effusion or overt pulmonary edema. Degenerative changes of the shoulders and spine. IMPRESSION: 1. Stable positioning of the right-sided chest tube with unchanged tiny right apical pneumothorax. 2. Cardiomegaly with unchanged bilateral mixed interstitial and alveolar opacities. Medications Administered Current Inpatient Medications Acetaminophen (Tylenol) 650 mg PO Q4H PRN PRN Reason: Pain or Fever Stop: 05/08/19 16:28 Last Admin: 04/16/19 12:22 Dose: 650 mg Documented by: Al Hydrox/Mg Hydrox/Simethicone (Maalox) 15 ml PO Q4H PRN PRN Reason: Dyspepsia Stop: 05/08/19 16:28 Albuterol (Duoneb) 3 ml NEB QIDR PRN PRN Reason: Shortness Of Breath Or Wheezing Stop: 05/08/19 16:28 Ascorbic Acid (Vitamin C) 500 mg PO QAM [facility] Stop: 05/09/19 08:59 Last Admin: 04/23/19 08:08 Dose: 500 mg Documented by: Atorvastatin Calcium (Lipitor) 40 mg PO HS [facility] Stop: 05/08/19 20:59 Last Admin: 04/22/19 21:08 Dose: 40 mg Documented by: Cyanocobalamin (Vitamin B-12) 1,000 mcg IM Q28D [facility] Stop: 05/19/19 08:59 Last Admin: 04/19/19 09:18 Dose: 1,000 mcg Documented by: Diltiazem HCl (Tiazac) 240 mg PO QAM [facility] Stop: 05/19/19 08:59 Last Admin: 04/23/19 08:09 Dose: 240 mg Documented by: Duloxetine HCl (Cymbalta) 60 mg PO QAM [facility] Stop: 05/09/19 08:59 Last Admin: 04/23/19 08:09 Dose: 60 mg Documented by: Enalapril Maleate (Vasotec) 40 mg PO QAM [facility] Stop: 05/09/19 08:59 Last Admin: 04/23/19 08:06 Dose: 40 mg Documented by: Folic Acid (Folvite) 800 mcg PO QAM [facility] Stop: 05/09/19 08:59 Last Admin: 04/23/19 08:10 Dose: 800 mcg Documented by: Furosemide (Lasix) 40 mg PO QAM [facility] Stop: 05/22/19 08:59 Last Admin: 04/23/19 08:09 Dose: 40 mg Documented by: Gabapentin (Neurontin) 100 mg PO BID [facility] Stop: 05/09/19 15:29 Last Admin: 04/23/19 08:08 Dose: 100 mg Documented by: Lactic Acid (Amlactin) 1 gm EXT HS [facility] Stop: 05/08/19 20:59 Last Admin: 04/22/19 21:08 Dose: 1 gm Documented by: Lactobacillus Acidophilus (Floranex) 1 tab PO QAM [facility] Stop: 05/09/19 08:59 Last Admin: 04/23/19 08:10 Dose: 1 tab Documented by: Lidocaine HCl (Afrin W/Lidocaine 4%) 4 ml NA NOW PRN PRN Reason: Dryness Stop: 05/08/19 17:40 Last Admin: 04/10/19 07:34 Dose: 4 ml Documented by: Metoprolol Succinate (Toprol Xl) 50 mg PO BID [facility] Stop: 05/23/19 08:59 Last Admin: 04/23/19 08:10 Dose: 50 mg Documented by: Morphine Sulfate (Morphine Sulfate) 1 - 2 mg IV Q1H PRN PRN Reason: Pain Stop: 04/24/19 19:10 Multivitamins (Multivitamin Tab) 1 tab PO BID [facility] Stop: 05/08/19 20:59 Last Admin: 04/23/19 08:06 Dose: 1 tab Documented by: Multivitamins/Minerals (Caltrate Plus) 1 tab PO QAM [facility] Stop: 05/09/19 08:59 Last Admin: 04/23/19 08:06 Dose: 1 tab Documented by: Nitroglycerin (Nitrostat) 0.4 mg SL UD PRN PRN Reason: Chest Pain Stop: 05/08/19 16:28 Ondansetron HCl (Zofran) 4 mg IV Q4H PRN PRN Reason: Nausea And Vomiting Stop: 05/10/19 19:10 Oxycodone HCl (Roxicodone Immediate Rel) 5 mg PO Q6 PRN PRN Reason: Pain Stop: 05/01/19 13:37 Last Admin: 04/22/19 21:18 Dose: 5 mg Documented by: Oxycodone/Acetaminophen (Percocet 5mg/325mg) 1 - 2 tab PO Q3H PRN PRN Reason: Pain Stop: 04/24/19 19:10 Pantoprazole Sodium (Protonix) 40 mg PO [facility] Stop: 05/09/19 08:59 Last Admin: 04/23/19 08:06 Dose: 40 mg Documented by: Polyethylene Glycol (Miralax Powder Packet) 17 gm PO DAILY PRN PRN Reason: Constipation Stop: 05/08/19 16:28 Polysaccharide Iron Complex (Niferex-150 W/Vit C Cap) 150 mg PO [facility] Stop: 05/09/19 08:59 Last Admin: 04/23/19 08:07 Dose: 150 mg Documented by: Prednisone (Prednisone) 60 mg PO DAILY [facility] Stop: 05/17/19 08:59 Last Admin: 04/23/19 08:08 Dose: 60 mg Documented by: Sodium Chloride (Sodium Chloride) 1 gm PO QID [facility] Stop: 05/08/19 16:59 Last Admin: 04/23/19 08:07 Dose: 1 gm Documented by: Sodium Chloride ([place] Nasal) 1 sprays NA Q4H PRN PRN Reason: Dryness Stop: 05/08/19 19:45 Last Admin: 04/10/19 07:34 Dose: 1 sprays Documented by: Tramadol HCl (Ultram) 50 mg PO Q6H PRN PRN Reason: Pain Stop: 05/16/19 17:44 Last Admin: 04/23/19 08:32 Dose: 50 mg Documented by: Vitamin D (Vitamin D3) 2,000 units PO QAM [facility] Stop: 05/09/19 08:59 Last Admin: 04/23/19 08:06 Dose: 2,000 units Documented by: PG Care Time/CCT Total # of Minutes Spent Total Time Spent with Patient: Total time spent is greater than 50% in coordination of care (as documented) at patient's floor/unit and/or counseling patient: (1) CHF (congestive heart failure) Heart failure chronicity: unspecified Heart failure type: unspecified Qualified Code(s): I50.9 - Heart failure, unspecified
[2019-04-23] MEDS: OXYCODONE HCL IR 5 MG TAB (IMMEDIATE RELEASE) PO PRN (15:39)
[2019-04-23] MEDS: ATORVASTATIN 40 MG TAB PO SCH (20:42)
[2019-04-23] MEDS: AMMONIUM LACTATE 12% LOTION 225 GM BTL EXT SCH (20:43)
[2019-04-24 00:22] LABS: % Cryocrit None Detected; Cryoglobulin, QL Negative (Negative)
[2019-04-24 06:07] LABS: Eosinophils # (auto) 0.01 K/uL (0-0.5); Eosinophils % (auto) 0.1 %; Hematocrit (blood only) 28.8 % (42-52); Hemoglobin 8.9 g/dL (14.0-18.0); Immature Granulocytes # (auto) 0.04 K/uL (0.00-0.02); Immature Granulocytes % (auto) 0.4 %; Lymphocytes # (auto) 0.95 K/uL (1.2-3.4); Mean Corpuscular Hgb Conc 30.9 g/dL (32-36); Mean Corpuscular Volume 96.6 fL (80-100); Mean Platelet Volume 9.9 fL (7.4-10.4); Monocytes # (auto) 0.78 K/uL (0.11-0.59); Monocytes % (auto) 8.2 %; Neutrophils # (auto) 7.74 K/uL (1.4-6.5); Neutrophils % (auto) 81.3 %; Platelet Count 189 K/uL (130-400); RDW Coefficient of Variation 17.8 % (11.5-14.5); RDW Standard Deviation 63.1 fL (36.4-46.3); Red Blood Count 2.98 M/uL (4.7-6.1); White Blood Count 9.52 K/uL (4.8-10.8)
[2019-04-24 06:53] LABS: Albumin Level 2.6 gm/dl (3.4-5.0); BUN Creatinine Ratio 22.1 (10-20); Calcium 8.2 mg/dl (8.5-10.1); Creatinine Clr Calc Pharmacy 83.3 ml/min; Est GFR (African American) 93.8; Est GFR (Non-African American) 80.9; Potassium 3.8 mmol/L (3.5-5.1)
--- NOTE | 2019-04-24 06:54 | XRay Report ---
XR chest 1V portable CLINICAL HISTORY: pneumothorax COMPARISON STUDY: 04/23/2019 FINDINGS: The heart remains enlarged. There is a left subclavian dual-chamber central venous pacemake r present. There is a right-sided chest tube unchanged in position. There is a trace right apical pne umothorax with a pleural separation of 4 mm. Reticulonodular[right lung airspace opacities remain sim ilar. There is probable mild underlying pulmonary vascular congestion. IMPRESSION: 1. Trace residual 4 mm right apical pneumothorax 2. Cardiomegaly with suspected mild pulmonary vascular congestion 3. Persistent asymmetric bilateral reticular nodular airspace opacities right greater than left Electronically signed by: Scott Roberts M.D. 04/24/2019 6:52 AM
[2019-04-24 06:56] LABS: Albumin Globulin Ratio 0.7 (0.9-2); Bilirubin,Total 0.6 mg/dl (0.2-1); Globulin 3.6 gm/dl (2.5-4.0); Total Protein 6.2 gm/dl (6.4-8.2)
[2019-04-24] MEDS: LACTOBACILLUS ACIDOPHILUS (FLORANEX) TAB PO SCH (08:18)
[2019-04-24] MEDS: IRON POLYSACCHARIDE COMPLEX 150 MG CAPSULE PO SCH (08:18)
[2019-04-24] MEDS: dilTIAZem ER 120 MG CAPCR PO SCH (08:18)
[2019-04-24] MEDS: FUROSEMIDE 40 MG TAB PO SCH (08:18)
[2019-04-24] MEDS: MULTIVITAMIN TAB PO SCH ×2 (08:19→20:27)
[2019-04-24] MEDS: GABAPENTIN 100 MG CAP PO SCH ×2 (08:19→20:27)
[2019-04-24] MEDS: METOPROLOL SUCC 50MG EXT REL TAB PO SCH ×2 (08:19→20:28)
[2019-04-24] MEDS: PANTOprazole 40 MG TAB PO SCH (08:19)
[2019-04-24] MEDS: FOLIC ACID 400 MCG TAB PO SCH (08:19)
[2019-04-24] MEDS: ENALAPRIL MALEATE 10 MG TAB PO SCH (08:19)
[2019-04-24] MEDS: predniSONE 20 MG TAB PO SCH (08:19)
[2019-04-24] MEDS: SODIUM CHLORIDE 1 GM TABLET PO SCH ×4 (08:19→20:28)
[2019-04-24] MEDS: CALCIUM 600MG + VIT D 400 IU TAB PO SCH (08:20)
[2019-04-24] MEDS: CHOLECALCIFEROL 1,000 UNITS TAB PO SCH (08:20)
[2019-04-24] MEDS: DULOXETINE HCL 60 MG CAP PO SCH (08:20)
[2019-04-24] MEDS: ASCORBIC ACID 500 MG TAB PO SCH (08:21)
[2019-04-24] MEDS: ACETAMINOPHEN 325 MG TAB PO PRN (10:39)
[2019-04-24] MEDS: OXYCODONE HCL IR 5 MG TAB (IMMEDIATE RELEASE) PO PRN ×2 (10:39→18:55)
--- NOTE | 2019-04-24 14:21 | Progress Note ---
DATE: 04/24/2019 Mr. Gutierrez was seen today on 04/24/2019. He looks better and better. He does not need to be monitored and is being transferred to a non-monitored bed on the third floor. He still has a small air leak. He has drained very little and I thought his x-ray is improving. Overall, he is better. At this point, I would like to continue to monitor him until this air leak stops. He could go home with this Heimlich in place if he is ready.
[2019-04-24] MEDS: TRAMADOL HCL 50 MG TABLET PO PRN ×2 (15:40→23:38)
--- NOTE | 2019-04-24 16:34 | Hospitalist Progress Note ---
Date of Service April 24, 2019 Assessment & Plan (1) Hemoptysis: Hemoptysis of unknown origin-resolved. Could be due to infection vs. pulmonary edema vs. vasculitis (he has an unknown vasculitis) vs. other causes of DAH. 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 - Diffuse pulmonary alveolar hemorrhage: Continue prednisone 60 mg daily. plan for slow taper, 10mg every two weeks Dr. Berger can follow in the office - Evaluated by ENT who feel it is *not* related to nasopharyngeal cause - Evaluated by pulm and had chest tube placement (04/18)for pneumothorax by . - Chest tube in place, Dr. Camp managing - Biopsy on 04/[address] Camp - does not appear to be consistent with vasculitis. - Continue steroids - overall improving - Patient has not had hemoptysis for almost two weeks IgA level extremely high, consider IgA vasculitis although rare in adults will need follow up plans to follow up with rheumatology at [place] after discharged (2) Pneumothorax: management per Dr. Camp still with small air leak today, thoracic set up with Heimlich valve today continue to ambulate therapy consulted (3) Atrial fibrillation: History of paroxysmal afib status post ablation now in sinus rhythm. Anticoagulation therapy and amiodarone was held during his last admission. - Holding anticoagulation given his hemoptysis - HR improved to 70-80 range, transfer to medical floor continue Toprol 50mg BID continue Diltiazem -Given patient is not a candidate for cardioversion due to inability to take anticoagulation. - s/p a pacemaker insertion on 04/17; the purpose of this is to protect him as we will continue to aggressively rate control him with diltiazem and metoprolol (4) Vasculitis: He has had a long-standing diagnosis of a "vasculitis." case was discussed with Dr. Smith on 04/10. His history is that of "leukocytoclastic vasculitis;" however, his biopsy was over 20 years ago. He was on Imuran, but this was stopped several weeks ago for anemia. Otherwise, he just gets occasional steroids bursts. ERNESTINE, ANCA, [place]-3, anti-MPO, and anti-GBM were all negative. IgA extremely elevated, should be followed up and worked up outpatient - Hepatitis screens were negative - C4 is 33, which is normal for pt age has chronic rash in legs bilaterally (5) CHF (congestive heart failure): Acute exacerbation of systolic congestive heart failure. Appears to be congested with possible volume overload. EF of 45% on echo in 11/2018. - Initially on IV Lasix 40 mg twice a day with strict I's and O's and monitor volume status closely - Monitor I&Os, daily weights patient continues to examine euvolemic continue Lasix 40mg qAM which he takes at home (6) Anemia: - Patient needed 2 units PRBCs on 04/10 for a hemoglobin of 6.9. Hb is 8.9 again today (7) CAD (coronary artery disease): No chest pain. - Stable on beta-ophelia and ACEi (8) GERD (gastroesophageal reflux disease): - Continue PPI (9) Hypertension: BP stable over the 24 hours. - Continue ramipril / metoprolol, Diltiazem (10) Dyslipidemia: - Continue statin (11) DVT prophylaxis: SCDs - Low DVT risk per admission calculator & having hemoptysis Rheumatology does not believe this to be from vasculitis given his biopsy results. Patient will have second opinion at [facility] once he can be discharged IgA levels high, needs follow up discharge depends on taking out chest tube, now with Heimlich valve PT/OT consulted transfer to medical today Subjective patient breathing well this morning, had Heimlich valve placed for chest tube tolerating well he says that he did okay with therapy, still a little too weak in the afternoon he had more therapy, he has some orthostatic changes and felt weak, needed to lay down reviewed medications, only change was the increase in metoprolol two days ago for tachycardia he continues to eat well discussed with Dr. Camp, wants to monitor until air leak resolved otherwise he is pleased with progress will need to talk with CM about possible rehab needs, patient was deconditioned from prolonged stay Review of Systems 2 Review of Systems: All systems reviewed & are unremarkable except as noted in HPI & below Constitutional: + weakness; no fever, no chills, no sweats and no fatigue Respiratory: + dyspnea on exertion; no cough, no dyspnea, no sputum production and no wheezing Cardiovascular: no chest pain, no palpitations and no edema Gastrointestinal: no abdominal pain, no nausea, no vomiting, no constipation and no diarrhea/loose stools Musculoskeletal: + muscle weakness Integumentary: + rash (bilateral vasculitic rash, chronic) Physical Exam Constitutional: WD/WN, vitals as above no acute distress Eyes: PERRL, conjunctivae normal, anicteric sclerae ENMT: external ear and nose normal, oropharynx normal Neck: trachea midline, no thyromegaly Respiratory: normal respiratory effort, lungs clear to auscultation (right sided CT, small air leak) Cardiovascular: Rate/Rhythm: regular rate and + irregularly irregular Heart Sounds: normal S1 and normal S2; no murmur Vessels: no JVD Extremities: normal capillary refill; no edema Gastrointestinal (Abdomen): normal bowel sounds, soft, nontender, no hepatosplenomegaly Musculoskeletal: no cyanosis or clubbing, extremities motor strength 5/5 Skin: normal turgor and + rash (extensive rash on legs bilaterally, vasculitic) Neurologic: patellar DTR's 2+ bilat, sensation intact and PERRL, EOMI, accommodation nl, no face palsy, no dysarthria Psychiatric: A+Ox3, euthymic affect Lymphatic: no cervical or axillary lymphadenopathy Results & Data Vital Signs (Past 12 Hours) Vital Signs Temp Pulse Resp BP BP Pulse Ox 04/24/19 15:31 36.7 C 61 16 96/61 L 95 04/24/19 14:25 110/65 04/24/19 13:18 72 24 92/57 L 94 04/24/19 11:47 36.3 C L 81 15 117/79 98 04/24/19 09:18 131/88 04/24/19 07:13 36.4 C L 75 22 165/117 H 100 Laboratory Results Laboratory Results - last 24 hr 04/18/19 04/24/19 04/24/19 06:41 05:41 05:41 WBC 9.52 RBC 2.98 L Hgb 8.9 L Hct 28.8 L MCV 96.6 MCH 29.9 MCHC 30.9 L RDW Std Deviation 63.1 H RDW Coeff of Phyllis 17.8 H Plt Count 189 MPV 9.9 Immature Gran % (Auto) 0.4 Neut % (Auto) 81.3 Lymph % (Auto) 10.0 Norton % (Auto) 8.2 Eos % (Auto) 0.1 Baso % (Auto) 0.0 Immature Gran # (Auto) 0.04 H Neut # (Auto) 7.74 H Lymph # (Auto) 0.95 L Norton # (Auto) 0.78 H Eos # (Auto) 0.01 Baso # (Auto) 0.00 Sodium 138 Potassium 3.8 Chloride 99 Carbon Dioxide 35 H Anion Gap 4.0 BUN 19 H Creatinine 0.87 Est Cr Clr Drug Dosing 83.3 Est GFR ( Amer) 93.8 Est GFR (Non-Af Amer) 80.9 BUN/Creatinine Ratio 22.1 H Glucose 105 H Calcium 8.2 L Total Bilirubin 0.6 AST 16 ALT 30 Alkaline Phosphatase 71 Total Protein 6.2 L Albumin 2.6 L Globulin 3.6 Albumin/Globulin Ratio 0.7 L Cryoglobulin Negative Cryoglobulin Cryocrit None Detected Medications Administered Current Inpatient Medications Acetaminophen (Tylenol) 650 mg PO Q4H PRN PRN Reason: Pain or Fever Stop: 05/08/19 16:28 Last Admin: 04/24/19 10:39 Dose: 650 mg Documented by: Al Hydrox/Mg Hydrox/Simethicone (Maalox) 15 ml PO Q4H PRN PRN Reason: Dyspepsia Stop: 05/08/19 16:28 Albuterol (Duoneb) 3 ml NEB QIDR PRN PRN Reason: Shortness Of Breath Or Wheezing Stop: 05/08/19 16:28 Ascorbic Acid (Vitamin C) [facility] Stop: 05/09/19 08:59 Last Admin: 04/24/19 08:21 Dose: 500 mg Documented by: Atorvastatin Calcium (Lipitor) 40 mg PO [facility] Stop: 05/08/19 20:59 Last Admin: 04/23/19 20:42 Dose: 40 mg Documented by: Cyanocobalamin (Vitamin B-12) 1,000 mcg IM Q28D [facility] Stop: 05/19/19 08:59 Last Admin: 04/19/19 09:18 Dose: 1,000 mcg Documented by: Diltiazem HCl (Tiazac) 240 mg PO [facility] Stop: 05/19/19 08:59 Last Admin: 04/24/19 08:18 Dose: 240 mg Documented by: Duloxetine HCl (Cymbalta) 60 mg PO [facility] Stop: 05/09/19 08:59 Last Admin: 04/24/19 08:20 Dose: 60 mg Documented by: Enalapril Maleate (Vasotec) 40 mg PO QAM [facility] Stop: 05/09/19 08:59 Last Admin: 04/24/19 08:19 Dose: 40 mg Documented by: Folic Acid (Folvite) 800 mcg PO QAM [facility] Stop: 05/09/19 08:59 Last Admin: 04/24/19 08:19 Dose: 800 mcg Documented by: Furosemide (Lasix) 40 mg PO QAM [facility] Stop: 05/22/19 08:59 Last Admin: 04/24/19 08:18 Dose: 40 mg Documented by: Gabapentin (Neurontin) 100 mg PO BID [facility] Stop: 05/09/19 15:29 Last Admin: 04/24/19 08:19 Dose: 100 mg Documented by: Lactic Acid (Amlactin) 1 gm EXT HS [facility] Stop: 05/08/19 20:59 Last Admin: 04/23/19 20:43 Dose: 1 gm Documented by: Lactobacillus Acidophilus (Floranex) 1 tab PO QAM [facility] Stop: 05/09/19 08:59 Last Admin: 04/24/19 08:18 Dose: 1 tab Documented by: Lidocaine HCl (Afrin W/Lidocaine 4%) 4 ml NA NOW PRN PRN Reason: Dryness Stop: 05/08/19 17:40 Last Admin: 04/10/19 07:34 Dose: 4 ml Documented by: Metoprolol Succinate (Toprol Xl) 50 mg PO BID [facility] Stop: 05/23/19 08:59 Last Admin: 04/24/19 08:19 Dose: 50 mg Documented by: Morphine Sulfate (Morphine Sulfate) 1 - 2 mg IV Q1H PRN PRN Reason: Pain Stop: 04/24/19 19:10 Multivitamins (Multivitamin Tab) 1 tab PO BID [facility] Stop: 05/08/19 20:59 Last Admin: 04/24/19 08:19 Dose: 1 tab Documented by: Multivitamins/Minerals (Caltrate Plus) 1 tab PO QAM [facility] Stop: 05/09/19 08:59 Last Admin: 04/24/19 08:20 Dose: 1 tab Documented by: Nitroglycerin (Nitrostat) 0.4 mg SL UD PRN PRN Reason: Chest Pain Stop: 05/08/19 16:28 Ondansetron HCl (Zofran) 4 mg IV Q4H PRN PRN Reason: Nausea And Vomiting Stop: 05/10/19 19:10 Oxycodone HCl (Roxicodone Immediate Rel) 5 mg PO Q6 PRN PRN Reason: Pain Stop: 05/01/19 13:37 Last Admin: 04/24/19 10:39 Dose: 5 mg Documented by: Oxycodone/Acetaminophen (Percocet 5mg/325mg) 1 - 2 tab PO Q3H PRN PRN Reason: Pain Stop: 04/24/19 19:10 Pantoprazole Sodium (Protonix) [facility] Stop: 05/09/19 08:59 Last Admin: 04/24/19 08:19 Dose: 40 mg Documented by: Polyethylene Glycol (Miralax Powder Packet) 17 gm PO DAILY PRN PRN Reason: Constipation Stop: 05/08/19 16:28 Polysaccharide Iron Complex (Niferex-150 W/Vit C Cap) 150 mg PO [facility] [place] Stop: 05/09/19 08:59 Last Admin: 04/24/19 08:18 Dose: 150 mg Documented by: Prednisone (Prednisone) 60 mg PO DAILY [facility] Stop: 05/17/19 08:59 Last Admin: 04/24/19 08:19 Dose: 60 mg Documented by: Sodium Chloride (Sodium Chloride) 1 gm PO QID [facility] Stop: 05/08/19 16:59 Last Admin: 04/24/19 12:35 Dose: 1 gm Documented by: Sodium Chloride ([place] Nasal) 1 sprays NA Q4H PRN PRN Reason: Dryness Stop: 05/08/19 19:45 Last Admin: 04/10/19 07:34 Dose: 1 sprays Documented by: Tramadol HCl (Ultram) 50 mg PO Q6H PRN PRN Reason: Pain Stop: 05/16/19 17:44 Last Admin: 04/24/19 15:40 Dose: 50 mg Documented by: Vitamin D (Vitamin D3) 2,000 units PO QAM [facility] Stop: 05/09/19 08:59 Last Admin: 04/24/19 08:20 Dose: 2,000 units Documented by: PG Care Time/CCT Total # of Minutes Spent Total Time Spent with Patient: Total time spent is greater than 50% in coordination of care (as documented) at patient's floor/unit and/or counseling patient: (1) CHF (congestive heart failure) Heart failure chronicity: unspecified Heart failure type: unspecified Qualified Code(s): I50.9 - Heart failure, unspecified
[2019-04-24] MEDS: AMMONIUM LACTATE 12% LOTION 225 GM BTL EXT SCH (20:25)
[2019-04-24] MEDS: ATORVASTATIN 40 MG TAB PO SCH (20:26)
[2019-04-25 07:20] LABS: Eosinophils # (auto) 0.01 K/uL (0-0.5); Eosinophils % (auto) 0.1 %; Hematocrit (blood only) 28.4 % (42-52); Hemoglobin 8.8 g/dL (14.0-18.0); Immature Granulocytes # (auto) 0.04 K/uL (0.00-0.02); Immature Granulocytes % (auto) 0.5 %; Lymphocytes # (auto) 1.27 K/uL (1.2-3.4); Lymphocytes % (auto) 14.7 %; Mean Corpuscular Volume 95.9 fL (80-100); Monocytes # (auto) 0.63 K/uL (0.11-0.59); Monocytes % (auto) 7.3 %; Neutrophils # (auto) 6.71 K/uL (1.4-6.5); Neutrophils % (auto) 77.4 %; Platelet Count 181 K/uL (130-400); Red Blood Count 2.96 M/uL (4.7-6.1); White Blood Count 8.66 K/uL (4.8-10.8)
[2019-04-25 07:51] LABS: Albumin Level 2.6 gm/dl (3.4-5.0); BUN Creatinine Ratio 25.2 (10-20); Calcium 8.7 mg/dl (8.5-10.1); Creatinine Clr Calc Pharmacy 77.1 ml/min; Est GFR (African American) 87.8; Est GFR (Non-African American) 75.7; Potassium 4.1 mmol/L (3.5-5.1)
[2019-04-25 07:54] LABS: Albumin Globulin Ratio 0.7 (0.9-2); Bilirubin,Total 0.5 mg/dl (0.2-1); Globulin 3.6 gm/dl (2.5-4.0); Total Protein 6.2 gm/dl (6.4-8.2)
[2019-04-25] MEDS: OXYCODONE HCL IR 5 MG TAB (IMMEDIATE RELEASE) PO PRN (08:01)
--- NOTE | 2019-04-25 08:29 | Surgery Progress Note ---
Date of Service April 25, 2019 Assessment & Plan (1) Hemoptysis: -RVATS with wedge biopsy performed on 04/10/19 -pathology showed diffuse alveolar hemorrhage (2) Pneumothorax: -noted after initial chest tube placed -thoracentesis with air aspiration performed 04/17/19 -as pneumothorax recurred, chest tube placed on 04/18/19 -will keep chest tube to Heimlich valve due to noted air leak -pt. may be discharged home with chest tube/Heimlich valve in place -our office will call him for necessary follow-up and serial CXR upon discharge Subjective Pt. denies CP or SOB. No fevers, shakes, chills. Physical Exam Physical Exam: Chest tube attached to Heimlich valve. Small air leak noted when tube submerged in water. Respiratory: only slight decrease of BS at bases; no wheezing Results & Data Vital Signs (Past 12 Hours) Vital Signs Temp Pulse Pulse Resp BP BP Pulse Ox 04/25/19 08:00 36.4 C L 76 17 133/82 96 04/24/19 23:45 36.4 C L 73 16 131/80 92
[2019-04-25] MEDS: CHOLECALCIFEROL 1,000 UNITS TAB PO SCH (10:02)
[2019-04-25] MEDS: DULOXETINE HCL 60 MG CAP PO SCH (10:03)
[2019-04-25] MEDS: METOPROLOL SUCC 50MG EXT REL TAB PO SCH (10:03)
[2019-04-25] MEDS: predniSONE 20 MG TAB PO SCH (10:05)
[2019-04-25] MEDS: SODIUM CHLORIDE 1 GM TABLET PO SCH (10:05)
[2019-04-25] MEDS: MULTIVITAMIN TAB PO SCH (10:05)
[2019-04-25] MEDS: PANTOprazole 40 MG TAB PO SCH (10:05)
[2019-04-25] MEDS: FUROSEMIDE 40 MG TAB PO SCH (10:06)
[2019-04-25] MEDS: FOLIC ACID 400 MCG TAB PO SCH (10:07)
[2019-04-25] MEDS: ASCORBIC ACID 500 MG TAB PO SCH (10:07)
[2019-04-25] MEDS: LACTOBACILLUS ACIDOPHILUS (FLORANEX) TAB PO SCH (10:07)
[2019-04-25] MEDS: IRON POLYSACCHARIDE COMPLEX 150 MG CAPSULE PO SCH (10:07)
[2019-04-25] MEDS: ENALAPRIL MALEATE 10 MG TAB PO SCH (10:07)
[2019-04-25] MEDS: dilTIAZem ER 120 MG CAPCR PO SCH (10:07)
[2019-04-25] MEDS: GABAPENTIN 100 MG CAP PO SCH (10:07)
[2019-04-25] MEDS: CALCIUM 600MG + VIT D 400 IU TAB PO SCH (10:08)
[2019-04-25] MEDS: TRAMADOL HCL 50 MG TABLET PO PRN (13:59)
--- NOTE | 2019-04-25 16:04 | Discharge Summary ---
Date of Service April 25, 2019 Admission HPI Per Admitting Provider Patient is a 83-year-old male with past medical history significant for Cardiomyopathy, MR, Gout, Hypertension, Anemia, Huerta's esophagus, Monclonal gammopathy, CAD, hypogonadism, Vasculitis, GERD, Congestive heart failure, atrial fibrillation s/p Ablation previously on anticoagulation therapy with Eliquis which was discontinued about 2 weeks ago, Who was recently discharged from [facility] on 04/05/19 after he was evaluated for hemoptysis and anemia. At that time patient had bronchoscopy done by pulmonary without any acute intervention, no visible active bleed. During his last admission it was determined that hemotyisis was likely due to eliquis vs pulm toxicity from amiodarone use and possible vasculitis. He was discharged home on oxygen and prednisone taper and instructed to stop takign eliquis and amiodarone. Vasculitis workup including autoimmune panel were ordered and given referral to disciplinary hearing officer for further management. This morning patient complained of shortness of breath and dyspnea with acute onset hemoptysis. Prior to this he was fine without any problems denies any other symptoms of chest pain or palpitations or fever or chills nausea vomiting. In the ED chest x-ray showed interval progresison of right greater than left airspace opacities. . Hemoglobin was at 7.1 at time of discharge on 04/05/19, it is 7.5 today. 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 Discharge Exam Constitutional WD/WN, vitals as above no acute distress Eyes PERRL, conjunctivae normal, anicteric sclerae ENMT external ear and nose normal, oropharynx normal Neck trachea midline, no thyromegaly Respiratory normal respiratory effort, lungs clear to auscultation (right sided CT, small air leak) Cardiovascular RRR, no murmur, no edema Rate/Rhythm: regular rate and + irregularly irregular Heart Sounds: normal S1 and normal S2; no murmur Vessels: no JVD Extremities: normal capillary refill; no edema Gastrointestinal (Abdomen) normal bowel sounds, soft, nontender, no hepatosplenomegaly Musculoskeletal no cyanosis or clubbing, extremities motor strength 5/5 Skin normal turgor and + rash (extensive rash on legs bilaterally, vasculitic) Neurologic patellar DTR's 2+ bilat, sensation intact and PERRL, EOMI, accommodation nl, no face palsy, no dysarthria Psychiatric A+Ox3, euthymic affect Lymphatic no cervical or axillary lymphadenopathy Discharge Data Allergies Allergy/AdvReac Type Severity Reaction Status Date / Time bee venom protein (honey bee) Allergy Severe ANAPHYLAXIS Verified 04/30/19 16:12 dapsone Allergy Severe Anaphylaxis Verified 04/30/19 16:12 rofecoxib Allergy Severe PULMONARY Verified 04/30/19 16:12 EDEMA fentanyl AdvReac Intermediate Hallucinati Verified 04/30/19 16:12 ons ALLOPURINAL Allergy Severe Anaphylaxis Uncoded 04/30/19 16:12 Consultations 04/08/19 12:55 ED Decision to Admit Stat 04/08/19 16:29 Consult Otolaryngology (Head and Neck) Routine 04/08/19 19:33 Consult Pulmonology Routine 04/09/19 12:00 Consult Thoracic Surgery Routine 04/09/19 16:51 Consult General Surgery Routine 04/14/19 09:01 Consult Cardiology Routine Procedures Performed Operation Date: 04/10/19 07:45 Actual Procedures p Right Thoracoscopic Lung Biopsy(Right) - Jonathan Camp MD, FACS Operation Date: 04/17/19 12:00 Actual Procedures p Pacer with A/V Leads (Dual) - Betito Duron MD s Venogram, Unilateral - Betito Duron MD Ordered Studies 04/08/19 19:41 CT chest wo con Urgent 04/17/19 06:45 EP Lab Images for PACS ONCE Hospital Course (1) Hemoptysis: Hemoptysis of unknown origin-resolved. Could be due to infection vs. pulmonary edema vs. vasculitis (he has an unknown vasculitis) vs. other causes of DAH. 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 - Diffuse pulmonary alveolar hemorrhage: Continue prednisone 60 mg daily. plan for slow taper, told patient to no taper until told to do so by either rheumatology or Pulmonary - Evaluated by ENT who feel it is *not* related to nasopharyngeal cause - Evaluated by pulm and had chest tube placement (04/18)for pneumothorax by . - Chest tube in place, Dr. Camp managing - Biopsy on 04/[address] Camp - does not appear to be consistent with vasculitis. - Continue steroids - overall improving - Patient has not had hemoptysis for over two weeks IgA level extremely high, consider IgA vasculitis although rare in adults will need follow up plans to follow up with rheumatology at [facility] after discharged (2) Pneumothorax: management per Dr. Camp still with small air leak, thoracic set up with Heimlich valve continue to ambulate therapy consulted d/c to home with close follow up the following week (3) Atrial fibrillation: History of paroxysmal afib status post ablation now in sinus rhythm. Anticoagulation therapy and amiodarone was held during his last admission. - Holding anticoagulation given his hemoptysis - HR improved to 70-80 range, transfer to medical floor continue Toprol 50mg BID continue Diltiazem -Given patient is not a candidate for cardioversion due to inability to take anticoagulation. - s/p a pacemaker insertion on 04/17; the purpose of this is to protect him as we will continue to aggressively rate control him with diltiazem and metoprolol (4) Vasculitis: He has had a long-standing diagnosis of a "vasculitis." case was discussed with Dr. Smith on 04/10. His history is that of "leukocytoclastic vasculitis;" however, his biopsy was over 20 years ago. He was on Imuran, but this was stopped several weeks ago for anemia. Otherwise, he just gets occasional steroids bursts. ERNESTINE, ANCA, DE-3, anti-MPO, and anti-GBM were all negative. IgA extremely elevated, should be followed up and worked up outpatient - Hepatitis screens were negative - C4 is 33, which is normal for pt age has chronic rash in legs bilaterally (5) CHF (congestive heart failure): Acute exacerbation of systolic congestive heart failure. Appears to be congested with possible volume overload. EF of 45% on echo in 11/2018. - Initially on IV Lasix 40 mg twice a day with strict I's and O's and monitor volume status closely - Monitor I&Os, daily weights patient continues to examine euvolemic continue Lasix 40mg qAM which he takes at home (6) Anemia: - Patient needed 2 units PRBCs on 04/10 for a hemoglobin of 6.9. Hb has been 8.8 to 8.9 consistently (7) CAD (coronary artery disease): No chest pain. - Stable on beta-ophelia and ACEi (8) GERD (gastroesophageal reflux disease): - Continue PPI (9) Hypertension: BP stable over the 24 hours. - Continue ramipril / metoprolol, Diltiazem (10) Dyslipidemia: - Continue statin (11) DVT prophylaxis: SCDs - Low DVT risk per admission calculator & having hemoptysis Rheumatology does not believe this to be from vasculitis given his biopsy results. Patient will have second opinion at [facility] once he can be discharged IgA levels high, needs follow up discharge to home with Heimlich valve PT/OT consulted, cleared to go home with home health Total Time Total Time Spent Total Time Spent (In Minutes): 35 minutes Total Time Includes: Examination of the Patient, Discharge Planning, Medication Reconciliation and Communication With Other Providers (thoracic surgery) Discharge Plan Discharge Items Patient Disposition: Home - Home Health Services Reason For Visit: HEMOPTYSIS,CHF EXACERBATION,COPD Discharge Diagnosis: Hemoptysis Pneumonitis, alveolar hemorrhage, resolved Right sided pneumothorax, persistent air leak s/p pacemaker, Atrial fibrillation Condition: Good Discharge Goals: Improve disease control, Improve function and Increase independence Activity: Per 'Additional Instructions' section Lifting: No more than 10 pounds Bathing: Keep incision dry Exercise/Sports: Gradually increase as tolerated Non-emergency contact: Primary Care Provider, Surgeon and Oral Surgery Technician Call non-emergency contact if: you have any medication questions, your symptoms worsen and you have a fever Follow-up/Referrals: Diana Ventura, [Primary Care Provider] - 04/30/19 9:15 am (Please, follow up with Dr. Ventura on SundayApril 30 at 9:15 am. *If you need to change this appointment, call the office at [phone].) Jonathan Camp MD, FACS [Surgeon] - (Please, follow up at [facility] General Surgery Office with Dr. Camp. *A nurse from this office will call you with the appointment information. The office is located at [address] [place] [address] in [place]. If you have any questions, call the office at [phone].) Diet: Heart Healthy Add Provider Instructions: Medications: note the changes made below - DILTIAZEM: dose increased from 120mg to 240mg daily, this is for rate control with afib - METOPROLOL: dose increase to 50mg twice a day from 25mg daily, again, rate control with afib - GABAPENTIN: 100mg twice a day, added for neuropathy pain in legs - OXYCODONE: use as needed for pain - PREDNISONE: continue to take 60mg daily until told to reduce by either rheumatology or pulmonary Hemoptysis, possible vasculitis vs amiodarone toxicity biopsy showed alveolar hemorrhage but there was no strong evidence for vasculitis IgA level quite elevated in serum studies which is concerning, needs to be followed responded nicely to high dose steroids, no hemoptysis for two weeks now will continue on Prednisone please call rheumatology at [facility] to reschedule as soon as possible, also, you should follow up locally with Dr. Berger, pulmonary, in next few weeks my nurse navigator will help set up appointment Atrial fibrillation, you now have pacemaker to prevent bradycardia note that Diltiazem and Metoprolol were increased to help with rate control rates have been well controlled the past week no further anticoagulation due to hemoptysis Right sided pneumothorax, s/p VATS for lung biopsy, now with small air leak keep Heimlich valve in place, home nursing arranged, can drain canister Dr. Camp's office will call you for follow up soon as well as repeat Chest x-ray you did well with therapy but overall you are still deconditioned recommend outpatient physical therapy, will provide you with script Prescriptions: New metoprolol succinate 50 mg Tablet Extended Release 24 Hr 50 mg PO BID 30 Days Qty: 60 RF: 0 prednisone 20 mg Tablet 60 mg PO DAILY 30 Days Qty: 90 RF: 0 diltiazem HCl [Taztia XT] 120 mg Capsule,Extended Release 24 Hr 240 mg PO QAM 30 Days Qty: 60 RF: 0 Continued multivitamin tablet 1 tab PO BID Qty: 60 RF: 0 atorvastatin 40 mg tablet 40 mg PO HS Qty: 90 RF: 1 sodium chloride 1 gram tablet 1,000 mg PO QID Qty: 120 RF: 0 calcium carbonate-vitamin D3 [Oystercal-D] 500 mg(1,250mg) -400 unit Tablet 1 tab PO QAM RF: 0 polysaccharide iron complex [Ferrex 150] 150 mg iron Capsule 150 mg PO QAM RF: 0 ascorbic acid (vitamin C) [Vitamin C] 500 mg tablet 500 mg PO QAM RF: 0 pantoprazole 40 mg tablet,delayed release (DR/EC) 40 mg PO QAM RF: 0 folic acid 800 mcg tablet 0.8 mg PO QAM RF: 0 cholecalciferol (vitamin D3) [Vitamin D3] 2,000 unit tablet 2,000 unit PO QAM RF: 0 Probiotic 3 billion cell capsule 3,000 mmu cells PO QAM RF: 0 Discontinued prednisone 10 mg tablet 10 mg PO UD Qty: 50 RF: 0 diltiazem HCl [Cardizem CD] 120 mg capsule,extended release 24hr 120 mg PO QAM RF: 0 metoprolol succinate 25 mg capsule,sprinkle,ER 24hr 25 mg PO QAM RF: 0 No Action tramadol 50 mg tablet 50 - 100 mg PO .Q4-6 HR PRN (Reason: Pain) RF: 0 acetaminophen [Tylenol Extra Strength] 500 mg tablet 1,000 mg PO Q6H PRN (Reason: Pain) Qty: 180 RF: 0 ammonium lactate 12 % cream 1 appln TOP HS Qty: 140 RF: 0 duloxetine 60 mg capsule,delayed release(DR/EC) 60 mg PO QAM Qty: 60 RF: 1 furosemide 40 mg tablet 40 mg PO QAM Qty: 90 RF: 1 ramipril 10 mg capsule 10 mg PO QAM Qty: 90 RF: 1 gabapentin 300 mg capsule 300 mg PO BID Qty: 60 RF: 3 wheelchair device .ROUTE .MEDSUPPLY Qty: 1 RF: 0 cyanocobalamin (vitamin B-12) 1,000 mcg/mL kit 1,000 mcg IM MONTHLY RF: 0 Visit Report Forms: Smoking Cessation Stand-Alone Forms: [facility], Opioid Pain Management, Work/School Release (Inpt) Krames/Other Patient Handouts: Tubes Chest Discharge Orders: Discharge Order (Routine); Ordered 04/25/19 Ordered By: Hermilo Guardado Admission Data Admit Date/Time: 04/09/19 16:55 Attending Provider: Hermilo Guardado Admit Provider: Any Patten Primary Care Provider: Diana Ventura Other Providers: Matt Drew ; Any Patten ; Savage Koo ; Paul Berger ; Jonathan Camp ; Anatoliy Brownlee ; Betito Duron Service: Medical Other Interventions: Discharge Summary Assessment (RN) Last Done: 04/25/19 14:07 Pending Studies at Discharge: No DC Date/Time DO NOT enter until pt leaves facility: 04/25/19 15:16
--- NOTE | 2019-04-28 08:42 | Coding Query ---
CODING QUERY To promote full compliance with coding requirements relating to patient care, provider participation is requested in all cases of electrocardiograph operator uncertainty. Please assist us with the question(s) below: Coding Question(s): Patient admitted with hemoptysis . Post thorascopic lung biopsies patient experienced pneumothorax/air leak. Please check below the phrase that describes the pneumothorax/air leak . Thanks for your help! GEOVANY Wright [facility] Physician's Response(s): The pneumothorax/air leak is an expected occurrence status post thorascopic lung biopsy The pneumothorax/air leak is a complication , post thorascopic lung biopsy X____ Cannot determine if the pneumothorax/air leak is a complication or expected occurrence post lung bx Other/ Please document: Principal Diagnosis: "that condition established after study, to be chiefly responsible for occasioning the admission of the patient to the hospital for care." Co-Existing Principal Diagnosis: "when two or more diagnoses equally meet the criteria for principal diagnosis as determined by the circumstances of admission, diagnostic work up, and/or therapy provided, and the Alphabetic Index, Tabular List, or another coding guideline does not provide sequencing direction, any one of the diagnoses may be sequenced first." "When the physician has documented what appears to be a current diagnosis in the body of the record, but has not included the diagnosis in the final diagnostic statement, the physician should be asked whether the diagnosis should be added." (Source Coding Clinic 2 QTR90. p3-4) KISHORD
== END 2019-04-25 15:16 | disposition home health service (06) | DRG 166 ==
LOC: 2S 11:12 → ED 11:12 → SUATTDRO 15:37 → 2S 15:54 → SUATTDRO 04-09 16:55 → 3N 04-24 11:55

== ENCOUNTER 2019-04-30 13:52 | Inpatient (IN) ==
--- NOTE | 2019-04-30 14:34 | XRay Report ---
XR chest 1V portable HISTORY: 83 years-old Male pneumothorax follow-up study in a patient with right-sided pneumothorax COMPARISON: Chest radiograph 04/24/2019 TECHNIQUE: Portable AP view of the chest FINDINGS: Cardiomediastinal and hilar silhouettes are within normal limits. Stable positioning of left subclavi an pacer. Persistent bilateral reticular nodular opacities. Pulmonary vascular congestion. Increased size of the right-sided pneumothorax, now with apical pleural separation of 4.9 cm. A catheter about the lateral right hemithorax is suggestive of a chest tube outside of the pleural cavity. Degenerativ e changes of the shoulders and spine. Postoperative changes of the left humeral head. IMPRESSION: 1. Moderate right-sided pneumothorax is increased in size from comparison. 2. A right-sided chest tube is noted with distal tip outside of the pleural cavity. 2. Cardiomegaly with unchanged bilateral reticular nodular opacities and pulmonary vascular congestio n. The above report was generated using voice recognition software. It may contain grammatical, syntax o r spelling errors. Electronically signed by: Wilton Andersen M.D. 04/30/2019 2:33 PM
--- NOTE | 2019-04-30 15:55 | Surgery Progress Note ---
Date of Service April 30, 2019 Assessment & Plan (1) Pneumothorax after biopsy: -CXR reviewed today and right pneumothorax noted -reviewed with Dr. Brownlee--he notes as pt. is asymptomatic and pulse ox. is 90% on RA we should place pt. on 2 liters of oxygen continuous and repeat CXR in am (if CXR in am shows enlarging pneumothoax we will consider putting in chest tube at that time. -for detailed H & P please see dictated H & P from earlier today Subjective Pt. denies SOB. No fevers,shakes, chills. No CP or N/V. Physical Exam Respiratory: BS are slightly decreased on right. Results & Data Vital Signs (Past 12 Hours) Vital Signs Temp Pulse Resp BP Pulse Ox 04/30/19 13:56 36.4 C L 72 22 152/78 H 91
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
[2019-04-30] MEDS ORDERED: ACETAMINOPHEN 500 MG TAB PO PRN (19:24)
[2019-04-30] MEDS: TRAMADOL HCL 50 MG TABLET PO PRN (20:13)
[2019-04-30] MEDS: AMMONIUM LACTATE 12% LOTION 225 GM BTL EXT SCH ×2 (20:47→20:53)
[2019-04-30] MEDS: SODIUM CHLORIDE 1 GM TABLET PO SCH (20:47)
[2019-04-30] MEDS: MULTIVITAMIN TAB PO SCH (20:48)
[2019-04-30] MEDS: GABAPENTIN 300 MG CAP PO SCH (20:48)
[2019-04-30] MEDS: METOPROLOL SUCC 50MG EXT REL TAB PO SCH (20:49)
[2019-04-30] MEDS ORDERED: ATORVASTATIN 40 MG TAB PO SCH (21:00)
--- NOTE | 2019-04-30 23:34 | Hospitalist Consultation ---
Date of Consultation April 30, 2019 Assessment & Plan (1) Pneumothorax after biopsy: 83 y/o M with a complex medical history including but not limited to CHF, CAD, HTN, HLD, obesity, AF, vasculitis. The pt was admitted to the hospital 03/01 with hemoptysis and anemia. He was diagnosed with amiodarone-related lung injury and subsequently DCd. He returned with worsening hemoptysis and was diagnosed with diffuse alveolar hemorrhage due to vasculitis. After a lung biopsy, he developed a pneumothorax and has had a chest tube in place since 04/17. He presented this robert after being at his GPs office where he was noted to desaturate. He was sent to the ER therefore, where it was noted that his chest tube had dislodged. A pneumothorax which was slightly larger in size was noted on CXR. The pt was admitted by the surgery service. His chest tube was removed and they have elected to place him on 02 and monitor overnight. The pt c/o pain at the time of medical evaluation, but denies any SOB. Labs are unremarkable and anemia is improved from baseline. 1) Pneumothorax - management per surgery - reinsertion of chest tube may be limited due to adhesions per surgery note. Monitor on telemetry with an 02 protocol. May need reinsertion if hypoxia progresses - serial CXRs ordered. 2) Vasculitis - he is on a high dose of Prednisone which we would continue 3) CHF - volume status is difficult to evaluate due to habitus - per CXR there is a degree of congestion - cont daily lasix, B ophelia 4) AF - cannot tolerate anticoagulation at present due to recurrent hemoptysis - cont diltiazem, metoprolol 5) CAD - no evidence of ACS - cont B ophelia, statin Full code - cannot tolerate anticoagulation or SCDs Total time for this consult including review of endless records, labs, meds, imaging - discussion with pt and reveiw of surgical notes - 65 min Present on Admission?: Yes History of Present Illness Reason for Consultation: CHF, CAD, Vasculitis - admitted by surgery Requesting Physician: Torrie Attending Physician: Anatoliy Brownlee MD History of Present Illness 83 y/o M with a complex medical history including but not limited to CHF, CAD, HTN, HLD, obesity, AF, vasculitis. The pt was admitted to the hospital 03/01 with hemoptysis and anemia. He was diagnosed with amiodarone-related lung injury and subsequently DCd. He returned with worsening hemoptysis and was diagnosed with diffuse alveolar hemorrhage due to vasculitis. After a lung biopsy, he developed a pneumothorax and has had a chest tube in place since 04/17. He presented this robert after being at his GPs office where he was noted to desaturate. He was sent to the ER therefore, where it was noted that his chest tube had dislodged. A pneumothorax which was slightly larger in size was noted on CXR. The pt was admitted by the surgery service. His chest tube was removed and they have elected to place him on and monitor overnight. The pt c/o pain at the time of medical evaluation, but denies any SOB. Labs are unremarkable and anemia is improved from baseline. 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 Family: CAD, CVA Allergies Allergy/AdvReac Type Severity Reaction Status Date / Time bee venom protein (honey bee) Allergy Severe ANAPHYLAXIS Verified 04/30/19 16:12 dapsone Allergy Severe Anaphylaxis Verified 04/30/19 16:12 rofecoxib Allergy Severe PULMONARY Verified 04/30/19 16:12 EDEMA fentanyl AdvReac Intermediate Hallucinati Verified 04/30/19 16:12 ons ALLOPURINAL Allergy Severe Anaphylaxis Uncoded 04/30/19 16:12 Home Medications Home Medications Medication Instructions Recorded Confirmed Type multivitamin tablet 1 tab PO BID #60 tab 03/06/19 04/30/19 Rx atorvastatin 40 mg tablet 40 mg PO HS #90 tab 03/24/19 04/30/19 Rx sodium chloride 1 gram tablet 1,000 mg PO QID #120 tab 03/27/19 04/30/19 Rx calcium carbonate-vitamin D3 1 tab PO QAM 03/31/19 04/30/19 History [Oystercal-D] polysaccharide iron complex 150 mg PO QAM 03/31/19 04/30/19 History [Ferrex 150] Probiotic 3,000 mmu cells PO QAM 04/08/19 04/30/19 History ascorbic acid (vitamin C) [Vitamin 500 mg PO QAM 04/08/19 04/30/19 History C] cholecalciferol (vitamin D3) 2,000 unit PO QAM 04/08/19 04/30/19 History [Vitamin D3] folic acid 0.8 mg PO QAM 04/08/19 04/30/19 History pantoprazole 40 mg PO QAM 04/08/19 04/30/19 History diltiazem HCl [Taztia XT] 240 mg PO QAM 30 Days #60 cap 04/25/19 04/30/19 Rx metoprolol succinate 50 mg PO BID 30 Days #60 tab 04/25/19 04/30/19 Rx prednisone 60 mg PO DAILY 30 Days #90 tab 04/25/19 04/30/19 Rx tramadol 50 mg tablet 50 - 100 mg PO .Q4-6 HR PRN 04/28/19 04/30/19 History acetaminophen 500 mg tablet 1,000 mg PO Q6H PRN #180 tab 04/30/19 04/30/19 Rx ammonium lactate 12 % topical cream 1 appln TOP HS #140 gm 04/30/19 04/30/19 Rx cyanocobalamin (vitamin B-12) 1,000 mcg IM MONTHLY 04/30/19 04/30/19 History duloxetine 60 mg capsule,delayed 60 mg PO QAM #60 cap 04/30/19 04/30/19 Rx release furosemide 40 mg tablet 40 mg PO QAM #90 tab 04/30/19 04/30/19 Rx gabapentin 300 mg capsule 300 mg PO BID #60 cap 04/30/19 04/30/19 Rx ramipril 10 mg capsule 10 mg PO QAM #90 cap 04/30/19 04/30/19 Rx Patient History Social History Preferred Language: Spanish Communication Ability: Effective Beliefs That Will Affect Care: None marital status: Current Living Situation: Spouse Other Information That Helps Us Care for You: No Feels Safe at Home: Yes Safety Concerns: Feels Safe At This Time Smoking Status: Former smoker Smoking End Date: 50 years ago Hx Alcohol Use: No Hx Substance Use: No Review of Systems Review of Systems: Gen: Denies fevers, night sweats, rigors, fatigue, malaise, weight loss/gain ENT: Denies congestion, throat pain, hearing loss Eyes: Denies acute visual changes CV: Moderate to severe pain at chest tube site Pulmonary: Mild SOB and cough GI: Denies N/V, diarrhea, constipation Neuro: Denies acute or unilateral weakness, acute gait impairment, headache or acute visual changes Musculoskeletal: LE pain due to vasculitis Endocrine: Denies polydipsia, polyuria Skin: LE skin changes consistent with vasculitis Physical Exam Physical Exam: General: Pleasant, obese, elderly M - sitting up in bed - AAO x 3, no distress ENT: No erythema or exudates, no thrush Eyes: GLORIA, EOMI Head and neck: Normocephalic, atraumatic, No JVD, neck is supple. Chest/heart: Nontender, S1,2, RRR, no murmurs, no gallops Lungs: No air entry into R base to mid lung - L lung is clear Abdomen: Nontender, nondistended, BS+ Neuro: AAO x 3, speech is clear, no unilateral weakness or loss of sensation, coordination intact Skin: Erythema, multiple scabs over LE consistent with vasculitis Extremities: No clubbing, cyanosis - vasculitic changes - dark erythema - mild tenderness - multiple scabs Results & Data Vital Signs (Past 12 Hours) Vital Signs Temp Pulse Pulse Pulse Resp BP BP 04/30/19 19:21 99.0 F 75 20 127/77 04/30/19 18:16 70 18 132/90 04/30/19 16:39 74 20 119/80 04/30/19 13:56 97.5 F L 72 22 152/78 H Pulse Ox 04/30/19 19:21 96 04/30/19 18:16 98 04/30/19 16:39 97 04/30/19 13:56 91 Diagnostic Findings : CXR: Moderate right-sided pneumothorax is increased in size from comparison. A right-sided chest tube is noted with distal tip outside of the pleural cavity. Cardiomegaly with unchanged bilateral reticular nodular opacities and pulmonary vascular congestion. PG Care Time/CCT Total # of Minutes Spent Total Time Spent with Patient: Total time spent is greater than 50% in coor dination of care (as documented) at patient's floor/unit and/or counseling patient:
[2019-05-01] MEDS: TRAMADOL HCL 50 MG TABLET PO PRN ×2 (00:01→10:48)
--- NOTE | 2019-05-01 06:20 | Surgery Progress Note ---
Date of Service May 01, 2019 Assessment & Plan (1) Pneumothorax after biopsy: 05/01/2019 will check chest xray today and make decision wether another chest tube needed -CXR reviewed today and right pneumothorax noted -reviewed with Dr. Brownlee--he notes as pt. is asymptomatic and pulse ox. is 90% on RA we should place pt. on 2 liters of oxygen continuous and repeat CXR in am (if CXR in am shows enlarging pneumothoax we will consider putting in chest tube at that time. -for detailed H & P please see dictated H & P from earlier today Subjective resting comfortably no SOB Physical Exam Physical Exam: dressing right chest wall intact no palpable sub cut emphysema Results & Data Vital Signs (Past 12 Hours) Vital Signs Temp Pulse Pulse Resp BP Pulse Ox 04/30/19 23:52 36.6 C 86 18 144/84 H 96 04/30/19 19:21 37.2 C 75 20 127/77 96 PG Care Time/CCT Total # of Minutes Spent Total Time Spent with Patient: Total time spent is greater than 50% in co ordination of care (as documented) at patient's floor/unit and/or counseling patient:
--- NOTE | 2019-05-01 07:37 | XRay Report ---
XR chest 1V portable CLINICAL HISTORY: pneumothorax pneumothorax COMPARISON STUDY: 04/30/2019 FINDINGS: Right upper lung pneumothorax slightly improved from the prior study. Maximum right apical pleural separation has diminished from 4.9 to 3.5 cm. Parenchymal infiltrative changes bilaterally persist. IMPRESSION: Slight improvement in volume of a right sided pneumothorax. Maximum pleural separation c urrently is 3.5 cm. The above report was generated using voice recognition software. It may contain grammatical, syntax or spelling errors. Electronically signed by: Manuel Cornejo M.D. 05/01/2019 7:36 AM
[2019-05-01] MEDS: METOPROLOL SUCC 50MG EXT REL TAB PO SCH (08:10)
[2019-05-01] MEDS: MULTIVITAMIN TAB PO SCH (08:11)
[2019-05-01] MEDS: SODIUM CHLORIDE 1 GM TABLET PO SCH ×2 (08:13→12:13)
[2019-05-01] MEDS: GABAPENTIN 300 MG CAP PO SCH (08:13)
[2019-05-01] MEDS ORDERED: dilTIAZem ER 120 MG CAPCR PO SCH (09:00)
[2019-05-01] MEDS ORDERED: ASCORBIC ACID 500 MG TAB PO SCH (09:00)
[2019-05-01] MEDS ORDERED: FOLIC ACID 400 MCG TAB PO SCH (09:00)
[2019-05-01] MEDS ORDERED: FUROSEMIDE 40 MG TAB PO SCH (09:00)
[2019-05-01] MEDS ORDERED: CHOLECALCIFEROL 1,000 UNITS TAB PO SCH (09:00)
[2019-05-01] MEDS ORDERED: ENALAPRIL MALEATE 10 MG TAB PO SCH (09:00)
[2019-05-01] MEDS ORDERED: DULOXETINE HCL 60 MG CAP PO SCH (09:00)
[2019-05-01] MEDS ORDERED: CALCIUM 600MG + VIT D 400 IU TAB PO SCH (09:00)
[2019-05-01] MEDS ORDERED: PANTOprazole 40 MG TAB PO SCH (09:00)
[2019-05-01] MEDS ORDERED: predniSONE 20 MG TAB PO SCH (09:00)
[2019-05-01] MEDS ORDERED: IRON POLYSACCHARIDE COMPLEX 150 MG CAPSULE PO SCH (09:00)
[2019-05-01] MEDS ORDERED: LACTOBACILLUS ACIDOPHILUS (FLORANEX) TAB PO SCH (09:00)
--- NOTE | 2019-05-02 01:19 | Discharge Summary ---
ADMITTING DIAGNOSIS: Pneumothorax. DISCHARGE DIAGNOSES: Include, 1. Pneumothorax. 2. Hypoxia. HISTORY OF PRESENT ILLNESS: This is a very pleasant man who is known to our service. The patient underwent a lung biopsy on the right side via a thoracoscopic surgery on April 10 of this year. It is noteworthy to mention that patient suffered a pneumothorax requiring aspiration via thoracentesis on 04/17/2019 with a recurrent pneumothorax requiring chest tube insertion on 04/18/2019. The patient was discharged home with a Heimlich valve on 04/25/2019. Yesterday, the patient was seeing his primary care physician where patient was noted to have hypoxia in the office, so he was sent for a chest x-ray which revealed his chest tube had become dislodged making it ineffective. He was also noted to have a moderate pneumothorax and therefore he was sent to the Emergency Department of [facility]. Upon seeing the patient in the Emergency Department of [facility], he was in no respiratory distress. Because of his recent surgery, there was concern the patient may have surgical adhesions making chest tube placement more challenging. Therefore, we opted to place the patient on oxygen overnight with reassessing his pneumothorax by chest x-ray the following day. This was performed and on the day following admission which was 05/01/2019, he was noted to have improvement of the right-sided pneumothorax. Therefore, a chest tube was not felt to be required. Because of the patient's underlying history of hypoxia, a 2-step exercise was performed. This revealed the patient would require 6 liters of oxygen with activity and 2 liters at rest and this was arranged by case management and then the patient was deemed stable for discharge home after an uneventful postoperative course. It should be noted that none of his home medications were changed other than the addition of oxygen. PHYSICAL EXAMINATION: VITAL SIGNS: I did see and examine the patient the day of discharge and he was noted to have stable vital signs with a blood pressure of 132/78, his pulse was 87 and regular, his respirations were 20 and nonlabored. He was afebrile with a temperature of 36.3 and his pulse ox was anywhere from 87% to 91% on room air. CARDIOVASCULAR: Regular rate and rhythm. LUNGS: Exam revealed he only had slight decreased breath sounds at the bases, more so on the right than the left. All of his surgical incisions appeared to be healing well. There was no subcutaneous emphysema or crepitus palpable in the soft tissue on exam. Again, he was noted to be stable for discharge. This was discussed with his who was in agreement and felt comfortable with this decision. The patient will see Dr. Camp in the office next week and he has a followup appointment arranged for May 08 which is 1 week from today. He will get a repeat chest x-ray prior to this visit. I did tell the patient and his to call the office should he develop any worsening chest pain, shortness of breath, or other concerns.
== END 2019-05-01 15:03 | disposition home health service (06) | DRG 200 ==
LOC: ED 13:52 → 3E 15:25

== ENCOUNTER 2019-05-04 11:03 | Inpatient (IN) ==
[2019-05-04] MEDS ORDERED: ALBUT/IPRATROP 3MG/0.5MG NEB 3 ML VIAL NEB STA (11:36)
[2019-05-04 11:57] LABS: Basophils # (auto) 0.01 K/uL (0-0.2); Basophils % (auto) 0.2 %; Hematocrit (blood only) 26.6 % (42-52); Hemoglobin 8.2 g/dL (14.0-18.0); Immature Granulocytes # (auto) 0.05 K/uL (0.00-0.02); Immature Granulocytes % (auto) 0.9 %; Lymphocytes # (auto) 0.49 K/uL (1.2-3.4); Lymphocytes % (auto) 8.6 %; Mean Corpuscular Hgb Conc 30.8 g/dL (32-36); Mean Corpuscular Volume 97.4 fL (80-100); Mean Platelet Volume 10.3 fL (7.4-10.4); Monocytes # (auto) 0.37 K/uL (0.11-0.59); Monocytes % (auto) 6.5 %; Neutrophils # (auto) 4.77 K/uL (1.4-6.5); Neutrophils % (auto) 83.8 %; Nucleated RBC # (auto) 0.05 K/uL (0-0); Nucleated RBC % (auto) 0.9 %; Platelet Count 184 K/uL (130-400); RDW Coefficient of Variation 18.5 % (11.5-14.5); RDW Standard Deviation 65.1 fL (36.4-46.3); Red Blood Count 2.73 M/uL (4.7-6.1); White Blood Count 5.69 K/uL (4.8-10.8)
[2019-05-04 12:09] LABS: INR 1.2 (0.9-1.1); Partial Thromboplastin Ratio 0.8; Partial Thromboplastin Time 21.7 Seconds (21.0-31.0); Prothrombin Time 12.2 Seconds (9.0-12.0)
[2019-05-04 12:13] LABS: Alanine Aminotransferase 72 U/L (12-78); Albumin Level 2.8 gm/dl (3.4-5.0); Aspartate Aminotransferase 49 U/L (15-37); BUN Creatinine Ratio 35.6 (10-20); Blood Urea Nitrogen 34 mg/dl (7-18); Calcium 8.8 mg/dl (8.5-10.1); Carbon Dioxide 33 mmol/L (21-32); Chloride 104 mmol/L (98-107); Est GFR (African American) 85.6; Est GFR (Non-African American) 73.8; Glucose 123 mg/dl (70-99); Magnesium 2.3 mg/dl (1.8-2.4); Potassium 3.9 mmol/L (3.5-5.1); Sodium 142 mmol/L (136-145)
[2019-05-04 12:18] LABS: Albumin Globulin Ratio 0.7 (0.9-2); Alkaline Phosphatase 78 U/L (45-117); Bilirubin,Total 0.6 mg/dl (0.2-1); Globulin 3.8 gm/dl (2.5-4.0); Total Protein 6.6 gm/dl (6.4-8.2); Troponin I < 0.015 ng/ml (0-0.045)
--- NOTE | 2019-05-04 12:47 | XRay Report ---
XR chest 1V portable HISTORY: 83 years-old Male Dyspnea acute shortness of breath COMPARISON: Chest radiograph 05/01/2019 TECHNIQUE: Portable AP view of the chest FINDINGS: Cardiomediastinal and hilar silhouettes are unchanged. Right-sided pneumothorax redemonstrated, pleur al separation of 3.2 cm, previously measuring approximately 4.5 cm. Left subclavian pacer is unchange d. Chronic mixed reticular and alveolar opacities are unchanged. Blunting of the costophrenic angles may reflect trace effusions. Degenerative changes of the shoulders and spine. IMPRESSION: 1. Small to moderate right-sided pneumothorax has slightly decreased in size from 05/01/2019. 2. Cardiomegaly with unchanged bilateral mixed interstitial and alveolar opacities. The above report was generated using voice recognition software. It may contain grammatical, syntax o r spelling errors. Electronically signed by: Wilton Andersen M.D. 05/04/2019 12:46 PM
[2019-05-04] MEDS ORDERED: SODIUM CHLORIDE 0.9% 1000ML 500 ML IV ONE (13:28)
--- NOTE | 2019-05-04 15:22 | CT Scan Report ---
CT chest wo con CT DOSE: 1088.76 mGy.cm HISTORY: Short is of breath. Hemoptysis. TECHNIQUE: Multiaxial CT images of the chest were performed without contrast. A dose lowering techni que was utilized adhering to the principles of ALARA. COMPARISON: Chest CT 04/08/2019. FINDINGS: There is a small to moderate right hydropneumothorax. Total volume of the pneumothorax is a pproximately 30% most pronounced at the lung base. Small linear tract of gas extending along the righ t lateral chest wall likely represents prior chest tube placement. This connects to the pleural space . Linear staple line along the lateral aspect of the right lung. There is focal nodular thickening al ghislaine the staple line measuring 1.4 cm. This favors postoperative change. There is also linear suture m aterial at the base of the right lower lobe. The central airways are patent. The right lung airspace opacities have significantly improved. However, there has been progressive groundglass airspace opaci ties with interlobular septal thickening (crazy paving pattern) within the majority of the left lung. This most pronounced within the left upper lobe. There are again noted healing/healed bilateral ante rior rib fractures. No acute fractures identified within the chest. The visualized unenhanced liver, spleen, and adrenal glands are unremarkable. Trace left pleural effusion. Subcentimeter mediastinal l ymph nodes do not meet CT criteria for pathologic involvement. No hilar lymphadenopathy. Normal esoph dasia. Normal caliber thoracic aorta. Left-sided dual-chamber pacemaker. The heart is top normal in si ze. No pericardial effusion. IMPRESSION: 1. Small moderate right pneumothorax. There is a small linear tract of gas extending from the pleural space into the right lateral chest wall soft tissues. This likely represents the prior chest tube si te. 2. Suture material within the right lung consistent with postoperative change. There is a 14 mm nodul ar density adjacent to one of the suture lines. This favors postoperative change. 3. Trace left pleural effusion, improved. 4. Improvement in the right lung airspace opacities. The left lung airspace opacities have progressed . This could represent pulmonary edema, pulmonary hemorrhage, on atypical pneumonitis. 5. Additional findings as described above. Electronically signed by: Shlomo Bhatia M.D. 05/04/2019 3:21 PM
[2019-05-04] MEDS ORDERED: POLYETHYLENE (MIRALAX) 17 GM PACK PO PRN (15:27)
[2019-05-04] MEDS ORDERED: NITROGLYCERIN SL 0.4 MG/TAB TAB SL PRN (15:27)
[2019-05-04] MEDS ORDERED: ONDANSETRON INJ 2 MG/ML 2 ML VIAL IV PRN (15:27)
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
[2019-05-04] MEDS ORDERED: methylPREDNISolone 1,000 MG in DEXTROSE 5% 250 ML IV STA (15:35)
[2019-05-04] MEDS: TRAMADOL HCL 50 MG TABLET PO PRN ×2 (16:23→23:38)
[2019-05-04] MEDS: FUROSEMIDE 40 MG in SYRINGE 0 ML IV SCH ×2 (16:23→20:23)
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
[2019-05-04] MEDS: INSULIN ASPART 100 UNITS/ML 3 ML PEN SC SCH ×2 (17:07→20:25)
[2019-05-04] MEDS: SODIUM CHLORIDE 1 GM TABLET PO SCH ×2 (17:07→20:24)
[2019-05-04] MEDS: COLLAGENASE OINT 30 GM TUBE EXT SCH (19:26)
[2019-05-04] MEDS: GABAPENTIN 300 MG CAP PO SCH (20:24)
[2019-05-04] MEDS: METOPROLOL SUCC 50MG EXT REL TAB PO SCH (20:24)
[2019-05-04] MEDS ORDERED: HEPARIN SOD 5,000 UNIT/0.5 ML VIAL SQ SCH (21:00)
[2019-05-05 06:39] LABS: Hematocrit (blood only) 28.9 % (42-52); Hemoglobin 8.8 g/dL (14.0-18.0); Mean Corpuscular Hgb Conc 30.4 g/dL (32-36); Mean Corpuscular Volume 98.3 fL (80-100); Mean Platelet Volume 10.3 fL (7.4-10.4); Nucleated RBC # (auto) 0.11 K/uL (0-0); Nucleated RBC % (auto) 2.1 %; Platelet Count 168 K/uL (130-400); RDW Coefficient of Variation 18.3 % (11.5-14.5); RDW Standard Deviation 65.6 fL (36.4-46.3); Red Blood Count 2.94 M/uL (4.7-6.1); White Blood Count 5.12 K/uL (4.8-10.8)
[2019-05-05 07:14] LABS: BUN Creatinine Ratio 32.8 (10-20); Calcium 8.7 mg/dl (8.5-10.1); Creatinine Clr Calc Pharmacy 69.8 ml/min; Est GFR (African American) 79.5; Est GFR (Non-African American) 68.6; Potassium 4.2 mmol/L (3.5-5.1)
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
[2019-05-05] MEDS: COLLAGENASE OINT 30 GM TUBE EXT SCH (07:54)
[2019-05-05] MEDS: INSULIN ASPART 100 UNITS/ML 3 ML PEN SC SCH ×4 (07:54→21:08)
[2019-05-05] MEDS: FUROSEMIDE 40 MG in SYRINGE 0 ML IV SCH ×2 (07:55→21:08)
[2019-05-05] MEDS: ENALAPRIL MALEATE 10 MG TAB PO SCH (07:55)
[2019-05-05] MEDS: IRON POLYSACCHARIDE COMPLEX 150 MG CAPSULE PO SCH (07:56)
[2019-05-05] MEDS: METOPROLOL SUCC 50MG EXT REL TAB PO SCH ×2 (07:56→21:08)
[2019-05-05] MEDS: PANTOprazole 40 MG TAB PO SCH (07:56)
[2019-05-05] MEDS: dilTIAZem ER 120 MG CAPCR PO SCH (07:56)
[2019-05-05] MEDS: SODIUM CHLORIDE 1 GM TABLET PO SCH ×4 (07:56→21:08)
[2019-05-05] MEDS: GABAPENTIN 300 MG CAP PO SCH ×2 (07:57→21:08)
[2019-05-05] MEDS: DULOXETINE HCL 60 MG CAP PO SCH (07:57)
[2019-05-05] MEDS: SACCHAROMYCES BOULARDII 250 MG CAP PO SCH (07:57)
[2019-05-05] MEDS: FOLIC ACID 400 MCG TAB PO SCH (07:57)
[2019-05-05] MEDS ORDERED: methylPREDNISolone 40 MG in SYRINGE 0 ML IV SCH (09:00)
--- NOTE | 2019-05-05 15:29 | Hospitalist Progress Note ---
Date of Service May 05, 2019 Assessment & Plan (1) Acute and chronic respiratory failure with hypoxia: Patient presents with increasing work of breathing hemoptysis. Concerns for vasculitis seem apparent with his lower extremities although previous lung biopsy showed alveolar hemorrhage. This was felt to possibly be from amiodarone. The patient's pneumothorax is not worsened in any way. Rheumatology saw the patient this morning with a personal conversation regarding at the recommended to de-escalate his steroid therapy back to his oral medications (2) Cardiomyopathy: Patient has chronic systolic heart failure which seems to be stable at this time however given the appearance of his chest x-ray cannot rule out interstitial edema the patient remain on IV Lasix. Continue metoprolol 50 twice daily diltiazem XL 240 and ramipril 10 or pharmacy appropriate substitute (3) Hypertension: Remains controlled with metoprolol diltiazem and an BARB inhibitor ramipril (4) Atrial fibrillation: Patient remains in A. fib with rate controlled metoprolol, anticoagulation for reduction in embolic thrombus is been limited by his hemoptysis (5) Gammopathy, monoclonal: (6) Vasculitis: Patient's lower extremity seem fairly classic for vasculitis. His consent confirmed that this is a classic vasculitis and is followed by rheumatology recommending 60 mg of prednisone daily (7) Pulmonary alveolar hemorrhage: Patient hemoptysis has lessened (8) DVT prophylaxis: The patient's alveolar hemorrhage will not use chemoprophylaxis due to the patient's extremely painful lower extremities do not feel a tolerate any compressive devices therefore we will forego DVT prevention although he is a significantly high risk given his morbid obesity and decreased mobility and inflammatory state with concern for vasculitis Subjective Patient states he feels much better this morning. He was seen by rheumatology who feels that his rash is only his leukocytoclastic vasculitis. Some of the issues really revolve around pain of his feet and some sedation and confusion caused by opiate and Ultram containing pain medications. is at the bedside and she is sites her largest concern is his mobility challenges because of his pain and escalating oxygen requirements which may prohibit his car ride to [facility] in [place]. We discussed the possibility of rehab however she wishes to see how he performs in our facility as they have had some challenges with in- home rehab in the past not meeting expectations. Patient also has been at [facility] in the past however the family is immediately not currently interested unless physical and occupational therapy evaluations feel this is in his best interest Review of Systems Review of Systems: ROS: well nourished well developed. No double vision blurry vision No problems with speech or swallowing No palpitations, chest pain or pressure Kniffen dyspnea on exertion No abdominal pain nausea vomiting diarrhea changes in appetite or weight No burning urine urine frequency or changes in color Significant lower leg pain Significant various stages of healing open areas of his lower legs including recently debrided large open ulcerations on the dorsum of his feet No focused back pain or numbness or loss of strength No changes in memory intermittent confusion caused by pain management Results & Data Vital Signs (Past 12 Hours) Vital Signs Temp Pulse Pulse Resp BP BP Pulse Ox 05/05/19 11:41 36.4 C L 104 H 20 136/75 93 05/05/19 07:01 36.5 C 102 H 20 124/83 96 05/05/19 03:33 36.4 C L 89 23 132/69 93 PG Care Time/CCT Total # of Minutes Spent Total Time Spent with Patient: Total time spent is greater than 50% in coor dination of care (as documented) at patient's floor/unit and/or counseling patient:
[2019-05-05] MEDS ORDERED: predniSONE 20 MG TAB PO ONE (15:45)
[2019-05-05] MEDS: ACETAMINOPHEN 500 MG TAB PO PRN (16:58)
[2019-05-05] MEDS: OXYCODONE HCL IR 5 MG TAB (IMMEDIATE RELEASE) PO PRN (21:08)
[2019-05-06] MEDS: OXYCODONE HCL IR 5 MG TAB (IMMEDIATE RELEASE) PO PRN (06:19)
[2019-05-06 06:45] LABS: Hematocrit (blood only) 29.8 % (42-52); Hemoglobin 9.2 g/dL (14.0-18.0); Mean Corpuscular Hgb Conc 30.9 g/dL (32-36); Mean Corpuscular Volume 96.1 fL (80-100); Mean Platelet Volume 10.3 fL (7.4-10.4); Nucleated RBC # (auto) 0.05 K/uL (0-0); Nucleated RBC % (auto) 0.7 %; Platelet Count 189 K/uL (130-400); RDW Coefficient of Variation 18.5 % (11.5-14.5); RDW Standard Deviation 63.9 fL (36.4-46.3); White Blood Count 6.99 K/uL (4.8-10.8)
[2019-05-06 07:14] LABS: BUN Creatinine Ratio 35.8 (10-20); Creatinine Clr Calc Pharmacy 66.9 ml/min; Est GFR (African American) 75.9; Est GFR (Non-African American) 65.5; Potassium 3.5 mmol/L (3.5-5.1)
[2019-05-06] MEDS: ENALAPRIL MALEATE 10 MG TAB PO SCH (08:23)
[2019-05-06] MEDS: dilTIAZem ER 120 MG CAPCR PO SCH (08:23)
[2019-05-06] MEDS: METOPROLOL SUCC 50MG EXT REL TAB PO SCH ×2 (08:24→20:53)
[2019-05-06] MEDS: SACCHAROMYCES BOULARDII 250 MG CAP PO SCH (08:24)
[2019-05-06] MEDS: PANTOprazole 40 MG TAB PO SCH (08:24)
[2019-05-06] MEDS: SODIUM CHLORIDE 1 GM TABLET PO SCH ×4 (08:24→20:46)
[2019-05-06] MEDS: predniSONE 20 MG TAB PO SCH (08:24)
[2019-05-06] MEDS: INSULIN ASPART 100 UNITS/ML 3 ML PEN SC SCH ×4 (08:24→20:44)
[2019-05-06] MEDS: IRON POLYSACCHARIDE COMPLEX 150 MG CAPSULE PO SCH (08:24)
[2019-05-06] MEDS: DULOXETINE HCL 60 MG CAP PO SCH (08:24)
[2019-05-06] MEDS: GABAPENTIN 300 MG CAP PO SCH ×2 (08:24→20:47)
[2019-05-06] MEDS: FOLIC ACID 400 MCG TAB PO SCH (08:24)
[2019-05-06] MEDS: FUROSEMIDE 40 MG in SYRINGE 0 ML IV SCH ×2 (08:25→20:43)
[2019-05-06] MEDS: COLLAGENASE OINT 30 GM TUBE EXT SCH (08:25)
--- NOTE | 2019-05-06 13:55 | Hospitalist Progress Note ---
Date of Service May 06, 2019 Assessment & Plan (1) Acute and chronic respiratory failure with hypoxia: Patient presents with increasing work of breathing hemoptysis. Concerns for vasculitis seem apparent with his lower extremities although previous lung biopsy showed diffuse alveolar hemorrhage. This was felt to possibly be from amiodarone. The patient's pneumothorax is stable Rheumatology sa recommended to de-escalate his steroid therapy back to his oral medications with the thought that because of the long half-life of amiodarone his symptoms may last for prolonged period of time (2) Cardiomyopathy: Patient has chronic systolic heart failure which which remains stable, presentation patient had his oral Lasix converted to IV Lasix. Continue metoprolol 50 twice daily diltiazem XL 240 and ramipril 10 or pharmacy appropriate substitute (3) Hypertension: Remains controlled with metoprolol diltiazem and an BARB inhibitor ramipril (4) Atrial fibrillation: Patient remains in A. fib with rate controlled metoprolol, anticoagulation for reduction in embolic thrombus has been contraindicated by his hemoptysis (5) Gammopathy, monoclonal: (6) Vasculitis: Patient's lower extremity seem fairly classic for vasculitis. His consent confirmed that this is a classic vasculitis and is followed by rheumatology recommending 60 mg of prednisone daily. Patient will need significant wound care to improve his lower extremity wounds (7) Pulmonary alveolar hemorrhage: Patient hemoptysis has lessened (8) DVT prophylaxis: The patient's alveolar hemorrhage will not use chemoprophylaxis due to the patient's extremely painful lower extremities do not feel a tolerate any compressive devices therefore we will forego DVT prevention although he is a significantly high risk given his morbid obesity and decreased mobility and inflammatory state with concern for vasculitis Subjective Patient says he continues to feel well his biggest issues are pain control. He does require wound changing to his lower extremities and specifically his feet from his significant leukocytoclastic vasculitis. His hemoptysis has reduced over the last few days he was seen in his [facility] consultation by Dr. Toney who is been taking care of him in the past. He continues to have supplemental oxygen requirements which range between 2 to 6 L depending on his exertional state Review of Systems Review of Systems: ROS: Fatigue and morbidly obese No double vision blurry vision No problems with speech or swallowing No palpitations, chest pain or pressure Coughing, bringing up blood-tinged sputum, and dyspnea on exertion No abdominal pain nausea vomiting diarrhea changes in appetite or weight No burning urine urine frequency or changes in color Significant lower extremity pain Lesions on his legs consistent with very stages of vasculitis including open lesions on his feet from wound care No focused back pain or numbness general declining significant loss of strength No changes in memory or confusion Physical Exam Physical Exam: The patient appeared in mild to moderate distress, morbidly obese Vital signs as documented. Head exam is unremarkable. normocephalic, atraumatic Neck is without jugular venous distension, thyromegaly, or lymphademopathy Lungs are coarse throughout with absent breath sounds in the right apex Cardiac exam reveals rate controlled 200 and irregularly irregular mild systolic ejection murmur Abdominal exam reveals normal bowel sounds, no masses, no organomegaly Extremities are mildly edematous bilaterally various stages of non-blanchable erythema and some eschar with open areas on the dorsums of both feet Neurologic exam is A&Ox3, no focal deficits, strength is globally diminished Psychologically seems neither anxious or depressed Skin is warm significant skin changes of lower extremities consistent with leukocytoclastic vasculitis Results & Data Vital Signs (Past 12 Hours) Vital Signs Temp Pulse Resp BP Pulse Ox 05/06/19 11:41 36.6 C 97 H 20 131/90 95 05/06/19 07:00 36.5 C 101 H 20 133/87 97 05/06/19 03:22 36.9 C 72 18 156/79 H 95 PG Care Time/CCT Total # of Minutes Spent Total Time Spent with Patient: Total time spent is greater than 50% in coordination of care (as documented) at patient's floor/unit and/or counseling patient:
[2019-05-07] MEDS: OXYCODONE HCL IR 5 MG TAB (IMMEDIATE RELEASE) PO PRN ×2 (00:09→12:52)
[2019-05-07] MEDS: ACETAMINOPHEN 500 MG TAB PO PRN (03:00)
[2019-05-07 06:29] LABS: Hematocrit (blood only) 30.7 % (42-52); Hemoglobin 9.3 g/dL (14.0-18.0); Mean Corpuscular Hgb Conc 30.3 g/dL (32-36); Mean Corpuscular Volume 98.7 fL (80-100); Nucleated RBC # (auto) 0.08 K/uL (0-0); Nucleated RBC % (auto) 1.1 %; Platelet Count 176 K/uL (130-400); RDW Coefficient of Variation 18.4 % (11.5-14.5); RDW Standard Deviation 65.8 fL (36.4-46.3); Red Blood Count 3.11 M/uL (4.7-6.1); White Blood Count 8.01 K/uL (4.8-10.8)
[2019-05-07 06:56] LABS: BUN Creatinine Ratio 36.1 (10-20); Calcium 8.8 mg/dl (8.5-10.1); Creatinine Clr Calc Pharmacy 64.6 ml/min; Est GFR (African American) 73.4; Est GFR (Non-African American) 63.3; Potassium 3.4 mmol/L (3.5-5.1)
[2019-05-07] MEDS: INSULIN ASPART 100 UNITS/ML 3 ML PEN SC SCH ×3 (07:36→17:04)
[2019-05-07] MEDS: METOPROLOL SUCC 50MG EXT REL TAB PO SCH (07:43)
[2019-05-07] MEDS: predniSONE 20 MG TAB PO SCH (07:43)
[2019-05-07] MEDS: PANTOprazole 40 MG TAB PO SCH (07:43)
[2019-05-07] MEDS: SODIUM CHLORIDE 1 GM TABLET PO SCH ×3 (07:43→17:04)
[2019-05-07] MEDS: ENALAPRIL MALEATE 10 MG TAB PO SCH (07:43)
[2019-05-07] MEDS: dilTIAZem ER 120 MG CAPCR PO SCH (07:43)
[2019-05-07] MEDS: GABAPENTIN 300 MG CAP PO SCH (07:44)
[2019-05-07] MEDS: IRON POLYSACCHARIDE COMPLEX 150 MG CAPSULE PO SCH (07:44)
[2019-05-07] MEDS: FUROSEMIDE 40 MG in SYRINGE 0 ML IV SCH (07:44)
[2019-05-07] MEDS: FOLIC ACID 400 MCG TAB PO SCH (07:44)
[2019-05-07] MEDS: SACCHAROMYCES BOULARDII 250 MG CAP PO SCH (07:44)
[2019-05-07] MEDS: DULOXETINE HCL 60 MG CAP PO SCH (07:44)
--- NOTE | 2019-05-12 07:45 | Discharge Summary ---
Date of Service May 07, 2019 Admission HPI Per Admitting Provider 83-year-old male with past medical history significant for Cardiomyopathy, MR, Gout, Hypertension, Anemia, Huerta's esophagus, Monclonal gammopathy, CAD, hypogonadism, Vasculitis, GERD, Congestive heart failure, atrial fibrillation s/p Ablation previously on anticoagulation therapy with Eliquis which was discontinued about 2 weeks ago, Who was recently discharged from [facility] on 04/05/19 after he was evaluated for hemoptysis and anemia. Subsequently there was concern this could be associate with amiodarone toxicity versus an unknown vasculitis amiodarone was discontinued patient did have a lung biopsy confirming alveolar hemorrhage he had a pneumothorax which did require chest tube placement. Pathology did not was not consistent with a vasculitis although his legs clinically look to be fairly consistent with vasculitis, the patient's previous IgE level is very high and there was concern for referral to [facility]. [facility] according to the family Patient represents to our facility after being discharged May 01. Patient has been suffering from alveolar hemorrhage suspected to be from vasculitis possibly associate with amiodarone. Patient does have a right apical pneumothorax and previously is been offered in our facility with chest tube manipulation he still has residual pneumothorax. Patient was scheduled to see [facility] [place] for further work-up of his vasculitis on 05/05 however the patient's resting oxygen and respiratory distress became significant and the felt uncomfortable transporting him to [facility] with increased oxygen requirements. Previously the patient is to step performance exercise test revealed 2 L at rest and 6 L with exertion were required for this patient. Additionally the patient had increasing hemoptysis which concern his . In the ER at rest he is generally fairly comfortable he was bringing up brown mucus with coughing of note the patient had some of his vasculitis wounds debrided at a wound center as an outpatient on both feet and they are both wrapped and oozing of serous fluid. Principal Diagnosis Acute and chronic respiratory failure secondary to vasculitis. Discharge Exam The patient appeared inno distress, morbidly obese Vital signs as documented. Head exam is unremarkable. normocephalic, atraumatic Neck is without jugular venous distension, thyromegaly, or lymphademopathy Lungs are coarse throughout with absent breath sounds in the right apex Cardiac exam reveals rate controlled 200 and irregularly irregular mild systolic ejection murmur Abdominal exam reveals normal bowel sounds, no masses, no organomegaly Extremities are mildly edematous bilaterally various stages of non-blanchable erythema and some eschar with open areas on the dorsums of both feet Neurologic exam is A&Ox3, no focal deficits, strength is globally diminished Psychologically seems neither anxious or depressed Skin is warm significant skin changes of lower extremities consistent with leukocytoclastic vasculitis Discharge Data Allergies Allergy/AdvReac Type Severity Reaction Status Date / Time allopurinol Allergy Severe Anaphylaxis Verified 05/08/19 17:14 bee venom protein (honey bee) Allergy Severe ANAPHYLAXIS Verified 05/08/19 14:02 dapsone Allergy Severe Anaphylaxis Verified 05/08/19 14:02 rofecoxib Allergy Severe PULMONARY Verified 05/08/19 14:02 EDEMA fentanyl AdvReac Intermediate Hallucinati Verified 05/08/19 14:02 ons Consultations 05/04/19 13:28 ED Decision to Admit Stat 05/04/19 19:14 Consult Rheumatology Routine Ordered Studies 05/04/19 14:00 CT chest wo con Stat Hospital Course (1) Acute and chronic respiratory failure with hypoxia: Patient presents with increasing work of breathing hemoptysis. Concerns for vasculitis seem apparent with his lower extremities although previous lung biopsy showed diffuse alveolar hemorrhage. This was felt to possibly be from amiodarone. The patient's pneumothorax is stable Rheumatology recommended to de-escalate his steroid therapy back to his oral medications with the thought that because of the long half-life of amiodarone his symptoms may last for prolonged period of time. Plan is to have patient followup with in 2 weeks. Patient appears to be back to his baseline and agrees with discharge. (2) Cardiomyopathy: Patient has chronic systolic heart failure which which remains stable, presentation patient had his oral Lasix converted to IV Lasix. Continue metoprolol 50 twice daily diltiazem XL 240 and ramipril 10 or pharmacy appro priate substitute (3) Hypertension: Remains controlled with metoprolol diltiazem and an BARB inhibitor ramipril (4) Atrial fibrillation: Patient remains in A. fib with rate controlled metoprolol, anticoagulation for reduction in embolic thrombus has been contraindicated by his hemoptysis (5) Gammopathy, monoclonal: (6) Vasculitis: Patient's lower extremity seem fairly classic for vasculitis. His consent confirmed that this is a classic vasculitis and is followed by rheumatology recommending 60 mg of prednisone daily. Patient will need significant wound care to improve his lower extremity wounds (7) Pulmonary alveolar hemorrhage: Patient hemoptysis has lessened (8) DVT prophylaxis: The patient's alveolar hemorrhage will not use chemoprophylaxis due to the patient's extremely painful lower extremities do not feel a tolerate any compressive devices therefore we will forego DVT prevention although he is a significantly high risk given his morbid obesity and decreased mobility and inflammatory state with concern for vasculitis Total Time Total Time Spent Total Time Spent (In Minutes): 32 Total Time Includes: Examination of the Patient, Discharge Planning and Medication Reconciliation Discharge Plan Discharge Items Patient Disposition: Transfer Inpatient Rehab Fac Reason For Visit: ACUTE ON CHRONIC RESPIRATORY FAILURE Discharge Diagnosis: coughing up 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 Prescriptions: Continued multivitamin tablet 1 tab PO BID Qty: 60 RF: 0 atorvastatin 40 mg tablet 40 mg PO HS Qty: 90 RF: 1 sodium chloride 1 gram tablet 1,000 mg PO QID Qty: 120 RF: 0 tramadol 50 mg tablet 50 - 100 mg PO .Q4-6 HR PRN (Reason: Pain) RF: 0 acetaminophen [Tylenol Extra Strength] 500 mg tablet 1,000 mg PO Q6H PRN (Reason: Pain) Qty: 180 RF: 0 ammonium lactate 12 % cream 1 appln TOP HS Qty: 140 RF: 0 duloxetine 60 mg capsule,delayed release(DR/EC) 60 mg PO QAM Qty: 60 RF: 1 furosemide 40 mg tablet 40 mg PO QAM Qty: 90 RF: 1 gabapentin 300 mg capsule 300 mg PO BID Qty: 60 RF: 3 calcium carbonate-vitamin D3 [Oystercal-D] 500 mg(1,250mg) -400 unit Tablet 1 tab PO QAM RF: 0 polysaccharide iron complex [Ferrex 150] 150 mg iron Capsule 150 mg PO QDL RF: 0 Santyl 250 unit/gram Ointment 1 applic TOPICAL QAM RF: 0 ascorbic acid (vitamin C) [Vitamin C] 500 mg tablet 500 mg PO QAM RF: 0 pantoprazole 40 mg tablet,delayed release (DR/EC) 40 mg PO QAM RF: 0 cholecalciferol (vitamin D3) [Vitamin D3] 2,000 unit tablet 2,000 unit PO QAM RF: 0 metoprolol succinate 50 mg Tablet Extended Release 24 Hr 50 mg PO BID 30 Days Qty: 60 RF: 0 diltiazem HCl [Taztia XT] 120 mg Capsule,Extended Release 24 Hr 240 mg PO QAM 30 Days Qty: 60 RF: 0 cyanocobalamin (vitamin B-12) 1,000 mcg/mL kit 1,000 mcg IM MONTHLY RF: 0 No Action wheelchair device .ROUTE .MEDSUPPLY Qty: 1 RF: 0 docusate sodium 100 mg Tablet 100 mg PO BID RF: 0 prednisone 20 mg tablet 60 mg PO QAM RF: 0 lisinopril 20 mg Tablet 40 mg PO QAM RF: 0 folic acid 1 mg Tablet 1 mg PO QAM RF: 0 Lactobacillus acidoph-L.bulgar [Floranex] 1 million cell Tablet 1 tab PO QAM RF: 0 Stand-Alone Forms: [facility] Discharge Orders: Discharge Order (Routine); Ordered 05/07/19 Ordered By: Kaushal West Admission Data Admit Date/Time: 05/04/19 14:17 Attending Provider: Kaushal West Admit Provider: Geo Ochoa Primary Care Provider: Diana Ventura Other Providers: Silverio Smith Service: Telemetry Medical Other Interventions: Discharge Summary Assessment (RN) Last Done: 05/07/19 17:12 DC Date/Time DO NOT enter until pt leaves facility: 05/07/19 19:08
== END 2019-05-07 19:08 | DRG 545 ==
LOC: ED 11:03 → 2N 14:17 → SUATTDRO 14:17 → 2N 15:05

== ENCOUNTER 2019-05-08 12:51 | Inpatient (IN) ==
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
[2019-05-08] MEDS ORDERED: LIDOCAINE HCL 1% 20 ML VIAL ONE (15:41)
[2019-05-08 16:06] LABS: Hematocrit (blood only) 38.5 % (42-52); Hemoglobin 11.8 g/dL (14.0-18.0); Mean Corpuscular Hemoglobin 30.3 pg (25-34); Mean Corpuscular Hgb Conc 30.6 g/dL (32-36); Mean Corpuscular Volume 98.7 fL (80-100); Platelet Count 221 K/uL (130-400); White Blood Count 10.97 K/uL (4.8-10.8)
[2019-05-08 16:07] LABS: Basophils # (auto) 0.02 K/uL (0-0.2); Basophils % (auto) 0.2 %; Eosinophils # (auto) 0.01 K/uL (0-0.5); Eosinophils % (auto) 0.1 %; Giant Platelets 2+; Immature Granulocytes # (auto) 0.11 K/uL (0.00-0.02); Lymphocytes # (auto) 0.65 K/uL (1.2-3.4); Lymphocytes % (auto) 5.9 %; Monocytes # (auto) 0.68 K/uL (0.11-0.59); Monocytes % (auto) 6.2 %; Neutrophils % (auto) 86.6 %
[2019-05-08 16:08] LABS: Albumin Level 2.7 gm/dl (3.4-5.0); BUN Creatinine Ratio 35.4 (10-20); Calcium 8.4 mg/dl (8.5-10.1); Creatinine Clr Calc Pharmacy 68.5 ml/min; Est GFR (African American) 79.5; Est GFR (Non-African American) 68.6
[2019-05-08 16:11] LABS: Albumin Globulin Ratio 0.8 (0.9-2); Bilirubin,Total 1.1 mg/dl (0.2-1); Globulin 3.6 gm/dl (2.5-4.0); Total Protein 6.3 gm/dl (6.4-8.2)
[2019-05-08] MEDS ORDERED: ONDANSETRON INJ 2 MG/ML 2 ML VIAL IV PRN (16:54)
[2019-05-08] MEDS ORDERED: ALUMINUM/MAGNESIUM SUSP 30 ML UDC PO PRN (16:54)
[2019-05-08] MEDS ORDERED: ZOLPIDEM TARTRATE 5 MG TAB PO PRN (16:54)
[2019-05-08] MEDS ORDERED: MAGNESIUM HYDROXIDE SUSP 30 ML UDC PO PRN (16:54)
[2019-05-08] MEDS ORDERED: NITROGLYCERIN SL 0.4 MG/TAB TAB SL PRN (16:54)
[2019-05-08] MEDS ORDERED: POLYETHYLENE (MIRALAX) 17 GM PACK PO PRN (16:54)
[2019-05-08] MEDS ORDERED: ACETAMINOPHEN 325 MG TAB PO PRN (16:54)
[2019-05-08] MEDS ORDERED: TRAMADOL HCL 50 MG TABLET PO PRN (16:59)
[2019-05-08] MEDS ORDERED: MoRPHine SULFATE 2 MG/ML CARP IV PRN (16:59)
--- NOTE | 2019-05-08 17:27 | XRay Report ---
XR chest 1V portable HISTORY: chest tube COMPARISON: Chest 05/08/2019. FINDINGS: Interval placement of right-sided chest tube which terminates in the right upper lung zone. Decrease in size in the moderate to large right pneumothorax. This now demonstrates a pleural gap of 5.8 cm. Right pleural effusion persists. The heart remains enlarged. Left-sided dual-chamber pacemak er. Bilateral hazy airspace opacities and interstitial thickening. This may represent superimposed pu lmonary edema. IMPRESSION: 1. Slight decrease in size in the moderate to large right pneumothorax status post right chest tube p lacement. 2. Bilateral airspace opacities and a right pleural effusion persist. Electronically signed by: Shlomo Bhatia M.D. 05/08/2019 5:26 PM
[2019-05-08] MEDS: TRAMADOL HCL 50 MG TABLET PO PRN (17:40)
[2019-05-08] MEDS: SODIUM CHLORIDE 0.9% 1000ML 1,000 ML IV SCH (17:41)
[2019-05-08 18:14] LABS: Potassium 4.2 mmol/L (3.5-5.1)
[2019-05-08] MEDS: dilTIAZem ER 120 MG CAPCR PO SCH (18:50)
[2019-05-08] MEDS: AMMONIUM LACTATE 12% LOTION 225 GM BTL EXT SCH (20:48)
[2019-05-08] MEDS: DOCUSATE SODIUM 100 MG CAP PO SCH (20:49)
[2019-05-08] MEDS: METOPROLOL SUCC 50MG EXT REL TAB PO SCH (20:49)
[2019-05-08] MEDS: GABAPENTIN 300 MG CAP PO SCH (20:49)
[2019-05-08] MEDS: MULTIVITAMIN TAB PO SCH (20:49)
[2019-05-08] MEDS: ATORVASTATIN 40 MG TAB PO SCH (20:49)
--- NOTE | 2019-05-09 01:04 | Consultation Report ---
DATE OF CONSULTATION: 05/08/2019 REASON FOR CONSULTATION: Recurrent right pneumothorax. HISTORY OF PRESENT ILLNESS: This is a very nice 83-year-old obese male who has a history of vasculitis and had diffuse alveolar hemorrhage. We diagnosed this with a lung biopsy actually several weeks ago. We removed his chest tube in a timely fashion, but then he developed a pneumothorax and had to put another tube in him. This was done anteriorly. Pneumothorax resolved. I was quite pleased with everything, but he had a persistent air leak. It was not large, but it finally improved. He was then sent out, but his chest tube dislodged. It was removed from the chest. His pneumothorax did not seem very bad few days ago and he was discharged home only to come back today to the ER and had a very large pneumothorax. I was asked to evaluate him. We are going to place a chest tube in him today. I had a long talk to the patient and his . For details of this patient's history, please see my prior consult.
--- NOTE | 2019-05-09 01:07 | Operative Report ---
DATE OF OPERATION: 05/08/2019 PREOPERATIVE DIAGNOSIS: Recurrent right pneumothorax. POSTOPERATIVE DIAGNOSIS: Recurrent right pneumothorax. PROCEDURE: Insertion of right 24-[place]awk chest tube. SURGEON: Jonathan Camp MD MUSSEL OPENER: KIMBERLY White ANESTHESIA: Local. SPECIFICS OF PROCEDURE: The patient in a supine position with the bed at about 30 degrees. His anterior chest was evaluated. He was prepped and draped in usual sterile fashion. A 25-gauge needle with 1% Xylocaine was used to raise a skin wheal. A small blade was used to make the incision just large enough tube. A larger needle was used to anesthetize the pectoralis muscle and pleura and got free flowing air. We then placed the guidewire through the needle and the needle removed. A dilator was slid over the guidewire and then the dilator removed and triple lumen catheter with an obturator was placed at about 18 cm. The inner cannula and guidewire removed and he had a small air leak and drained about 200 mL of a yellow fluid. This was sutured in place with heavy silk suture. Chest x-ray showed very little in the way of reexpansion, but I was afraid to put him on suction. We will do this in the morning. He tolerated it well. I attest to the content of the Intraoperative Record and any orders documented therein. Any exception s are noted below.
[2019-05-09] MEDS: TRAMADOL HCL 50 MG TABLET PO PRN ×2 (03:40→20:48)
[2019-05-09] MEDS: SODIUM CHLORIDE 0.9% 1000ML 1,000 ML IV SCH (05:40)
--- NOTE | 2019-05-09 07:13 | XRay Report ---
XR chest 1V portable CLINICAL HISTORY: Pneumothorax. COMPARISON STUDY: Chest radiograph May 08, 2019 at 5:15 PM. FINDINGS: The right chest tube is in place. A right pneumothorax has significantly decreased in size since prior exam. Superior pleural separation now measures 2.1 cm. A small right pleural effusion is noted. Interstitial thickening and bilateral opacities persist. Cardiomegaly is again noted. Dual lupe d left subclavian pacemaker is in place. IMPRESSION: 1. Significant interval decrease in size of a right pneumothorax since prior exam with right chest tu be in place. Small residual right hydropneumothorax. 2. Persistent interstitial thickening and bilateral opacities which may reflect pulmonary edema or pn eumonia. Electronically signed by: Daniel Duron M.D. 05/09/2019 7:12 AM
[2019-05-09] MEDS ORDERED: FUROSEMIDE 40 MG TAB PO SCH (09:00)
[2019-05-09] MEDS: MULTIVITAMIN TAB PO SCH ×2 (09:15→20:41)
[2019-05-09] MEDS: METOPROLOL SUCC 50MG EXT REL TAB PO SCH ×2 (09:15→20:41)
[2019-05-09] MEDS: GABAPENTIN 300 MG CAP PO SCH ×2 (09:15→20:41)
[2019-05-09] MEDS: DOCUSATE SODIUM 100 MG CAP PO SCH ×2 (09:15→20:41)
[2019-05-09] MEDS: dilTIAZem ER 120 MG CAPCR PO SCH (09:15)
[2019-05-09] MEDS: PANTOprazole 40 MG TAB PO SCH (09:15)
[2019-05-09] MEDS: FOLIC ACID 400 MCG TAB PO SCH (09:15)
[2019-05-09] MEDS: ENALAPRIL MALEATE 10 MG TAB PO SCH (09:16)
[2019-05-09] MEDS: DULOXETINE HCL 60 MG CAP PO SCH (09:16)
[2019-05-09] MEDS: LACTOBACILLUS ACIDOPHILUS (FLORANEX) TAB PO SCH (09:16)
[2019-05-09] MEDS: COLLAGENASE OINT 30 GM TUBE TOP SCH (09:17)
[2019-05-09] MEDS: ASCORBIC ACID 500 MG TAB PO SCH (09:18)
[2019-05-09] MEDS: CALCIUM 600MG + VIT D 400 IU TAB PO SCH (09:18)
[2019-05-09] MEDS: CHOLECALCIFEROL 1,000 UNITS TAB PO SCH (09:18)
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
[2019-05-09] MEDS ORDERED: ALBUT/IPRATROP 3MG/0.5MG NEB 3 ML VIAL NEB PRN (11:33)
[2019-05-09] MEDS: IRON POLYSACCHARIDE COMPLEX 150 MG CAPSULE PO SCH (12:07)
[2019-05-09 12:15] LABS: Eosinophils # (auto) 0.04 K/uL (0-0.5); Eosinophils % (auto) 0.4 %; Hematocrit (blood only) 34.2 % (42-52); Hemoglobin 10.7 g/dL (14.0-18.0); Immature Granulocytes # (auto) 0.08 K/uL (0.00-0.02); Immature Granulocytes % (auto) 0.7 %; Lymphocytes # (auto) 0.57 K/uL (1.2-3.4); Lymphocytes % (auto) 5.1 %; Mean Corpuscular Hemoglobin 30.9 pg (25-34); Mean Corpuscular Volume 98.8 fL (80-100); Mean Platelet Volume 10.8 fL (7.4-10.4); Monocytes # (auto) 0.71 K/uL (0.11-0.59); Monocytes % (auto) 6.4 %; Neutrophils # (auto) 9.74 K/uL (1.4-6.5); Neutrophils % (auto) 87.4 %; Platelet Count 209 K/uL (130-400); RDW Coefficient of Variation 18.3 % (11.5-14.5); RDW Standard Deviation 65.5 fL (36.4-46.3); Red Blood Count 3.46 M/uL (4.7-6.1); White Blood Count 11.14 K/uL (4.8-10.8)
[2019-05-09 12:42] LABS: Mean Corpuscular Hgb Conc 31.3 g/dL (32-36)
[2019-05-09 12:45] LABS: Albumin Level 2.6 gm/dl (3.4-5.0); BUN Creatinine Ratio 37.2 (10-20); Calcium 9.1 mg/dl (8.5-10.1); Creatinine Clr Calc Pharmacy 80.6 ml/min; Est GFR (African American) 94.3; Est GFR (Non-African American) 81.3; Potassium 3.8 mmol/L (3.5-5.1)
[2019-05-09 12:49] LABS: Albumin Globulin Ratio 0.6 (0.9-2); Bilirubin,Total 0.9 mg/dl (0.2-1); Globulin 4.2 gm/dl (2.5-4.0); Total Protein 6.8 gm/dl (6.4-8.2)
--- NOTE | 2019-05-09 15:54 | Progress Note ---
DATE: 05/09/2019 Mr. Gutierrez was seen today. He is not really changing. He never has any complaints and is not complaining now. His x-ray looked better. He still has a small air leak. He is tolerating his chest tube well. He has drained about 350 mL total and his lung does look better. He does have diffuse alveolar hemorrhage and has vasculitis in his lungs. At this point, we are going to continue to follow and I would not be in a hurry to remove this chest tube.
--- NOTE | 2019-05-09 18:13 | Hospitalist Progress Note ---
Date of Service May 09, 2019 Assessment & Plan (1) Pneumothorax: Right-sided hydropneumothorax. Continue PCU level of care consult appreciated the status post right chest tube Oxygen supplement today be titrated for O2 sat 92-94 Daily weights, I/o Low-sodium diet and labs in a.m. Patient is full code (2) DVT prophylaxis: SCD boots for now Consider starting heparin tomorrow (3) Obstructive sleep apnea: Patient can use home CPAP (4) Morbid obesity: Patient should be counseled prior to discharge (5) Atrial fibrillation: Currently anticoagulation is on hold Rate controlled on Cardizem and metoprolol (6) CAD (coronary artery disease): Continue Lipitor/metoprolol Hold antiplatelets for now to avoid hemothorax (7) GERD (gastroesophageal reflux disease): Stable, continue pantoprazole (8) CHF (congestive heart failure): Acute on chronic systolic congestive heart failure Most recent ejection fraction is 45% on November 2018 Also patient has some mild to moderate pulmonary hypertension obtain serial cardiac enz repeat EKG prn chest pain Check hemoglobin A1c/lipids to stratify patient risk factors I/Os 2Decho gentle diuresis control blood pressure, afterload and preload Continue metoprolol, lisinopril, Lasix IV Subjective Slightly lethargic but arousable Has no new complaint Review of Systems Respiratory: Due to his lethargy, review of system was unreliable but he denied all my questions Physical Exam Physical Exam: Physical examination General patient appears to be comfortable, not in acute distress HEENT: Atraumatic , normocephalic /no jaundice /no pallor /anicteric /no dry mucous membrane /normal external ear inspection Neck: Supple /no swelling /central trach Heart: S1/S2 normal/regular rate and rhythm/no gallop /no rub /no murmur Lungs: Decreased air entry bilaterally, generalized wheezing both lung zamarripa, scattered rhonchi, no chest wall tenderness, chest tube site appeared to be clean Abdomen: Soft/nontender/no guarding/no rebound/no organomegaly/no pulsatile mass Musculoskeletal: Both feet are wrapped Neuro exam: Awake alert oriented 3/cranial nerves II through XII appear to be intact/sensation intact/moves all extremities/no abnormal movements Psychiatric evaluation: No depressed mood/normal affect Skin: No rash on exposed skin area/no erythema Extremity: Normal pulse/no pitting edema/no clubbing or cyanosis Endocrine/lymphatic: No obvious lymphadenopathy /no lymphedema Results & Data Vital Signs (Past 12 Hours) Vital Signs Temp Pulse Resp BP BP Pulse Ox 05/09/19 15:39 36.6 C 78 16 111/61 92 05/09/19 12:36 37.0 C 78 24 123/63 5 L 05/09/19 07:53 36.9 C 74 24 136/90 100 PG Care Time/CCT Total # of Minutes Spent Total Time Spent with Patient: 35 minutes total time spent is greater than 50% in coordination of care (as documented) at patient's floor/unit and/or counseling patient/family discussion of care with nursing staff (1) Pneumothorax Pneumothorax type: chronic pneumothorax Qualified Code(s): J93.81 - Chronic pneumothorax (2) CHF (congestive heart failure) Heart failure chronicity: unspecified Heart failure type: unspecified Qualified Code(s): I50.9 - Heart failure, unspecified
[2019-05-09] MEDS: FUROSEMIDE 20 MG in SYRINGE 0 ML IV SCH (18:19)
[2019-05-09 19:14] LABS: Base Excess ABG 8.2 mEq/L (-9-1.8); HCO3 ABG 33 mmol/L (19-24); PCO2 ABG 44 mmHg (35-46); PO2 ABG 64 mm/Hg (80-95); pH ABG 7.48 (7.35-7.45)
[2019-05-09 19:16] LABS: Allen Test Pos (Pos)
[2019-05-09] MEDS: ATORVASTATIN 40 MG TAB PO SCH (20:41)
[2019-05-09] MEDS: AMMONIUM LACTATE 12% LOTION 225 GM BTL EXT SCH (20:44)
[2019-05-10 05:57] LABS: Eosinophils # (auto) 0.07 K/uL (0-0.5); Eosinophils % (auto) 0.7 %; Hematocrit (blood only) 30.8 % (42-52); Hemoglobin 9.6 g/dL (14.0-18.0); Immature Granulocytes # (auto) 0.06 K/uL (0.00-0.02); Immature Granulocytes % (auto) 0.6 %; Lymphocytes # (auto) 0.61 K/uL (1.2-3.4); Lymphocytes % (auto) 6.2 %; Mean Corpuscular Hemoglobin 29.9 pg (25-34); Mean Corpuscular Hgb Conc 31.2 g/dL (32-36); Mean Platelet Volume 10.5 fL (7.4-10.4); Monocytes # (auto) 0.59 K/uL (0.11-0.59); Neutrophils # (auto) 8.48 K/uL (1.4-6.5); Neutrophils % (auto) 86.5 %; Nucleated RBC # (auto) 0.04 K/uL (0-0); Nucleated RBC % (auto) 0.4 %; Platelet Count 215 K/uL (130-400); RDW Coefficient of Variation 18.1 % (11.5-14.5); RDW Standard Deviation 63.2 fL (36.4-46.3); Red Blood Count 3.21 M/uL (4.7-6.1); White Blood Count 9.81 K/uL (4.8-10.8)
[2019-05-10 06:33] LABS: Albumin Level 2.2 gm/dl (3.4-5.0); BUN Creatinine Ratio 27.1 (10-20); Calcium 8.4 mg/dl (8.5-10.1); Creatinine Clr Calc Pharmacy 75.3 ml/min; Est GFR (African American) 90.1; Est GFR (Non-African American) 77.7; Potassium 3.6 mmol/L (3.5-5.1)
[2019-05-10 06:37] LABS: Albumin Globulin Ratio 0.6 (0.9-2); Globulin 3.9 gm/dl (2.5-4.0); Total Protein 6.1 gm/dl (6.4-8.2)
[2019-05-10 07:04] LABS: Appearance Urine Clear (Clear); Bacteria Urine Automated Negative (Negative); Bilirubin Urine Negative (Negative); Blood Urine Negative (Negative); Color Urine Dark Yellow; Glucose Urine UA Negative (Negative); Ketones Urine Negative (Negative); Leukocyte Esterase Urine Negative (Negative); Nitrite Urine Negative (Negative); Protein Urine 2+ (Negative); RBC Urine Automated 0-4 /hpf (0-4); Specific Gravity Urine 1.024 (1.000-1.030); Urobilinogen Urine Positive (Negative); pH Urine 6.5 (4.5-7.5)
[2019-05-10 07:29] LABS: Calcium Oxalate Crystals Urine Present (None Prsent); Mucus Urine Present (None Prsent)
--- NOTE | 2019-05-10 08:06 | XRay Report ---
SINGLE VIEW CHEST CLINICAL HISTORY: Pneumothorax. FINDINGS: 2 AP, portable, upright chest radiographs are compared to study dated 05/09/2019 and correlat ed with chest CT dated 05/04/2019. The examination is degraded by portable technique and patient rotati on. A 2-lead cardiac pacemaker is unchanged in position. The heart is enlarged and there is atheroscl erotic calcification of the thoracic aorta. There is pulmonary vascular congestion and mild interstit ial edema. A right-sided chest tube is in place. Right-sided hydropneumothorax is again seen. There i s increased fluid at the right apex as compared to yesterday. Bibasilar airspace consolidation is aga in noted. The skeletal structures are osteopenic. The bony thorax is grossly intact. Degenerative naima nges noted in the shoulders and thoracic spine. A surgical anchor is seen in the left humeral head. IMPRESSION: 1. Cardiomegaly and cardiac pacemaker. There is evidence of congestive failure and interstitial edema . 2. A right-sided chest tube is again noted. Right-sided hydropneumothorax persists. 3. Right greater than left bibasilar airspace consolidation is similar to yesterday. Correlate clinic ally for evidence of pneumonia/aspiration pneumonitis. Electronically signed by: Los Story M.D. 05/10/2019 8:05 AM
[2019-05-10] MEDS: ENALAPRIL MALEATE 10 MG TAB PO SCH (08:08)
[2019-05-10] MEDS: dilTIAZem ER 120 MG CAPCR PO SCH (08:08)
[2019-05-10] MEDS: GABAPENTIN 300 MG CAP PO SCH ×2 (08:08→20:13)
[2019-05-10] MEDS: ASCORBIC ACID 500 MG TAB PO SCH (08:08)
[2019-05-10] MEDS: CHOLECALCIFEROL 1,000 UNITS TAB PO SCH (08:08)
[2019-05-10] MEDS: METOPROLOL SUCC 50MG EXT REL TAB PO SCH ×2 (08:08→21:36)
[2019-05-10] MEDS: LACTOBACILLUS ACIDOPHILUS (FLORANEX) TAB PO SCH (08:09)
[2019-05-10] MEDS: DOCUSATE SODIUM 100 MG CAP PO SCH ×2 (08:09→20:13)
[2019-05-10] MEDS: DULOXETINE HCL 60 MG CAP PO SCH (08:09)
[2019-05-10] MEDS: PANTOprazole 40 MG TAB PO SCH (08:09)
[2019-05-10] MEDS: COLLAGENASE OINT 30 GM TUBE TOP SCH (08:09)
[2019-05-10] MEDS: CALCIUM 600MG + VIT D 400 IU TAB PO SCH (08:09)
[2019-05-10] MEDS: FOLIC ACID 400 MCG TAB PO SCH (08:09)
[2019-05-10] MEDS: MULTIVITAMIN TAB PO SCH ×2 (08:09→20:13)
[2019-05-10] MEDS: FUROSEMIDE 20 MG in SYRINGE 0 ML IV SCH ×2 (09:15→16:50)
--- NOTE | 2019-05-10 10:01 | Progress Note ---
DATE: 05/10/2019 Mr. Gutierrez was seen today on 05/10/2019. We put a chest tube in him 2 days ago. He is better from that standpoint. On 2 liters, he has 100% saturations. There are still some issues with his blood pressure. His chest tube only put out 30 mL. He is moving his bowels. I thought his x-ray looks better today. It appears to me that he has better expansion. He does have some air space consolidation. At this point, we will continue with the chest tube. It does not appear to have an air leak today. We will continue to follow him and check a chest x-ray periodically.
[2019-05-10] MEDS: IRON POLYSACCHARIDE COMPLEX 150 MG CAPSULE PO SCH (11:31)
--- NOTE | 2019-05-10 12:50 | Hospitalist Progress Note ---
Date of Service May 10, 2019 Assessment & Plan (1) Pneumothorax: Right-sided hydropneumothorax. Continue PCU level of care consult appreciated the status post right chest tube Oxygen supplement today be titrated for O2 sat 92-94, appears to be stable on 2 L Daily weights, I/o Low-sodium diet and labs in a.m. Patient is full code (2) DVT prophylaxis: SCD boots for now Consider starting heparin tomorrow (3) Obstructive sleep apnea: Patient can use home CPAP (4) Morbid obesity: Patient should be counseled prior to discharge (5) Atrial fibrillation: Currently anticoagulation is on hold Rate controlled on Cardizem and metoprolol (6) CAD (coronary artery disease): Continue Lipitor/metoprolol Hold antiplatelets for now to avoid hemothorax due to vasculitis (7) GERD (gastroesophageal reflux disease): Stable, continue pantoprazole (8) CHF (congestive heart failure): Acute on chronic systolic congestive heart failure Most recent ejection fraction is 45% on November 2018 Also patient has some mild to moderate pulmonary hypertension obtain serial cardiac enz repeat EKG prn chest pain Check hemoglobin A1c/lipids to stratify patient risk factors I/Os 2Decho gentle diuresis control blood pressure, afterload and preload Continue metoprolol, Enalapril, Lasix IV Blood pressure was low this morning, increase enalapril dose from 40 mg daily, to 20 mg daily (9) Vasculitis: Currently off antiplatelets and anticoagulation (10) 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 Subjective He feels better today Complaining of bilateral foot pain Review of Systems Respiratory: Review of system Constitutional: No fever / no chills / no sweats / no weakness / no fatigue Eyes: no blurring of vision / no eye pain / no discharge / no redness ENT: no hearing loss / no epistaxis /no swallowing problems Respiratory: Minimal cough, slight shortness of breath but as per patient this is based Cardiovascular: no Chest pain / no lower extremity edema / no palpitation Abdomen: no pain / no nausea / no vomiting / no constipation Musculoskeletal: Bilateral significant foot pain Genitourinary: no dysuria / no incontinence / no urinary retention Neurologic: no focal weakness / no numbness/tingling / no ataxia Psychiatric: no depression symptoms / no anxiety / no insomnia Endocrine: no excessive thirst / no excessive urination Hematologic: no abnormal bleeding / no bruising / no LN swelling Skin: No rash / no pallor Physical Exam Physical Exam: Physical examination General patient appears to be comfortable, not in acute distress HEENT: Atraumatic , normocephalic /no jaundice /no pallor /anicteric /no dry mucous membrane /normal external ear inspection Neck: Supple /no swelling /central trach Heart: S1/S2 normal/regular rate and rhythm/no gallop /no rub /no murmur Lungs: Decreased air entry bilaterally, scattered rhonchi, right chest tube appears to be Abdomen: Soft/nontender/no guarding/no rebound/no organomegaly/no pulsatile mass Musculoskeletal: +2 pitting edema Neuro exam: Awake alert oriented 3/cranial nerves II through XII appear to be intact/sensation intact/moves all extremities/no abnormal movements Psychiatric evaluation: No depressed mood/normal affect Skin: No rash on exposed skin area/no erythema Extremity: Normal pulse/no pitting edema/no clubbing or cyanosis Endocrine/lymphatic:Both feet has a scattered deep ulcers ranging from 5 x 5 to 3 x 3 cm, ulcers have discharge appears to be infected. Results & Data Vital Signs (Past 12 Hours) Vital Signs Temp Pulse Pulse Resp BP Pulse Ox 05/10/19 11:26 36.4 C L 99 H 16 93/60 L 92 05/10/19 07:38 36.5 C 92 H 14 101/68 100 05/10/19 02:57 36.6 C 101 H 20 117/73 95 PG Care Time/CCT Total # of Minutes Spent Total Time Spent with Patient: 35 minutes total time spent is greater than 50% in coordination of care (as documented) at patient's floor/unit and/or counseling patient/family discussion of care with nursing staff (1) Pneumothorax Pneumothorax type: chronic pneumothorax Qualified Code(s): J93.81 - Chronic pneumothorax (2) CHF (congestive heart failure) Heart failure chronicity: unspecified Heart failure type: unspecified Qualified Code(s): I50.9 - Heart failure, unspecified
[2019-05-10] MEDS: CEFEPIME 2,000 MG in SYRINGE 7.5 ML IV SCH (20:11)
[2019-05-10] MEDS: AMMONIUM LACTATE 12% LOTION 225 GM BTL EXT SCH (20:12)
[2019-05-10] MEDS: ATORVASTATIN 40 MG TAB PO SCH (20:13)
[2019-05-11 05:37] LABS: Hematocrit (blood only) 27.7 % (42-52); Hemoglobin 8.9 g/dL (14.0-18.0); Mean Corpuscular Hemoglobin 30.1 pg (25-34); Mean Corpuscular Hgb Conc 32.1 g/dL (32-36); Mean Corpuscular Volume 93.6 fL (80-100); Mean Platelet Volume 10.2 fL (7.4-10.4); Platelet Count 197 K/uL (130-400); RDW Coefficient of Variation 17.6 % (11.5-14.5); RDW Standard Deviation 60.5 fL (36.4-46.3); Red Blood Count 2.96 M/uL (4.7-6.1); White Blood Count 9.99 K/uL (4.8-10.8)
[2019-05-11 05:55] LABS: Albumin Level 1.9 gm/dl (3.4-5.0); BUN Creatinine Ratio 26.5 (10-20); Calcium 8.3 mg/dl (8.5-10.1); Creatinine Clr Calc Pharmacy 66.9 ml/min; Est GFR (African American) 75.9; Est GFR (Non-African American) 65.5; Potassium 3.4 mmol/L (3.5-5.1)
[2019-05-11 06:00] LABS: Albumin Globulin Ratio 0.5 (0.9-2); Bilirubin,Total 0.9 mg/dl (0.2-1); Globulin 3.6 gm/dl (2.5-4.0); Total Protein 5.5 gm/dl (6.4-8.2)
[2019-05-11 06:06] LABS: Dohle Bodies 1+; Eosinophils # (auto) 0.04 K/uL (0-0.5); Eosinophils % (auto) 0.4 %; Immature Granulocytes # (auto) 0.05 K/uL (0.00-0.02); Immature Granulocytes % (auto) 0.5 %; Lymphocytes # (auto) 0.67 K/uL (1.2-3.4); Lymphocytes % (auto) 6.7 %; Monocytes # (auto) 0.83 K/uL (0.11-0.59); Monocytes % (auto) 8.3 %; Neutrophils % (auto) 84.1 %; Ovalocytes 1+
[2019-05-11] MEDS: CALCIUM 600MG + VIT D 400 IU TAB PO SCH (08:03)
[2019-05-11] MEDS: GABAPENTIN 300 MG CAP PO SCH ×2 (08:03→20:08)
[2019-05-11] MEDS: DULOXETINE HCL 60 MG CAP PO SCH (08:03)
[2019-05-11] MEDS: FOLIC ACID 400 MCG TAB PO SCH (08:03)
[2019-05-11] MEDS: DOCUSATE SODIUM 100 MG CAP PO SCH ×2 (08:04→20:08)
[2019-05-11] MEDS: LACTOBACILLUS ACIDOPHILUS 1 GM PACK PO SCH ×3 (08:04→16:48)
[2019-05-11] MEDS: MULTIVITAMIN TAB PO SCH ×2 (08:05→20:07)
[2019-05-11] MEDS: dilTIAZem ER 120 MG CAPCR PO SCH (08:05)
[2019-05-11] MEDS: PANTOprazole 40 MG TAB PO SCH (08:05)
[2019-05-11] MEDS: CEFEPIME 2,000 MG in SYRINGE 7.5 ML IV SCH ×2 (08:05→20:06)
[2019-05-11] MEDS: FUROSEMIDE 20 MG in SYRINGE 0 ML IV SCH (08:05)
[2019-05-11] MEDS: COLLAGENASE OINT 30 GM TUBE TOP SCH (08:05)
[2019-05-11] MEDS: CHOLECALCIFEROL 1,000 UNITS TAB PO SCH (08:06)
[2019-05-11] MEDS: METOPROLOL SUCC 50MG EXT REL TAB PO SCH ×2 (08:06→20:08)
[2019-05-11] MEDS: ASCORBIC ACID 500 MG TAB PO SCH (08:06)
[2019-05-11] MEDS: ZINC SULFATE 220 MG CAPSULE PO SCH (08:07)
[2019-05-11] MEDS ORDERED: ENALAPRIL MALEATE 10 MG TAB PO SCH (09:00)
--- NOTE | 2019-05-11 09:46 | XRay Report ---
XR chest 1V portable CLINICAL HISTORY: 83 years-old Male presenting with pneumothorax. TECHNIQUE: Portable upright AP view of the chest was obtained. COMPARISON: 05/10/2019. FINDINGS: Left subclavian pacer with leads in the right atrium and right ventricular apex. Atherosclerosis of t he aortic arch. Cardiac silhouette moderately of enlarged. Pulmonary vascular prominence. Interlobula r septal thickening. Diffuse mid to basilar predominant opacities right greater than left. A large irene re right pleural drain is positioned at the right upper lung. The previously noted right pneumothorax is not evident on the current exam allowing for portable technique. Moderate right pleural effusion. Rounded lucency projects over the right lower lung. Degenerative changes of the thoracic spine. IMPRESSION: 1. Nonvisualization of the prior right pneumothorax allowing for portable technique. Presumed resolu tion with the right pleural drain in place. 2. Moderate right pleural effusion persists. 3. Rounded lucency in the right lower lung raises concern for developing cavity in the parenchyma. 4. Diffuse infiltrates right greater than left concerning for multifocal pneumonia, unchanged. 5. Cardiomegaly with volume overload and congestive change similar to prior. Electronically signed by: Adam Montalvo M.D. 05/11/2019 9:45 AM
[2019-05-11 10:56] LABS: Base Excess ABG 6.5 mEq/L (-9-1.8); HCO3 ABG 30 mmol/L (19-24); Oxygen Saturation ABG 91.4 % (90-95); PCO2 ABG 40 mmHg (35-46); PO2 ABG 63 mm/Hg (80-95)
[2019-05-11 10:58] LABS: Allen Test Pos (Pos)
[2019-05-11] MEDS: IRON POLYSACCHARIDE COMPLEX 150 MG CAPSULE PO SCH (12:23)
--- NOTE | 2019-05-11 12:59 | Progress Note ---
DATE: 05/11/2019 Mr. Gutierrez was seen today. He does not look good to me today. He is on 6 liters 93% sat. I do not really see much of a pneumothorax, although I disagree with the radiology interpretation yesterday. He appears to have some cardiomegaly, but he also has diffuse infiltrates bilaterally. I am concerned about it, but it is not much more I could offer from a surgical standpoint. He does not have an air leak on his chest tube. His tube only drained about 30 mL. At this point, I am quite concerned about him, but I do not have much to offer.
[2019-05-11] MEDS: FUROSEMIDE 100 MG in DEXTROSE 5% 90 ML IV SCH (13:07)
[2019-05-11] MEDS: methylPREDNISolone 60 MG in SYRINGE 0 ML IV SCH ×3 (13:11→23:36)
--- NOTE | 2019-05-11 13:17 | Hospitalist Progress Note ---
Date of Service May 11, 2019 Assessment & Plan (1) Pneumothorax: Right-sided hydropneumothorax. Continue PCU level of care consult appreciated the status post right chest tube Oxygen supplement today be titrated for O2 sat 92-94, appears to be worse today as mentioned below , currently sat 93% on 6L O2 Daily weights, I/o Low-sodium diet and labs in a.m. 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 We will switch Lasix 20 mg IV twice daily to low-dose Lasix drip 3 mg IV per hour. Urine appears dark due to urobilinogen, specific gravity of the urine is not elevated. My sense that he needs more aggressive diuresis which I will start with close monitoring to renal function and I/O control blood pressure, afterload and preload Continue metoprolol, Lasix drip stopped Enalapril, To make room inpatient pressure for Lasix drip, and possible increase in metoprolol or Cardizem to control heart rate, also enalapril is another suspect for his vasculitis, he would be better off without it at this point until vasculitis and other issues are under control (9) Vasculitis: Currently off antiplatelets and anticoagulation Amiodarone was stopped by Dr. Deal on 05/05, course the half-life of amiodarone is extremely long, patient did improve after stopping amiodarone and starting steroids, not sure if the improvement is secondary to stopping the amiodarone or the steroids. At some point when patient got readmitted now he was not on any oral steroids and that might explain his low pressure due to relative adrenal insufficiency. But either way and as per family he is a vasculitis rebound and he has multiple extensive widespread lesions and both upper and lower extremities. I ordered a baseline sed rate and CRP. I started him on Solu-Medrol 60 IV every 6. ID consulted Dr. Deal and discussed the case with him, he is going to be seeing the patient at some point prior to discharge to evaluate the effect of therapy, I told him that patient is hemodynamically stable at this point and no need to see him today or tomorrow. Also enalapril was stopped for multiple reasons 1 of them is the low pressure, second reason is that it also might cause vasculitis. 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 Subjective Patient is worse today. Oxygen saturation dropped to 93% on 6 L. Discussed his case with Dr. Deal, staff radiographer, who saw the patient in the hospital recently and discontinued amiodarone, started him on steroids, Dr. Deal agreed with current plan but informed him that consult is not urgent and he does not have to see the patient today or tomorrow but eventually patient will need to be reevaluated as an inpatient to make sure that lesions are improving. Also discussed with his who is at bedside the assessment and plan in details as explained below Review of Systems 2 Respiratory: Review of system Constitutional: No fever / no chills / no sweats / no weakness / no fatigue Eyes: no blurring of vision / no eye pain / no discharge / no redness ENT: no hearing loss / no epistaxis /no swallowing problems Respiratory: Minimal cough, positive for shortness worse than yesterday Cardiovascular: no Chest pain / no lower extremity edema / no palpitation Abdomen: no pain / no nausea / no vomiting / no constipation Musculoskeletal: Bilateral significant foot pain Genitourinary: no dysuria / no incontinence / no urinary retention Neurologic: no focal weakness / no numbness/tingling / no ataxia Psychiatric: no depression symptoms / no anxiety / no insomnia Endocrine: no excessive thirst / no excessive urination Hematologic: no abnormal bleeding / no bruising / no LN swelling Skin: B/L feet ulcer with discharge Physical Exam Physical Exam: General patient appears to be in moderate acute distress HEENT: Atraumatic , normocephalic /no jaundice /no pallor /anicteric /no dry mucous membrane /normal external ear inspection Neck: Supple /no swelling /central trach Heart: S1/S2 normal/regular rate and rhythm/no gallop /no rub /no murmur Lungs: Decreased air entry bilaterally, mild eneralized wheezing both lung zamarripa, scattered rhonchi, no chest wall tenderness Abdomen: Soft/nontender/no guarding/no rebound/no organomegaly/no pulsatile mass Musculoskeletal: No swelling/no edema/no tenderness/normal range of motion Neuro exam: Awake alert oriented 3/cranial nerves II through XII appear to be intact/sensation intact/moves all extremities/no abnormal movements Psychiatric evaluation: No depressed mood/normal affect Skin: wide spread vasculitic rash in both lower and upper extrimities Extremity: B/L feet ulcers , with discharge , ranging from 3-5 cm Endocrine/lymphatic: No obvious lymphadenopathy /no lymphedema Results & Data Vital Signs (Past 12 Hours) Vital Signs Temp Pulse Pulse Resp BP Pulse Ox 05/11/19 11:43 36.9 C 101 H 21 115/49 L 93 05/11/19 07:51 112 H 106/60 05/11/19 07:41 36.7 C 88 22 150/96 H 90 05/11/19 04:35 36.9 C 113 H 19 93/61 L 91 PG Care Time/CCT Total # of Minutes Spent Total Time Spent with Patient: 45 minutes total critical care time spent is greater than 50% in coordination of care (as documented) at patient's floor/unit and/or counseling patient/family discussion of care with nursing staff Critical Care Time: Yes Total Critical Care Time: 45 Critical Care Time Critical Care Time: Yes Total Critical Care Time: 45 Attestation: 45 minutes of critical care time were spent on this encounter. Was this 45 minutes total time spent is greater than 50% in coordination of care (as documented) at patient's floor/unit and/or counseling patient/family discussion of care with nursing staff (1) Pneumothorax Pneumothorax type: chronic pneumothorax Qualified Code(s): J93.81 - Chronic pneumothorax (2) CHF (congestive heart failure) Heart failure chronicity: unspecified Heart failure type: unspecified Qu alified Code(s): I50.9 - Heart failure, unspecified
[2019-05-11] MEDS: OXYCODONE/ACETAMINOPHEN 5mg/325mg TAB PO PRN (13:51)
[2019-05-11 17:29] LABS: Ferritin 1424.8 ng/ml (8-388)
[2019-05-11] MEDS: AMMONIUM LACTATE 12% LOTION 225 GM BTL EXT SCH (20:07)
[2019-05-11] MEDS: ATORVASTATIN 40 MG TAB PO SCH (20:08)
[2019-05-12] MEDS: methylPREDNISolone 60 MG in SYRINGE 0 ML IV SCH ×4 (06:12→23:47)
[2019-05-12 06:34] LABS: Estimated Average Glucose 151 mg/dl; Hemoglobin A1C 6.9 % (4.5-5.6)
--- NOTE | 2019-05-12 07:00 | XRay Report ---
XR chest 1V portable CLINICAL HISTORY: Chest tube. Tube position COMPARISON STUDY: 05/11/2019 FINDINGS: Stable cardiomegaly. Unchanged position of right-sided chest tube. Lucency in the right jessica g base is poorly seen. Slight increase in parenchymal infiltrative change left base. IMPRESSION: 1. Mixed findings. 2. No significant residual pneumothorax. 3. Some progressive infiltrative changes left base. The above report was generated using voice recognition software. It may contain grammatical, syntax or spelling errors. Electronically signed by: Manuel Cornejo M.D. 05/12/2019 6:59 AM
[2019-05-12 07:26] LABS: Basophils # (auto) 0.01 K/uL (0-0.2); Basophils % (auto) 0.1 %; Hematocrit (blood only) 26.9 % (42-52); Hemoglobin 8.5 g/dL (14.0-18.0); Immature Granulocytes # (auto) 0.04 K/uL (0.00-0.02); Immature Granulocytes % (auto) 0.5 %; Lymphocytes # (auto) 0.28 K/uL (1.2-3.4); Lymphocytes % (auto) 3.2 %; Mean Corpuscular Hemoglobin 29.4 pg (25-34); Mean Corpuscular Hgb Conc 31.6 g/dL (32-36); Mean Corpuscular Volume 93.1 fL (80-100); Mean Platelet Volume 10.4 fL (7.4-10.4); Monocytes # (auto) 0.32 K/uL (0.11-0.59); Monocytes % (auto) 3.7 %; Neutrophils % (auto) 92.5 %; Platelet Count 206 K/uL (130-400); RDW Coefficient of Variation 17.6 % (11.5-14.5); RDW Standard Deviation 60.3 fL (36.4-46.3); Red Blood Count 2.89 M/uL (4.7-6.1); White Blood Count 8.65 K/uL (4.8-10.8)
[2019-05-12] MEDS: PANTOprazole 40 MG TAB PO SCH (07:57)
[2019-05-12] MEDS: MULTIVITAMIN TAB PO SCH ×2 (07:57→20:04)
[2019-05-12] MEDS: CEFEPIME 2,000 MG in SYRINGE 7.5 ML IV SCH ×2 (07:57→20:02)
[2019-05-12] MEDS: DULOXETINE HCL 60 MG CAP PO SCH (07:57)
[2019-05-12] MEDS: METOPROLOL SUCC 50MG EXT REL TAB PO SCH ×2 (07:57→20:04)
[2019-05-12] MEDS: CHOLECALCIFEROL 1,000 UNITS TAB PO SCH (07:58)
[2019-05-12] MEDS: GABAPENTIN 300 MG CAP PO SCH ×2 (07:58→20:03)
[2019-05-12] MEDS: DOCUSATE SODIUM 100 MG CAP PO SCH ×2 (07:58→20:03)
[2019-05-12 07:59] LABS: Albumin Level 1.8 gm/dl (3.4-5.0); BUN Creatinine Ratio 28.4 (10-20); Calcium 8.8 mg/dl (8.5-10.1); Creatinine Clr Calc Pharmacy 76.2 ml/min; Est GFR (African American) 87.8; Est GFR (Non-African American) 75.7; Potassium 3.6 mmol/L (3.5-5.1)
[2019-05-12] MEDS: ZINC SULFATE 220 MG CAPSULE PO SCH (07:59)
[2019-05-12] MEDS: dilTIAZem ER 120 MG CAPCR PO SCH (07:59)
[2019-05-12] MEDS: ASCORBIC ACID 500 MG TAB PO SCH (07:59)
[2019-05-12] MEDS: LACTOBACILLUS ACIDOPHILUS 1 GM PACK PO SCH ×3 (07:59→17:50)
[2019-05-12] MEDS: FOLIC ACID 400 MCG TAB PO SCH (07:59)
[2019-05-12] MEDS: CALCIUM 600MG + VIT D 400 IU TAB PO SCH (07:59)
[2019-05-12 08:04] LABS: Albumin Globulin Ratio 0.4 (0.9-2); Bilirubin,Total 0.8 mg/dl (0.2-1); Globulin 4.2 gm/dl (2.5-4.0)
[2019-05-12] MEDS: COLLAGENASE OINT 30 GM TUBE TOP SCH (08:07)
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
[2019-05-12] MEDS: FUROSEMIDE 100 MG in DEXTROSE 5% 90 ML IV SCH (12:01)
[2019-05-12] MEDS: IRON POLYSACCHARIDE COMPLEX 150 MG CAPSULE PO SCH (12:05)
--- NOTE | 2019-05-12 13:19 | Progress Note ---
DATE: 05/12/2019 Mr. Gutierrez was evaluated today. I really do not see a pneumothorax; however, his infiltrates are persistent especially in the lower lobes. He does not have an air leak. He really has not drained much in the way of fluid. He does not look good. I think his skin lesions on his arms and his leg looked worse to me. He is also having more pain in his lower legs. His A-a gradient is stable but still much higher than I would like. I have asked Dr. Kareem Mederos to evaluate him from a pulmonary standpoint. I do not think we have much more to offer, but I will continue to follow.
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
[2019-05-12] MEDS: ALBUT/IPRATROP 3MG/0.5MG NEB 3 ML VIAL NEB SCH ×2 (15:48→19:18)
[2019-05-12] MEDS: ATORVASTATIN 40 MG TAB PO SCH (20:04)
[2019-05-12] MEDS: AMMONIUM LACTATE 12% LOTION 225 GM BTL EXT SCH (20:05)
[2019-05-12] MEDS: OXYCODONE/ACETAMINOPHEN 5mg/325mg TAB PO PRN (20:06)
--- NOTE | 2019-05-12 22:32 | Hospitalist Progress Note ---
Date of Service May 12, 2019 Assessment & Plan (1) Pneumothorax: Right-sided hydropneumothorax. Continue PCU level of care consult appreciated the status post right chest tube Oxygen supplement today be titrated for O2 sat 92-94; Today appears to be slightly better. Daily weights, I/o Low-sodium diet and labs in a.m. 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 We will switch Lasix 20 mg IV twice daily to low-dose Lasix drip 3 mg IV per hour. Urine appears dark due to urobilinogen, specific gravity of the urine is not elevated. My sense that he needs more aggressive diuresis which I will start with close monitoring to renal function and I/O; Creatinine has improved. control blood pressure, afterload and preload Continue metoprolol, Lasix drip stopped Enalapril, To make room inpatient pressure for Lasix drip, and possible increase in metoprolol or Cardizem to control heart rate, also enalapril is another suspect for his vasculitis, he would be better off without it at this point until vasculitis and other issues are under control (9) Vasculitis: Currently off antiplatelets and anticoagulation Amiodarone was stopped by Dr. Deal on 05/05, course the half-life of amiodarone is extremely long, patient did improve after stopping amiodarone and starting steroids, not sure if the improvement is secondary to stopping the amiodarone or the steroids. At some point when patient got readmitted now he was not on any oral steroids and that might explain his low pressure due to relative adrenal insufficiency. But either way and as per family he is a vasculitis rebound and he has multiple extensive widespread lesions and both upper and lower extremities. Discussed with Dr. Deal. Will titrate patient back to his regular dose of prednisone tomorrow. Patient has vasuclitis which appears to now be affecting his extremities. As noted in previous hospital stay, patient had biopsy of lung which do not point towards an inflmmtory process It is likely amiodarone induced toxicity. Also enalapril was stopped for multiple reasons 1 of them is the low pressure, second reason is that it also might cause vasculitis. 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 Subjective 83 yo male is a poor historian. His is at bedside and is updated. Patient appears to be breathing better than yesterday. Review of Systems Respiratory: Constitutional: No fever / no chills / no sweats / no weakness / no fatigue Eyes: no blurring of vision / no eye pain / no discharge / no redness ENT: no hearing loss / no epistaxis /no swallowing problems Respiratory: Minimal cough Cardiovascular: no Chest pain / no lower extremity edema / no palpitation Abdomen: no pain / no nausea / no vomiting / no constipation Musculoskeletal: Bilateral significant foot pain Genitourinary: no dysuria / no incontinence / no urinary retention Neurologic: no focal weakness / no numbness/tingling / no ataxia Psychiatric: no depression symptoms / no anxiety / no insomnia Endocrine: no excessive thirst / no excessive urination Hematologic: no abnormal bleeding / no bruising / no LN swelling Skin: B/L feet ulcer with discharge Physical Exam Physical Exam: General patient appears to be in no distress at this time. HEENT: Atraumatic , normocephalic /no jaundice /no pallor /anicteric /no dry mucous membrane /normal external ear inspection Neck: Supple /no swelling /central trach Heart: S1/S2 normal/regular rate and rhythm/no gallop /no rub /no murmur Lungs: Decreased air entry bilaterally,no chest wall tenderness Abdomen: Soft/nontender/no guarding/no rebound/no organomegaly/no pulsatile mass Musculoskeletal: No swelling/no edema/no tenderness/normal range of motion Neuro exam: Awake alert oriented 3/cranial nerves II through XII appear to be intact/sensation intact/moves all extremities/no abnormal movements Psychiatric evaluation: No depressed mood/normal affect Skin: wide spread vasculitic rash in both lower and upper extrimities Extremity: B/L feet are wrapped and dressed. Endocrine/lymphatic: No obvious lymphadenopathy /no lymphedema Results & Data Vital Signs (Past 12 Hours) Vital Signs Temp Pulse Resp BP Pulse Ox 05/12/19 19:43 36.5 C 127 H 22 114/68 96 05/12/19 19:18 101 H 20 95 05/12/19 15:50 76 18 94 05/12/19 15:00 36.3 C L 86 16 102/61 98 05/12/19 11:05 36.4 C L 91 H 24 104/61 98 PG Care Time/CCT Total # of Minutes Spent Total Time Spent with Patient: Total time spent is greater than 50% in coordination of care (as documented) at patient's floor/unit and/or counseling patient: (1) Pneumothorax Pneumothorax type: chronic pneumothorax Qualified Code(s): J93.81 - Chronic pneumothorax (2) CHF (congestive heart failure) Heart failure chronicity: unspecified Heart failure type: unspecified Qualified Code(s): I50.9 - Heart failure, unspecified
[2019-05-13] MEDS: methylPREDNISolone 60 MG in SYRINGE 0 ML IV SCH (05:32)
[2019-05-13 07:07] LABS: Basophils # (auto) 0.01 K/uL (0-0.2); Basophils % (auto) 0.1 %; Hematocrit (blood only) 27.6 % (42-52); Hemoglobin 8.9 g/dL (14.0-18.0); Immature Granulocytes # (auto) 0.05 K/uL (0.00-0.02); Immature Granulocytes % (auto) 0.4 %; Lymphocytes # (auto) 0.35 K/uL (1.2-3.4); Lymphocytes % (auto) 2.7 %; Mean Corpuscular Hemoglobin 29.8 pg (25-34); Mean Corpuscular Hgb Conc 32.2 g/dL (32-36); Mean Corpuscular Volume 92.3 fL (80-100); Mean Platelet Volume 10.4 fL (7.4-10.4); Monocytes # (auto) 0.59 K/uL (0.11-0.59); Monocytes % (auto) 4.6 %; Neutrophils # (auto) 11.76 K/uL (1.4-6.5); Neutrophils % (auto) 92.2 %; Nucleated RBC # (auto) 0.04 K/uL (0-0); Nucleated RBC % (auto) 0.3 %; Platelet Count 272 K/uL (130-400); RDW Coefficient of Variation 17.5 % (11.5-14.5); RDW Standard Deviation 58.7 fL (36.4-46.3); Red Blood Count 2.99 M/uL (4.7-6.1); White Blood Count 12.76 K/uL (4.8-10.8)
[2019-05-13] MEDS: ALBUT/IPRATROP 3MG/0.5MG NEB 3 ML VIAL NEB SCH ×4 (07:16→19:08)
[2019-05-13 07:33] LABS: BUN Creatinine Ratio 26.8 (10-20); Calcium 8.8 mg/dl (8.5-10.1); Creatinine Clr Calc Pharmacy 61.7 ml/min; Est GFR (African American) 68.1; Est GFR (Non-African American) 58.7; Magnesium 2.3 mg/dl (1.8-2.4); Potassium 3.5 mmol/L (3.5-5.1)
[2019-05-13 07:38] LABS: Albumin Globulin Ratio 0.4 (0.9-2); Bilirubin,Total 0.5 mg/dl (0.2-1); Globulin 4.5 gm/dl (2.5-4.0); Total Protein 6.5 gm/dl (6.4-8.2)
[2019-05-13] MEDS: CEFEPIME 2,000 MG in SYRINGE 7.5 ML IV SCH ×2 (08:13→21:10)
[2019-05-13] MEDS: FOLIC ACID 400 MCG TAB PO SCH (08:13)
[2019-05-13] MEDS: CHOLECALCIFEROL 1,000 UNITS TAB PO SCH (08:13)
[2019-05-13] MEDS: MULTIVITAMIN TAB PO SCH ×2 (08:14→20:35)
[2019-05-13] MEDS: ZINC SULFATE 220 MG CAPSULE PO SCH (08:14)
[2019-05-13] MEDS: DULOXETINE HCL 60 MG CAP PO SCH (08:14)
[2019-05-13] MEDS: DOCUSATE SODIUM 100 MG CAP PO SCH ×2 (08:14→20:36)
[2019-05-13] MEDS: dilTIAZem ER 120 MG CAPCR PO SCH (08:14)
[2019-05-13] MEDS: PANTOprazole 40 MG TAB PO SCH (08:14)
[2019-05-13] MEDS: CALCIUM 600MG + VIT D 400 IU TAB PO SCH (08:14)
[2019-05-13] MEDS: GABAPENTIN 300 MG CAP PO SCH ×2 (08:14→20:36)
[2019-05-13] MEDS: METOPROLOL SUCC 50MG EXT REL TAB PO SCH ×2 (08:14→19:38)
[2019-05-13] MEDS: COLLAGENASE OINT 30 GM TUBE TOP SCH (08:15)
[2019-05-13] MEDS: LACTOBACILLUS ACIDOPHILUS 1 GM PACK PO SCH ×3 (08:15→17:55)
[2019-05-13] MEDS: ASCORBIC ACID 500 MG TAB PO SCH (08:15)
--- NOTE | 2019-05-13 11:53 | Pulmonology Progress Note ---
Date of Service May 13, 2019 Assessment & Plan (1) Acute and chronic respiratory failure with hypoxia: The patient's status does not seem to be improving. Based upon oxygenation needs it may be worsening. His lung sounds slightly improved on examination. Would continue current medications. He was switched to prednisone 60 mg daily. 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 He is not a good historian and no family members were with him during this evaluation. He denies shortness of breath. He has had periods of confusion as per nursing. His speech is not as clear as it had been. As per nursing he is requiring more oxygen today, currently at 7 L. Physical Exam Physical Exam: The patient is an 83-year-old male who was cooperative. Speech was slightly garbled. I do not believe he is totally oriented. Temperature is 36.8. Pupils were reactive. Oxygen mask is in place. Face remains mildly puffy. Neck is large. Cardiac rate 103/min. The rhythm was irregularly irregular. Blood pressure 148/39. Lung zamarripa revealed mild wheeze and rhonchi on the right. There is overall been improvement in the lung sounds compared with yesterday. Saturation currently is 96% with oxygen mask at 7. Respiratory rate 20 breaths/min. Chest tube is in place. There is an air leak. Extremities continue to show +3 edema in the lower extremities and at least +2 in the uppers. Vasculitic changes are noted in the lower extremities and in the forearms. Results & Data Vital Signs (Past 12 Hours) Vital Signs Temp Pulse Pulse Resp BP Pulse Ox 05/13/19 11:30 36.8 C 103 H 20 148/39 H 96 05/13/19 11:21 96 H 18 93 05/13/19 07:16 90 22 93 05/13/19 07:04 36.9 C 91 H 22 133/63 93 05/13/19 03:20 36.5 C 74 19 125/76 96 05/13/19 01:58 119 H Laboratory Results CBC today shows white count 12.76. Hemoglobin 8.9. Platelets 272,000. Electrolytes show sodium 135 potassium 3.5 chloride 94 bicarb 34. BUN is 31 with creatinine 1.16. These are somewhat higher than yesterday when the BUN was 27 and creatinine was 0.94. Liver functions today are somewhat higher with AST up to 78, ALT increased to 89, and alk phos increased to 125. proBNP today 3501 and yesterday was 1630. PG Care Time/CCT Total # of Minutes Spent Total Time Spent with Patient: Total time spent is greater than 50% in coordination of care (as documented) at patient's floor/unit and/or counseling patient:
[2019-05-13] MEDS: IRON POLYSACCHARIDE COMPLEX 150 MG CAPSULE PO SCH (12:07)
[2019-05-13] MEDS: FUROSEMIDE 100 MG in DEXTROSE 5% 90 ML IV SCH (12:12)
--- NOTE | 2019-05-13 12:53 | Infectious Disease Progress Nt ---
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 would continue cefepime for now due to resp distress and concern for developing pna. obtain sputum culture if able. will follow. (2) Acute and chronic respiratory failure with hypoxia: Subjective pt with increased O2 requirements. pulm following, adjusting steroid dosing. remains on cefepime, afebrile overnight. wbc 12, creat 1.1 no micro from this admission to review. remains on supplemental O2 no new imaging. Results & Data Vital Signs (Past 12 Hours) Vital Signs Temp Pulse Pulse Resp BP Pulse Ox 05/13/19 11:30 36.8 C 103 H 20 148/39 H 96 05/13/19 11:21 96 H 18 93 05/13/19 07:16 90 22 93 05/13/19 07:04 36.9 C 91 H 22 133/63 93 05/13/19 03:20 36.5 C 74 19 125/76 96 05/13/19 01:58 119 H PG Care Time/CCT Total # of Minutes Spent Total Time Spent with Patient: Total time spent is greater than 50% in coordination of care (as documented) at patient's floor/unit and/or counseling patient:
[2019-05-13] MEDS ORDERED: PHARMACY GLYCEMIC MGMT CONSULT PRN (12:59)
[2019-05-13] MEDS ORDERED: GLUCAGON FOR INJ 1 MG VIAL IM PRN (13:00)
[2019-05-13] MEDS ORDERED: GLUCOSE 40% GEL 15 GM TUBE PO PRN (13:00)
[2019-05-13] MEDS ORDERED: INSULIN HUMAN NPH SC ONE (13:00)
[2019-05-13] MEDS ORDERED: CARBOHYDRATES FOR HYPOGLYCEMIA PO PRN (13:00)
[2019-05-13] MEDS ORDERED: GLUCOSE 10 TABS/TUBE PO PRN (13:00)
[2019-05-13] MEDS ORDERED: DEXTROSE 50% 50 ML SYRINGE IV PRN (13:00)
[2019-05-13] MEDS: INSULIN ASPART 100 UNITS/ML 3 ML PEN SC SCH ×3 (14:54→20:35)
--- NOTE | 2019-05-13 14:59 | Pharmacy Report ---
Glycemic Control Consultation - Date of Service May 13, 2019 - Scope Scope: Glycemic Pharmacist consulted by Dr West on 05/13 for glycemic control and to write orders per [facility] inpatient glycemic control protocol - Objective Weight: 119.2 kg Accuchecks BSG (last 24hrs): 05/13/19 05/13/19 06:37 14:16 Glucose 249 H POC Glucose 287 H Laboratory Data (last 24hrs): 05/13/19 06:37 Potassium 3.5 Carbon Dioxide 34 H Anion Gap 7.0 Creatinine 1.16 Est Cr Clr Drug Dosing 61.7 HbA1c: Hemoglobin A1c 6.9 % (4.5-5.6) H 05/11/19 05:25 - Recent Pertinent Medications Outpatient Anti-diabetic Regimen: * n/a * A1c = 6.9 % 05/11 Risk Factors for Insulin Resistance: * Steroids: prednisone 60 mg * Infection: cefepime * Diet: T2DM - Assessment & Plan Assessment & Plan: ASSESSMENT: * 83 year old admitted with pneumothorax. Prior to hospital receiving prednisone now with 6.9 A1C on admission placing him in diabetic category. PMHx significant or CAD, CHF, afib * Patient previously on IV steroids since admission, placed on hold this AM and then transitioned to prednisone 60 mg daily (home dose). Pharmacy consulted to follow patient at lunch time. * Spoke with nurse, patient already ate, gave NPH 35 units x 1 (~0.4 unit/kg AdjBW), then started novolog scale stat PLAN FOR INPATIENT GLYCEMIC CONTROL: * Basal insulin * NPH 35 x 1, will need to order 8/14 AM * Bolus insulin * NovoLog per scale ACHS or Q6hrs while NPO * Goal Range: Low 120 mg/dL - High 160 mg/dL * Correction Factor: 15 mg/dL/unit * Nutritional / Prandial insulin per carb ratio of 1 unit per 5 grams CHO consumed * Please note that the plan above was derived based on current level of insulin resistance and hospital stress. These recommendations are appropriate for inpati ent admission only. Plan of care upon discharge will need to be reassessed to avoid potential outpatient hypo/hyperglycemia. Thank you.
--- NOTE | 2019-05-13 16:04 | Progress Note ---
DATE: 05/13/2019 Mr. Gutierrez was seen today on 05/13/2019. Mr. Gutierrez is still struggling, on 7 liters of O2 now. He is having pain in skin of his arms and his legs from the vasculitis. His chest tube has a small air leak today. He only drained about 50 mL of fluid. At this point, I would not remove this chest tube. I greatly appreciate Dr. Jonathan Mccray's pulmonary input. It is possible we are dealing with amiodarone toxicity or this could be the leukocytoclastic vasculitis. I wish I had more to offer him.
[2019-05-13] MEDS ORDERED: METOPROLOL TARTRATE 1 MG/ML VIAL IV ONE ×3 (20:29→21:15)
[2019-05-13] MEDS: ATORVASTATIN 40 MG TAB PO SCH (20:36)
[2019-05-13] MEDS: AMMONIUM LACTATE 12% LOTION 225 GM BTL EXT SCH (20:37)
[2019-05-13] MEDS: SODIUM CHLORIDE 0.9% 500 ML IV SCH (20:48)
--- NOTE | 2019-05-13 23:51 | Hospitalist Progress Note ---
Date of Service May 13, 2019 Assessment & Plan (1) Pneumothorax: Right-sided hydropneumothorax. Continue PCU level of care consult appreciated the status post right chest tube Oxygen supplement today be titrated for O2 sat 92-94; His oxygen requirement have worsened today. Daily weights, I/o Low-sodium diet and labs in a.m. 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 We will switch Lasix 20 mg IV twice daily to low-dose Lasix drip 3 mg IV per hour. Urine appears dark due to urobilinogen, specific gravity of the urine is not elevated. My sense that he needs more aggressive diuresis which I will start with close monitoring to renal function and I/O; Creatinine has improved. control blood pressure, afterload and preload Continue metoprolol, Lasix drip stopped Enalapril, To make room inpatient pressure for Lasix drip, and possible increase in metoprolol or Cardizem to control heart rate, also enalapril is another suspect for his vasculitis, he would be better off without it at this point until vasculitis and other issues are under control (9) Vasculitis: Currently off antiplatelets and anticoagulation Amiodarone was stopped by Dr. Deal on 05/05, course the half-life of amiodarone is extremely long, patient did improve after stopping amiodarone and starting steroids, not sure if the improvement is secondary to stopping the amiodarone or the steroids. At some point when patient got readmitted now he was not on any oral steroids and that might explain his low pressure due to relative adrenal insufficiency. But either way and as per family he is a vasculitis rebound and he has multiple extensive widespread lesions and both upper and lower extremities. Discussed with Dr. Deal. Will titrate patient back to his regular dose of prednisone. Patient received solu-medrol today. Patient has vasculitis which appears to now be affecting his extremities. 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 Also enalapril was stopped for multiple reasons 1 of them is the low pressure, second reason is that it also might cause vasculitis. 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 Subjective Patient appears more confused today. He has required more oxygen today as well. Family is at bedside and are updated. Review of Systems Review of Systems: All systems reviewed & are unremarkable except as noted in HPI & below Physical Exam Physical Exam: General patient appears to be in no distress at this time. HEENT: Atraumatic , normocephalic /no jaundice /no pallor /anicteric /no dry mucous membrane /normal external ear inspection Neck: Supple /no swelling /central trach Heart: S1/S2 normal/regular rate and rhythm/no gallop /no rub /no murmur Lungs: Decreased air entry bilaterally,no chest wall tenderness Abdomen: Soft/nontender/no guarding/no rebound/no organomegaly/no pulsatile mass Musculoskeletal: No swelling/no edema/no tenderness/normal range of motion Neuro exam: Awake alert oriented 3/cranial nerves II through XII appear to be intact/sensation intact/moves all extremities/no abnormal movements Psychiatric evaluation: No depressed mood/normal affect Skin: wide spread vasculitic rash in both lower and upper extremities Extremity: B/L feet are wrapped and dressed. Endocrine/lymphatic: No obvious lymphadenopathy /no lymphedema Results & Data Vital Signs (Past 12 Hours) Vital Signs Temp Pulse Pulse Pulse Pulse Resp BP 05/13/19 23:35 36.7 C 118 H 20 05/13/19 21:37 104 H 05/13/19 21:18 119 H 146/77 H 05/13/19 21:16 117 H 05/13/19 20:45 134 H 149/84 H 05/13/19 20:30 129 H 132/68 05/13/19 19:55 05/13/19 19:16 36.6 C 114 H 20 05/13/19 19:08 105 H 20 05/13/19 15:34 100 H 18 05/13/19 14:57 36.6 C 100 H 18 BP Pulse Ox 05/13/19 23:35 118/63 94 05/13/19 21:37 140/71 05/13/19 21:18 05/13/19 21:16 146/77 H 05/13/19 20:45 05/13/19 20:30 05/13/19 19:55 94 05/13/19 19:16 130/77 05/13/19 19:08 94 05/13/19 15:34 98 05/13/19 14:57 128/66 96 PG Care Time/CCT Total # of Minutes Spent Total Time Spent with Patient: Total time spent is greater than 50% in coordination of care (as documented) at patient's floor/unit and/or counseling patient: (1) Pneumothorax Pneumothorax type: chronic pneumothorax Qualified Code(s): J93.81 - Chronic pneumothorax (2) CHF (congestive heart failure) Heart failure chronicity: unspecified Heart failure type: unspecified Qualified Code(s): I50.9 - Heart failure, unspecified
[2019-05-14] MEDS: INSULIN ASPART 100 UNITS/ML 3 ML PEN SC SCH ×6 (00:04→20:30)
--- NOTE | 2019-05-14 07:13 | XRay Report ---
XR chest 1V portable CLINICAL HISTORY: pneumothorax dyspnea COMPARISON STUDY: 05/12/2019 FINDINGS: Right-sided chest tube unchanged in position. No significant residual pneumothorax. Diffuse bilateral parenchymal infiltrative change slightly progressive involving the left hemithorax and rig ht base. Stable cardiomegaly. IMPRESSION: Slightly progressive bilateral parenchymal infiltrative change. Stable cardiomegaly. No current evidence for pneumothorax. The above report was generated using voice recognition software. It may contain grammatical, syntax or spelling errors. Electronically signed by: Manuel Cornejo M.D. 05/14/2019 7:12 AM
[2019-05-14 07:16] LABS: Basophils # (auto) 0.02 K/uL (0-0.2); Basophils % (auto) 0.1 %; Hematocrit (blood only) 27.6 % (42-52); Hemoglobin 8.9 g/dL (14.0-18.0); Immature Granulocytes # (auto) 0.08 K/uL (0.00-0.02); Immature Granulocytes % (auto) 0.5 %; Lymphocytes # (auto) 0.47 K/uL (1.2-3.4); Lymphocytes % (auto) 3.1 %; Mean Corpuscular Hemoglobin 29.9 pg (25-34); Mean Corpuscular Hgb Conc 32.2 g/dL (32-36); Mean Corpuscular Volume 92.6 fL (80-100); Mean Platelet Volume 10.1 fL (7.4-10.4); Monocytes # (auto) 0.77 K/uL (0.11-0.59); Monocytes % (auto) 5.2 %; Neutrophils # (auto) 13.59 K/uL (1.4-6.5); Neutrophils % (auto) 91.1 %; Nucleated RBC # (auto) 0.05 K/uL (0-0); Nucleated RBC % (auto) 0.3 %; Platelet Count 271 K/uL (130-400); RDW Coefficient of Variation 17.5 % (11.5-14.5); RDW Standard Deviation 59.2 fL (36.4-46.3); Red Blood Count 2.98 M/uL (4.7-6.1); White Blood Count 14.93 K/uL (4.8-10.8)
[2019-05-14] MEDS: ALBUT/IPRATROP 3MG/0.5MG NEB 3 ML VIAL NEB SCH ×4 (07:17→19:20)
[2019-05-14 07:44] LABS: Albumin Level 2.1 gm/dl (3.4-5.0); BUN Creatinine Ratio 25.4 (10-20); Calcium 8.8 mg/dl (8.5-10.1); Creatinine Clr Calc Pharmacy 70.9 ml/min; Est GFR (African American) 81.4; Est GFR (Non-African American) 70.3; Potassium 3.2 mmol/L (3.5-5.1)
[2019-05-14 07:49] LABS: Albumin Globulin Ratio 0.5 (0.9-2); Bilirubin,Total 0.6 mg/dl (0.2-1); Globulin 4.5 gm/dl (2.5-4.0); Total Protein 6.6 gm/dl (6.4-8.2)
[2019-05-14] MEDS: predniSONE 20 MG TAB PO SCH (07:54)
[2019-05-14] MEDS: DULOXETINE HCL 60 MG CAP PO SCH (07:55)
[2019-05-14] MEDS: CHOLECALCIFEROL 1,000 UNITS TAB PO SCH (07:55)
[2019-05-14] MEDS: DOCUSATE SODIUM 100 MG CAP PO SCH ×2 (07:55→20:11)
[2019-05-14] MEDS: PANTOprazole 40 MG TAB PO SCH (07:55)
[2019-05-14] MEDS: MULTIVITAMIN TAB PO SCH ×2 (07:55→20:11)
[2019-05-14] MEDS: CALCIUM 600MG + VIT D 400 IU TAB PO SCH (07:56)
[2019-05-14] MEDS: ZINC SULFATE 220 MG CAPSULE PO SCH (07:56)
[2019-05-14] MEDS: ASCORBIC ACID 500 MG TAB PO SCH (07:56)
[2019-05-14] MEDS: GABAPENTIN 300 MG CAP PO SCH ×2 (07:56→20:12)
[2019-05-14] MEDS: FOLIC ACID 400 MCG TAB PO SCH (07:56)
[2019-05-14] MEDS: LACTOBACILLUS ACIDOPHILUS 1 GM PACK PO SCH ×3 (07:57→16:40)
[2019-05-14] MEDS: METOPROLOL SUCC 50MG EXT REL TAB PO SCH ×2 (07:57→20:13)
[2019-05-14] MEDS: dilTIAZem ER 120 MG CAPCR PO SCH (07:59)
[2019-05-14] MEDS: COLLAGENASE OINT 30 GM TUBE TOP SCH (08:00)
[2019-05-14] MEDS ORDERED: INSULIN HUMAN NPH SC SCH (08:15)
[2019-05-14] MEDS: CEFEPIME 2,000 MG in SYRINGE 7.5 ML IV SCH ×2 (08:19→21:35)
--- NOTE | 2019-05-14 10:34 | Infectious Disease Progress Nt ---
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 would continue cefepime for now due to resp distress and concern for developing pna. Worsening infiltrate on cxr today, ? related to amio toxicity or developing pna. Also with increased wbc of 14 today. Certainly would be concerned for developing pna and would suggest addition of Dapto emperically for ? MRSA, however, pt states he is interested in discussing end of life care with his family. for now, I will start on dapto pending further decisions made regarding code status/escalation of care. (2) Acute and chronic respiratory failure with hypoxia: Subjective pt seen in followup, oob to chair, still requiring high level O2 via mask, remains on 7L. During exam pt is removing mask, O2 sat 74-75% on RA. afebrile. Remains on Cefepime, tolerating well. CXR repeated today, worsening infiltrate noted. chest tube remains in place. wbc increased to 14, creat 1. no new micro. previous blood cultures negative. remains on steroids. Pt is tearful on exam. states he no longer wants to be in pain, states he feels he can longer continue at current state. States he would like to discuss end of life matters with his and family. He denies any cough or sob although O2 sat are in 70's on RA. no cough. Review of Systems Review of Systems: All systems reviewed & are unremarkable except as noted in HPI & below Physical Exam Constitutional: WD/WN, vitals as above + acute distress and + ill appearing Eyes: PERRL, conjunctivae normal, anicteric sclerae ENMT: Mouth: + muffled voice and + dry oral mucous membranes Neck: normal visual inspection Respiratory: + respiratory distress and + labored breathing Auscultation: + diminished lung sounds and + rhonchi Cardiovascular: RRR, no murmur, no edema Gastrointestinal (Abdomen): normal bowel sounds, soft, nontender, no hepatosplenomegaly Musculoskeletal: no cyanosis or clubbing, extremities motor strength 5/5 Skin: + rash and + lesion Psychiatric: A+Ox3, euthymic affect tearful Results & Data Vital Signs (Past 12 Hours) Vital Signs Temp Pulse Pulse Pulse Resp BP Pulse Ox 05/14/19 08:00 114 H 08/14/19 07:33 36.7 C 106 H 22 118/67 90 05/14/19 07:17 101 H 18 90 05/14/19 03:12 36.4 C L 108 H 22 100/64 95 05/13/19 23:35 36.7 C 118 H 20 118/63 94 PG Care Time/CCT Total # of Minutes Spent Total Time Spent with Patient: Total time spent is greater than 50% in emergency response coordinator rdination of care (as documented) at patient's floor/unit and/or counseling patient:
[2019-05-14] MEDS ORDERED: METOPROLOL SUCC 25MG EXT REL TAB PO ONE (10:59)
[2019-05-14] MEDS: IRON POLYSACCHARIDE COMPLEX 150 MG CAPSULE PO SCH (11:41)
[2019-05-14] MEDS: DAPTOmycin 350 MG in SYRINGE 0 ML IV SCH (11:41)
[2019-05-14] MEDS: OXYCODONE/ACETAMINOPHEN 5mg/325mg TAB PO PRN ×2 (12:18→16:39)
--- NOTE | 2019-05-14 13:32 | Pharmacy Report ---
Pharmacy Glycemic Short Note 2 - Date of Service May 14, 2019 - Glycemic Short BSG Results (Last 24 hours): 05/13/19 05/13/19 05/13/19 14:16 16:21 20:30 Glucose POC Glucose 287 H 287 H 286 H 05/14/19 05/14/19 05/14/19 00:02 04:13 06:46 Glucose 63 L POC Glucose 204 H 78 05/14/19 05/14/19 07:18 11:37 Glucose POC Glucose 94 120 H OUTPATIENT ANTIDIABETIC REGIMEN: * None * A1c 6.9% - indicates diagnosis of diabetes, suspect related to recent steroid use ASSESSMENT: 05/14 * Mr. Gutierrez rec'd 70 units of insulin yesterday and BSGs improved significantly into this AM. He had a low of 63 mg/dL on PRP but was 93 mg/dL on POC result. * I initially put in orders for additional NPH to cover the once daily prednisone and loosened Novolog parameters but noticed that all insulins were held per MD this AM. Nurse reports that patient possibly transitioning to comfort care and with very little po intake today. * BSG prior to lunch is in range so okay with holding AM NPH 05/13 * 83 year old admitted with pneumothorax. Prior to hospital receiving prednisone now with 6.9 A1C on admission placing him in diabetic category. PMHx significant or CAD, CHF, afib * Patient previously on IV steroids since admission, placed on hold this AM and then transitioned to prednisone 60 mg daily (home dose). Pharmacy consulted to follow patient at lunch time. * Spoke with nurse, patient already ate, gave NPH 35 units x 1 (~0.4 unit/kg AdjBW), then started novolog scale stat PLAN FOR INPATIENT GLYCEMIC CONTROL: * Basal insulin - hold for now until po intake/comfort measures status evaluated on 05/15 * Bolus insulin - loosen CF/CR * NovoLog per scale ACHS or Q6hrs while NPO * Goal Range: Low 120 mg/dL - High 160 mg/dL * Correction Factor: 20 mg/dL/unit * Nutritional / Prandial insulin per carb ratio of 1 unit per 7 grams CHO consumed
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
[2019-05-14] MEDS: POTASSIUM CHLORIDE 20 MEQ TABCR PO SCH ×2 (14:03→20:11)
--- NOTE | 2019-05-14 14:21 | Pulmonology Progress Note ---
Date of Service May 14, 2019 Assessment & Plan (1) Acute and chronic respiratory failure with hypoxia: The patient's status is worse. He is requiring higher FiO2. His chest x- ray has worsened. I believe the prognosis is poor. I believe it was appropriate to have the patient be a DNR as his has decided today. In light of the lack of response agree with changing to oral prednisone if he is able to swallow. His indicated the plan is to get him to [facility] with probable hospice care. The chest tube will need to stay in, otherwise the patient will have recurrent pneumothorax quite quickly. Prognosis is poor. The situation was discussed with the patient's . (2) Diffuse pulmonary alveolar hemorrhage: (3) Leucocytoclastic vasculitis: (4) Pneumothorax: Pneumothorax type: chronic pneumothorax Qualified Code(s): J93.81 - Chronic pneumothorax Subjective The patient's status has been worsening in terms of oxygenation needs. He is now on 10 L oxygen mask. The patient denies to me that he feels short of breath. 3 family members were present including his . The patient has been made a DNR today. I had discussed this extensively with his 2 days ago. No decision was made at that time however. The worsening of his status has contributed to the DNR. Also the patient's tells me that the patient hims elf called her last night and told her he wanted this to all and. He just wanted to get out. Physical Exam Physical Exam: The patient is an 83-year-old male who was cooperative. He was able to verbalize. He was a bit lethargic but had received pain medication. He did not appear in distress. ENT exam is unchanged from prior. Cardiac rate currently 113/min. The rhythm was irregularly irregular. Blood pressure 105/65. This is the lowest blood pressure he has had in the past 2 days. Chest tube is located in the right anterior chest. There is a prominent air leak. Wheezing is heard bilaterally. Respiratory rate 22. Saturation 95% on 10 L oxygen mask. Extremities again reveal +3 to +4 edema of both lower extremities. There were marked changes of vasculitis as has been seen previously. His fingers appear somewhat cyanotic. There are changes of vasculitis on the hands and distal forearms as well. Results & Data Vital Signs (Past 12 Hours) Vital Signs Temp Pulse Pulse Resp BP Pulse Ox 05/14/19 11:30 108 H 22 95 05/14/19 11:17 36.6 C 108 H 22 105/65 92 05/14/19 08:00 114 H 05/14/19 07:33 36.7 C 106 H 22 118/67 90 05/14/19 07:17 101 H 18 90 05/14/19 03:12 36.4 C L 108 H 22 100/64 95 Laboratory Results White count today 14.93. Hemoglobin 8.9. Platelets 271,000. Electrolytes show sodium 138 potassium 3.2 chloride 95 bicarb 35. BUN is 25 with a creatinine of 1.0. Blood sugar 120. AST elevated to 54, ALT elevated 81, alk phos elevated 135. proBNP today 4102. Diagnostic Findings Chest x-ray done today shows progression of the infiltrates now throughout most of the left lung and at the right lung base. There is been overall worsening compared with 2 days earlier. My opinion would be that this reflects either worsening fluid balance or worsening of the underlying pulmonary disease process. I am less inclined to think this reflects worsening pneumonia. PG Care Time/CCT Total # of Minutes Spent Total Time Spent with Patient: Total time spent is greater than 50% in coordination of care (as documented) at patient's floor/unit and/or counseling patient:
[2019-05-14] MEDS: ATORVASTATIN 40 MG TAB PO SCH (20:11)
[2019-05-14] MEDS: AMMONIUM LACTATE 12% LOTION 225 GM BTL EXT SCH (20:11)
--- NOTE | 2019-05-14 20:56 | Progress Note ---
DATE: 05/14/2019 Mr. Gutierrez was seen today. He does not look good. I have explained to Mr. Gutierrez that I really have nothing to offer him unfortunately. I wish I did. He is requiring more oxygen. He was x-rayed, really does not look as bad, I do not think. He has no pneumothorax, but he does have a small air leak. I would not be removing this chest tube at any time soon.
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
--- NOTE | 2019-05-14 23:27 | Hospitalist Progress Note ---
Date of Service May 14, 2019 Assessment & Plan (1) Acute and chronic respiratory failure with hypoxia: Patient has not been improving. It appears he has been worsening gradually since he came in a month ago with hemoptysis. He has aspects of cryptogenic organizing pneumonia in addition to obvious small vessel vasculitis. He has continue to require large amounts of steroids. Had extensive discussion with patient, specialists, and family. Patient at this time is agreeable to DNR/DNI status with no escalation in care. Will discuss with Dr. Camp in regards to chest tube. (2) Pneumothorax: Right-sided hydropneumothorax. 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 We will switch Lasix 20 mg IV twice daily to low-dose Lasix drip 3 mg IV per hour. Urine appears dark due to urobilinogen, specific gravity of the urine is not elevated. My sense that he needs more aggressive diuresis which I will start with close monitoring to renal function and I/O; Creatinine has improved. control blood pressure, afterload and preload Continue metoprolol, Lasix drip stopped Enalapril, To make room inpatient pressure for Lasix drip, and possible increase in metoprolol or Cardizem to control heart rate, also enalapril is another suspect for his vasculitis, he would be better off without it at this point until vasculitis and other issues are under control (10) Vasculitis: Currently off antiplatelets and anticoagulation Amiodarone was stopped by Dr. Deal on 05/05, course the half-life of amiodarone is extremely long, patient did improve after stopping amiodarone and starting steroids, not sure if the improvement is secondary to stopping the amiodarone or the steroids. At some point when patient got readmitted now he was not on any oral steroids and that might explain his low pressure due to relative adrenal insufficiency. But either way and as per family he is a vasculitis rebound and he has multiple extensive widespread lesions and both upper and lower extremities. Discussed with Dr. Deal. Will titrate patient back to his regular dose of prednisone. Patient received solu-medrol today. Patient has vasculitis which appears to now be affecting his extremities. 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 Also enalapril was stopped for multiple reasons 1 of them is the low pressure, second reason is that it also might cause vasculitis. 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 SPENT 70 MINUTES IN MANAGEMENT OF PATIENT 8:00 TO 8:45 9:00 TO 9:15 10:00 TO 10:10 Subjective Patient reports that he has not been improving. I discussed with nursing staff, he is requiring a larger amount of oxygen. Had discussion with [employer] and palliative care team. Had meeting with patient and . Review of Systems Respiratory: Constitutional: No fever / no chills / no sweats / no weakness / no fatigue Eyes: no blurring of vision / no eye pain / no discharge / no redness ENT: no hearing loss / no epistaxis /no swallowing problems Respiratory: Minimal cough Cardiovascular: no Chest pain / no lower extremity edema / no palpitation Abdomen: no pain / no nausea / no vomiting / no constipation Musculoskeletal: Bilateral significant foot pain Genitourinary: no dysuria / no incontinence / no urinary retention Neurologic: no focal weakness / no numbness/tingling / no ataxia Psychiatric: no depression symptoms / no anxiety / no insomnia Endocrine: no excessive thirst / no excessive urination Hematologic: no abnormal bleeding / no bruising / no LN swelling Skin: B/L feet ulcer with discharge Physical Exam Physical Exam: General: patient appears to be in no distress at this time. HEENT: Atraumatic , normocephalic /no jaundice /no pallor /anicteric /no dry mucous membrane /normal external ear inspection Neck: Supple /no swelling /central trach Heart: S1/S2 normal/regular rate and rhythm/no gallop /no rub /no murmur Lungs: Decreased air entry bilaterally,no chest wall tenderness Abdomen: Soft/nontender/no guarding/no rebound/no organomegaly/no pulsatile mass Musculoskeletal: No swelling/no edema/no tenderness/normal range of motion Neuro exam: Awake alert oriented 3/cranial nerves II through XII appear to be intact/sensation intact/moves all extremities/no abnormal movements Psychiatric evaluation: No depressed mood/normal affect Skin: wide spread vasculitic rash in both lower and upper extremities Extremity: B/L feet are wrapped and dressed. Endocrine/lymphatic: No obvious lymphadenopathy /no lymphedema Results & Data Vital Signs (Past 12 Hours) Vital Signs Temp Pulse Pulse Resp BP Pulse Ox Pulse Ox 05/14/19 23:20 36.4 C L 115 H 20 123/86 96 05/14/19 19:22 107 H 19 97 05/14/19 19:17 36.4 C L 109 H 24 130/73 94 05/14/19 16:00 112 H 92 05/14/19 15:44 36.6 C 116 H 24 111/64 97 05/14/19 15:39 108 H 22 93 05/14/19 11:30 108 H 22 95 PG Care Time/CCT Total # of Minutes Spent Total Time Spent with Patient: Total time spent is greater than 50% in coordination of care (as documented) at patient's floor/unit and/or counseling patient: Prolonged Care Time Prolonged Care Time: Yes Total Prolonged Care Time: 70 TIME NOTED IN ANALYSIS AND PLAN. (1) Pneumothorax Pneumothorax type: chronic pneumothorax Qualified Code(s): J93.81 - Chronic pneumothorax (2) CHF (congestive heart failure) Heart failure chronicity: chronic Heart failure type: unspecified Qualified Code(s): I50.9 - Heart failure, unspecified
[2019-05-15] MEDS: FUROSEMIDE 100 MG in DEXTROSE 5% 90 ML IV SCH ×2 (01:04→13:07)
[2019-05-15] MEDS: ALBUT/IPRATROP 3MG/0.5MG NEB 3 ML VIAL NEB SCH ×4 (06:51→19:10)
[2019-05-15] MEDS: PANTOprazole 40 MG TAB PO SCH (07:54)
[2019-05-15] MEDS: predniSONE 20 MG TAB PO SCH (07:54)
[2019-05-15] MEDS: DOCUSATE SODIUM 100 MG CAP PO SCH ×2 (07:54→21:35)
[2019-05-15] MEDS: DULOXETINE HCL 60 MG CAP PO SCH (07:54)
[2019-05-15] MEDS: MULTIVITAMIN TAB PO SCH ×2 (07:54→21:37)
[2019-05-15] MEDS: CHOLECALCIFEROL 1,000 UNITS TAB PO SCH (07:54)
[2019-05-15] MEDS: LACTOBACILLUS ACIDOPHILUS 1 GM PACK PO SCH ×3 (07:55→17:22)
[2019-05-15] MEDS: dilTIAZem ER 120 MG CAPCR PO SCH (07:55)
[2019-05-15] MEDS: POTASSIUM CHLORIDE 20 MEQ TABCR PO SCH ×2 (07:55→13:07)
[2019-05-15] MEDS: CALCIUM 600MG + VIT D 400 IU TAB PO SCH (07:55)
[2019-05-15] MEDS: FOLIC ACID 400 MCG TAB PO SCH (07:55)
[2019-05-15] MEDS: METOPROLOL SUCC 50MG EXT REL TAB PO SCH ×2 (07:56→21:38)
[2019-05-15] MEDS: GABAPENTIN 300 MG CAP PO SCH ×2 (07:56→21:37)
[2019-05-15] MEDS: ZINC SULFATE 220 MG CAPSULE PO SCH (07:56)
[2019-05-15] MEDS: INSULIN ASPART 100 UNITS/ML 3 ML PEN SC SCH ×4 (07:57→21:41)
[2019-05-15] MEDS: ASCORBIC ACID 500 MG TAB PO SCH (07:57)
[2019-05-15] MEDS: COLLAGENASE OINT 30 GM TUBE TOP SCH (07:57)
[2019-05-15] MEDS ORDERED: INSULIN HUMAN NPH SC SCH (08:00)
[2019-05-15] MEDS: CEFEPIME 2,000 MG in SYRINGE 7.5 ML IV SCH ×2 (08:17→21:36)
[2019-05-15] MEDS: SODIUM CHLORIDE 0.9% 500 ML IV SCH (08:25)
[2019-05-15] MEDS: DAPTOmycin 350 MG in SYRINGE 0 ML IV SCH (13:06)
[2019-05-15] MEDS: IRON POLYSACCHARIDE COMPLEX 150 MG CAPSULE PO SCH (13:06)
--- NOTE | 2019-05-15 13:59 | Infectious Disease Progress Nt ---
Date of Service May 15, 2019 Assessment & Plan (1) Acute and chronic respiratory failure with hypoxia: can continue emperic abx for now, if upon d/c pt and family wish to continue with abx, would suggest transition to Augmentin to complete 7 days. Will be available for questions, if needed. Subjective events noted from yesterday, pt is now planning to transition to comfort/hospice measures and is now DNR/DNI. He remains on emperic abx for ? pna, worsening infitrates - amio toxicity vs pna vs vasculitis. afebrile today. Results & Data Vital Signs (Past 12 Hours) Vital Signs Temp Pulse Resp BP Pulse Ox 05/15/19 11:11 102 H 16 93 05/15/19 10:55 36.8 C 104 H 19 118/78 91 05/15/19 07:58 36.4 C L 123 H 24 104/64 90 05/15/19 06:51 107 H 22 91 05/15/19 04:34 36.6 C 101 H 22 113/66 94 PG Care Time/CCT Total # of Minutes Spent Total Time Spent with Patient: Total time spent is greater than 50% in coordination of care (as documented) at patient's floor/unit and/or counseling patient:
--- NOTE | 2019-05-15 14:05 | Pharmacy Report ---
Pharmacy Glycemic Short Note 2 - Date of Service May 15, 2019 - Glycemic Short BSG Results (Last 24 hours): 05/14/19 05/14/19 05/15/19 16:29 20:25 07:26 POC Glucose 203 H 247 H 178 H 05/15/19 11:15 POC Glucose 178 H OUTPATIENT ANTIDIABETIC REGIMEN: * None * A1c 6.9% - indicates diagnosis of diabetes, suspect related to recent steroid use ASSESSMENT: * Pt only received 8 units of insulin yesterday - all correctional insulin for hyperglycemia * BSGs ranging 63-247 mg/dl * Pt with "low" BSG in the AM most likely d/t NPH given the day before vs this is just his baseline AM fasting BSG based on his A1c * NPH held yesterday which resulted in hyperglycemia that evening. * Will give a reduced dose of NPH to cover steroid induced hyperglycemia secondary to once daily NPH and continue to titrate based on BSG trends and steroid dosing. * NPH insulin is used to counteract the hyperglycemic effect of prednisone. The rationale for this approach is that the pharmacodynamics profile of NPH, with a peak effect of 4-8hrs and duration of action of 12-16hrs, mirrors the pharmacodynamics of prednisone. NPH should be dosed at the same time that prednisone is given * The dose of NPH given is dependent on the steroid dose given * For doses of prednisone 40mg/day or above --> NPH dose should be 0.4 units/kg; typically adjusted body weight is used in this calculation when BMI > 35 * NPH dosing above is given in addition to patients basal insulin needs * Typically, patients will also need rapid-acting insulin with meals PLAN FOR INPATIENT GLYCEMIC CONTROL: * Basal insulin - n/a * Steroid induced hyperglycemia w/ prednisone 60mg po daily * Reduce dose of NPH to NPH 25 units (0.3units/kg adj BW) SQ daily with prednisone * Bolus insulin - loosen CF/CR * NovoLog per scale ACHS or Q6hrs while NPO * Goal Range: Low 120 mg/dL - High 140 mg/dL * Correction Factor: 20 mg/dL/unit * Nutritional / Prandial insulin per carb ratio of 1 unit per 7 grams CHO consumed
--- NOTE | 2019-05-15 14:41 | Rheumatology Progress Note ---
Date of Service May 15, 2019 Subjective I stopped by to speak with Carlos and his Rebecca. I have been following the chart and see that he is now a no code and wants to go closer to home on hopsice care. 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 this was a courtesy visit and no charge. spent 10 minutes with them. Results & Data Vital Signs (Past 12 Hours) Vital Signs Temp Pulse Resp BP Pulse Ox 05/15/19 11:11 102 H 16 93 05/15/19 10:55 36.8 C 104 H 19 118/78 91 05/15/19 07:58 36.4 C L 123 H 24 104/64 90 05/15/19 06:51 107 H 22 91 05/15/19 04:34 36.6 C 101 H 22 113/66 94
--- NOTE | 2019-05-15 14:44 | Palliative Care Progress Note ---
Date of Service May 15, 2019 Assessment & Plan (1) Goals of care, counseling/discussion: -Patient remains on 10L oxymask during my visit this morning. Now I see that patient is on 15L. This morning he did not appear to be in distress or discomfort, but does get SOB with any exertion. Pain in right side at chest tube site is minimal this morning while he was lying in bed. -He still has a chest tube connected to wall suction. On multiple IV meds including steroids and abx. -Patient and 's goal was for patient to get to [facility] on hospice. [facility] cannot take a chest tube connected to suction and cannot accommodate 10 or 15L continuous oxygen. Max is probably 6lpm. -Spoke with Dr. West regarding barriers to discharge. Need to speak to CT surgeon and see if there are any options for chest tube--water seal/gravity at the very least-- to get patient out of hospital and closer to home. -For now, continue treatment and keep comfortable as needed. Need to call provider and family if patient has decline in condition. patient and seem to have low threshold to convert to comfort measures if decompensation occurs. (2) Leucocytoclastic vasculitis: (3) Pneumothorax: (4) Acute and chronic respiratory failure with hypoxia: Subjective Saw patient in room 234 this morning. He was on 10L oxymask, lying in bed. Denied any complaints at the time. Feeling about the same as yesterday. Review of Systems Review of Systems: + weakness + cough and + dyspnea no chest pain and no edema no abdominal pain no confusion no anxiety Physical Exam Constitutional: + overweight; no acute distress ENMT: external ear and nose normal, oropharynx normal Respiratory: + labored breathing Auscultation: + diminished lung sounds Cardiovascular: Rate/Rhythm: + irregularly irregular Gastrointestinal (Abdomen): Inspection/Auscultation: + abdomen distended (obesely distended) Neurologic: moves all extremities and awake Psychiatric: Orientation: oriented x 3 Results & Data Vital Signs (Past 12 Hours) Vital Signs Temp Pulse Resp BP Pulse Ox 05/15/19 11:11 102 H 16 93 05/15/19 10:55 36.8 C 104 H 19 118/78 91 05/15/19 07:58 36.4 C L 123 H 24 104/64 90 05/15/19 06:51 107 H 22 91 05/15/19 04:34 36.6 C 101 H 22 113/66 94 PG Care Time/CCT Total # of Minutes Spent Total Time Spent with Patient: Total time spent is greater than 50% in coordination of care (as documented) at patient's floor/unit and/or counseling patient: Time Spent Midlevel 35 minutes with >50% of the time spent at bedside with patient and IDT discussing plan of care. (1) Pneumothorax Pneumothorax type: chronic pneumothorax Qualified Code(s): J93.81 - Chronic pneumothorax
[2019-05-15] MEDS: methylPREDNISolone 60 MG in SYRINGE 0 ML IV SCH (17:22)
--- NOTE | 2019-05-15 18:39 | Pulmonology Progress Note ---
Date of Service May 15, 2019 Assessment & Plan (1) Acute and chronic respiratory failure with hypoxia: The patient continues to do poorly. He is getting more lethargic and less arousable. Unfortunately the chest tube continues to have an air leak. It is not feasible at present to remove the chest tube in light of this. The patient continues with steroids and antibiotics. (2) Diffuse pulmonary alveolar hemorrhage: (3) Leucocytoclastic vasculitis: (4) Pneumothorax: Pneumothorax type: chronic pneumothorax Qualified Code(s): J93.81 - Chronic pneumothorax Subjective The patient is very lethargic and nonverbal. His was present during this evaluation. He has been lethargic throughout the day. At times he has had worsening hypoxia. At one point he was up to 15 L on Oxymizer mask. There is been no overall significant change in status. There appears to be difficulties with transferring to a [facility] even for hospice care as they will not accept chest tubes. Physical Exam Physical Exam: Patient is an 83-year-old male who is very lethargic. He was minimally responsive. Temperature is 36.7. Examination of the patient's face reveals increased edema. This is especially noticeable around the. Currently he has oxygen mask in place at 8 L. Cardiac rate currently 102/min. Rhythm irregular. Blood pressure 113/71. Respiratory rate 22/min. Breath sounds diminished on the left. Rales are heard on the right chest. There is a right sided chest tube which has a persistent air leak. Extremities continue to show significant edema up to +4 in the lower extremities. The vasculitic skin lesions are unchanged. Results & Data Vital Signs (Past 12 Hours) Vital Signs Temp Pulse Pulse Resp BP Pulse Ox 05/15/19 18:03 91 05/15/19 16:52 102 H 05/15/19 15:38 94 05/15/19 15:36 36.7 C 107 H 22 113/71 92 05/15/19 15:15 102 H 26 H 89 L 05/15/19 11:11 102 H 16 93 05/15/19 10:55 36.8 C 104 H 19 118/78 91 05/15/19 07:58 36.4 C L 123 H 24 104/64 90 05/15/19 06:51 107 H 22 91 Laboratory Results Blood sugar today was 181. PG Care Time/CCT Total # of Minutes Spent Total Time Spent with Patient: Total time spent is greater than 50% in coordination of care (as documented) at patient's floor/unit and/or counseling patient:
[2019-05-15] MEDS: ATORVASTATIN 40 MG TAB PO SCH (21:36)
[2019-05-15] MEDS: AMMONIUM LACTATE 12% LOTION 225 GM BTL EXT SCH (21:41)
--- NOTE | 2019-05-15 21:51 | Hospitalist Progress Note ---
Date of Service May 15, 2019 Assessment & Plan (1) Acute and chronic respiratory failure with hypoxia: After discussion with and patient, plan is to transition him to hospice once he is discharge. Short term goals is to have him improve to the point where custodial facilities could accept him. Patient has not been improving over past few days. It appears he has been worsening gradually since he came in a month ago with hemoptysis. He has aspects of cryptogenic organizing pneumonia in addition to obvious small vessel vasculitis. He has continue to require large amounts of steroids. Perhaps by increasing his steroids, we can decrease his oxygen requirements. Placed on methylprednisolone q6h for the short term and will reassess oxygenation over next few days. Patient at this time is agreeable to DNR/DNI status with no escalation in care. Will discuss with Dr. Camp in regards to chest tube. Chest tube placement is also a hindrance for discharge. If patient does not improve, may need to transition to inpatient hospice. (2) Pneumothorax: Right-sided hydropneumothorax. 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 We will switch Lasix 20 mg IV twice daily to low-dose Lasix drip 3 mg IV per hour. Urine appears dark due to urobilinogen, specific gravity of the urine is not elevated. My sense that he needs more aggressive diuresis which I will start with close monitoring to renal function and I/O; Creatinine has improved. control blood pressure, afterload and preload Continue metoprolol, Lasix drip stopped Enalapril, To make room inpatient pressure for Lasix drip, and possible increase in metoprolol or Cardizem to control heart rate, also enalapril is another suspect for his vasculitis, he would be better off without it at this point until vasculitis and other issues are under control (10) Vasculitis: Currently off antiplatelets and anticoagulation Amiodarone was stopped by Dr. Deal on 05/05, course the half-life of amiodarone is extremely long, patient did improve after stopping amiodarone and starting steroids, not sure if the improvement is secondary to stopping the amiodarone or the steroids. At some point when patient got readmitted now he was not on any oral steroids and that might explain his low pressure due to relative adrenal insufficiency. But either way and as per family he is a vasculitis rebound and he has multiple extensive widespread lesions and both upper and lower extremities. Discussed with Dr. Deal. Will titrate patient back to his regular dose of prednisone. Patient received s shayna-medrol today. Patient has vasculitis which appears to now be affecting his extremities. 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 Also enalapril was stopped for multiple reasons 1 of them is the low pressure, second reason is that it also might cause vasculitis. 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 SPENT 35 MINUTES IN MANAGEMENT OF PATIENT Subjective Patient is nonverbal and appears lethargic. is at bedside for evaluation. Review of Systems Review of Systems: Unobtainable due to cognitive status Physical Exam Physical Exam: General: Patient is lethargic. HEENT: Atraumatic , normocephalic /no jaundice /no pallor /anicteric /no dry mucous membrane /normal external ear inspection Neck: Supple /no swelling /central trach Heart: S1/S2 normal/regular rate and rhythm/no gallop /no rub /no murmur Lungs: Decreased air entry bilaterally,no chest wall tenderness/ chest tube placed. Abdomen: Soft/nontender/no guarding/no rebound/no organomegaly/no pulsatile mass Musculoskeletal: No swelling/no edema/no tenderness/normal range of motion Neuro exam: Unable to obtain neuro exam. Psychiatric evaluation: No depressed mood/normal affect Skin: wide spread vasculitic rash in both lower and upper extremities Extremity: B/L feet are wrapped and dressed. Endocrine/lymphatic: No obvious lymphadenopathy /no lymphedema Results & Data Vital Signs (Past 12 Hours) Vital Signs Temp Pulse Pulse Resp BP Pulse Ox 05/15/19 19:37 36.5 C 129 H 24 135/84 92 05/15/19 19:10 116 H 24 93 05/15/19 18:03 91 05/15/19 16:52 102 H 05/15/19 15:38 94 05/15/19 15:36 36.7 C 107 H 22 113/71 92 05/15/19 15:15 102 H 26 H 89 L 05/15/19 11:11 102 H 16 93 05/15/19 10:55 36.8 C 104 H 19 118/78 91 PG Care Time/CCT Total # of Minutes Spent Total Time Spent with Patient: Total time spent is greater than 50% in coordination of care (as documented) at patient's floor/unit and/or counseling patient: (1) Pneumothorax Pneumothorax type: chronic pneumothorax Qualified Code(s): J93.81 - Chronic pneumothorax (2) CHF (congestive heart failure) Heart failure chronicity: chronic Heart failure type: unspecified Qualified Code(s): I50.9 - Heart failure, unspecified
[2019-05-16] MEDS: methylPREDNISolone 60 MG in SYRINGE 0 ML IV SCH ×3 (00:10→12:22)
[2019-05-16] MEDS: SODIUM CHLORIDE 0.9% 500 ML IV SCH (06:05)
[2019-05-16] MEDS: ALBUT/IPRATROP 3MG/0.5MG NEB 3 ML VIAL NEB SCH ×4 (06:56→19:04)
[2019-05-16 07:52] LABS: BUN Creatinine Ratio 27.6 (10-20); Calcium 8.5 mg/dl (8.5-10.1); Creatinine Clr Calc Pharmacy 70.6 ml/min; Est GFR (African American) 82.4; Est GFR (Non-African American) 71.1; Magnesium 2.5 mg/dl (1.8-2.4); Potassium 3.9 mmol/L (3.5-5.1)
[2019-05-16 07:54] LABS: Phosphorus 2.9 mg/dl (2.5-4.9)
--- NOTE | 2019-05-16 08:04 | Progress Note ---
DATE: 05/15/2019 Mr. Gutierrez was seen today. He does not look good to me today. I wish I had more to offer him. He still has a small air leak. He is draining very little from this tube. He has put out about 50 mL. I think he could be discharged if he is going to be on hospice care with a Heimlich valve in place. We will get this set up in the morning. Very sick man, but I believe this vasculitis is probably the etiology.
[2019-05-16] MEDS: INSULIN ASPART 100 UNITS/ML 3 ML PEN SC SCH ×2 (08:23→12:21)
[2019-05-16] MEDS: dilTIAZem ER 120 MG CAPCR PO SCH (08:25)
[2019-05-16] MEDS: CEFEPIME 2,000 MG in SYRINGE 7.5 ML IV SCH (08:25)
[2019-05-16] MEDS: LACTOBACILLUS ACIDOPHILUS 1 GM PACK PO SCH ×2 (08:25→12:22)
[2019-05-16] MEDS: DOCUSATE SODIUM 100 MG CAP PO SCH (08:25)
[2019-05-16] MEDS: GABAPENTIN 300 MG CAP PO SCH (08:25)
[2019-05-16] MEDS: DULOXETINE HCL 60 MG CAP PO SCH (08:25)
[2019-05-16] MEDS: COLLAGENASE OINT 30 GM TUBE TOP SCH (08:25)
[2019-05-16] MEDS: FOLIC ACID 400 MCG TAB PO SCH (08:25)
[2019-05-16] MEDS: CALCIUM 600MG + VIT D 400 IU TAB PO SCH (08:25)
[2019-05-16] MEDS: PANTOprazole 40 MG TAB PO SCH (08:25)
[2019-05-16] MEDS: MULTIVITAMIN TAB PO SCH (08:25)
[2019-05-16] MEDS: ZINC SULFATE 220 MG CAPSULE PO SCH (08:26)
[2019-05-16] MEDS: ASCORBIC ACID 500 MG TAB PO SCH (08:26)
[2019-05-16] MEDS: CHOLECALCIFEROL 1,000 UNITS TAB PO SCH (08:26)
[2019-05-16] MEDS ORDERED: METOPROLOL SUCC 50MG EXT REL TAB PO SCH (09:00)
[2019-05-16] MEDS ORDERED: INSULIN GLARGINE SOLOSTAR 100 UNITS/ML 3 ML PEN SC SCH (09:00)
--- NOTE | 2019-05-16 10:03 | Palliative Care Progress Note ---
Date of Service May 16, 2019 Assessment & Plan (1) Goals of care, counseling/discussion: - I met with patient in his room. Pt indicated that he is "ready to ". We discussed what that means and he says " I am ready, I feel comfortable, I have talked with my " -His was not at the bedside, but I did meet with her soon after. She is in agreement with a full transition to comfort measures only, in lieu of his worsening respiratory status and not showing clinical signs of improvement. -Patient is currently requiring 12L oxy mask. -All nonessential medications, blood work, vital signs were discontinued. -The hospitalist also came to discuss further with the patient and family. No indication for GIP as his symptoms are being controlled at this time. -Bereavement discussed with the family and all are fully understanding of his grim prognosis. Dr. Camp paid patient a visit as well and supported comfort measures only transition. -IV Morphine, Atropine gtts, and IV Ativan ordered. -Palliative care will continue to offer supportive care to this patient and family. I anticipate hours to a day or two for life expectancy. patient will be transferred out of PCU pending bed availability -PPS: 10% (2) Leucocytoclastic vasculitis: (3) Pneumothorax: (4) Acute and chronic respiratory failure with hypoxia: Subjective The patient, upon my entering was in respiratory distress, using accessory muscles and saying "I am ready" No family at bedside. Patient was called and came to the room to discuss. See A/P for further details. Review of Systems Review of Systems: Pt states + cough, + labored breathing Physical Exam Constitutional: + acute distress and + ill appearing Eyes: PERRL, conjunctivae normal, anicteric sclerae ENMT: external ear and nose normal, oropharynx normal Respiratory: + respiratory distress, + uses accessory muscles and + cough Auscultation: + crackles Cardiovascular: Heart Sounds: normal S1 and normal S2 Extremities: normal capillary refill Gastrointestinal (Abdomen): normal bowel sounds, soft, nontender, no hepatosplenomegaly Skin: + excoriations Psychiatric: Orientation: alert and oriented x 3 Insight: good insight Judgement: good judgement Lymphatic: no cervical or axillary lymphadenopathy Results & Data Vital Signs (Past 12 Hours) Vital Signs Temp Pulse Pulse Pulse Resp BP Pulse Ox 05/16/19 07:34 36.4 C L 104 H 19 133/79 90 05/16/19 07:17 123 H 05/16/19 06:58 114 H 18 93 05/16/19 03:05 36.7 C 108 H 19 158/79 H 92 05/15/19 23:33 36.6 C 127 H 20 115/69 91 05/15/19 22:20 117 H PG Care Time/CCT Total # of Minutes Spent Total Time Spent with Patient: Total time spent is greater than 50% in coordination of care (as documented) at patient's floor/unit and/or counseling patient: 35 Time Spent Midlevel total time spent 35 minutes with > 50% of that time spent assessing the patient, discussing goals of care and symptom management. (1) Pneumothorax Pneumothorax type: chronic pneumothorax Qualified Code(s): J93.81 - Chronic pneumothorax
[2019-05-16] MEDS: IRON POLYSACCHARIDE COMPLEX 150 MG CAPSULE PO SCH (11:28)
[2019-05-16] MEDS ORDERED: LORazepam 0.5 MG/1 ML VIAL IV PRN (11:37)
[2019-05-16] MEDS: MoRPHine SULFATE 2 MG/ML CARP IV PRN ×8 (11:59→21:39)
[2019-05-16] MEDS: DAPTOmycin 350 MG in SYRINGE 0 ML IV SCH (12:22)
--- NOTE | 2019-05-16 12:36 | Hospitalist Progress Note ---
Date of Service May 16, 2019 Assessment & Plan (1) Acute and chronic respiratory failure with hypoxia: After discussion with and patient, plan is to transition him to hospice. Palliative care on the board following pt and placing comfort orders. Pt and pt are aware of grim prognosis. Pt requested all life sustaining treatments to be withdrawn and to start comfort care only. Pt agrees , she is at the bedside. (2) Pneumothorax: Right-sided hydropneumothorax. Dr. Camp said he will not remove it but will put led on it. Pt requested comfort care only. Continue supplemental O2 to make pt comfortable. 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 Hospice care on their way to speak to the family. Subjective The patient is resting in bed in apparent distress and in process of dying. Patient is next to his bedside and she agrees with comfort care only and measures that palliative care will take to assure the comfort. Pt wants all medication to be withdrawn that is going to sustain his life further on . will start to have patient on comfort.Pt hypoxia is worsening and now pt is on 10 L of O2. There is been no overall significant change in status. There appears to be difficulties with transferring to a retirement even for hospice care as they will not accept chest tubes.The case discussed with Dr. Camp and he did not recommend removal of the chest tube since that would case pt lung to collapse.Pt will stay in the hospital on hospice care as per agreement with his .All support and compassion given to pt and his .Dr. Camp agreed that pt is now hospice care and his prognosis is grim. Review of Systems Respiratory: Constitutional: No fever / no chills / no sweats / no weakness / no fatigue Eyes: no blurring of vision / no eye pain / no discharge / no redness ENT: no hearing loss / no epistaxis /no swallowing problems Respiratory:cough Cardiovascular: no Chest pain / no lower extremity edema / no palpitation Abdomen: no pain / no nausea / no vomiting / no constipation Musculoskeletal: Bilateral significant foot pain Genitourinary: no dysuria / no incontinence / no urinary retention Neurologic: no focal weakness / no numbness/tingling / no ataxia Psychiatric: no depression symptoms / no anxiety / no insomnia Endocrine: no excessive thirst / no excessive urination Hematologic: no abnormal bleeding / no bruising / no LN swelling Skin: worsening vasculitis all over pt body Physical Exam Physical Exam: worsening vascularis, bloody and spreading all over pt body. Constitutional: WD/WN, vitals as above well developed and + obese Eyes: PERRL, conjunctivae normal, anicteric sclerae ENMT: external ear and nose normal, oropharynx normal Neck: trachea midline, no thyromegaly Respiratory: Auscultation: + breath sounds absent (Right lower lobe), + rales, + wheezes and + pleural rub present Cardiovascular: Rate/Rhythm: + irregularly irregular Musculoskeletal: no cyanosis or clubbing, extremities motor strength 5/5 Neurologic: patellar DTR's 2+ bilat, sensation intact Psychiatric: A+Ox3, euthymic affect Genitourinary: no testicular masses, no penis abnormality Lymphatic: no cervical or axillary lymphadenopathy Results & Data Vital Signs (Past 12 Hours) Vital Signs Temp Pulse Pulse Pulse Resp BP Pulse Ox 05/16/19 11:41 115 H 22 92 05/16/19 11:20 36.4 C L 116 H 17 130/90 90 05/16/19 07:34 36.4 C L 104 H 19 133/79 90 05/16/19 07:17 123 H 05/16/19 06:58 114 H 18 93 05/16/19 03:05 36.7 C 108 H 19 158/79 H 92 PG Care Time/CCT Total # of Minutes Spent Total Time Spent with Patient: Total time spent is greater than 50% in coordination of care (as documented) at patient's floor/unit and/or counseling patient: (1) Pneumothorax Pneumothorax type: chronic pneumothorax Qualified Code(s): J93.81 - Chronic pneumothorax (2) CHF (congestive heart failure) Heart failure chronicity: chronic Heart failure type: unspecified Qualified Code(s): I50.9 - Heart failure, unspecified
--- NOTE | 2019-05-16 14:07 | Progress Note ---
DATE: 05/16/2019 The patient was seen today. His oxygenation is worsening. He has been made comfort measures only. I talked to the patient and his . He understands he is at end of life. We will keep him as comfortable as possible. This chest tube will need to stay in place. If there are any issues, I may call, but I do not think we are going to do anything different with his chest tube. He is not going to leave the hospital.
[2019-05-16] MEDS: FUROSEMIDE 100 MG in DEXTROSE 5% 90 ML IV SCH (14:09)
[2019-05-16] MEDS: LORazepam 1 MG/2 ML VIAL IV PRN (18:05)
[2019-05-17] MEDS: MoRPHine SULFATE 2 MG/ML CARP IV PRN ×6 (00:32→09:32)
[2019-05-17] MEDS: ALBUT/IPRATROP 3MG/0.5MG NEB 3 ML VIAL NEB SCH ×4 (07:28→19:13)
[2019-05-17] MEDS: predniSONE 20 MG TAB PO SCH (08:15)
[2019-05-17] MEDS ORDERED: FOLIC ACID 1 MG TAB PO SCH (09:00)
[2019-05-17] MEDS ORDERED: LACTOBACILLUS ACIDOPHILUS (FLORANEX) TAB PO SCH (09:00)
[2019-05-17] MEDS ORDERED: LISINOPRIL 40 MG TAB PO SCH (09:00)
[2019-05-17] MEDS ORDERED: MoRPHine SULF/NSS 250 MG/250 ML BTL IV PRN (10:00)
[2019-05-17] MEDS ORDERED: MoRPHine SULF/NSS 100 MG/100 ML BAG IV SCH (10:15)
[2019-05-17] MEDS: LORazepam 1 MG/2 ML VIAL IV PRN ×2 (10:28→21:46)
[2019-05-17] MEDS ORDERED: SCOPOLAMINE 1.5 MG TDSY TD SCH (13:15)
--- NOTE | 2019-05-17 13:15 | Hospitalist Progress Note ---
Date of Service May 17, 2019 Assessment & Plan (1) Acute and chronic respiratory failure with hypoxia: Continue hospice as requested per pt and his for terminal illness. Pt and his requested Morphine drip to relieve his lower extremities pain and discomfort. Placed scopolamine patch. Palliative care on the board. Pt and pt are aware of grim prognosis. Pt requested all life sustaining treatments to be withdrawn and to start comfort care only. Pt agrees , she is at the bedside. (2) Pneumothorax: Right-sided hydropneumothorax. Dr. Camp said he will not remove since the right lung would collapse. Pt requested comfort care only. Continue supplemental O2 to make pt comfortable. 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 Subjective Patient seen and examined at the bedside. This morning patient appears sleeping comfortably but his said that he was complaining of lower extremities pain and he requested morphine drip for more comfort measures. Patient stated that he wants to be comfortable and that he is ready. Patient and his requested to remove all medication and procedures that may sustain patient and they requested only comfort. Scopolamine patch placed as well. Patient his want patient to be on hospice care. Review of Systems Review of Systems: All systems reviewed & are unremarkable except as noted in HPI & below Respiratory: Constitutional: No fever / no chills / no sweats / no weakness / no fatigue Eyes: no blurring of vision / no eye pain / no discharge / no redness ENT: no hearing loss / no epistaxis /no swallowing problems Respiratory:cough Cardiovascular: no Chest pain / no lower extremity edema / no palpitation Abdomen: no pain / no nausea / no vomiting / no constipation Musculoskeletal: Bilateral significant foot pain Genitourinary: no dysuria / no incontinence / no urinary retention Neurologic: no focal weakness / no numbness/tingling / no ataxia Psychiatric: no depression symptoms / no anxiety / no insomnia Endocrine: no excessive thirst / no excessive urination Hematologic: no abnormal bleeding / no bruising / no LN swelling Skin: worsening vasculitis all over pt body Physical Exam Constitutional: WD/WN, vitals as above well developed and + obese Patient is comfortably sleeping, he is on comfort care only and on hospice care. Eyes: Patient is now on comfort care as requested for terminal illness and he is comfortable and sleeping. Neck: trachea midline, no thyromegaly Respiratory: Auscultation: + breath sounds absent (Right lower lobe), + rales, + wheezes and + pleural rub present Cardiovascular: Rate/Rhythm: + irregularly irregular Neurologic: patellar DTR's 2+ bilat, sensation intact Psychiatric: A+Ox3, euthymic affect Genitourinary: no testicular masses, no penis abnormality Lymphatic: no cervical or axillary lymphadenopathy PG Care Time/CCT Total # of Minutes Spent Total Time Spent with Patient: Total time spent is greater than 50% in coordination of care (as documented) at patient's floor/unit and/or counseling patient: (1) Pneumothorax Pneumothorax type: chronic pneumothorax Qualified Code(s): J93.81 - Chronic pneumothorax (2) CHF (congestive heart failure) Heart failure chronicity: chronic Heart failure type: unspecified Qualified Code(s): I50.9 - Heart failure, unspecified
[2019-05-17] MEDS: CHECK SCOPOLAMINE PATCH PLACEMENT SCH ×2 (15:54→22:55)
[2019-05-17] MEDS: ATROPINE SULFATE 1% OP SOLN 2 ML BTL SL PRN ×2 (19:54→21:56)
[2019-05-24] MEDS ORDERED: CYANOCOBALAMIN 1000 MCG/ML VIAL IM SCH (09:00)
--- NOTE | 2019-05-30 10:22 | Discharge Summary ---
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 Patient had a chest x-ray today by [facility] where he is sent for senior living and was sent to the emergency room because of the increase in size of the large large right hydropneumothorax in comparison on to the chest x-ray from May 04, 2019 which was 4 days ago. Patient per se was not significantly short of breath he was denying fever chills chest pain hemoptysis abdominal pain frequency urgency and or any other issue. Patient is poor historian and he is in the gets anxious. Patient labs were reviewed which showed white blood cell count of 10.97 hemoglobin of 11.8 hematocrit of 38.5 platelet count of 221, sodium 138 potassium 4.2 chloride 97 BUN 36 creatinine 1.02 GFR 68.5 BUN/creatinine creatinine 25.4 calcium 8.4 total bilirubin 1.1 BMP 2915 Albumin 2.7 AST 33 ALT 63 alkaline phosphatase 92. PT 12.2 INR 1.2 APTT 21.7. -Chest x-ray significant for increase in size of a large right hydropneumothorax since chest radiograph and chest CT of May 04, 2019. Persistent interstitial thickening and airspace opacity within the lungs which may reflect pulmonary edema or pneumonia. -ER physician Dr. Gaines discussed the case with , thoracic surgery who is going to see the patient's at the bedside as soon as possible for evaluation and treatment of hydropneumothorax. The case was discussed and decision was made to admit patientThoracal surgery to the PCU on telemetry. Principal Diagnosis none Discharge Data Allergies Allergy/AdvReac Type Severity Reaction Status Date / Time allopurinol Allergy Severe Anaphylaxis Verified 05/08/19 17:14 bee venom protein (honey bee) Allergy Severe ANAPHYLAXIS Verified 05/08/19 14:02 dapsone Allergy Severe Anaphylaxis Verified 05/08/19 14:02 rofecoxib Allergy Severe PULMONARY Verified 05/08/19 14:02 EDEMA fentanyl AdvReac Intermediate Hallucinati Verified 05/08/19 14:02 ons Consultations 05/14/19 10:00 Consult Palliative Care Routine Hospital Course (1) Acute and chronic respiratory failure with hypoxia: Continue hospice as requested per pt and his for terminal illness. Pt and his requested Morphine drip to relieve his lower extremities pain and discomfort. Placed scopolamine patch. Palliative care on the board. Pt and pt are aware of grim prognosis. Pt requested all life sustaining treatments to be withdrawn and to start comfort care only. Pt agrees , she is at the bedside. (2) Pneumothorax: Right-sided hydropneumothorax. Dr. Camp said he will not remove since the right lung would collapse. Pt requested comfort care only. Continue supplemental O2 to make pt comfortable. 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 Total Time Total Time Spent Total Time Spent (In Minutes): over 35 min Discharge Plan Discharge Items Patient Disposition: Reason For Visit: RT SIDED PNEUMOTHORAX Follow-up/Referrals: [facility]/Other Patient Handouts: Diabetes Resources, Diabetes Type 2 Coping, Diabetes Healthy Meals, Diabetes Carbs, Diabetes Exercise Benefits, Diabetes Exercise Get Started, Diabetes Activity Tips, Diabetes Manage A1C Test Admission Data Admit Date/Time: 05/08/19 14:51 Attending Provider: Kaushal West Admit Provider: Josh Oh Primary Care Provider: Diana Ventura Other Providers: Estrella Zarco Jonathan Camp ; Silverio Smith ; Tina Chavez ; Jonathan Mccray ; Silverio Rodriguez Service: Medical Other DC Date/Time DO NOT enter until pt leaves facility: 05/18/19 06:28
--- NOTE | 2019-05-30 10:55 | Death Summary ---
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 Pronounced by Dr. Dr. Khoa Callahan M.D. (1) Acute and chronic respiratory failure with hypoxia: Continue hospice as requested per pt and his for terminal illness. Pt and his requested Morphine drip to relieve his lower extremities pain and discomfort. Placed scopolamine patch. Palliative care on the board. Pt and pt are aware of grim prognosis. Pt requested all life sustaining treatments to be withdrawn and to start comfort care only. Pt agrees , she is at the bedside. (2) Pneumothorax: Right-sided hydropneumothorax. Dr. Camp said he will not remove since the right lung would collapse. Pt requested comfort care only. Continue supplemental O2 to make pt comfortable. 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
== END 2019-05-18 06:28 | disposition expired | DRG 199 ==
LOC: ED 12:51 → SUATTDRO 14:51 → 2S 14:51 → 4W 05-16 17:20
DX: I25.10 Atherosclerotic heart disease of native coronary artery without angina pectoris; G47.33 Obstructive sleep apnea (adult) (pediatric); I50.23 Acute on chronic systolic (congestive) heart failure; T46.2X5A Adverse effect of other antidysrhythmic drugs, initial encounter; I77.6 Arteritis, unspecified; M10.9 Gout, unspecified; Z51.5 Encounter for palliative care; Z79.52 Long term (current) use of systemic steroids; J93.81 Chronic pneumothorax; E78.5 Hyperlipidemia, unspecified; J96.21 Acute and chronic respiratory failure with hypoxia; R33.9 Retention of urine, unspecified; Z79.899 Other long term (current) drug therapy; L97.523 Non-pressure chronic ulcer of other part of left foot with necrosis of muscle; R91.8 Other nonspecific abnormal finding of lung field; Z66 Do not resuscitate; Z68.39 Body mass index [BMI] 39.0-39.9, adult; K08.89 Other specified disorders of teeth and supporting structures; L97.513 Non-pressure chronic ulcer of other part of right foot with necrosis of muscle; J94.8 Other specified pleural conditions; E66.01 Morbid (severe) obesity due to excess calories; T38.0X6A Underdosing of glucocorticoids and synthetic analogues, initial encounter; K21.9 Gastro-esophageal reflux disease without esophagitis; E27.40 Unspecified adrenocortical insufficiency; B95.61 Methicillin susceptible Staphylococcus aureus infection as the cause of diseases classified elsewhere; I11.0 Hypertensive heart disease with heart failure; I48.91 Unspecified atrial fibrillation